=== PATIENT | male | born 1945 | race Caucasian/White ===

== ENCOUNTER 2018-08-29 18:29 | Inpatient (IN) | payer MEDICARE, OTHER ==
[~2018-08-29] VITALS: Ht 167.6 cm; Wt 88.5 kg
--- OUTSIDE RECORDS SUMMARY | 2018-08-29 19:00 | XMS REPORT | CCD ---
Author Author EDMUNDO CORTES Organization Unknown Address [address] [place] [address] Care Team Providers Care Dry Plasterer Name Role Phone DELORES WALLER DO Attphys TAMMIE LYNCH, CHRISTOPHER Jackson HOLGA Fisher Allergies Allergy Code Allergy Type Reaction Status DEMEROL 742900 Drug allergy 1987 POST OP HERNIA CAUSED N/ V Active Active Medications Medication Code Dose Units Frequency Route Modification Start Date/Time ACYCLOVIR IV(PREDEFINED) Q4H IVPB 07/11/2016 13:36 ~~ ACYCLOVIR [ZOVIRAX] INJ : 500 MG VIAL 2630090 500 MG ~~ DO NOT REFRIGERATE!!!!! [id number] 1 EA ~~ NACL 0.9%: 100 ML BAG 9511331 1 EA VANCOMYCIN [PREDEFINED] ADV IV : 1000MG [id number] Q12H IVPB 07/11/2016 08:00 ~~ NACL 0.9% ADD-VANTAGE: 250 ML BAG 4349488 250 ML ~~ VANCOMYCIN: 1 GM ADD-VANTAGE VIAL 2858454 9093 MG DOXYCYCLINE IV 100 MG [PREDEFINED] Q12H IVPB 07/11/2016 06:00 ~~ DOXYCYCLINE (VIBRAMYCIN)VIAL: 100 MG 4744108 100 MG ~~ NACL 0.9%: 100 ML BAG 5596203 100 ML ~~ PROTECT FROM LIGHT [id number] 1 EA ~~ REFRIGERATE [id number] 1 EA ROCEPHIN IV [PREDEFINED]: 1GM IV Q 24 HR 6783494 Q24H IVPB 07/11/2016 05:45 ~~ cefTRIAXone [ROCEPHIN] 1 GM ADV VIAL 3624779 1 GM ~~ NACL 0.9% ADD-VANTAGE: 50 ML BAG 8347673 50 ML ACETAMINOPHEN [TYLENOL] SUPPOS : 650MG 632340 650 MG PRN RECTALLY 07/11/2016 05:27 INSULIN [REGULAR] 100 UNITS/ML (IV) PRN INTRAVENOUS 07/11/2016 02:58 D5 1/2NS 1000ML IV [PREDEFINED] 6917455 CONT IV IV 07/11/2016 01:44 ~~ D5 0.45%NACL (7926)1000ML BAG 7085344 8571 ML HALOPERIDOL [HALDOL] INJ: 5MG/ML VIAL 1616706 1 MG PRN IV 07/11/2016 01:01 NS 1000 ML IV [PREDEFINED] (7983) 7377279 CONT IV IV 07/10/2016 23:52 ~~ NACL 0.9% (7983) 1000ML IV BAG 0554767 5672 ML HydrALAzine [APRESOLINE] 20 MG/1ML VIAL 651829 10 MG PRN Q 4 HRS SIVP 07/10/2016 23:42 ACETAMINOPHEN ES [TYLENOL] TAB : 500 MG 531044 500 MG PRN PO 07/10/2016 23:38 LORAZEPAM (ATIVAN) INJ : 2 MG/ML TUBEX 563603 1 MG PRN IVP 07/10/2016 23:38 ONDANSETRON [ZOFRAN] INJ 4 MG/2 ML VIAL 3738727 4 MG PRN SIVP 07/10/2016 23:38 PANTOPRAZOLE [PROTONIX] INJ VIAL: 40 MG 625759 40 MG DAILY SIVP 07/10/2016 23:38 Procedures Procedure Code Procedure Type Date Drainage of Spinal Canal, Percutaneous Approach, Diagnostic [id number] ICD-10 PCS 07/11/2016 CX CHEST [id number] 07/11/2016 CX CHEST [address] 07/11/2016 CX CHEST [address] 07/10/2016 CT HEAD W/O CONTRAST 027919328 SNOMED CT 07/10/2016 BEDSIDE GLUCOSE 35484322 SNOMED CT 07/10/2016 BEDSIDE GLUCOSE 33974305 SNOMED CT 07/10/2016 BEDSIDE GLUCOSE 32347463 SNOMED CT 07/11/2016 BEDSIDE GLUCOSE 57813564 SNOMED CT 07/11/2016 BEDSIDE GLUCOSE 80940544 SNOMED CT 07/11/2016 CSF ROUTINE EXAM 960314069 SNOMED CT 07/11/2016 BEDSIDE GLUCOSE 81551590 SNOMED CT 07/11/2016 [address]99[address]12 [address] 07/11/2016 BEDSIDE GLUCOSE 77950044 SNOMED CT 07/11/2016 BEDSIDE GLUCOSE 40702908 SNOMED CT 07/11/[address] 07/11/2016 BEDSIDE GLUCOSE 69863310 SNOMED CT 07/11/2016 BEDSIDE GLUCOSE 87851898 SNOMED CT 07/11/2016 LACTIC AC[address] 8085159 [address] 07/11/2016 BEDSIDE GLUCOSE 10954793 SNOMED CT 07/11/2016 BEDSIDE GLUCOSE 90819250 SNOMED CT 07/11/2016 CULTURE SPUTUM 996789516 SNOMED CT 07/11/2016 CULTURE BLOOD 53552419 SNOMED CT 07/11/2016 CULTURE BLOOD 78871502 SNOMED CT 07/11/2016 BEDSIDE GLUCOSE 16185712 SNOMED CT 07/11/2016 BEDSIDE GLUCOSE 88147877 SNOMED CT 07/11/2016 BEDSIDE GLUCOSE 99909669 SNOMED CT 07/11/2016 BEDSIDE GLUCOSE 83895922 SNOMED CT 07/11/2016 VENOUS BLOOD GAS 25829716 SNOMED CT 07/11/2016 BEDSIDE GLUCOSE 47766365 SNOMED CT 07/11/2016 UA ROUTINE C&S IF IND 196417434 SNOMED CT 07/10/[address] 07/11/[address]GLOBIN A1C 57983926 SNOM[address] CT 07/11/2016 LIPID PANEL 068[address]67 [address] 07/11/[address] 07/11/[address] 07/11/2016 COMPREHENSIVE METABOLIC PANEL 985635539 SNOMED CT 2016 CBC W/ AUTO DIFF (RFLX MAN DIFF IF IND) 2793614 SNOMED CT 07/11/2016 BEDSIDE GLUCOSE 47466517 SNOMED CT 07/10/2016 TROPONIN-I ADV 651637169 SNOMED CT 07/10/2016 VENOUS BLOOD GAS 30233471 SNOMED CT 07/10/2016 COMPREHENSIVE METABOLIC PANEL 753376165 SNOMED CT 2016 CBC W/ AUTO DIFF (RFLX MAN DIFF IF IND) 6005513 SNOMED CT 07/10/2016 TECH ASSIST HOURLY 450844193 SNOMED CT 07/11/2016 ^SENSITIVITY 624953609 SNOMED CT 07/11/2016 ^CBC W/ MANUAL DIFF 19024066 SNOMED CT 07/11/2016 ^UA WITH MICRO 133369315 SNOMED CT 07/11/2016 ^CBC W/AUTO DIFF 7492036 SNOMED CT 07/10/2016 Results BEDSIDE GLUCOSE - Collect Date/Time: 07/11/2016 17:24 Test Name Code Test Result Test Units Test Ref Range GLUCOSE POCT 201 MG/DL L=70 H=100 BEDSIDE GLUCOSE - Collect Date/Time: 07/11/2016 16:07 Test Name Code Test Result Test Units Test Ref Range GLUCOSE POCT 180 MG/DL L=70 H=100 BEDSIDE GLUCOSE - Collect Date/Time: 07/11/2016 14:58 Test Name Code Test Result Test Units Test Ref Range GLUCOSE POCT 199 MG/DL L=70 H=100 BEDSIDE GLUCOSE - Collect Date/Time: 07/11/2016 13:27 Test Name Code Test Result Test Units Test Ref Range GLUCOSE POCT 255 MG/DL L=70 H=100 BEDSIDE GLUCOSE - Collect Date/Time: 07/11/2016 12:18 Test Name Code Test Result Test Units Test Ref Range GLUCOSE POCT 230 MG/DL L=70 H=100 BEDSIDE GLUCOSE - Collect Date/Time: 07/11/2016 10:58 Test Name Code Test Result Test Units Test Ref Range GLUCOSE POCT 237 MG/DL L=70 H=100 BEDSIDE GLUCOSE - Collect Date/Time: 07/11/2016 09:33 Test Name Code Test Result Test Units Test Ref Range GLUCOSE POCT 313 MG/DL L=70 H=100 BEDSIDE GLUCOSE - Collect Date/Time: 07/11/2016 08:29 Test Name Code Test Result Test Units Test Ref Range GLUCOSE POCT 309 MG/DL L=70 H=100 BEDSIDE GLUCOSE - Collect Date/Time: 07/11/2016 06:58 Test Name Code Test Result Test Units Test Ref Range GLUCOSE POCT 380 MG/DL L=70 H=100 BEDSIDE GLUCOSE - Collect Date/Time: 07/11/2016 06:06 Test Name Code Test Result Test Units Test Ref Range GLUCOSE POCT 352 MG/DL L=70 H=100 BEDSIDE GLUCOSE - Collect Date/Time: 07/11/2016 05:14 Test Name Code Test Result Test Units Test Ref Range GLUCOSE POCT 342 MG/DL L=70 H=100 BEDSIDE GLUCOSE - Collect Date/Time: 07/11/2016 04:05 Test Name Code Test Result Test Units Test Ref Range GLUCOSE POCT 298 MG/DL L=70 H=100 BEDSIDE GLUCOSE - Collect Date/Time: 07/11/2016 03:02 Test Name Code Test Result Test Units Test Ref Range GLUCOSE POCT 312 MG/DL L=70 H=100 BEDSIDE GLUCOSE - Collect Date/Time: 07/11/2016 01:42 Test Name Code Test Result Test Units Test Ref Range GLUCOSE POCT 202 MG/DL L=70 H=100 BEDSIDE GLUCOSE - Collect Date/Time: 07/11/2016 00:09 Test Name Code Test Result Test Units Test Ref Range GLUCOSE POCT 390 MG/DL L=70 H=100 BEDSIDE GLUCOSE - Collect Date/Time: 07/10/2016 23:27 Test Name Code Test Result Test Units Test Ref Range GLUCOSE POCT 413 MG/DL L=70 H=100 BEDSIDE GLUCOSE - Collect Date/Time: 07/10/2016 22:38 Test Name Code Test Result Test Units Test Ref Range GLUCOSE POCT 29090-2 >500 MG/DL L=70 H=100 BEDSIDE GLUCOSE - Collect Date/Time: 07/10/2016 21:27 Test Name Code Test Result Test Units Test Ref Range GLUCOSE POCT 46008-2 >500 MG/DL L=70 H=100 COMPREHENSIVE METABOLIC PANEL - Collect Date/Time: 07/11/2016 06:36 Test Name Code Test Result Test Units Test Ref Range GLUCOSE 2345-7 402 MG/DL L=70 H=100 SODIUM 2951-2 137 MEQ/L L=135 H=148 POTASSIUM 2823-3 3.6 MEQ/L L=3.5 H=5.3 CHLORIDE 2075-0 100 MEQ/L L=96 H=110 CO2 2028-9 23 MEQ/L L=22 H=29 BUN 3094-0 12 MG/DL L=8 H=22 CREATININE 2160-0 1.2 MG/DL L=0.6 H=1.6 SGOT/AST 1920-8 18 IU/L L=10 H=40 SGPT/ALT 1742-6 11 IU/L L=8 H=54 ALK PHOS 6768-6 100 IU/L L=35 H=115 TOTAL PROTEIN 2885-2 7.2 G/DL L=5.5 H=8.5 ALBUMIN 1751-7 3.7 G/DL L=3.1 H=5.4 TOTAL BILI 1975-2 1.2 MG/DL L=0.0 H=1.5 CALCIUM 65896-1 9.8 MG/DL L=8.2 H=10.6 AGE [birth year]21-8 71 yrs GFR NonAA 50474-5 60 GFR AA 23384-8 73 eGFR 73618-6 60 mL/min/1.7 eGFR AA* 43578-2 >60 N/A COMPREHENSIVE METABOLIC PANEL - Collect Date/Time: 07/10/2016 21:35 Test Name Code Test Result Test Units Test Ref Range GLUCOSE 2345-7 700 MG/DL L=70 H=100 SODIUM 2951-2 133 MEQ/L L=135 H=148 POTASSIUM 2823-3 4.1 MEQ/L L=3.5 H=5.3 CHLORIDE 2075-0 96 MEQ/L L=96 H=110 CO2 2028-9 20 MEQ/L L=22 H=29 BUN 3094-0 14 MG/DL L=8 H=22 CREATININE 2160-0 1.5 MG/DL L=0.6 H=1.6 SGOT/AST 1920-8 11 IU/L L=10 H=40 SGPT/ALT 1742-6 11 IU/L L=8 H=54 ALK PHOS 6768-6 127 IU/L L=35 H=115 TOTAL PROTEIN 2885-2 7.6 G/DL L=5.5 H=8.5 ALBUMIN 1751-7 3.8 G/DL L=3.1 H=5.4 TOTAL BILI 1975-2 1.0 MG/DL L=0.0 H=1.5 CALCIUM 13904-6 9.9 MG/DL L=8.2 H=10.6 AGE 71 yrs GFR NonAA 46 GFR AA 56 eGFR 46 mL/min/1.7 eGFR AA* 56 mL/min/1.7 LIPID PANEL - Collect Date/Time: 07/11/2016 06:36 Test Name Code Test Result Test Units Test Ref Range TRIGLYCERIDES 3043-7 67 MG/DL L=0 H=135 CHOLESTEROL 2093-3 206 MG/DL L=0 H=199 HDL 2085-9 51 MG/DL L=27 H=67 TOT CHOL/HDL 69146-5 4.0 L=0.0 H=5.0 LDL (CALC) 96351-9 142 MG/DL L=0 H=129 MAGNESIUM - Collect Date/Time: 07/11/2016 06:36 Test Name Code Test Result Test Units Test Ref Range MAGNESIUM 05338-6 1.6 MG/DL L=1.7 H=2.8 PHOSPHORUS - Collect Date/Time: 07/11/2016 06:36 Test Name Code Test Result Test Units Test Ref Range PHOSPHORUS 2777-1 0.8 MG/DL L=2.5 H=4.5 CBC W/ AUTO DIFF (RFLX MAN DIFF IF IND) - Collect Date/Time: 07/11/2016 06:36 Test Name Code Test Result Test Units Test Ref Range WBC 92452-1 16.5 TH/CMM L=4.5 H=10.8 RBC 789-8 5.04 ML/CMM L=4.70 H=6.10 HGB 718-7 14.1 G/DL L=14.0 H=18.0 HCT 4544-3 41.7 % L=42.0 H=52.0 MCV 15807-5 83 FL L=81 H=99 MCH 50700-3 28.0 PG L=27.0 H=33.0 MCHC 37404-3 33.8 G/DL L=31.0 H=36[place]0 [place] [address]-6 38 FL L=36 H=50 [place] [address]-8 12.6 % L=0.0 H=14.8 MPV 86587-0 11.2 FL L=9.3 H=12.5 PLT 777-3 212 TH/CMM L=130 H=440 NRBC# 33276-9 0.00 TH/CMM L=0.00 H=0.00 NRBC% 61593-7 0.0 /100WBC L=0.0 H=2.0 %NEUT 79509-3 86.6 % %LYMP 75960-1 7.4 % %MONO 47268-0 5.2 % %EOS 60071-0 0.1 % %BASO 48965-0 0.3 % #NEUT 89094-2 14.32 TH/CMM L=2.10 H=8.20 #LYMP 08459-1 1.23 TH/CMM L=0.90 H=5.20 #MONO 02526-5 0.86 TH/CMM L=0.16 H=1.00 #EOS 47004-7 0.01 TH/CMM L=0.00 H=0.80 #BASO 30474-6 0.05 TH/CMM L=0.00 H=0.20 SEGS 44222-4 76 % BANDS 68920-0 8 % LYMPHS 80846-3 9 % MONOS 94872-6 5 % MANUAL DIFF 00514-2 SEE BELOW N/A ATYP LYMPHS 20845-5 2 N/A CBC W/ AUTO DIFF (RFLX MAN DIFF IF IND) - Collect Date/Time: 07/10/2016 21:35 Test Name Code Test Result Test Units Test Ref Range WBC 94674-8 9.5 TH/CMM L=4.5 H=10.8 RBC 789-8 5.23 ML/CMM L=4.70 H=6.10 HGB 718-7 14.8 G/DL L=14.0 H=18.0 HCT 4544-3 43.5 % L=42.0 H=52.0 MCV 83 FL L=81 H=99 MCH 28.3 PG L=27.0 H=33.0 MCHC 34.0 G/DL L=31.0 H=36.0 RDW SD 37 FL L=36 H=50 RDW CV 12.5 % L=0.0 H=14.8 MPV 11.4 FL L=9.3 H=12.5 PLT 777-3 192 TH/CMM L=130 H=440 NRBC# 0.00 TH/CMM L=0.00 H=0.00 NRBC% 0.0 /100WBC L=0.0 H=2.0 %NEUT 71.0 % %LYMP 21.4 % %MONO 5.6 % %EOS 1.0 % %BASO 0.5 % #NEUT 6.71 TH/CMM L=2.10 H=8.20 #LYMP 2.02 TH/CMM L=0.90 H=5.20 #MONO 0.53 TH/CMM L=0.16 H=1.00 #EOS 0.09 TH/CMM L=0.00 H=0.80 #BASO 0.05 TH/CMM L=0.00 H=0.20 MANUAL DIFF NOT IND N/A MENINGITIS/ENCEPHALITIS PANEL - Collect Date/Time: 07/11/2016 13:50 Test Name Code Test Result Test Units Test Ref Range Escherichia coli K1 Not Detected N/A NEG: Not Detected Haemophilus influen Not Detected N/A NEG: Not Detected Listeria monocytoge Not Detected N/A NEG: Not Detected Neisseria meningiti Not Detected N/A NEG: Not Detected Strep agalactiae Not Detected N/A NEG: Not Detected Strep pneumoniae Not Detected N/A NEG: Not Detected Cytomegalovirus Not Detected N/A NEG: Not Detected Enterovirus Not Detected N/A NEG: Not Detected Herpes simplex vir1 Not Detected N/A NEG: Not Detected Herpes simplex vir2 Not Detected N/A NEG: Not Detected Human herpesvirus 6 Not Detected N/A NEG: Not Detected Human parechovirus Not Detected N/A NEG: Not Detected Varicella zoster vi Not Detected N/A NEG: Not Detected Cryptococcus dorothea/ga Not Detected N/A NEG: Not Detected RESPIRATORY PANEL - Collect Date/Time: 07/11/2016 06:45 Test Name Code Test Result Test Units Test Ref Range Adenovirus Not Detected N/A NEG: Not Detected Coronavirus 229E Not Detected N/A NEG: Not Detected Coronavirus HKU1 Not Detected N/A NEG: Not Detected Coronavirus NL63 Not Detected N/A NEG: Not Detected Coronavirus OC43 Not Detected N/A NEG: Not Detected Human Metapneumoviru Not Detected N/A NEG: Not Detected Human Rhinov/Enterov Not Detected N/A NEG: Not Detected Influenza A Not Detected N/A NEG: Not Detected Influenza B Not Detected N/A NEG: Not Detected Parainfluenza Virus1 Not Detected N/A NEG: Not Detected Parainfluenza Virus2 Not Detected N/A NEG: Not Detected Parainfluenza Virus3 Not Detected N/A NEG: Not Detected Parainfluenza Virus4 Not Detected N/A NEG: Not Detected Resp Syncytial Virus Not Detected N/A NEG: Not Detected Bordetella pertussis Not Detected N/A NEG: Not Detected Chlamydophila pneumo Not Detected N/A NEG: Not Detected Mycoplasma pneumonia Not Detected N/A NEG: Not Detected UA ROUTINE C&S IF IND - Collect Date/Time: 07/11/2016 07:06 Test Name Code Test Result Test Units Test Ref Range COLOR 32608-5 YELLOW N/A NL: YELLOW APPEARANCE 85172-4 CLOUDY N/A NL: CLEAR SPEC GRAV 90144-9 1.020 N/A NL: 1.002 - 1.022 pH 07950-0 6.5 N/A NL: 5 - 9 PROTEIN 01032-8 100 N/A NL: NEGATIVE mg/dl GLUCOSE 13032-1 >=1000 N/A NL: NEGATIVE mg/dl KETONE 06747-4 TRACE N/A NL: NEGATIVE mg/dl BILIRUBIN 51093-0 NEGATIVE N/A NL: NEGATIVE BLOOD 80302-9 LARGE N/A NL: NEGATIVE NITRITE 36939-7 NEGATIVE N/A NL: NEGATIVE LEUK SCREEN 43421-4 NEGATIVE N/A NL: NEGATIVE MICRO INDICATED? 20493-1 SEE BELOW N/A WBC/HPF 80638-0 RARE N/A NL: NEGATIVE RBC/HPF 63627-6 100-200 N/A NL: NEGATIVE CASTS/LPF 30248-1 NEGATIVE N/A NL: NEGATIVE CRYSTALS 02726-7 NEGATIVE N/A NL: NEGATIVE MUCOUS THRDS 35836-9 NEGATIVE N/A NL: NEGATIVE BACTERIA 05806-2 FEW N/A NL: NEGATIVE EPITH CELLS 13661-5 NEGATIVE N/A NL: NEGATIVE TRICHOMONAS 90936-0 NEGATIVE N/A NL: NEGATIVE YEAST 27953-4 NEGATIVE N/A NL: NEGATIVE CULT SET UP? 80920-2 NO N/A HEMOGLOBIN A1C - Collect Date/Time: 07/11/2016 06:36 Test Name Code Test Result Test Units Test Ref Range HGB A1C 51508-2 13.2 % L=4.0 H=6.4 Est Avg Glucose 99283-1 332.1 mg/dL TROPONIN-I ADV - Collect Date/Time: 07/10/2016 21:35 Test Name Code Test Result Test Units [place] [address]-7 <0.04 ng/mL L=0.04 H= 0.40 TSH - Collect Date/Time: 07/11/2016 06:36 Test Name Code Test Result Test Units Test Ref Range TSH 87951-9 0.59 mIU/L L=0.35 H=4.94 VENOUS BLOOD GAS - Collect Date/Time: 07/11/2016 06:36 Test Name Code Test Result Test Units Test Ref Range vPH 67024-7 7.39 L=7.32 H=7.43 vPCO2 16621-9 43 mmHG L=40 H=60 vPO2 31906-2 26 mmHG L=30 H=55 vBE 58650-7 0.6 mmol/L L=-2.0 H=2.0 vHCO3 95070-8 25 mmol/L L=22 H=27 vTCO2 63526-2 22 mmol/L L=24 H=28 vO2SAT 37782-1 49 % L=40 H=85 SITE 07735-6 L AC N/A FIO2 22015-6 ROOM AIR N/A VENOUS BLOOD GAS - Collect Date/Time: 07/10/2016 21:35 Test Name Code Test Result Test Units Test Ref Range vPH 7.35 L=7.32 H=7.43 vPCO2 41 mmHG L=40 H=60 vPO2 75 mmHG L=30 H=55 vHCO3 22 mmol/L L=22 H=27 vTCO2 19 mmol/L L=24 H=28 vO2SAT 95 % L=40 H=85 SITE L HAND N/A FIO2 RA N/A vBE -2.7 N/A L=-2.0 H=2.0 LACTIC ACID - Collect Date/Time: 07/11/2016 12:10 Test Name Code Test Result Test Units Test Ref Range LACTIC ACID 2524-7 3.1 mmol/L L=0.5 H=1.6 LACTIC ACID - Collect Date/Time: 07/11/2016 06:36 Test Name Code Test Result Test Units Test Ref Range LACTIC ACID 2524-7 3.3 mmol/L L=0.5 H=1.6 Function Status Unknown or Not Available. History of Immunizations Immunization Code Date Influenza, seasonal, injectable 141 06/01/2014 Influenza, seasonal, injectable 141 04/13/2015 Influenza, seasonal, injectable 141 06/01/2014 Influenza, seasonal, injectable 141 04/13/2015 Influenza, seasonal, injectable 141 07/28/2016 Plan of Treatment Unknown or Not Available. Social History Smoking Status Code Start Date End Date Never smoker [id number] Vital Signs Vital Sign Value Unit Date/Time Recent/Initial? Weight Measured 189.4 [lb_av] 07/11/2016 00:25 Initial VS Height 66 [in_i] 07/11/2016 00:25 Initial VS BMI (Body Mass Index) 30.57 kg/m2 07/11/2016 00:25 Initial VS BSA (Body Surface Area) 2 m2 07/11/2016 00:25 Initial VS BP Systolic 170 mm[Hg] 07/11/2016 00:25 Initial VS BP Diastolic 110 mm[Hg] 07/11/2016 00:25 Initial VS Respiratory Rate 17 /min 07/11/2016 00:25 Initial VS Heart Rate 102 /min 07/11/2016 00:25 Initial VS Body Temperature 99.1 [degF] 07/11/2016 00:25 Initial VS O2 % BldC Oximetry 99 % 07/11/2016 00:27 Initial VS Weight Measured 189.4 [lb_av] 07/11/2016 01:01 Most Recent VS Height 66 [in_i] 07/11/2016 01:01 Most Recent VS BMI (Body Mass Index) 30.51 kg/m2 07/11/2016 01:01 Most Recent VS BSA (Body Surface Area) 2 m2 07/11/2016 01:01 Most Recent VS Body Temperature 102.5 [degF] 07/11/2016 15:53 Most Recent VS O2 % BldC Oximetry 100 % 07/11/2016 17:00 Most Recent VS BP Systolic 186 mm[Hg] 07/11/2016 17:08 Most Recent VS BP Diastolic 79 mm[Hg] 07/11/2016 17:08 Most Recent VS Respiratory Rate 13 /min 07/11/2016 17:10 Most Recent VS Heart Rate 115 /min 07/11/2016 17:10 Most Recent VS Function Status Unknown or Not Available. Goals Unknown or Not Available. ASSESSMENTS Unknown or Not Available. Health Concerns Section Unknown or Not Available.
--- OUTSIDE RECORDS SUMMARY | 2018-08-29 19:00 | XMS REPORT | CCD ---
Author Author GEMMA GONG Organization Unknown Address [address] [facility] [address] [place], [place] [address] Care Team Providers Care Silk Finisher Name Role Phone TAMMIE LYNCH, CHRISTOPHER Gonzalez Attphys CHRISTOPHER CHO MD Vital Signs Unknown or Not Available. Allergies Allergy Code Allergy Type Reaction Status DEMEROL 798243 Drug allergy 1987 POST OP HERNIA CAUSED N/ V Active Procedures Procedure Code Procedure Type Date KNEE 4V MIN 05917848 SNOMED CT 12/29/2014 KNEE 4V MIN 60420366 SNOMED CT 12/29/2014 History of Immunizations Immunization Code Date Influenza, seasonal, injectable 141 06/01/2014 Problems Problem Code Start Date Resolved Date Status Stroke [id number] Active Results Unknown or Not Available. Active Medications Medication Code Dose Units Frequency Route Modification Start Date/Time Atorvastatin Calcium 20MG Oral Tablet 040856 40 MILLIGRAMS BEDTIME BY MOUTH 02/12/2015 13:47 Lyrica 150MG Oral Capsule 608214 150 MILLIGRAMS TWO TIMES A DAY ORAL 02/12/2015 12:26 Acetaminophen 325MG Oral Tablet 579925 650 MILLIGRAMS NEEDED BY MOUTH 06/11/2014 14:18 DULoxetine Hydrochloride 30MG Oral Capsule, Delayed Release 214109 30 MILLIGRAMS DAILY BY MOUTH 06/11/2014 14:18 Pioglitazone 15MG Oral Tablet 397777 45 TABS DAILY BY MOUTH 06/11/2014 14:18 Tamsulosin Hydrochloride 0.4MG Oral Capsule 401748 0.4 MILLIGRAMS AT BEDTIME BY MOUTH 06/11/2014 14:18 Cyclobenzaprine Hydrochloride 10MG Oral Tablet 536879 5 MILLIGRAMS PRN TID BY MOUTH 06/11/2014 14:17 Lisinopril 10MG Oral Tablet 008523 10 MILLIGRAMS DAILY BY MOUTH 06/11/2014 14:17 metFORMIN HCl 500MG Oral Tablet 402016 4587 MILLIGRAMS TWICE WITH MEALS BY MOUTH 06/11/2014 14:17 Plavix 75MG Oral Tablet 445062 75 MILLIGRAMS DAILY BY MOUTH 06/11/2014 14:17 Verapamil HCl 240MG Oral Tablet, Extended Release 698674 240 MILLIGRAMS DAILY BY MOUTH 06/11/2014 14:17 Medications Administered During Visit Unknown or Not Available. Encounters Encounter Diagnosis Diagnosis Code Start Date CONTUSION OF KNEE 59752 12/29/2014 Social History Smoking Status Code Start Date End Date Never smoker [id number] Patient Decision Aids Unknown or Not Available. Discharge Instructions You were admitted to [facility] on 12/29/2014 with a principal diagnosis of CONTUSION OF KNEE. You were discharged from [facility] on 12/29/2014. Should you have any questions prior to discharge, please contact a member of your healthcare team. If you have left the hospital and have any questions, please contact your primary care physician. Chief Complaint and Reason For Visit Chief Complaint Date of Onset LEG PAIN KNEE PAIN Function Status Unknown or Not Available. Referral/Transition of Care Unknown or Not Available.
--- OUTSIDE RECORDS SUMMARY | 2018-08-29 19:01 | XMS REPORT | CCD ---
Author Author HARRISON ZEE Unknown Address [address] [facility] [address] [place], [place] [address] Care Team Providers Care Hog Buyer Name Role Phone KILLBUCK ER, DEAN DO Attphys KILLBUCK ER, DEAN DO Prisurg Vital Signs Unknown or Not Available. Allergies Allergy Code Allergy Type Reaction Status DEMEROL 380130 Drug allergy 1986 POST OP HERNIA CAUSED N/ V Active No Known Drug Allergies 0 No known drug allergies Active Procedures Procedure Code Procedure Type Date CX CHEST [address] 02/08/2016 [facility] 24349663 SNOMED CT 02/08/2016 History of Immunizations Immunization Code Date Influenza, seasonal, injectable 141 06/01/2014 Influenza, seasonal, injectable 141 04/13/2015 Results Unknown or Not Available. Active Medications Medication Code Dose Units Frequency Route Modification Start Date/Time Lantus 100U/1ML Subcutaneous Solution 789138 20 units AT BEDTIME SUBCUTANEOUS 04/13/2015 10:22 Prescription Detail 20 units SUBCUTANEOUS AT BEDTIME NovoLOG 100U/1ML Subcutaneous Solution 237049 5 units WITH EACH MEAL SUBCUTANEOUS 04/13/2015 10:22 Prescription Detail 5 units SUBCUTANEOUS WITH EACH MEAL Atorvastatin Calcium 20MG Oral Tablet 746397 40 MILLIGRAMS BEDTIME BY MOUTH 02/12/2015 13:47 Prescription Detail 40 MILLIGRAMS BY MOUTH BEDTIME Lyrica 150MG Oral Capsule 055189 150 MILLIGRAMS TWO TIMES A DAY ORAL 02/12/2015 12:26 Prescription Detail 150 MILLIGRAMS ORAL TWO TIMES A DAY Acetaminophen 325MG Oral Tablet [id number] 650 MILLIGRAMS NEEDED BY MOUTH 06/11/2014 14:18 Prescription Detail 650 MILLIGRAMS BY MOUTH NEEDED DULoxetine Hydrochloride 30MG Oral Capsule, Delayed Release 866522 30 MILLIGRAMS DAILY BY MOUTH 06/11/2014 14:18 Prescription Detail 30 MILLIGRAMS BY MOUTH DAILY Pioglitazone 15MG Oral Tablet 465322 45 TABS DAILY BY MOUTH 06/11/2014 14:18 Prescription Detail 45 TABS BY MOUTH DAILY Tamsulosin Hydrochloride 0.4MG Oral Capsule 430491 0.4 MILLIGRAMS AT BEDTIME BY MOUTH 06/11/2014 14:18 Prescription Detail 0.4 MILLIGRAMS BY MOUTH AT BEDTIME Cyclobenzaprine Hydrochloride 10MG Oral Tablet 847435 5 MILLIGRAMS PRN TID BY MOUTH 06/11/2014 14:17 Prescription Detail 5 MILLIGRAMS BY MOUTH PRN TID Lisinopril 10MG Oral Tablet 271896 10 MILLIGRAMS DAILY BY MOUTH 06/11/2014 14:17 Prescription Detail 10 MILLIGRAMS BY MOUTH DAILY metFORMIN HCl 500MG Oral Tablet 559392 9493 MILLIGRAMS TWICE WITH MEALS BY MOUTH 06/11/2014 14:17 Prescription Detail 1000 MILLIGRAMS BY MOUTH TWICE WITH MEALS Plavix 75MG Oral Tablet 267181 75 MILLIGRAMS DAILY BY MOUTH 06/11/2014 14:17 Prescription Detail 75 MILLIGRAMS BY MOUTH DAILY Verapamil HCl 240MG Oral Tablet, Extended Release 580752 240 MILLIGRAMS DAILY BY MOUTH 06/11/2014 14:17 Prescription Detail 240 MILLIGRAMS BY MOUTH DAILY Medications Administered During Visit Unknown or Not Available. Encounters Encounter Diagnosis Diagnosis Code Start Date Acute bronchitis, unspecified J209 02/08/2016 Social History Smoking Status Code Start Date End Date Never smoker [id number] Patient Decision Aids Unknown or Not Available. Discharge Instructions You were admitted to [facility] on 02/08/2016 17:12 with a principal diagnosis of Acute bronchitis, unspecified You were discharged from [facility] on 02/08/2016 19:35 Should you have any questions prior to discharge, please contact a member of your healthcare team. If you have left the hospital and have any questions, please contact your primary care physician. Chief Complaint and Reason For Visit Chief Complaint Date of Onset COUGH Function Status Unknown or Not Available. Plan of Care Unknown or Not Available. Referral/Transition of Care Unknown or Not Available.
--- OUTSIDE RECORDS SUMMARY | 2018-08-29 19:01 | XMS REPORT | Referral Summary ---
Author Author [facility] Organization [facility] Address Unknown Phone Unavailable Encounter VC MEZA [id number] Date(s): 07/11/16 - 07/19/16 [facility] [address] [place] [address] Discharge Diagnosis: Hypertension Discharge Diagnosis: Type 2 diabetes mellitus with hyperosmolarity without nonketotic hyperglycemic-hyperosmolar coma (nkhhc) Discharge Diagnosis: Aortic stenosis Discharge Diagnosis: Diabetes Discharge Diagnosis: Acute hypoxemic respiratory failure Discharge Diagnosis: Acute ischemic stroke Discharge Diagnosis: Depression Discharge Disposition: 62-Inpatient Rehab Facility Attending Physician: Von Mack JR, MD Admitting Physician: Danny Smith MD Vital Signs Most recent to 1 oldest [Reference Range]: Temperature Tympanic 36.6 degC [36.6-38.1 degC] (07/12/16 12:00 PM) Temperature Temporal 36.6 degC Artery [36.3-37.8 (07/19/16 8:00 AM) degC] Peripheral Pulse 81 bpm Rate [60-100 bpm] (07/19/16 9:58 AM) Heart Rate Monitored 77 bpm [60-100 bpm] (07/19/16 10:53 AM) Respiratory Rate 13 br/min [14-20 br/min] *LOW* (07/19/16 10:53 AM) Blood Pressure 138/79 mmHg [90-140/60-90 mmHg] (07/19/16 10:53 AM) Mean Arterial 104 mmHg Pressure, Cuff (07/19/16 10:53 AM) SpO2 96 % (07/19/16 9:53 AM) Remote Telemetry Ongoing (07/19/16 8:00 AM) Problem List Condition Effective Dates Status Health Status Informant Acute Active pain(Confirmed) Aortic Active patient stenosis(Confirmed) At risk for Active injury(Confirmed)1 At risk of pressure Active sore(Confirmed) Diabetes(Confirmed) Active patient Hyperlipidemia(Confi Active patient rmed) Hypertension(Confirm Active patient ed) Impaired gas Active exchange(Confirmed)2 Ineffective airway Active clearance(Confirmed) 3 BPH (benign Active patient prostatic hyperplasia)(Confirm ed) Depression(Confirmed Active ) 1Problem added automatically by system based on initiation of Risk for Injury Plan of Care 2Problem added automatically by system based on initiation of Impaired Gas Exchange Plan of Care 3Problem added automatically by system based on initiation of Ineffective Airway Clearance Plan of Care Allergies, Adverse Reactions, Alerts Substance Reaction Severity Status meperidine Active Medications aspirin 325 mg oral tablet 325 mg 1 tabs, Oral, Daily, 0 Refill(s) Start Date: 07/19/16 Status: Ordered atorvastatin 80 mg oral tablet 80 mg 1 tabs, Oral, Daily, 0 Refill(s) Start Date: 07/19/16 Status: Ordered DULoxetine 60 mg oral delayed release capsule 60 mg 1 caps, Oral, Daily, 0 Refill(s) Start Date: 07/19/16 Status: Ordered finasteride 5 mg, Oral, Daily, 0 Refill(s) Start Date: 07/11/16 Status: Ordered Lantus 100 units/mL subcutaneous solution 20 units, SubCutaneous, Bedtime (once a day), 0 Refill(s) Start Date: 07/11/16 Status: Ordered Lyrica 75 mg, Oral, BID, 0 Refill(s) Start Date: 07/11/16 Status: Ordered metoprolol succinate 100 mg oral tablet, extended release 100 mg 1 tabs, Oral, Daily, 0 Refill(s) Start Date: 07/19/16 Status: Ordered Norvasc 5 mg oral tablet 5 mg 1 tabs, Oral, Daily, 0 Refill(s) Start Date: 07/19/16 Status: Ordered NovoLOG 100 units/mL subcutaneous solution 5 units, SubCutaneous, TIDAC, 0 Refill(s) Start Date: 07/11/16 Status: Ordered Proventil HFA 90 mcg/inh inhalation aerosol 2-6 puffs, Inhalation, q2hr (scheduled), Shortness of Breath/Wheezing, 0 Refill( s) Start Date: 07/19/16 Status: Ordered tamsulosin 0.4 mg oral capsule 0.4 mg 1 caps, Oral, Daily, 0 Refill(s) Start Date: 07/19/16 Status: Ordered Results Blood Gases Most recent to 1 oldest [Reference Range]: pH [7.35-7.45] 7.38 (07/13/16 5:53 AM) pCO2 Art [35-45 31 mmHg mmHg] *LOW* (07/13/16 5:53 AM) Bicarbonate [22-26 18 mEq/L mEq/L] *LOW* (07/13/16 5:53 AM) Base Excess Art -6 [0-2] *LOW* (07/13/16 5:53 AM) O2 Sat Art 96.1 % [90.0-97.0 %] (07/13/16 5:53 AM) pO2 Art [80-100 86 mmHg mmHg] (07/13/16 5:53 AM) O2 Panel it0.9 30% (07/13/16 5:53 AM) Vent Mode ac/vc+ (07/13/16 5:53 AM) Set Vt 450 mL (07/13/16 5:53 AM) Set Rate 16 br/min (07/13/16 5:53 AM) PEEP 5.0 (07/13/16 5:53 AM) Spec Site A. radialis l. (07/13/16 5:53 AM) Hematology Most recent to 1 oldest [Reference Range]: WBC [4.8-10.8 6.9 10*3/uL 10*3/uL] (07/16/16 3:49 AM) RBC [4.60-6.20] 4.32 *LOW* (07/16/16 3:49 AM) Hgb [14.0-18.0 12.1 gm/dL gm/dL] *LOW* (07/16/16 3:49 AM) Hct [42.0-52.0 %] 36.9 % *LOW* (07/16/16 3:49 AM) MCV [82.0-99.0 fL] 85.4 fL (07/16/16 3:49 AM) MCH [27.0-32.0 pg] 28.0 pg (07/16/16 3:49 AM) MCHC [32.0-36.0 32.8 gm/dL gm/dL] (07/16/16 3:49 AM) RDW [11.5-14.5 %] 13.6 % (07/16/16 3:49 AM) Platelet [150-400 219 10*3/uL 10*3/uL] (07/16/16 3:49 AM) MPV [9.4-12.3 fL] 11.1 fL (07/16/16 3:49 AM) Immature 0.2 % Granulocytes (07/12/16 3:53 AM) [0.0-1.0 %] Neutrophils [51-75 71 % %] (07/12/16 3:53 AM) Lymphocytes [20-46 19 % %] *LOW* (07/12/16 3:53 AM) Monocytes [4-11 %] 9 % (07/12/16 3:53 AM) Eosinophils [0-4 %] 0 % (07/12/16 3:53 AM) Basophils [0-2 %] 0 % (07/12/16 3:53 AM) Neutro Absolute 8.62 [1.90-7.00] *HI* (07/12/16 3:53 AM) Lymph Absolute 2.35 [0.80-3.30] (07/12/16 3:53 AM) [place] Absolute 1.11 [0.30-1.00] *HI* (07/12/16 3:53 AM) Eos Absolute 0.01 [0.00-0.50] (07/12/16 3:53 AM) Baso Absolute 0.03 [0.00-0.20] (07/12/16 3:53 AM) Nucleated RBC 0.0 /100 WBC Automated [0 /100 (07/12/16 3:53 AM) WBC] Chemistry Most recent to 1 oldest [Reference Range]: Sodium Lvl [136-144 138 mEq/L mEq/L] (07/17/16 4:33 AM) Potassium Lvl 3.8 mEq/L [3.6-5.1 mEq/L] (07/17/16 4:33 AM) Chloride [99-109 109 mEq/L mEq/L] (07/17/16 4:33 AM) CO2 [22-32 mEq/L] 27 mEq/L (07/17/16 4:33 AM) AGAP [3-20] 2 *LOW* (07/17/16 4:33 AM) BUN [4-20 mg/dL] 11 mg/dL (07/17/16 4:33 AM) Glucose Lvl [70-100 111 mg/dL mg/dL] *HI* (07/17/16 4:33 AM) Creatinine Lvl 0.78 mg/dL [0.64-1.27 mg/dL] (07/17/16 4:33 AM) eGFR [>60] >60 1 (07/17/16 4:33 AM) Calcium Lvl 8.7 mg/dL [8.6-10.0 mg/dL] (07/17/16 4:33 AM) Albumin Lvl [3.5-4.8 2.4 gm/dL gm/dL] *LOW* (07/17/16 4:33 AM) Total Protein 5.3 gm/dL [6.1-7.9 gm/dL] *LOW* (07/16/16 3:49 AM) Globulin [1.9-4.3 2.8 gm/dL gm/dL] (07/16/16 3:49 AM) ALT [17-63 U/L] 30 U/L (07/16/16 3:49 AM) AST [15-41 U/L] 59 U/L *HI* (07/16/16 3:49 AM) Alk Phos [26-104 143 U/L U/L] *HI* (07/16/16 3:49 AM) Bili Total [0.2-1.2 0.8 mg/dL 2 mg/dL] (07/16/16 3:49 AM) Magnesium Lvl 1.8 mg/dL [1.8-2.5 mg/dL] (07/17/16 4:33 AM) Phosphorus [2.4-4.7 3.1 mg/dL 3 mg/dL] (07/17/16 4:33 AM) Troponin [<0.06 0.34 ng/mL 4 ng/mL] *HHI* (07/12/16 10:23 AM) Lactic Acid Lvl 0.8 mEq/L [0.5-2.2 mEq/L] (07/11/16 9:31 PM) Osmolality [275-300 297 mOsm/kg mOsm/kg] (07/12/16 10:23 AM) Vitamin B12 Lvl 412 pg/mL [213-816 pg/mL] (07/15/16 2:56 PM) Blood Glucose, 149 mg/dL Capillary [74-106 *HI* mg/dL] (07/19/16 9:58 AM) Chol [0-200 mg/dL] 162 mg/dL (07/11/16 9:31 PM) Trig [0-150 mg/dL] 29 mg/dL (07/11/16 9:31 PM) HDL [>40 mg/dL] 51 mg/dL (07/11/16 9:31 PM) LDL [0-100 mg/dL] 105 mg/dL *HI* (07/11/16 9:31 PM) VLDL Cholesterol 6 mg/dL [0-30 mg/dL] (07/11/16 9:31 PM) Cardiac Risk 3.2 [0.0-5.7] (07/11/16 9:31 PM) TSH with Reflex Free 1.00 T4 [0.35-5.50] (07/12/16 10:23 AM) Hgb A1c [4.1-5.6 %] 12.7 % *HI* (07/13/16 5:15 AM) eAvg Glucose 317.8 mg/dL (07/13/16 5:15 AM) [place] 2.89 mg/dL 5 [place] *HI* (07/16/16 3:49 AM) Lambda FLC[place] 2.66 mg/dL 6 *HI* (07/16/16 3:49 AM) [place] Ratio[place] 1.09 7 (07/16/16 3:49 AM) Procalcitonin 0.45 ng/mL 8 [0.00-0.09 ng/mL] *HI* (07/12/16 10:23 AM) 1Result Comment: Multiply eGFR results by 1.21 for race. 2Result Comment: Naproxen, specifically the metabolite O-desmethylnaproxen, may cause spurious elevation in Total Bilirubin levels. 3Result Comment: High dosages of liposomal Amphotericin B (AmBisome) therapy or other drug preparations that use a liposomal envelope to facilitate drug delivery may cause falsely elevated results for phosphorus. 4Result Comment: Critical value called, and read-back verified. Called to Rylie Pacheco RN Neuro 07/12/2016 11:17 5Result Comment: Reference Range: 0.3300-1.94 6Result Comment: Reference Range: 0.5700-2.63 7Result Comment: Reference Range: 0.2600-1.65 Test Performed by: [address] [address] Returned Goods Inspector: Kevin Styles II, M.D., Ph.D. 8Result Comment: Normal: <0.1 ng/mL (infants >72 hrs - adults) Suspected Lower Respiratory Tract Infection 0.10-0.25 ng/mL=Low likelihood for bacterial infection; Antibiotics discouraged. >0.25 ng/mL=Increased likelihood for bacterial infection; Antibiotics encouraged. Suspected Sepsis: Strongly consider initiating antibiotics in all unstable patients. 0.10-0.50 ng/mL=Low likelihood for sepsis; Antibiotics discouraged. >0.50 ng/mL=Increased likelihood for sepsis; Antibiotics encouraged. Decisions on antibiotic use should not be based solely on procalcitonin levels. If antibiotics are administered, repeat procalcitonin testing should be obtained every 2-3 days to consider early antibiotic cessation. PCT is a dynamic biomarker and most useful when trends are analyzed over time in accompaniment with other clinical data. Interpretation should be based upon clinical context and algorithms. Urinalysis Most recent to 1 oldest [Reference Range]: UA Color Yellow (07/12/16 1:22 AM) UA Appear Clear (07/12/16 1:22 AM) UA pH [5.0-8.0] 5.0 (07/12/16 1:22 AM) UA Leuk Est Negative [Negative] (07/12/16 1:22 AM) UA Nitrite Negative [Negative] (07/12/16 1:22 AM) UA Protein Pos 2+ [Negative] *ABN* (07/12/16 1:22 AM) UA Glucose Pos 3+ [Negative] *ABN* (07/12/16 1:22 AM) UA Ketones Pos 1+ [Negative] *ABN* (07/12/16 1:22 AM) UA Urobilinogen Negative [<1.0] (07/12/16 1:22 AM) UA Bili [Negative] Negative (07/12/16 1:22 AM) UA Blood [Negative] Pos 3+ *ABN* (07/12/16 1:22 AM) UA Spec Grav 1.025 [1.003-1.030] (07/12/16 1:22 AM) Type Clean Catch (07/12/16 1:22 AM) UA WBC [0-4] 5-10 *ABN* (07/12/16 1:22 AM) UA RBC [0-2 /HPF] >50 /HPF *ABN* (07/12/16 1:22 AM) Epithelial Cells 0-2 (07/12/16 1:22 AM) UA Mucous Present (07/12/16 1:22 AM) Microbiology Reports TEST: Urine Culture STATUS: Auth (Verified) BODY SITE: SOURCE: Urine, Catherized COLLECTED DATE/TIME: 07/13/16 8:06 AM Urine Culture No growth TEST: Quant. Ventilator Associated Cult/Smear STATUS: Auth (Verified) BODY SITE: SOURCE: Mini - BAL COLLECTED DATE/TIME: 07/12/16 11:50 AM Ventilator Associated Culture, Quant. No pathogens isolated Normal respiratory [place] isolated TEST: Blood Culture STATUS: Auth (Verified) BODY SITE: SOURCE: Blood COLLECTED DATE/TIME: 07/11/16 9:33 PM Blood Culture No growth after 5 days of incubation. TEST: Blood Culture STATUS: Auth (Verified) BODY SITE: SOURCE: Blood COLLECTED DATE/TIME: 07/11/16 9:31 PM Blood Culture No growth after 5 days of incubation. Immunizations No data available for this section Procedures Procedure Date Related Diagnosis Body Site Arterial puncture, withdrawal of blood for 07/13/16 diagnosis Arterial puncture, withdrawal of blood for 07/12/16 diagnosis Insertion of peripherally inserted central 07/12/16 venous catheter (PICC), without subcutaneous port or pump; age 5 years or older.. Arterial puncture, withdrawal of blood for 07/11/16 diagnosis Cholecystectomy Colostomy Hernia repair Tonsillectomy Social History Social History Type Response Smoking Status Former smoker Assessment and Plan Extracted from: Title: Neurology Inpt Progress Note Author: Richie Garcia MD Date: 07/17/16 Impression and Plan 1) Encephalopathy 2) Superimposed delirium post-extubation 07/13/16? 3) Seizure Mental status improving Acute-onset encephalopathy with seizure-like activity Ddx: hyperglycemia-related vs other Seizure likely provoked by hyperglycemia--no AED needed EEG showed slowing, no epileptiform activity Extubated 07/13/16, now awake Seizure and delirium precautions Monitor Avoid meds that can lower sz threshold: quinolones, tramadol, buproprion, etc 4) ? pseudobulbar affect vs delirium As above 5) Acute CVA, punctate, multiple, bilateral hemisphere ? cardioembolic TTE/PATRICK neg for clot, has severe No afib on monitoring Carotid doppler US results--mod bilateral calcified plaque, no hemodynamic stenosis Blood culture negative so does not look like septic emboli On ASA 325mg daily, continue On statin, continue ?? if with paroxysmal afib as cause of shower of emboli--continue afib monitoring, will need outpatient rhythm monitoring later Other possible causes, although less likely, would be hypercoag state, or malignancy ? if patient will be a potential candidate for anticoag even given mental status and unexplained falls--unsteady gait Would keep ASA until and unless there's a strong reason to anticoagulate--which at this time there is none Continue risk factor control PT 6) Abnormal CSF results (WBC 7) 7) Elevated CSF protein (protein 145) ID opinion no meningitis/SEISMOGRAPH OPERATOR infection Seizure will not cause this high of CSF protein, and elevated CSF protein will not usually cause seizure Question is what is etiology of elevated CSF protein? Given inability to walk for years and recent falls, wonder about ? inflammatory neuropathy (e.g. CIDP, GBS, etc), but EMG/NCT not really compatible Diabetes alone can also cause elevated CSF protein Paneoplastic panel pending 8) Neuropathy 9) Ataxia EMG/NCT done 07/15/16, looks chronic, no abn spont activity to suggest active denervation, no definite demyelinating range numbers B12 normal, Hba1c 12 ?? chronic diabetic neuropathy/polyradiculoneuropathy--for which treatment is glucose control and/or PT Non-diagnostic for CIDP--but does not exclude (or variant) Clinically, CIDP has prox AND distal weakness usually, which the patient DOES NOT HAVE Other labs pending, to exclude POTENTIALLY treatable neuropathy--note that some of these won't be resulted until about 2 weeks or so and patient may not necessarily need to be in hospital for this: Ganglioside ab panel pending Anti-MAG ab panel pending SPEP pending 24-hour UPEP--pt incontinent, will not put camejo--discontinue Free light chain pending RPR pending ? consider MRI c-spine wo and MRI t-spine wo to evaluate for cause of ataxia-- BUT, spine problems will not explain neuropathy findings on NCT 10) HONK 11) Aspiration PNA Per primary service--on ceftriaxone--finishing today 12) NSTEMI 13) Aortic stenosis Per cardiology 14) Behavioral changes Behavioral changes x ~3 years, no work-up Unclear if this is neurologic or behavioral Per and son--pt is a "couch potato" and "just didn't want to do anything" Paraneoplastic panel sent, as above 15) Falls PT: acute IP rehab 16) Flea 17) Medication non-compliance Will need to advise no driving, especially if can't feel gas pedal (due to neuropathy) and due to sz Discussed with Dr Mack. No absolute objection from neuro standpoint if for discharge. Card given to patient. Can follow-up with me in neuro clinic in 1-2 months if family wants. Family to call office for appointment. Please call with questions. Extracted from: Title: Neurology Inpt Progress Note Author: Richie Garcia MD Date: 07/16/16 Impression and Plan 1) Encephalopathy 2) Superimposed delirium post-extubation 07/13/16? 3) Seizure Acute-onset encephalopathy with seizure-like activity Ddx: hyperglycemia-related vs other Seizure likely provoked by hyperglycemia No AED for now EEG showed slowing, no epileptiform activity Extubated 07/13/16, now awake Seizure and delirium precautions Monitor Avoid meds that can lower sz threshold: quinolones, tramadol, buproprion, etc 4) ? pseudobulbar affect vs delirium As above 5) Acute CVA, punctate, multiple, bilateral hemisphere ? cardioembolic TTE/PATRICK neg for clot, has severe No afib on monitoring Carotid doppler US results--mod bilateral calcified plaque, no hemodynamic stenosis Blood culture negative so does not look like septic emboli On ASA 325mg daily, continue On statin, continue ?? if with paroxysmal afib as cause of shower of emboli--continue afib monitoring, may need outpatient rhythm monitoring later Other possible causes, although less likely, would be hypercoag state, or malignancy ? if patient will be a potential candidate for anticoag even given mental status and unexplained falls--unsteady gait Would keep ASA until and unless there's a strong reason to anticoagulate--which at this time there is none Continue risk factor control PT 6) Abnormal CSF results (WBC 7) 7) Elevated CSF protein (protein 145) ID opinion no meningitis/SEISMOGRAPH OPERATOR infection Seizure will not cause this high of CSF protein, and elevated CSF protein will not usually cause seizure Question is what is etiology of elevated CSF protein? Given inability to walk for years and recent falls, wonder about ? inflammatory neuropathy (e.g. CIDP, GBS, etc) Diabetes alone can also cause elevated CSF protein Paneoplastic panel pending 8) Neuropathy 9) Ataxia EMG/NCT done 07/15/16, looks chronic, no abn spont activity to suggest active denervation, no definite demyelinating range numbers B12 normal, Hba1c 12 ?? chronic diabetic neuropathy/polyradiculoneuropathy--for which treatment is glucose control and/or PT Non-diagnostic for CIDP--but does not exclude (or variant) Clinically, CIDP has prox AND distal weakness usually, which the patient DOES NOT HAVE Other labs pending, to exclude POTENTIALLY treatable neuropathy--note that some of these won't be resulted until about 2 weeks or so and patient may not necessarily need to be in hospital for this: Ganglioside ab panel pending Anti-MAG ab panel pending SPEP pending 24-hour UPEP pending Free light chain pending RPR pending ? consider MRI c-spine wo and MRI t-spine wo to evaluate for cause of ataxia-- BUT, spine problems will not explain neuropathy findings on NCT 10) HONK 11) Aspiration PNA Per primary service--on ceftriaxone--finishing today 12) NSTEMI 13) Aortic stenosis Per cardiology 14) Behavioral changes Behavioral changes x ~3 years, no work-up Unclear if this is neurologic or behavioral Per and son--pt is a "couch potato" and "just didn't want to do anything" Paraneoplastic panel sent, as above 15) Falls PT: acute IP rehab 16) Flea 17) Medication non-compliance Will need to advise no driving, especially if can't feel gas pedal (due to neuropathy) and due to sz Discussed with Dr Mack. Please call with questions. Extracted from: Title: Neurology Inpt Progress Note Author: Richie Garcia MD Date: 07/15/16 Impression and Plan 1) Encephalopathy 2) Superimposed delirium post-extubation 07/13/16? 3) Seizure Acute-onset encephalopathy with seizure-like activity Ddx: hyperglycemia-related vs other Seizure likely provoked by hyperglycemia No AED for now EEG showed slowing, no epileptiform activity Extubated 07/13/16, now awake Seizure and delirium precautions Monitor Avoid meds that can lower sz threshold: quinolones, tramadol, buproprion, etc 4) ? pseudobulbar affect vs delirium As above 5) Acute CVA, punctate, multiple, bilateral hemisphere ? cardioembolic TTE/PATRICK neg for clot, has severe No afib on monitoring Carotid doppler US results--mod bilateral calcified plaque, no hemodynamic stenosis Blood culture negative so does not look like septic emboli On ASA 325mg daily, continue On statin, continue ?? if with paroxysmal afib as cause of shower of emboli--continue afib monitoring, may need outpatient rhythm monitoring later Other possible causes, although less likely, would be hypercoag state, or malignancy ? if patient will be a potential candidate for anticoag even given mental status and unexplained falls Would keep ASA until and unless there's a strong reason to anticoagulate--which at this time there is none Continue risk factor control PT/ST eval when able 6) Abnormal CSF results (WBC 7) 7) Elevated CSF protein (protein 145) ID opinion no meningitis/SEISMOGRAPH OPERATOR infection Seizure will not cause this high of CSF protein, and elevated CSF protein will not usually cause seizure Question is what is etiology of elevated CSF protein? Given inability to walk for years and recent falls, wonder about ? inflammatory neuropathy (e.g. CIDP, GBS, etc) Diabetes alone can also cause elevated CSF protein Will try to arrange for EMG/NCT--hopefully will be helpful Will check for paraneoplastic panel--ordered Will check for B12 level--ordered May need other neuropathy work-up later 8) HONK 9) Aspiration PNA Per primary service--on ceftriaxone only 10) NSTEMI 11) Aortic stenosis Per cardiology 12) Behavioral changes Behavioral changes x ~3 years, no work-up Unclear if this is neurologic or behavioral Per and son--pt is a "couch potato" and "just didn't want to do anything" Will send for paraneoplastic panel 13) Falls As above 14) Flea 15) Medication non-compliance Discussed with Dr Smith and team. Please call with questions. Extracted from: Title: Neurology Inpt Progress Note Author: Richie Garcia MD Date: 07/14/16 Impression and Plan 1) Encephalopathy 2) Superimposed delirium post-extubation 07/13/16? 3) Seizure Acute-onset encephalopathy with seizure-like activity Ddx: hyperglycemia-related vs other Seizure likely provoked by hyperglycemia No AED for now EEG showed slowing, no epileptiform activity Extubated 07/13/16 Seizure and delirium precautions Monitor, may need more time Avoid meds that can lower sz threshold: quinolones, tramadol, buproprion, etc 4) Acute CVA, punctate, multiple, bilateral hemisphere ? cardioembolic Await TTE results Carotid doppler US results--mod bilateral calcified plaque, no hemodynamic stenosis May need PATRICK Blood culture negative so does not look like septic emboli On ASA 325mg daily now, continue On statin now, continue ? if patient will be a potential candidate for anticoag even given mental status and unexplained falls PT/ST eval when able 5) Abnormal CSF results (WBC 7) 6) Elevated CSF protein (protein 145) ID opinion no meningitis/SEISMOGRAPH OPERATOR infection Seizure will not cause this high of CSF protein, and elevated CSF protein will not usually cause seizure Question is what is etiology of elevated CSF protein? Given inability to walk for years and recent falls, wonder about ? inflammatory neuropathy (e.g. CIDP, GBS, etc) Diabetes alone can also cause elevated CSF protein Will have to re-evaluate when patient is more awake/extubated May need EMG/NCT to eval if needed If inflammatory neuropathy, treatment will include steroids, IVIG, and/or PLEX Follow-up on rest of CSF studies from OSH 7) HONK 8) Aspiration PNA Per primary service--on ceftriaxone only 9) NSTEMI 10) Aortic stenosis Per cardiology 11) Behavioral changes Behavioral changes x ~3 years, no work-up Unclear if this is neurologic or behavioral Per and son--pt is a "couch potato" and "just didn't want to do anything" May consider sending paraneoplastic panel--? limbic encephalitis--but this is usually subacute (weeks) and not drawn out 3 years 12) Falls As above 13) Flea 14) Medication non-compliance Discussed with Dr Smith. Please call with questions. Extracted from: Title: Neurology Inpt Progress Note Author: Richie Garcia MD Date: 07/13/16 Impression and Plan 1) Encephalopathy 2) Seizure Acute-onset encephalopathy with seizure-like activity Ddx: hyperglycemia-related vs other No AED for now EEG showed slowing, no epileptiform activity Mental status improving/improved today--primary team planning on extubating today if able Seizure likely provoked by hyperglycemia Seizure precautions Avoid meds that can lower sz threshold: quinolones, tramadol, buproprion, etc 3) Acute CVA, punctate, multiple, bilateral hemisphere ? cardioembolic Await TTE results Await carotid doppler US results May need PATRICK Blood culture negative so does not look like septic emboli On ASA 325mg daily now, continue On statin now, continue PT eval when able 4) Abnormal CSF results (WBC 7) 5) Elevated CSF protein (protein 145) ID opinion no meningitis/SEISMOGRAPH OPERATOR infection Seizure will not cause this high of CSF protein, and elevated CSF protein will not usually cause seizure Question is what is etiology of elevated CSF protein? Given inability to walk for years and recent falls, wonder about ? inflammatory neuropathy (e.g. CIDP, GBS, etc) Will have to re-evaluate when patient is more awake/extubated May need EMG/NCT to eval, here or outpatient If inflammatory neuropathy, treatment will include steroids, IVIG, and/or PLEX Follow-up on rest of CSF studies from OSH 6) HONK 7) Aspiration PNA Per primary service--on ceftriaxone only 8) NSTEMI 9) Aortic stenosis Per cardiology 10) Behavioral changes Behavioral changes x ~3 years, no work-up Unclear if this is neurologic or behavioral Per and son--pt is a "couch potato" and "just didn't want to do anything" May consider sending paraneoplastic panel--? limbic encephalitis--but this is usually subacute (weeks) and not drawn out 3 years 11) Falls As above 12) Flea 13) Medication non-compliance Discussed with spouse and Dr Smith. Please call with questions. Extracted from: Title: Neurology [facility] Author: Richie Garcia MD Date: 07/12/16 Impression and Plan 1) Encephalopathy 2) Seizure-like activity Acute-onset encephalopathy with seizure-like activity Ddx: hyperglycemia-related vs encephalitis/meningitis vs others No AED for now EEG showed slowing, no epileptiform activity Agree with MRI brain wwo--possible of CVA seems low Continue empiric abx for now, especially with fever and nuchal rigidity Follow-up on rest of CSF studies from OSH CSF showed borderline results--unclear when this was drawn in relation to possible abx CSF protein elevation may be seen in diabetics up to about 100--so this may or may not be pathologic Agree with ID consult--? need to repeat LP, check for infectious sources/ chronic infection (TB, arbo, etc). Seizure precautions Avoid meds that can lower sz threshold: quinolones, tramadol, buproprion, etc 3) HONK 4) Aspiration PNA Per primary service 5) Behavioral changes Behavioral changes x ~3 years, no work-up Unclear if this is neurologic or behavioral Per and son--pt is a "couch potato" and "just didn't want to do anything" May consider sending paraneoplastic panel--? limbic encephalitis--but this is usually subacute (weeks) and not drawn out 3 years 6) Falls As above 7) Flea As above ID consult 8) Medication non-compliance Thank you for consult. Will discuss with primary service. Please call with questions.
--- OUTSIDE RECORDS SUMMARY | 2018-08-29 19:01 | XMS REPORT | CCD ---
Author Author HARRISON ZEE Unknown Address [address] [place] [address] Care Team Providers Care Firesetter Name Role Phone MIRANDA STEWART MD Attphys MIRANDA STEWART MD Prisurg Allergies Allergy Code Allergy Type Reaction Status [facility] Drug allergy 1985 POST OP HERNIA CAUSED N/ V Active Active Medications Medication Code Dose Units Frequency Route Modification Start Date/Time Aspirin 325MG Oral Tablet, Enteric Coated 816330 325 MILLIGRAMS DAILY ORAL 07/27/2016 11:16 Prescription Detail 325 MILLIGRAMS ORAL DAILY DULoxetine HCl 60MG Oral Capsule, Delayed Release [id number] 60 MILLIGRAMS DAILY ORAL 07/27/2016 11:16 Prescription Detail 60 MILLIGRAMS ORAL DAILY Finasteride 5MG Oral Tablet 472091 5 MILLIGRAMS DAILY ORAL 07/27/2016 11:16 Prescription Detail 5 MILLIGRAMS ORAL DAILY Flomax 0.4MG Oral Capsule 624213 0.4 MILLIGRAMS AT BEDTIME ORAL 07/27/2016 11:16 Prescription Detail 0.4 MILLIGRAMS ORAL AT BEDTIME Lyrica 75MG Oral Capsule 561363 75 MILLIGRAMS TWO TIMES A DAY ORAL 07/27/2016 11:16 Prescription Detail 75 MILLIGRAMS ORAL TWO TIMES A DAY Metoprolol Succinate 100MG Oral Tablet, Extended Release [id number] 100 MILLIGRAMS DAILY ORAL 07/27/2016 11:16 Prescription Detail 100 MILLIGRAMS ORAL DAILY Atorvastatin Calcium 20MG Oral Tablet 196576 80 MILLIGRAMS BEDTIME BY MOUTH 07/27/2016 11:15 Prescription Detail 80 MILLIGRAMS BY MOUTH BEDTIME Levemir 100U/1ML Subcutaneous Solution 888426 22 UNIT AT BEDTIME SUBCUTANEOUS 07/27/2016 11:15 Prescription Detail 22 UNIT SUBCUTANEOUS AT BEDTIME metFORMIN HCl 500MG Oral Tablet 656055 500 MILLIGRAMS TWICE WITH MEALS BY MOUTH 07/27/2016 11:15 Prescription Detail 500 MILLIGRAMS BY MOUTH TWICE WITH MEALS amLODIPine Besylate 5MG Oral Tablet 206502 10 MILLIGRAMS DAILY BY MOUTH 07/27/2016 11:14 Prescription Detail 10 MILLIGRAMS BY MOUTH DAILY Procedures Procedure Code Procedure Type Date BEDSIDE GLUCOSE 76521650 SNOMED CT 04/11/2016 BEDSIDE GLUCOSE 85614123 SNOMED CT 04/11/2016 BEDSIDE GLUCOSE 02749269 SNOMED CT 04/11/2016 BEDSIDE GLUCOSE 95023065 SNOMED CT 04/11/2016 BEDSIDE GLUCOSE 12134530 SNOMED CT 04/11/[address] 04/11/2016 UA ROUTINE C&S IF IND 629810804 SNOMED CT 04/11/2016 COMPREHENSIVE METABOLIC PANEL 888602362 SNOMED CT 2015 CBC W/ AUTO DIFF (RFLX MAN DIFF IF IND) 9040299 SNOMED CT 04/11/2016 ^UA WITH MICRO 709841764 SNOMED CT 04/11/2016 ^CBC W/AUTO DIFF 4735613 SNOMED CT 04/11/2016 Results ACETONE - Collect Date/Time: 04/11/2016 19:45 Test Name Code Test Result Test Units Test Ref Range ACETONE 2513-0 NEGATIVE N/A NL: NEGATIVE BEDSIDE GLUCOSE - Collect Date/Time: 04/11/2016 23:09 Test Name Code Test Result Test Units Test Ref Range GLUCOSE POCT 175 MG/DL L=70 H=100 BEDSIDE GLUCOSE - Collect Date/Time: 04/11/2016 22:05 Test Name Code Test Result Test Units Test Ref Range GLUCOSE POCT 304 MG/DL L=70 H=100 BEDSIDE GLUCOSE - Collect Date/Time: 04/11/2016 21:40 Test Name Code Test Result Test Units Test Ref Range GLUCOSE POCT 385 MG/DL L=70 H=100 BEDSIDE GLUCOSE - Collect Date/Time: 04/11/2016 20:54 Test Name Code Test Result Test Units Test Ref Range GLUCOSE POCT 412 MG/DL L=70 H=100 BEDSIDE GLUCOSE - Collect Date/Time: 04/11/2016 19:30 Test Name Code Test Result Test Units Test Ref Range GLUCOSE POCT 11653-8 >500 MG/DL L=70 H=100 COMPREHENSIVE METABOLIC PANEL - Collect Date/Time: 04/11/2016 19:45 Test Name Code Test Result Test Units Test Ref Range GLUCOSE 2345-7 697 MG/DL L=70 H=100 SODIUM 2951-2 134 MEQ/L L=135 H=148 POTASSIUM 2823-3 4.5 MEQ/L L=3.5 H=5.3 CHLORIDE 2075-0 96 MEQ/L L=96 H=110 CO2 2028-9 26 MEQ/L L=22 H=29 BUN 3094-0 22 MG/DL L=8 H=22 CREATININE 2160-0 1.5 MG/DL L=0.6 H=1.6 SGOT/AST 1920-8 11 IU/L L=10 H=40 SGPT/ALT 1742-6 11 IU/L L=8 H=54 ALK PHOS 6768-6 115 IU/L L=35 H=115 TOTAL PROTEIN 2885-2 6.8 G/DL L=5.5 H=8.5 ALBUMIN 1751-7 3.8 G/DL L=3.1 H=5.4 TOTAL BILI 1975-2 1.6 MG/DL L=0.0 H=1.5 CALCIUM 59119-3 9.7 MG/DL L=8.2 H=10.6 AGE 71 yrs GFR NonAA 46 GFR AA 56 eGFR 46 mL/min/1.7 eGFR AA* 56 mL/min/1.7 CBC W/ AUTO DIFF (RFLX MAN DIFF IF IND) - Collect Date/Time: 04/11/2016 19:45 Test Name Code Test Result Test Units Test Ref Range WBC 29997-9 7.1 TH/CMM L=4.5 H=10.8 RBC 789-8 4.96 ML/CMM L=4.70 H=6.10 HGB 718-7 14.2 G/DL L=14.0 H=18.0 HCT 4544-3 41.5 % L=42.0 H=52.0 MCV 84 FL L=81 H=99 MCH 28.6 PG L=27.0 H=33.0 MCHC 34.2 G/DL L=31.0 H=36.0 RDW SD 40 FL L=36 H=50 RDW CV 13.1 % L=0.0 H=14.8 MPV 11.7 FL L=9.3 H=12.5 PLT 777-3 156 TH/CMM L=130 H=440 NRBC# 0.00 TH/CMM L=0.00 H=0.00 NRBC% 0.0 /100WBC L=0.0 H=2.0 %NEUT 70.2 % %LYMP 21.3 % %MONO 6.2 % %EOS 1.3 % %BASO 0.6 % #NEUT 4.97 TH/CMM L=2.10 H=8.20 #LYMP 1.51 TH/CMM L=0.90 H=5.20 #MONO 0.44 TH/CMM L=0.16 H=1.00 #EOS 0.09 TH/CMM L=0.00 H=0.80 #BASO 0.04 TH/CMM L=0.00 H=0.20 MANUAL DIFF NOT IND N/A UA ROUTINE C&S IF IND - Collect Date/Time: 04/11/2016 20:20 Test Name Code Test Result Test Units Test Ref Range COLOR YELLOW N/A NL: YELLOW APPEARANCE CLEAR N/A NL: CLEAR SPEC GRAV <=1.005 N/A NL: 1.002 - 1.022 pH 6.5 N/A NL: 5 - 9 PROTEIN 30 N/A NL: NEGATIVE mg/dl GLUCOSE >=1000 N/A NL: NEGATIVE mg/dl KETONE NEGATIVE N/A NL: NEGATIVE mg/dl BILIRUBIN NEGATIVE N/A NL: NEGATIVE BLOOD TRACE-INTACT N/A NL: NEGATIVE NITRITE NEGATIVE N/A NL: NEGATIVE LEUK SCREEN NEGATIVE N/A NL: NEGATIVE MICRO INDICATED? SEE BELOW N/A WBC/HPF RARE N/A NL: NEGATIVE RBC/HPF 0-5 N/A NL: NEGATIVE CASTS/LPF NEGATIVE N/A NL: NEGATIVE CRYSTALS NEGATIVE N/A NL: NEGATIVE MUCOUS THRDS NEGATIVE N/A NL: NEGATIVE BACTERIA FEW N/A NL: NEGATIVE EPITH CELLS FEW SQUAMOUS N/A NL: NEGATIVE TRICHOMONAS NEGATIVE N/A NL: NEGATIVE YEAST NEGATIVE N/A NL: NEGATIVE CULT SET UP? NO N/A Function Status Unknown or Not Available. History of Immunizations Immunization Code Date Influenza, seasonal, injectable 141 06/01/2014 Influenza, seasonal, injectable 141 04/13/2015 Influenza, seasonal, injectable 141 06/01/2014 Influenza, seasonal, injectable 141 04/13/2015 Influenza, seasonal, injectable 141 07/28/2016 Plan of Treatment Unknown or Not Available. Social History Smoking Status Code Start Date End Date Never smoker [id number] Vital Signs Unknown or Not Available. Function Status Unknown or Not Available. Goals Unknown or Not Available. ASSESSMENTS Unknown or Not Available. Health Concerns Section Unknown or Not Available.
--- OUTSIDE RECORDS SUMMARY | 2018-08-29 19:01 | XMS REPORT | CCD ---
Author Author GEMMA GONG Unknown Address [address] [place], [place] [id number] Care Team Providers Care Commissioner Of Internal Revenue Name Role Phone SHAYNADARÍOMARLADEEPATanner CRISTINA Attphys HANDSHY ER, PAULINE Jackson W., ROWAN Gonzalez NASST C., ENDER Hart NASST S., LITA NASST M., MEERA NASST S., IVY Casiano NASST R., ANA NASST F., GHASSAN NASST B., MATT Villasenor NASST Vital Signs Vital Sign Value Unit Date/Time Recent/Initial? Weight Measured 179.4 lbs 02/11/2015 05:25 Initial VS Height 66 in 02/11/2015 05:25 Initial VS BMI (Body Mass Index) 28.96 kg/m^2 02/11/2015 05:25 Initial VS BSA (Body Surface Area) 1.95 m^2 02/11/2015 05:25 Initial VS BP Systolic 146 mmHg 02/11/2015 05:25 Initial VS BP Diastolic 62 mmHg 02/11/2015 05:25 Initial VS Respiratory Rate 18 bpm 02/11/2015 05:25 Initial VS Heart Rate 69 bpm 02/11/2015 05:25 Initial VS O2 % BldC Oximetry 98 % 02/11/2015 05:25 Initial VS Body Temperature 97.6 degrees 02/11/2015 05:25 Initial VS BP Systolic 177 mmHg 02/12/2015 12:02 Most Recent VS BP Diastolic 85 mmHg 02/12/2015 12:02 Most Recent VS Respiratory Rate 20 bpm 02/12/2015 12:02 Most Recent VS Heart Rate 77 bpm 02/12/2015 12:02 Most Recent VS O2 % BldC Oximetry 100 % 02/12/2015 12:02 Most Recent VS Body Temperature 96.8 degrees 02/12/2015 12:02 Most Recent VS Allergies Allergy Code Allergy Type Reaction Status [facility] [id number] Drug allergy 1987 POST OP HERNIA CAUSED N/ V Active Procedures Procedure Code Procedure Type Date PT EVALUATION 145897117 SNOMED CT 02/12/2015 MRI BRAIN INC STEM W/WO CONTRAST 114375690 SNOMED CT 02/11 US ECHO 2D COMP WITH DOPP AND COLOR 44532378 SNOMED CT 11/2014 CT HEAD W/O CONTRAST 116778166 SNOMED CT 02/11/2015 BEDSIDE GLUCOSE 34789210 SNOMED CT 02/12/2015 ^CBC W/AUTO DIFF 8419409 SNOMED CT 02/12/2015 BEDSIDE GLUCOSE 75818433 SNOMED CT 02/12/2015 BEDSIDE GLUCOSE 75135018 SNOMED CT 02/12/2015 BEDSIDE GLUCOSE 35907292 SNOMED CT 02/11/2015 BEDSIDE GLUCOSE 57742084 SNOMED CT 02/11/2015 BEDSIDE GLUCOSE 91363747 SNOMED CT 02/11/2015 BEDSIDE GLUCOSE 58361454 SNOMED [address] 02/11/[address] 02/12/2015 HGB A1C (SEND-OUT) 60957865 SNOMED CT 02/12/2015 LIPID PANEL 73433324 SNOMED CT 02/12/2015 BASIC METABOLIC PANEL 479935649 SNOMED CT 02/12/2015 CBC W/ AUTO DIFF (RFLX MAN DIFF IF IND) 4093084 SNOMED CT 02/12/2015 BEDSIDE GLUCOSE 95151292 SNOMED CT 02/11/2015 BEDSIDE GLUCOSE 85502963 SNOMED CT 02/11/2015 ^UA WITH MICRO 201748425 SNOMED CT 02/11/[address] 02/11/2015 PH BLOOD VENOUS 30918684 SNOMED CT 02/11/2015 BEDSIDE GLUCOSE 52971257 SNOMED CT 02/11/2015 UA ROUTINE C&S IF IND 471470447 SNOMED CT 02/11/2015 ^CBC W/AUTO DIFF 9278932 SNOMED CT 02/11/2015 TROPONIN-I ADV 595861881 SNOMED CT 02/11/2015 CULTURE BLOOD 53474869 SNOMED CT 02/11/2015 C REACTIVE PROTEIN 97010865 SNOMED CT 02/11/2015 COMPREHENSIVE METABOLIC PANEL 930862115 SNOMED CT 2014 CBC W/ AUTO DIFF (RFLX MAN DIFF IF IND) 6594278 SNOMED CT 02/11/2015 History of Immunizations Immunization Code Date Influenza, seasonal, injectable 141 06/01/2014 Problems Problem Code Start Date Resolved Date Status Stroke 845848970 Active Results ACETONE - Collect Date/Time: 02/11/2015 03:10 Test Name Code Test Result Test Units Test Ref Range ACETONE 2513-0 NEGATIVE N/A NL: NEGATIVE BASIC METABOLIC PANEL - Collect Date/Time: 02/12/2015 06:40 Test Name Code Test Result Test Units Test Ref Range GLUCOSE 2345-7 106 MG/DL L=70 H=100 SODIUM 2951-2 144 MEQ/L L=135 H=148 POTASSIUM 2823-3 3.4 MEQ/L L=3.5 H=5.3 CHLORIDE 2075-0 112 MEQ/L L=96 H=110 CO2 2028-9 23 MEQ/L L=22 H=29 BUN 3094-0 17 MG/DL L=8 H=22 CREATININE 2160-0 0.8 MG/DL L=0.6 H=1.6 CALCIUM 52949-5 9.0 MG/DL L=8.2 H=10.6 AGE 70 yrs GFR NonAA 96 GFR AA 116 eGFR >60 N/A eGFR AA* >60 N/A BEDSIDE GLUCOSE - Collect Date/Time: 02/12/2015 11:58 Test Name Code Test Result Test Units Test Ref Range GLUCOSE POCT 343 MG/DL L=70 H=100 BEDSIDE GLUCOSE - Collect Date/Time: 02/12/2015 06:14 Test Name Code Test Result Test Units Test Ref Range GLUCOSE POCT 114 MG/DL L=70 H=100 BEDSIDE GLUCOSE - Collect Date/Time: 02/12/2015 02:31 Test Name Code Test Result Test Units Test Ref Range GLUCOSE POCT 283 MG/DL L=70 H=100 BEDSIDE GLUCOSE - Collect Date/Time: 02/11/2015 22:11 Test Name Code Test Result Test Units Test Ref Range GLUCOSE POCT 279 MG/DL L=70 H=100 BEDSIDE GLUCOSE - Collect Date/Time: 02/11/2015 17:32 Test Name Code Test Result Test Units Test Ref Range GLUCOSE POCT 188 MG/DL L=70 H=100 BEDSIDE GLUCOSE - Collect Date/Time: 02/11/2015 12:08 Test Name Code Test Result Test Units Test Ref Range GLUCOSE POCT 247 MG/DL L=70 H=100 BEDSIDE GLUCOSE - Collect Date/Time: 02/11/2015 10:23 Test Name Code Test Result Test Units Test Ref Range GLUCOSE POCT 266 MG/DL L=70 H=100 BEDSIDE GLUCOSE - Collect Date/Time: 02/11/2015 05:36 Test Name Code Test Result Test Units Test Ref Range GLUCOSE POCT 256 MG/DL L=70 H=100 BEDSIDE GLUCOSE - Collect Date/Time: 02/11/2015 04:29 Test Name Code Test Result Test Units Test Ref Range GLUCOSE POCT 335 MG/DL L=70 H=100 BEDSIDE GLUCOSE - Collect Date/Time: 02/11/2015 02:43 Test Name Code Test Result Test Units Test Ref Range GLUCOSE POCT 384 MG/DL L=70 H=100 COMPREHENSIVE METABOLIC PANEL - Collect Date/Time: 02/11/2015 03:10 Test Name Code Test Result Test Units Test Ref Range GLUCOSE 2345-7 479 MG/DL L=70 H=100 SODIUM 2951-2 137 MEQ/L L=135 H=148 POTASSIUM 2823-3 3.9 MEQ/L L=3.5 H=5.3 CHLORIDE 2075-0 100 MEQ/L L=96 H=110 CO2 2028-9 24 MEQ/L L=22 H=29 BUN 3094-0 20 MG/DL L=8 H=22 CREATININE 2160-0 1.4 MG/DL L=0.6 H=1.6 SGOT/AST 1920-8 8 IU/L L=10 H=40 SGPT/ALT 1742-6 13 IU/L L=8 H=54 ALK PHOS 6768-6 111 IU/L L=35 H=115 TOTAL PROTEIN 2885-2 6.6 G/DL L=5.5 H=8.5 ALBUMIN 1751-7 3.6 G/DL L=3.1 H=5.4 TOTAL BILI 1975-2 1.5 MG/DL L=0.0 H=1.5 CALCIUM 97516-7 9.8 MG/DL L=8.2 H=10.6 AGE 70 yrs GFR NonAA 50 GFR AA 61 eGFR 50 mL/min/1.7 eGFR AA* >60 N/A LIPID PANEL - Collect Date/Time: 02/12/2015 06:40 Test Name Code Test Result Test Units Test Ref Range TRIGLYCERIDES 3043-7 93 MG/DL L=0 H=135 CHOLESTEROL 2093-3 165 MG/DL L=0 H=199 HDL 2085-9 38 MG/DL L=27 H=67 TOT CHOL/HDL 4.3 L=0.0 H=5.0 LDL (CALC) 2089-1 108 MG/DL L=0 H=129 CBC W/ AUTO DIFF (RFLX MAN DIFF IF IND) - Collect Date/Time: 02/12/2015 06:40 Test Name Code Test Result Test Units Test Ref Range WBC 87911-7 6.5 TH/CMM L=4.5 H=10.8 RBC 789-8 4.34 ML/CMM L=4.70 H=6.10 HGB 718-7 12.3 G/DL L=14.0 H=18.0 HCT 4544-3 36.3 % L=42.0 H=52.0 MCV 84 FL L=81 H=99 MCH 28.3 PG L=27.0 H=33.0 MCHC 33.9 G/DL L=31.0 H=36.0 RDW SD 42 FL L=36 H=50 RDW CV 13.7 % L=0.0 H=14.8 MPV 11.0 FL L=9.3 H=12.5 PLT 777-3 163 TH/CMM L=130 H=440 NRBC# 0.00 TH/CMM L=0.00 H=0.00 NRBC% 0.0 /100WBC L=0.0 H=2.0 %NEUT 60.8 % %LYMP 31.2 % %MONO 5.4 % %EOS 2.3 % %BASO 0.3 % #NEUT 3.95 TH/CMM L=2.10 H=8.20 #LYMP 2.03 TH/CMM L=0.90 H=5.20 #MONO 0.35 TH/CMM L=0.16 H=1.00 #EOS 0.15 TH/CMM L=0.00 H=0.80 #BASO 0.02 TH/CMM L=0.00 H=0.20 MANUAL DIFF NOT IND N/A CBC W/ AUTO DIFF (RFLX MAN DIFF IF IND) - Collect Date/Time: 02/11/2015 03:10 Test Name Code Test Result Test Units Test Ref Range WBC 37764-9 7.2 TH/CMM L=4.5 H=10.8 RBC 789-8 4.57 ML/CMM L=4.70 H=6.10 HGB 718-7 13.3 G/DL L=14.0 H=18.0 HCT 4544-3 38.3 % L=42.0 H=52.0 MCV 84 FL L=81 H=99 MCH 29.1 PG L=27.0 H=33.0 MCHC 34.7 G/DL L=31.0 H=36.0 RDW SD 41 FL L=36 H=50 RDW CV 13.5 % L=0.0 H=14.8 MPV 11.3 FL L=9.3 H=12.5 PLT 777-3 177 TH/CMM L=130 H=440 NRBC# 0.00 TH/CMM L=0.00 H=0.00 NRBC% 0.0 /100WBC L=0.0 H=2.0 %NEUT 57.5 % %LYMP 33.0 % %MONO 8.1 % %EOS 1.0 % %BASO 0.4 % #NEUT 4.14 TH/CMM L=2.10 H=8.20 #LYMP 2.37 TH/CMM L=0.90 H=5.20 #MONO 0.58 TH/CMM L=0.16 H=1.00 #EOS 0.07 TH/CMM L=0.00 H=0.80 #BASO 0.03 TH/CMM L=0.00 H=0.20 MANUAL DIFF NOT IND N/A PT/PTT - Collect Date/Time: 02/11/2015 03:10 Test Name Code Test Result Test Units Test Ref Range PROTIME 56501-1 10.3 SEC L=9.9 H=11.9 INR 1.0 PTT 3173-2 26.4 SEC L=22.2 H=37.2 UA ROUTINE C&S IF IND - Collect Date/Time: 02/11/2015 03:10 Test Name Code Test Result Test Units Test Ref Range COLOR YELLOW N/A NL: YELLOW APPEARANCE CLEAR N/A NL: CLEAR SPEC GRAV 1.010 N/A NL: 1.002 - 1.022 pH 5.0 N/A NL: 5 - 9 PROTEIN 30 N/A NL: NEGATIVE mg/dl GLUCOSE >=1000 N/A NL: NEGATIVE mg/dl KETONE NEGATIVE N/A NL: NEGATIVE mg/dl BILIRUBIN NEGATIVE N/A NL: NEGATIVE BLOOD SMALL N/A NL: NEGATIVE NITRITE NEGATIVE N/A NL: [...] NL: NEGATIVE CULT SET UP? NO N/A HGB A1C (SEND-OUT) - Collect Date/Time: 02/12/2015 06:40 Test Name Code Test Result Test Units Test Ref Range Hemoglobin A1c 4548-4 11.7 % 4.8-5.6 Estim. Avg Glu (eAG) 96489-5 289 mg/dL C REACTIVE PROTEIN - Collect Date/Time: 02/11/2015 03:10 Test Name Code Test Result Test Units Test Ref Range C REACTIVE PROTEIN 1988-5 0.9 MG/DL L=0.0 H= 1.0 TROPONIN-I ADV - Collect Date/Time: 02/11/2015 03:10 Test Name Code Test Result Test [place] [address]-8 <0.04 ng/mL L=0.04 H= 0.40 TSH - Collect Date/Time: 02/12/2015 06:40 Test Name Code Test Result Test Units Test Ref Range TSH 31563-6 0.49 mIU/L L=0.35 H=4.94 PH BLOOD VENOUS - Collect Date/Time: 02/11/2015 03:10 Test Name Code Test Result Test Units Test Ref Range vPH 7.40 L=7.32 H=7.43 Active Medications Medication Code Dose Units Frequency Route Modification Start Date/Time Atorvastatin Calcium 20MG Oral Tablet 498911 40 MILLIGRAMS BEDTIME BY MOUTH 02/12/2015 13:47 Lyrica 150MG Oral Capsule 786661 150 MILLIGRAMS TWO TIMES A DAY ORAL 02/12/2015 12:26 Acetaminophen 325MG Oral Tablet 713009 650 MILLIGRAMS NEEDED BY MOUTH 06/11/2014 14:18 DULoxetine Hydrochloride 30MG Oral Capsule, Delayed Release 637546 30 MILLIGRAMS DAILY BY MOUTH 06/11/2014 14:18 Pioglitazone 15MG Oral Tablet 518913 45 TABS DAILY BY MOUTH 06/11/2014 14:18 Tamsulosin Hydrochloride 0.4MG Oral Capsule 630702 0.4 MILLIGRAMS AT BEDTIME BY MOUTH 06/11/2014 14:18 Cyclobenzaprine Hydrochloride 10MG Oral Tablet 931858 5 MILLIGRAMS PRN TID BY MOUTH 06/11/2014 14:17 Lisinopril 10MG Oral Tablet 316374 10 MILLIGRAMS DAILY BY MOUTH 06/11/2014 14:17 metFORMIN HCl 500MG Oral Tablet 835482 9732 MILLIGRAMS TWICE WITH MEALS BY MOUTH 06/11/2014 14:17 Plavix 75MG Oral Tablet 076446 75 MILLIGRAMS DAILY BY MOUTH 06/11/2014 14:17 Verapamil HCl 240MG Oral Tablet, Extended Release 580553 240 MILLIGRAMS DAILY BY MOUTH 06/11/2014 14:17 Medications Administered During Visit Medication Dose Units Frequency Route Date/ Time of Last Dose NS 1000 ML IV [PREDEFINED] (7983) 1000 ML CONT IV IV 02/12/2015 12:07 INSULIN [REGULAR] 100UNITS/ML (SQ) 10ML 12 Unit(s) PRN SUBCUTANEOUS 02/12/2015 13:15 ASPIRIN ENTERIC COATED TAB : 325MG 325 MG DAILYM PO 02/11/2015 14:20 ATORVASTATIN [LIPITOR] TABLET : 20 MG 40 MG BEDTIME PO 02/11/2015 21:33 ENOXAPARIN 40 MG/0.4ML YELLOW [LOVENOX] 40 MG DAILY SUB Q 02/12/2015 09:40 CLOPIDOGREL [PLAVIX] TABLET: 75 MG 75 MG DAILY PO 02/12/2015 09:40 TAMSULOSIN [FLOMAX] CAP: 0.4MG 0.4 MG HS PO 02/11/2015 21:33 PREGABALIN 75 MG "LYRICA" CAP 75 MG DAILY PO 02/11/2015 16:50 PREGABALIN 75 MG "LYRICA" CAP 75 MG DAILY PO 02/11/2015 21:33 POTASSIUM CL [K LEANA] IV 10MEQ/50ML BAG 10 MQ Q1H IVPB 02/12/2015 12:07 METFORMIN [GLUCOPHAGE] TABLET: 500 MG 1000 MG X1 PO 02/12/2015 13:16 PIOGLITAZONE (ACTOS) TAB : 15 MG 45 MG X1 PO 02/12/2015 13:16 Encounters Encounter Diagnosis Diagnosis Code Start Date TRANS CEREB ISCHEMIA NOS 4359 02/11/2015 Social History Smoking Status Code Start Date End Date Never smoker [id number] Patient Decision Aids Patient Decision Aid PATIENT PORTAL ACCESS STROKE DISCHARGE EDUCATION LABETTE Discharge Instructions You were admitted to [facility] on 02/11/2015 with a principal diagnosis of TRANS CEREB ISCHEMIA NOS. You had the following tests done: Hemoglobin A1c Estim. Avg Glu (eAG) You were discharged from [facility] on 02/12/2015. Should you have any questions prior to discharge, please contact a member of your healthcare team. If you have left the hospital and have any questions, please contact your primary care physician. HOME DIET: CARDIAC DIET. ACTIVITY INSTRUCTIONS(list limitations): Activity as Tolerated. CONTACT PHYSICIAN IF YOU EXPERIENCE ANY: numbness in your hands/ feet, WEAKNESS IN ARMS/HANDS/FEET OR LEGS, TINGLING TO ARMS/HANDS/ FEET OR LEGS, SLURRED SPEECH, DROOPINESS TO FACE. FOLLOW UP CARE - SEE YOUR PHYSICIAN: YOUR FOLLOW UP APPOINTMENT WITH DR. HO IS SCHEDULED FOR Monday02/19/15 AT 9:30AM. INSTRUCTIONS GIVEN AND DISCHARGE TO: Patient. VOICES UNDERSTANDING OF INSTRUCTIONS: Yes. INSTRUCTIONS GIVEN BY (TYPE IN NAME AND DATE) Lisa MAURER RN. 02/12/15 CHIEF COMPLAINT: SPOKE TO HIM EARLIER IN THE NIGHT AND HE WAS APPROPRIATE, WHEN SHE ARRIVED HOURS LATER HE WAS TRYING TO POKE HOLES IN THE WALL WITH HIS HANDS. CONFUSED, UNSTEADY, SLURRED SPEECH Chief Complaint and Reason For Visit Chief Complaint Date of Onset CVA DM Function Status Unknown or Not Available. Plan of Care Unknown or Not Available. Referral/Transition of Care Unknown or Not Available.
--- OUTSIDE RECORDS SUMMARY | 2018-08-29 19:03 | XMS REPORT ---
Author Author Oumar Umanzor [facility] Address [address] [place], [place] [id number] Care Team Providers Care Master Cosmetologist Name Role Phone Oumar Umanzor PCP Oumar Umanzor PreferredProvider Allergies and Adverse Reactions Name Reaction Notes Demerol Plan of Treatment Planned Activity Comments Planned Date Planned Time Plan/Goal Follow up Urge incontinence 11/17/2017 2:00 PM Medications Active Name Start Date Estimated Completion Date SIG Comments amlodipine 10 mg oral tablet 10/23/2017 10/18/2018 take 1 tablet (10 mg) by oral route once daily for 90 days duloxetine 60 mg oral capsule,delayed release(DR/EC) 10/23/2017 10/18/2018 take 1 capsule (60 mg) by oral route once daily for 90 days gabapentin 300 mg oral capsule 10/23/2017 10/18/2018 take 1 capsule (300 mg) by oral route 2 times per day for 90 days simvastatin 40 mg oral tablet 10/23/2017 10/18/2018 take 1 tablet (40 mg) by oral route once daily in the evening for 90 days metoprolol succinate 100 mg oral tablet extended release 24 hr 10/23/201710/18 take 1 tablet (100 mg) by oral route once daily for 90 days Novolog Flexpen U-100 Insulin 100 unit/mL subcutaneous insulin pen 10/23/2017 inject 5 units by subcutaneous route with each meal Basaglar KwikPen U-100 Insulin 100 unit/mL (3 mL) subcutaneous insulin pen inject 25 units by subcutaneous route once a day tamsulosin 0.4 mg oral capsule 04/26/2018 TAKE 1 CAPSULE BY MOUTH DAILY Toviaz 8 mg oral tablet extended release 24 hr 04/26/2018 TAKE 1 TABLET BY MOUTH ONCE EVERY DAY finasteride 5 mg oral tablet 04/26/2018 TAKE 1 TABLET BY MOUTH DAILY oxybutynin chloride 5 mg oral tablet 04/28/2018 TAKE 1 TABLET BY MOUTH TWICE DAILY Shingrix (PF) 50 mcg/0.5 mL intramuscular suspension for reconstitution 2017 inject 0.5 milliliter (50 mcg) by intramuscular route once metformin 500 mg oral tablet 06/15/2018 06/10/2019 take 1 tablet (500 mg) by oral route 2 times per day with morning and evening meals for 90 days Name Start Date Expiration Date SIG Comments Lamisil 250 mg oral tablet 11/19/2009 01/18/2010 take 1 tablet (250 mg) by oral route once daily for 30 days Bactrim DS 800-160 mg oral tablet 07/07/2011 07/14/2011 take 1 tablet by oral route every 12 hours for 7 days Levaquin 500 mg oral tablet 07/14/2011 07/21/2011 take 1 tablet (500 mg) by oral route once daily for 7 days Percocet 5-325 mg oral tablet 07/28/2014 08/27/2014 take 1 tablet by oral route every 8 hours as needed for pain verapamil 240 mg oral tablet extended release 07/30/2014 07/25/2015 take 1 tablet (240 mg) by oral route once daily with food for 90 days cyclobenzaprine 10 mg oral tablet 08/04/2014 07/30/2015 take 1 tablet (10 mg) by oral route every 8 hours as needed for 90 days tamsulosin 0.4 mg oral capsule,extended release 24hr 08/29/2014 08/24/2015 take 1 capsule (0.4 mg) by oral route once daily 1/2 hour following the same meal each day for 90 days MS Contin 15 mg oral tablet extended release 10/10/2014 11/09/2014 take 1 tablet (15 mg) by oral route every 12 hours for 30 days propranolol 40 mg oral tablet 07/30/2015 01/26/2016 take 1 tablet (40 mg) by oral route 2 times per day for 30 days clopidogrel 75 mg oral tablet 07/30/2015 01/26/2016 take 1 tablet by oral route daily for 30 days pioglitazone 15 mg oral tablet 07/30/2015 01/26/2016 take 1 tablet (15 mg) by oral route once daily for 30 days "stopped taking cephalexin 500 mg oral tablet 09/01/2015 09/11/2015 take 1 tablet (500 mg) by oral route every 12 hours for 10 days bumetanide 1 mg oral tablet 10/28/2015 11/27/2015 take 1 tablet (1 mg) by oral route once daily for 30 days sulfamethoxazole-trimethoprim 800-160 mg oral tablet 03/17/2016 03/24/2016 take 1 tablet by oral route every 12 hours for 7 days Lyrica 75 mg oral capsule 02/14/2017 08/13/2017 take 1 capsule (75 mg) by oral route 2 times per day for 30 days Toviaz 8 mg oral tablet extended release 24 hr 04/13/2017 10/10/2017 take 1 tablet (8 mg) by oral route once daily for 30 days Novolin R Regular U-100 Insuln 100 unit/mL injection solution inject by subcutaneous route per sliding scale four times per day Switching back to Humalog Novolin 70/30 U-100 Insulin 100 unit/mL (70-30) subcutaneous suspension inject by subcutaneous route 15 units at bedtime Switching back to Lantus and Humalog tamsulosin 0.4 mg oral capsule,extended release 24hr 10/23/2017 12/22/2017 take 1 capsule (0.4 mg) by oral route once daily for 30 days Discontinued Name Start Date Discontinued Date SIG Comments aspirin 325 mg oral tablet 04/13/2011 take 1 tablet (325 mg) by oral route once daily taking plavix Vitamin B-12 1,000 mcg oral tablet 02/14/2011 take 1 tablet by oral route daily no longer taking propranolol 10 mg oral tablet 08/27/2010 02/14/2011 TAKE 1 TABLET DAILY dose change Lipitor 40 mg oral tablet 04/13/2011 take 1 tablet (40 mg) by oral route once daily not taking hydrocodone-acetaminophen 5-500 mg oral tablet 02/25/2011 04/13/2011 take 1 tablet by oral route every 4 hours as needed for pain lisinopril 40 mg oral tablet 02/25/2011 03/12/2013 take 1 tablet by oral route daily Crestor 10 mg oral tablet 04/13/2011 08/24/2012 take 1 tablet (10 mg) by oral route once daily "not taking now" glyburide 5 mg oral tablet 09/07/2012 09/12/2012 TAKE 1 TABLET TWICE A DAY propranolol 40 mg oral tablet 09/23/2012 03/27/2014 TAKE 1 TABLET TWICE A DAY "stopped taking it" prednisone 20 mg oral tablet 05/14/2013 03/27/2014 take 1 tablet (20 mg) by oral route once daily glipizide 5 mg oral tablet 10/24/2013 03/27/2014 take 1 tablet (5 mg) by oral route before breakfast and 2 tablets (10 mg) before supper metformin 1,000 mg oral tablet 10/24/2013 07/28/2014 TAKE 1 TABLET TWICE A DAY dose change in hosp. verapamil 240 mg oral tablet extended release 10/24/2013 07/28/2014 TAKE 1 TABLET DAILY DC'd in hosp. trandolapril 2 mg oral tablet 10/24/2013 07/28/2014 TAKE 1 TABLET DAILY for 90 days DC'd in hosp diclofenac sodium 75 mg oral tablet,delayed release (DR/EC) 10/24/20132014 take 1 tablet (75 mg) by oral route 2 times per day DC'd in hosp hydrochlorothiazide 25 mg oral tablet 03/27/2014 07/28/2014 take 1 tablet (25 mg) by oral route 1 time a day for 90 days DC'd in hosp. meclizine 25 mg oral tablet 03/27/2014 07/28/2014 take 1 tablet (25 mg) by oral route 3 times per day as needed citalopram 20 mg oral tablet 03/27/2014 07/28/2014 take 1 tablet (20 mg) by oral route once daily for 30 days DC'd in hosp. Oseni 25-30 mg oral tablet 03/27/2014 07/28/2014 take 1 tablet by oral route once daily swallowing whole. Do not crush, chew and/or divide. for 28 days DC' d in hosp. gabapentin 300 mg oral capsule 03/27/2014 07/28/2014 take 1 capsule by oral route once a day (at bedtime) dose change docusate sodium 100 mg oral capsule 03/17/2016 take 1 capsule (100 mg) by oral route 2 times per day sennosides 8.6 mg oral tablet 03/17/2016 take 2 tablets by oral route twice daily gabapentin 300 mg oral capsule 08/04/2014 09/16/2014 take 1 capsule (300 mg) by oral route 4 times per day Voltaren 1 % topical gel 08/04/2014 03/17/2016 apply 2 gram to the affected area(s) by topical route every 6 hours as needed lisinopril 10 mg oral tablet 08/04/2014 take 1 tablet (10 mg) by oral route once daily for 90 days Januvia 100 mg oral tablet 04/13/2015 07/30/2015 TAKE ONE TABLET BY MOUTH ONCE DAILY On Lantus and Novolog lisinopril 10 mg oral tablet 07/30/2015 10/23/2017 TAKE ONE TABLET BY MOUTH ONCE DAILY metformin 500 mg oral tablet 07/30/2015 03/17/2016 take 1 tablet by oral route 2 times a day for 90 days "stopped taking" Novolog 100 unit/mL subcutaneous solution 07/30/2015 10/03/2016 inject 5 units by subcutaneous route with breakfast and lunch and 7 units with supper No longer taking simvastatin 10 mg oral tablet 07/30/2015 03/17/2016 take 1 tablet (10 mg) by oral route once daily in the evening for 90 days "I do not have any to take" verapamil 240 mg oral tablet extended release 07/30/2015 01/23/2017 TAKE ONE TABLET BY MOUTH ONCE DAILY WITH FOOD Januvia 100 mg oral tablet 09/01/2015 03/17/2016 take 1 tablet (100 mg) by oral route once daily for 30 days "I stopped it due to money" potassium chloride 10 mEq oral tablet extended release 10/28/2015 03/17/2016 take 1 tablet (10 meq) by oral route once daily Breo Ellipta 100-25 mcg/dose inhalation blister with device 03/17/20162015 inhale 1 puff by inhalation route once daily at the same time each day Lantus Solostar 100 unit/mL (3 mL) subcutaneous insulin pen 10/03/20162017 inject 20 units by subcutaneous route once a day no longer on medication list Voltaren 1 % topical gel 10/03/2016 10/23/2017 apply 2 gram to the affected area(s) by topical route 4 times per day propranolol 40 mg oral tablet 10/20/2017 10/23/2017 take 1 tablet (40 mg) by oral route 2 times per day Lantus Solostar U-100 Insulin 100 unit/mL (3 mL) subcutaneous insulin pen 10/2310/23/2017 inject 25 units by subcutaneous route once a day Humalog KwikPen Insulin 100 unit/mL subcutaneous insulin pen 10/23/20172017 inject 5 units by subcutaneous route with each meal Problem List Description Status Onset Diabetes Mellitus, Type II Active Hypertension Active Neuropathy Active 10/15/2016 Vital Signs Date Time BP-Sys(mm[Hg] BP-Jluia(mm[Hg]) HR(bpm) RR(rpm) Temp WT HT HC BMI BSA BMI Percentile O2 Sat(%) 06/15/2018 8:37:00 AM 136 mmHg 80 mmHg 71 bpm 20 rpm 98.8 F 202 lbs 66 in 32.6033 kg/m 2.0656 m 99 % 10/23/2017 2:58:00 PM 168 mmHg 98 mmHg 83 bpm 20 rpm 98.8 F 201 lbs 66 in 32.44 kg/m2 2.06 m2 97 % 10/20/2017 5:36:00 PM 166 mmHg 90 mmHg 100 bpm 20 rpm 99.5 F 190 lbs 66 in 30.6665 kg/m 2.0033 m 98 % 01/23/2017 3:17:00 PM 140 mmHg 80 mmHg 65 bpm 22 rpm 97.6 F 193 lbs 66 in 31.15 kg/m2 2.02 m2 95 % 10/03/2016 9:29:00 AM 132 mmHg 70 mmHg 64 bpm 18 rpm 97.1 F 189.25 lbs 66 in 30.5454 kg/m 1.9994 m 100 % 08/11/2016 9:28:00 AM 130 mmHg 74 mmHg 73 bpm 22 rpm 97.9 F 201 lbs 66 in 32.44 kg/m2 2.06 m2 99 % 05/03/2016 10:25:00 AM 172 mmHg 88 mmHg 80 bpm 22 rpm 97.8 F 208 lbs 66 in 33.5717 kg/m 2.0961 m 99 % 03/17/2016 9:55:00 AM 154 mmHg 86 mmHg 76 bpm 20 rpm 97.5 F 206 lbs 66 in 33.25 kg/m2 2.09 m2 99 % 10/28/2015 10:40:00 AM 188 mmHg 90 mmHg 80 bpm 20 rpm 98 F 212 lbs 66 in 34.2173 kg/m 2.1161 m 98 % 09/01/2015 9:16:00 AM 142 mmHg 78 mmHg 80 bpm 20 rpm 98.7 F 206 lbs 67 in 32.26 kg/m2 2.10 m2 97 % 07/30/2015 9:26:00 AM 136 mmHg 70 mmHg 76 bpm 18 rpm 98.6 F 197 lbs 66 in 31.7963 kg/m 2.0399 m 99 % 04/20/2015 9:36:00 AM 138 mmHg 78 mmHg 80 bpm 18 rpm 98 F 179 lbs 66 in 28.89 kg/m2 1.94 m2 96 % 01/15/2015 10:16:00 AM 140 mmHg 95 mmHg 82 bpm 16 rpm 98.6 F 188 lbs 66 in 30.3437 kg/m 1.9927 m 99 % 09/19/2014 9:09:00 AM 144 mmHg 70 mmHg 75 bpm 18 rpm 98 F 174 lbs 66 in 28.08 kg/m2 1.92 m2 100 % 09/16/2014 7:34:00 PM 158 mmHg 90 mmHg 105 bpm 20 rpm 97.8 F 182 lbs 66 in 29.3753 kg/m 1.9607 m 99 % 08/29/2014 8:42:00 AM 140 mmHg 76 mmHg 78 bpm 16 rpm 98 F 182 lbs 66 in 29.38 kg/m2 1.96 m2 97 % 07/28/2014 10:37:00 AM 128 mmHg 68 mmHg 113 bpm 18 rpm 97.9 F 179 lbs 66 in 28.8911 kg/m 1.9445 m 99 % 05/01/2014 9:46:00 AM 128 mmHg 82 mmHg 82 bpm 18 rpm 97.6 F 66 in 98 % 03/27/2014 9:58:00 AM 142 mmHg 88 mmHg 86 bpm 20 rpm 98.7 F 191 lbs 66 in 30.83 kg/m2 2.01 m2 100 % 05/14/2013 3:04:00 PM 115 mmHg 80 mmHg 85 bpm 18 rpm 97.6 F 191.375 lbs 66 in 30.8884 kg/m 2.0105 m 98 % 03/12/2013 2:51:00 PM 144 mmHg 82 mmHg 86 bpm 20 rpm 98.1 F 198 lbs 66 in 31.96 kg/m2 2.05 m2 08/23/2012 9:21:00 AM 138 mmHg 70 mmHg 72 bpm 16 rpm 97.8 F 213 lbs 66 in 34.3787 kg/m 2.1211 m 04/13/2011 9:09:00 AM 136 mmHg 64 mmHg 58 bpm 20 rpm 98.2 F 197 lbs 66 in 31.80 kg/m2 2.04 m2 02/14/2011 2:12:00 PM 132 mmHg 70 mmHg 72 bpm 18 rpm 98.3 F 191 lbs 11/19/2009 3:23:00 PM 188 mmHg 92 mmHg 66 bpm 20 rpm 97.8 F 208 lbs Social History Name Description Comments Tobacco Never smoker No Alcohol Use No Tobacco Use History of Procedures Date Ordered Description Order Status 10/28/2015 12:00 AM EXTRACRANIAL BILAT STUDY Reviewed 10/28/2015 12:00 AM STRESS TTE ONLY Reviewed 03/17/2016 12:00 AM RADEX HIP UNILATERAL COMPLETE MINIMUM 2 VIEWS Reviewed 03/17/2016 12:00 AM CHEST X-RAY 2VW FRONTAL&LATL Reviewed 05/03/2016 12:00 AM Physical Therapy Consult Reviewed 10/03/2016 12:00 AM COMPREHEN METABOLIC PANEL Reviewed 10/03/2016 12:00 AM LIPID PANEL Reviewed 10/03/2016 12:00 AM VITAMIN B-12 Reviewed 10/03/2016 12:00 AM GLYCOSYLATED HEMOGLOBIN TEST Reviewed 01/23/2017 12:00 AM Bicillin CR Injection 1.2 million units Reviewed 08/23/2012 12:00 AM COMPREHEN METABOLIC PANEL Reviewed 08/23/2012 12:00 AM LIPID PANEL Reviewed 08/23/2012 12:00 AM GLYCOSYLATED HEMOGLOBIN TEST Reviewed 08/23/2012 12:00 AM MICROALBUMIN SEMIQUANT Reviewed 10/23/2017 12:00 AM GLYCOSYLATED HEMOGLOBIN TEST Reviewed 10/23/2017 12:00 AM LIPID PANEL Reviewed 10/20/2017 12:00 AM COMPLETE CBC W/AUTO DIFF WBC Reviewed 10/20/2017 12:00 AM COMPREHEN METABOLIC PANEL Reviewed 10/20/2017 12:00 AM URNLS DIP STICK/TABLET RGNT AUTO W/O MICROSCOPY Reviewed 10/20/2017 12:00 AM X-RAY EXAM OF ABDOMEN Reviewed 06/15/2018 12:00 AM COMPREHEN METABOLIC PANEL Reviewed 06/15/2018 12:00 AM GLYCOSYLATED HEMOGLOBIN TEST Reviewed 05/14/2013 12:00 AM Bicillin CR, 1.2 million units [facility]# 37136-306-14 Reviewed 03/27/2014 12:00 AM COMPREHEN METABOLIC PANEL Reviewed 03/27/2014 12:00 AM LIPID PANEL Reviewed 03/27/2014 12:00 AM GLYCOSYLATED HEMOGLOBIN TEST Reviewed 05/01/2014 12:00 AM Neurosurgery Consult Reviewed 09/21/2014 12:00 AM DESTRUCT PREMALG LESION Reviewed 09/21/2014 12:00 AM DESTRUCT PREMALG LES 2-14 Reviewed 02/14/2011 12:00 AM MRI BRAIN STEM W/O DYE Reviewed 02/14/2011 12:00 AM MR ANGIOGRAPHY HEAD W/O DYE Reviewed 02/14/2011 12:00 AM Carotid Doppler Reviewed Results Summary Date and Description Results 08/23/2012 10:10 AM CREAT UR 66.70 mg/dLMICROALBUMIN UR 51.0 ug/mLALB:CREAT RATIO 76 TRIGLYCERIDES 198.0 mg/dLCHOLESTEROL 236.0 mg/dLHDL 37.0 mg/dLTOT CHOL/ HDL 6.4 LDL (CALC) 159.0 mg/dLGLUCOSE 304.0 mg/dLSODIUM 134.0 mmol/LPOTASSIUM 4.0 mmol/LCHLORIDE 99.0 mmol/LCO2 24.0 mmol/LBUN 40.0 mg/dLCREATININE 1.50 mg/ dLSGOT/AST 12.0 IU/LSGPT/ALT 21.0 IU/LALK PHOS 64.0 IU/LTOTAL PROTEIN 7.0 g/ dLALBUMIN 4.20 g/dLTOTAL BILI 1.10 mg/dLCALCIUM 10.10 mg/dLAGE 67 GFR NonAA 47 GFR AA 57 eGFR 47 eGFR AA* 57 GLYCOHEMOGLOBIN A1C 10.70 % 03/27/2014 10:48 AM GLUCOSE 188.0 mg/dLSODIUM 141.0 mmol/LPOTASSIUM 4.0 mmol/ LCHLORIDE 104.0 mmol/LCO2 27.0 mmol/LBUN 22.0 mg/dLCREATININE 1.10 mg/dLSGOT/ AST 13.0 IU/LSGPT/ALT 18.0 IU/LALK PHOS 72.0 IU/LTOTAL PROTEIN 6.90 g/dLALBUMIN 4.0 g/dLTOTAL BILI 1.30 mg/dLCALCIUM 10.0 mg/dLAGE 69 GFR NonAA 67 GFR AA 81 eGFR 60 eGFR AA* 60 HGB A1C 13.60 %Est Avg Glucose 343.6 mg/dL 10/11/2016 9:00 AM HGB A1C 6.80 %Est Avg Glucose 148.5 mg/dLTRIGLYCERIDES 80.0 mg/dLCHOLESTEROL 104.0 mg/dLHDL 35.0 mg/dLTOT CHOL/HDL 3.0 LDL (CALC) 53.0 mg/ dLGLUCOSE 135.0 mg/dLSODIUM 143.0 mmol/LPOTASSIUM 3.60 mmol/LCHLORIDE 108.0 mmol /LCO2 23.0 mmol/LBUN 32.0 mg/dLCREATININE 1.10 mg/dLSGOT/AST 18.0 IU/LSGPT/ALT 13.0 IU/LALK PHOS 95.0 IU/LTOTAL PROTEIN 7.30 g/dLALBUMIN 4.0 g/dLTOTAL BILI 1.40 mg/dLCALCIUM 9.40 mg/dLAGE 71 GFR NonAA 66 GFR AA 80 eGFR >60 mL/min/1.73m eGFR AA* >60 VITAMIN B12 260.0 pg/mL 10/20/2017 6:25 PM COLOR YELLOW APPEARANCE CLEAR SPEC GRAV 1.025 pH 6.0 PROTEIN >=300 GLUCOSE 500 KETONE 15 BILIRUBIN NEGATIVE BLOOD LARGE NITRITE NEGATIVE LEUK SCREEN NEGATIVE MICRO INDICATED? SEE BELOW WBC/HPF RARE RBC/HPF 4- 10 CASTS/LPF FEW HYALINE /LPFCRYSTALS NEGATIVE MUCOUS THRDS NEGATIVE BACTERIA FEW EPITH CELLS FEW SQUAMOUS /HPFTRICHOMONAS NEGATIVE YEAST NEGATIVE CULT SET UP ? NO WBC 9.9 RBC 4.82 HGB 14.20 g/dLHCT 40.50 %MCV 84.0 fLMCH 29.50 pgMCHC 35.10 g/dLRDW SD 40 RDW CV 13.0 %MPV 11.20 fLPLT 163 NRBC# 0.00 NRBC% 0.0 %NEUT 77.30 %%LYMP 14.70 %%MONO 6.90 %%EOS 0.50 %%BASO 0.30 %#NEUT 7.66 #LYMP 1.46 # MONO 0.68 #EOS 0.05 #BASO 0.03 MANUAL DIFF NOT IND GLUCOSE 317.0 mg/dLSODIUM 138.0 mmol/LPOTASSIUM 4.10 mmol/LCHLORIDE 105.0 mmol/LCO2 23.0 mmol/LBUN 27.0 mg /dLCREATININE 1.30 mg/dLSGOT/AST 15.0 IU/LSGPT/ALT 10.0 IU/LALK PHOS 82.0 IU/ LTOTAL PROTEIN 7.70 g/dLALBUMIN 4.40 g/dLTOTAL BILI 2.0 mg/dLCALCIUM 10.10 mg/ dLAGE 72 GFR NonAA 55 GFR AA 67 eGFR 55 eGFR AA* >60 10/25/2017 8:35 AM HGB A1C 7.20 %Est Avg Glucose 159.9 mg/dLTRIGLYCERIDES 96.0 mg/dLCHOLESTEROL 142.0 mg/dLHDL 40.0 mg/dLTOT CHOL/HDL 3.6 LDL (CALC) 83.0 mg/dL 06/15/2018 9:11 AM GLUCOSE 114 SODIUM 139 POTASSIUM 3.6 CHLORIDE 107 CO2 25 BUN 29 CREATININE 1.5 SGOT/AST 14 SGPT/ALT 9 ALK PHOS 83 TOTAL PROTEIN 6.9 ALBUMIN 3.8 TOTAL BILI 1.1 CALCIUM 9.3 AGE 73 GFR NonAA 46 GFR AA 56 eGFR 46 eGFR AA* 56 HGB A1C 8.2 Est Avg Glucose 188.6 History Of Immunizations Not available. History of Past Illness Name Date of Onset Comments Diabetes Mellitus, Type II tests glucose daily Hypertension Hypertension Nov 19 2009 3:28PM Diabetes Mellitus, Type II Nov 19 2009 3:28PM CVA (Cerebrovascular accident) February 2011 Right frontal lobe and small vessel ischemic changes Neuropathy 10/15/2016 Diabetes Mellitus, Type II Feb 14 2011 2:11PM Hypertension Feb 14 2011 2:11PM Diplopia Feb 14 2011 2:11PM Headache Feb 14 2011 2:11PM Essential Hypertension Apr 13 2011 9:07AM Hyperlipidemia Apr 13 2011 9:07AM Diabetes Mellitus, Type II Apr 13 2011 9:07AM Essential Hypertension Aug 23 2012 9:24AM Hyperlipidemia Aug 23 2012 9:24AM Diabetes Mellitus, Type II Aug 23 2012 9:24AM Essential Hypertension Mar 12 2013 2:53PM Hyperlipidemia Mar 12 2013 2:53PM Diabetes Mellitus, Type II Mar 12 2013 2:53PM Back Pain with Radiation Mar 12 2013 2:53PM Bronchitis, Acute May 14 2013 3:08PM Diabetes Mellitus, Type II May 14 2013 3:08PM Hypertension May 14 2013 3:08PM Diabetes Mellitus, Type II, Uncontrolled Mar 27 2014 10:01AM Vertigo Mar 27 2014 10:01AM Severe Lumbar spinal stenosis May 01 2014 9:53AM Diabetes mellitus, type II Jul 28 2014 10:40AM Hypertension Jul 28 2014 10:40AM Back pain with left-sided radiculopathy Jul 28 2014 10:40AM Essential Hypertension Aug 29 2014 8:44AM Diabetes Mellitus, Type II Aug 29 2014 8:44AM Low back pain Aug 29 2014 8:44AM Left leg weakness Aug 29 2014 8:44AM Back pain Sep 16 2014 7:35PM Hypertension Sep 19 2014 9:11AM Seborrheic Keratosis x 2 Sep 21 2014 5:39PM Chronic Low Back Pain Sep 19 2014 9:11AM Neuralgia; left leg Sep 19 2014 9:11AM Diabetes Mellitus, Type II Jan 15 2015 10:18AM Diabetes mellitus type 2 with complications, uncontrolled Apr 20 2015 9:38AM Diabetes mellitus out of control Jul 30 2015 9:28AM Benign essential hypertension Jul 30 2015 9:28AM Mixed hyperlipidemia Jul 30 2015 9:28AM Hypertension Sep 01 2015 9:19AM Controlled diabetes mellitus with hyperglycemia Sep 01 2015 9:19AM 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 Sep 01 2015 9:19AM Aortic stenosis Oct 28 2015 10:41AM Type 2 diabetes mellitus without complication Oct 28 2015 10:41AM Essential hypertension Oct 28 2015 10:41AM Bruit of right carotid artery Oct 28 2015 10:41AM Bronchitis Mar 17 2016 9:57AM Right hip pain Mar 17 2016 9:57AM Chronic left-sided low back pain with left-sided sciatica May 03 2016 10:27AM Diabetes Mellitus, Type II Aug 11 2016 9:30AM Hypertension Aug 11 2016 9:30AM Diabetes Mellitus, Type II Oct 03 2016 9:32AM Hypertension Oct 03 2016 9:32AM Neuropathy Oct 03 2016 9:32AM Acute bronchitis Jan 23 2017 3:19PM Abdominal bloating Oct 20 2017 5:39PM Type 1 diabetes mellitus with hyperglycemia Oct 20 2017 5:39PM Diabetes Mellitus, Type II Oct 23 2017 3:00PM Hypertension Oct 23 2017 3:00PM Nonintractable headache, unspecified chronicity pattern, unspecified headache type Oct 20 2017 5:39PM Hypertension Oct 20 2017 5:39PM Diabetes Mellitus, Type II Jun 15 2018 8:40AM Hypertension Jun 15 2018 8:40AM Payers Insurance Name Company Name Plan Name Plan Number Policy Number Policy Group Number Start Date Medicare RHC Medicare RHC [id number] N/A BCBS [facility] [id number] November [facility] [id number] [facility] [id number] Saturday, 2010 Medicare Part A Medicare Part A [id number] Friday, 2011 Medicare Part B Medicare [place] [id number] N/A [employer] [id number] N/A Medicare Part A Medicare - Lab/Xray [id number] Friday, December 09, 2011 History of Encounters Visit Date Visit Type Provider 06/15/2018 Office visit Oumar Umanzor DO 10/23/2017 Office visit Oumar Umanzor DO 10/20/2017 Office visit [facility] [place] [facility] [facility] 01/23/2017 Office visit Oumar Umanzor DO 10/03/2016 Office visit Oumar Umanzor DO 08/11/2016 Office visit Oumar Umanzor DO 07/20/2016 Hospital Isaias Garcia MD 07/11/2016 [facility] Reynaldo Miguel DO 07/10/2016 [facility] Abrahan Reno MD 05/03/2016 Office visit Oumar Umanzor DO 03/17/2016 Office visit Oumar Umanzor DO 10/28/2015 Office visit Oumar Umanzor DO 09/01/2015 Office visit Oumar Umanzor DO 07/30/2015 Office visit Oumar Umanzor DO 04/20/2015 Office visit Oumar Umanzor DO 04/12/2015 [facility] Kole Brownlee MD 04/11/2015 [facility] Kole Brownlee MD 02/11/2015 [facility] Edda Richards MD 01/15/2015 Office visit [facility] [place] [employer] 09/19/2014 Office visit Oumar Umanzor DO 09/16/2014 Office visit [facility] [place] [employer] 08/29/2014 Office visit Oumar Erna DO 07/28/2014 Office visit Oumar Umanzor DO 06/10/2014 [facility] Cameron Suggs MD 05/30/2014 [facility] Nell Hebert MD 05/01/2014 Office visit Oumar Umanzor DO 03/27/2014 Office visit Oumar Erna DO 05/14/2013 Office visit Oumar Umanzor DO 03/12/2013 Office visit Oumar Umanzor DO 08/23/2012 Office visit Oumar Umanzor DO 04/13/2011 Office visit Oumar Umanzor DO 02/14/2011 Office visit Oumar Umanzor DO 02/13/2011 [facility] Nata Redman MD 02/12/2011 [facility] Nata Redman MD 02/11/2011 [facility] Nata Redman MD 02/11/2011 [facility] Abrahan Reno MD 02/10/2011 [facility] RIN Sanchez MD 02/10/2011 Voided RIN Sanchez MD 11/19/2009 Office visit Oumar Umanzor DO
--- OUTSIDE RECORDS SUMMARY | 2018-08-29 19:04 | XMS REPORT ---
Author Author Oumar Umanzor [facility] Address [address] [place], [place] [id number] Care Team Providers Care Carriage Operator Name Role Phone Oumar Umanzor PCP Oumar [...] Active 10/15/2016 Vital Signs Date Time BP-Sys(mm[Hg] BP-Julia(mm[Hg]) HR(bpm) RR(rpm) Temp WT HT HC BMI [...] 12:00 AM Bicillin CR, 1.2 million units [facility]# [id number] Reviewed 03/27/2014 12:00 AM COMPREHEN METABOLIC PANEL [...] Number Start Date Medicare RHC Medicare RHC [id number] N/A BCBS Bcbs [facility] [id number] November [facility] [address] [facility] [id number] Saturday, 2010 Medicare Part A Medicare Part A [id number] Friday, 2011 Medicare Part B Medicare Of [place] [id number] N/A AARP Aarp [id number] N/A Medicare Part A Medicare - Lab/Xray [id number] Friday, December 09, 2011 History of Encounters Visit Date Visit Type Provider 06/15/2018 Office visit Oumar Umanzor DO 10/23/2017 Office visit Oumar Umanzor DO 10/20/2017 Office visit Boo Madison CAPPING MACHINE OPERATOR 01/23/2017 Office visit Oumar Umanzor DO 10/03/2016 Office visit Oumar Umanzor DO 08/11/2016 Office visit Oumar Umanzor DO 07/20/2016 Hospital Isaias Garcia MD 07/11/2016 [facility] Reynaldo Miguel DO 07/10/2016 [facility] Abrahan Reno MD 05/03/2016 Office visit Oumar Umanzor DO 03/17/2016 Office visit Oumar Umanzor DO 10/28/2015 Office visit Oumar Umanzor DO 09/01/2015 Office visit Oumar Umanzro DO 07/30/2015 Office visit Oumar Umanzor DO 04/20/2015 Office visit Oumar Umanzor DO 04/12/2015 [facility] Kole Brownlee MD 04/11/2015 [facility] Kole Brownlee MD 02/11/2015 [facility] Edda Richards MD 01/15/2015 Office visit Boo Madison CAPPING MACHINE OPERATOR 09/19/2014 Office visit Oumar Umanzor DO 09/16/2014 Office visit Boo Madison CAPPING MACHINE OPERATOR 08/29/2014 Office visit Oumar Erna DO 07/28/2014 Office visit Oumar Umanzor DO 06/10/2014 [facility] Cameron Suggs MD 05/30/2014 [facility] Nell Hebert MD 05/01/2014 Office visit Oumar Umanzor DO 03/27/2014 Office visit Oumar Erna DO 05/14/2013 Office visit Oumar Umanzor DO 03/12/2013 Office visit Oumar Umanzor DO 08/23/2012 Office visit Oumar Umanzor DO 04/13/2011 Office visit Oumar Umanzor DO 02/14/2011 Office visit Oumar Umanzor DO 02/13/2011 [facility] Nata Redman MD 02/12/2011 [facility] Nata Redman MD 02/11/2011 [facility] Nata Redman MD 02/11/2011 [facility] Abrahan Reno MD 02/10/2011 [facility] RIN Sanchez MD 02/10/2011 Voided RIN Sanchez MD 11/19/2009 Office visit Oumar Umanzor DO
--- OUTSIDE RECORDS SUMMARY | 2018-08-29 19:05 | XMS REPORT ---
Author Author Oumar Umanzor [facility] Address [address] [place], [place] [address] Care Team Providers Care Health Sanitarian Name Role Phone Oumar Umanzor PCP Oumar Umanzor PreferredProvider Allergies and Adverse Reactions Name Reaction Notes Demerol Plan of Treatment Planned Activity Comments Planned Date Planned Time Plan/Goal Hemoglobin A1c measurement 10/23/2017 12:00 AM Lipid panel 10/23/2017 12:00 AM Follow up Urge incontinence Medications Active Name Start Date Estimated Completion Date SIG Comments Insulin Syringe 1 mL 30 gauge x 11/22 miscellaneous syringe 04/20/2015 use 4 times with Insulin Injections True Metrix Glucose Test Strip miscellaneous strip 11/10/2016 Test glucose twice a day Dx:E11.9 amlodipine 10 mg oral tablet 10/23/2017 10/18/2018 take 1 tablet (10 mg) by oral route once daily for 90 days duloxetine 60 mg oral capsule,delayed release(DR/EC) 10/23/2017 10/18/2018 take 1 capsule (60 mg) by oral route once daily for 90 days finasteride 5 mg oral tablet 10/23/2017 12/22/2017 take 1 tablet (5 mg) by oral route once daily for 30 days gabapentin 300 mg oral capsule 10/23/2017 10/18/2018 take 1 capsule (300 mg) by oral route 2 times per day for 90 days oxybutynin chloride 5 mg oral tablet 10/23/2017 12/22/2017 take 1 tablet (5 mg ) by oral route 2 times per day for 30 days simvastatin 40 mg oral tablet 10/23/2017 10/18/2018 take 1 tablet (40 mg) by oral route once daily in the evening for 90 days tamsulosin 0.4 mg oral capsule,extended release 24hr 10/23/2017 12/22/2017 take 1 capsule (0.4 mg) by oral route once daily for 30 days metoprolol succinate 100 mg oral tablet [...] units by subcutaneous route once a day Name Start Date Expiration Date SIG Comments [...] bedtime Switching back to Lantus and Humalog Discontinued Name Start Date Discontinued Date SIG [...] HC BMI BSA BMI Percentile O2 Sat(%) 10/23/2017 2:58:00 PM 168 mmHg 98 mmHg 83 bpm 20 rpm 98.8 F 201 lbs 66 in 32.4419 kg/m 2.0605 m 97 % 10/20/2017 5:36:00 PM 166 mmHg 90 mmHg 100 bpm 20 rpm 99.5 F 190 lbs 66 in 30.67 kg/m2 2.00 m2 98 % 01/23/2017 3:17:00 PM 140 mmHg 80 mmHg 65 bpm 22 rpm 97.6 F 193 lbs 66 in 31.1507 kg/m 2.0191 m 95 % 10/03/2016 9:29:00 AM 132 mmHg 70 mmHg 64 bpm 18 rpm 97.1 F 189.25 lbs 66 in 30.55 kg/m2 2.00 m2 100 % 08/11/2016 9:28:00 AM 130 mmHg 74 mmHg 73 bpm 22 rpm 97.9 F 201 lbs 66 in 32.4419 kg/m 2.0605 m 99 % 05/03/2016 10:25:00 AM 172 mmHg 88 mmHg 80 bpm 22 rpm 97.8 F 208 lbs 66 in 33.57 kg/m2 2.10 m2 99 % 03/17/2016 9:55:00 AM 154 mmHg [...] Reviewed 08/23/2012 12:00 AM MICROALBUMIN SEMIQUANT Reviewed 10/20/2017 12:00 AM COMPLETE CBC W/AUTO DIFF WBC Returned 10/20/2017 12:00 AM COMPREHEN METABOLIC PANEL Returned 10/20/2017 12:00 AM URNLS DIP STICK/TABLET RGNT AUTO W/O MICROSCOPY Returned 10/20/2017 12:00 AM X-RAY EXAM OF ABDOMEN Returned 05/14/2013 12:00 AM Bicillin CR, 1.2 million units [facility]# [id number] Reviewed 03/27/2014 12:00 AM COMPREHEN METABOLIC PANEL [...] eGFR AA* >60 VITAMIN B12 260.0 pg/mL History Of Immunizations Not available. History of [...] 2017 3:00PM Hypertension Oct 23 2017 3:00PM Payers Insurance Name Company Name Plan Name Plan Number Policy Number Policy Group Number Start Date Medicare [facility] Medicare [facility] [id number] N/A [facility] [id number] November [facility] [id number] Saturday, 2010 Medicare Part A Medicare Part A [id number] Friday, 2011 Medicare Part B Medicare Of [place] [id number] N/A AARP [employer] [id number] N/A Medicare Part A Medicare - Lab/Xray [id number] Friday, December 09, 2011 History of Encounters Visit Date Visit Type Provider 10/23/2017 Office visit Oumar Umanzor DO 10/20/2017 Office visit Boo Madison WORKFLOW DEVELOPER 01/23/2017 Office visit Oumar Umanzor DO 10/03/2016 Office visit Oumar Umanzor DO 08/11/2016 Office visit Oumar Umaznor DO 07/20/2016 Hospital Isaias Garcia MD 07/11/2016 Hospital Reynaldo Miguel DO 07/10/2016 [facility] Abrahan Reno MD 05/03/2016 Office visit Oumar Umanzor DO 03/17/2016 Office visit Oumar Umanzor DO 10/28/2015 Office visit Oumar Umanzor DO 09/01/2015 Office visit Oumar Umanzor DO 07/30/2015 Office visit Oumar Umanzor DO 04/20/2015 Office visit Oumar Umanzor DO 04/12/2015 [facility] Kole Brownlee MD 04/11/2015 [facility] Kole Brownlee MD 02/11/2015 [facility] Edda Richards MD 01/15/2015 Office visit Boo Madison WORKFLOW DEVELOPER 09/19/2014 Office visit Oumar Umanzor DO 09/16/2014 Office visit Boo Madison APRN 08/29/2014 Office visit Oumar Umanzor DO 07/28/2014 Office visit Oumar Umanzor DO 06/10/2014 [facility] Cameron Suggs MD 05/30/2014 [facility] Nell Hebert MD 05/01/2014 Office visit Oumar Umanzor DO 03/27/2014 Office visit Oumar Umanzor DO 05/14/2013 Office visit Oumar Umanzor DO 03/12/2013 Office visit Oumar Umanzor DO 08/23/2012 Office visit Oumar Umanzor DO 04/13/2011 Office visit Oumar Umanzor DO 02/14/2011 Office visit Oumar Umanzor DO 02/13/2011 Hospital Nata Redman MD 02/12/2011 [facility] Nata Redman MD 02/11/2011 [facility] Nata Redman MD 02/11/2011 [facility] Abrahan Reno MD 02/10/2011 [facility] RIN Sanchez MD 02/10/2011 Voided RIN Sanchez MD 11/19/2009 Office visit Oumar Umanzor DO
--- OUTSIDE RECORDS SUMMARY | 2018-08-29 19:06 | XMS REPORT ---
Author Author Oumar Umanzor [facility] Address [address] [place], [place] [id number] Care Team Providers Care Heel Seam Rubber Name Role Phone Oumar Umanzor PCP Unavailable Allergies and Adverse Reactions Name Reaction Notes Demerol Plan of Treatment Planned Activity Comments Planned Date Planned Time Plan/Goal GLYCOSYLATED HEMOGLOBIN TEST 04/20/2015 12:00 AM COMPREHEN METABOLIC PANEL 03/12/2013 12:00 AM LIPID PANEL 03/12/2013 12:00 AM GLYCOSYLATED HEMOGLOBIN TEST 03/12/2013 12:00 AM MICROALBUMIN SEMIQUANT 03/12/2013 12:00 AM GLYCOSYLATED HEMOGLOBIN TEST 01/15/2015 12:00 AM Medications Active Name Start Date Estimated Completion Date SIG Comments docusate sodium 100 mg oral capsule take 1 capsule (100 mg) by oral route 2 times per day sennosides 8.6 mg oral tablet take 2 tablets by oral route twice daily simvastatin 10 mg oral tablet 08/04/2014 07/25/2015 take 1 tablet (10 mg) by oral route once daily in the evening for 90 days verapamil 240 mg oral tablet extended release 07/30/2014 07/25/2015 take 1 tablet (240 mg) by oral route once daily with food for 90 days Voltaren 1 % topical gel 08/04/2014 apply 2 gram to the affected area(s) by topical route every 6 hours as needed lisinopril 10 mg oral tablet 08/04/2014 07/30/2015 take 1 tablet (10 mg) by oral route once daily for 90 days duloxetine 30 mg oral capsule,delayed release(DR/EC) 08/04/2014 07/30/2015 take 1 capsule (30 mg) by oral route once daily for 90 days cyclobenzaprine 10 mg oral tablet 08/04/2014 07/30/2015 take 1 tablet (10 mg) by oral route every 8 hours as needed for 90 days metformin 500 mg oral tablet 08/05/2014 07/31/2015 take 2 tablets (1,000 mg) by oral route 2 times per day with meals tamsulosin 0.4 mg oral capsule,extended release 24hr 08/29/2014 08/24/2015 take 1 capsule (0.4 mg) by oral route once daily 1/2 hour following the same meal each day for 90 days Januvia 100 mg oral tablet 04/13/2015 TAKE ONE TABLET BY MOUTH ONCE DAILY verapamil 240 mg oral tablet extended release 04/15/2015 TAKE ONE TABLET BY MOUTH ONCE DAILY WITH FOOD lisinopril 10 mg oral tablet 04/15/2015 TAKE ONE TABLET BY MOUTH ONCE DAILY Lantus 100 unit/mL subcutaneous solution 04/20/2015 inject 20 units by subcutaneous route once a day Novolog 100 unit/mL subcutaneous solution 04/20/2015 inject 5 units by subcutaneous route with each meal Insulin Syringe 1 mL 30 x 5/16" miscellaneous syringe 04/20/2015 use 4 times with Insulin Injections Name Start Date Expiration Date SIG Comments [...] every 8 hours as needed for pain Lyrica 75 mg oral capsule 09/16/2014 10/16/2014 take 1 capsule (75 mg) by oral route 2 times per day for 30 days MS Contin 15 mg oral tablet extended release 10/10/2014 11/09/2014 take 1 tablet (15 mg) by oral route every 12 hours for 30 days pioglitazone 15 mg oral tablet 01/15/2015 04/15/2015 take 1 tablet (15 mg) by oral route once daily for 30 days clopidogrel 75 mg oral tablet 02/13/2015 03/15/2015 take 1 tablet by oral route daily for 30 days Januvia 100 mg oral tablet 02/13/2015 03/15/2015 take 1 tablet (100 mg) by oral [...] 1 time a day for 90 days dose adjusted hydrochlorothiazide 25 mg oral tablet 03/27/2014 07/28/2014 [...] once a day (at bedtime) dose change gabapentin 300 mg oral capsule 08/04/2014 09/16/2014 take 1 capsule (300 mg) by oral route 4 times per day Problem List Description Status Onset Diabetes Mellitus, Type II Active Hypertension Active Vital Signs Date Time BP-Sys(mm[Hg] BP-Julia(mm[Hg]) HR(bpm) RR(rpm) Temp WT HT HC BMI BSA BMI Percentile O2 Sat(%) 04/20/2015 9:36:00 AM 138 mmHg 78 mmHg [...] rpm 98.7 F 191 lbs 66 in 30.8279 kg/m 2.0086 m 100 % 05/14/2013 3:04:00 PM 115 mmHg 80 mmHg 85 bpm 18 rpm 97.6 F 191.375 lbs 66 in 30.89 kg/m2 2.01 m2 98 % 03/12/2013 2:51:00 PM 144 mmHg 82 mmHg 86 bpm 20 rpm 98.1 F 198 lbs 66 in 31.9577 kg/m 2.0451 m 08/23/2012 9:21:00 AM 138 mmHg 70 mmHg 72 bpm 16 rpm 97.8 F 213 lbs 66 in 34.38 kg/m2 2.12 m2 04/13/2011 9:09:00 AM 136 mmHg 64 mmHg 58 bpm 20 rpm 98.2 F 197 lbs 66 in 31.7963 kg/m 2.0399 m 02/14/2011 2:12:00 PM 132 mmHg 70 mmHg 72 bpm 18 rpm 98.3 F 191 lbs 11/19/2009 3:23:00 PM 188 mmHg 92 mmHg 66 bpm 20 rpm 97.8 F 208 lbs Social History Name Description Comments No Alcohol Use No Tobacco Use History of Procedures Date Ordered Description Order Status 08/23/2012 12:00 AM COMPREHEN METABOLIC PANEL Reviewed 08/23/2012 12:00 AM LIPID PANEL Reviewed 08/23/2012 12:00 AM GLYCOSYLATED HEMOGLOBIN TEST Reviewed 08/23/2012 12:00 AM MICROALBUMIN SEMIQUANT Reviewed 05/14/2013 12:00 AM Bicillin CR, 1.2 million units [facility]# [id number] Reviewed 03/27/2014 12:00 AM COMPREHEN METABOLIC PANEL Reviewed 03/27/2014 12:00 AM LIPID PANEL Reviewed 03/27/2014 12:00 AM GLYCOSYLATED HEMOGLOBIN TEST Reviewed 02/14/2011 12:00 AM MRI BRAIN STEM W/O DYE Reviewed 02/14/2011 12:00 AM MR ANGIOGRAPHY HEAD W/O DYE Reviewed 02/14/2011 12:00 AM Carotid Doppler Reviewed Results Summary Data and Description Results 08/23/2012 10:10 AM CREAT UR 66.70 mg/dLMICROALBUMIN UR 51.0 ug/mLALB:CREAT RATIO 76 TRIGLYCERIDES 198.0 mg/dLCHOLESTEROL 236.0 mg/dLHDL 37.0 mg/dLLDL (CALC ) 159.0 mg/dLGLUCOSE 304.0 mg/dLSODIUM 134.0 mmol/LPOTASSIUM 4.0 mmol/LCHLORIDE 99.0 mmol/LCO2 24.0 mmol/LBUN 40.0 mg/dLCREATININE 1.50 mg/dLSGOT/AST 12.0 IU/ LSGPT/ALT 21.0 IU/LALK PHOS 64.0 IU/LTOTAL PROTEIN 7.0 g/dLALBUMIN 4.20 g/ dLTOTAL BILI 1.10 mg/dLCALCIUM 10.10 mg/dLeGFR 47 03/27/2014 10:48 AM GLUCOSE 188.0 mg/dLSODIUM 141.0 mmol/LPOTASSIUM 4.0 mmol/ LCHLORIDE 104.0 mmol/LCO2 27.0 mmol/LBUN 22.0 mg/dLCREATININE 1.10 mg/dLSGOT/ AST 13.0 IU/LSGPT/ALT 18.0 IU/LALK PHOS 72.0 IU/LTOTAL PROTEIN 6.90 g/dLALBUMIN 4.0 g/dLTOTAL BILI 1.30 mg/dLCALCIUM 10.0 mg/dLeGFR 60 TRIGLYCERIDES 220.0 mg/ dLCHOLESTEROL 230.0 mg/dLHDL 46.0 mg/dLLDL (CALC) 140.0 mg/dLEst Avg Glucose 343.6 mg/dL History Of Immunizations Not available. History of Past Illness Name Date of Onset Comments Diabetes Mellitus, Type II tests glucose daily Hypertension Hypertension Nov 19 2009 3:28PM Diabetes Mellitus, Type II Nov 19 2009 3:28PM CVA (Cerebrovascular accident) February 2011 Right frontal lobe and small vessel ischemic changes Diabetes Mellitus, Type II Feb 14 2011 [...] with complications, uncontrolled Apr 20 2015 9:38AM Payers Insurance Name Company Name Plan Name Plan Number Policy Number Policy Group Number Start Date Medicare Part A Medicare Part A [id number] Friday, 2011 Medicare Part B Medicare Of [place] [id number] N/A AARP Aarp [id number] N/A Bcbs [facility] [id number] November [facility] [id number] Monday, 2010 History of Encounters Visit Date Visit Type Provider 04/20/2015 Office visit Oumar Umanzor DO 04/12/2015 [facility] Kole Brownlee MD 02/11/2015 [facility] Edda Richards MD 01/15/2015 Office visit Boo Madison APRN 09/19/2014 Office visit Oumar Umanzor DO 09/16/2014 Office visit Boo Madison APRN 08/29/2014 Office visit Oumar Umanzor DO 07/28/2014 Office visit Oumar Umanzor DO 06/10/2014 [facility] Cameron Suggs MD 05/30/2014 [facility] Nell Hebert MD 05/01/2014 Office visit Oumar Umanzor DO 03/27/2014 Office visit Oumar Umanzor DO 05/14/2013 Office visit Oumar Umanzor DO 03/12/2013 Office visit Oumar Umanzor DO 08/23/2012 Office visit Oumar Umanzor DO 04/13/2011 Office visit Oumar Umanzor DO 02/14/2011 Office visit Oumar Umanzor DO 02/13/2011 [facility] Nata Redman MD 02/12/2011 [facility] Nata Redman MD 02/11/2011 [facility] Nata Redman MD 02/11/2011 [facility] Abrahan Reno MD 02/10/2011 [facility] RIN Díaz MD 02/10/2011 Voided RIN Díaz MD 11/19/2009 Office visit Oumar Umanzor DO
--- OUTSIDE RECORDS SUMMARY | 2018-08-29 19:06 | XMS REPORT ---
Author Author Oumar Umanzor [facility] Address [address] [place], [place] [address] Care Team Providers Care Academic Director Name Role Phone Oumar Umanzor PCP Oumar Umanzor PreferredProvider Allergies and Adverse Reactions Name Reaction Notes Demerol Plan of Treatment Planned Activity Comments Planned Date Planned Time Plan/Goal Follow up Urge incontinence 11/17/2017 2:00 PM Medications Active Name Start Date Estimated Completion Date SIG Comments Insulin Syringe 1 mL 30 gauge x /16 miscellaneous syringe 04/20/2015 use 4 times with [...] units by subcutaneous route once a day Pen Needle 32 gauge x 32" miscellaneous needle 10/25/2017 use 4 times a day with insulin pens Contour Next Meter miscellaneous misc 10/25/2017 test glucose 4 times a day Dx:e11.65 Contour Next Test Strips miscellaneous strip 10/25/2017 Test glucose 4 times a day Dx:e11.65 finasteride 5 mg oral tablet 12/28/2017 take 1 tablet (5 mg) by oral route once daily for 30 days oxybutynin chloride 5 mg oral tablet 12/28/2017 take 1 tablet (5 mg) by oral route 2 times per day for 30 days tamsulosin 0.4 mg oral capsule,extended release 24hr 12/28/2017 take 1 capsule (0.4 mg) by oral route once daily for 30 days Name Start Date Expiration Date SIG [...] 12:00 AM X-RAY EXAM OF ABDOMEN Reviewed 05/14/2013 12:00 AM Bicillin CR, 1.2 million units [facility]# [id number] Reviewed 03/27/2014 12:00 AM COMPREHEN METABOLIC PANEL [...] mg/dLTOT CHOL/HDL 3.6 LDL (CALC) 83.0 mg/dL History Of Immunizations Not available. History [...] 2017 5:39PM Hypertension Oct 20 2017 5:39PM Payers Insurance Name Company Name Plan Name Plan Number Policy Number Policy Group Number Start Date Medicare RHC Medicare RHC [id number] N/A BCBS Bcbs [facility] [id number] November [facility] [id number] Saturday, 2010 Medicare Part A Medicare Part A [id number] Friday, 2011 Medicare Part B Medicare Of [place] [id number] N/A AARP Aarp [id number] N/A Medicare Part A Medicare - Lab/Xray [id number] Friday, December 09, 2011 History of Encounters Visit Date Visit Type Provider 10/23/2017 Office visit Oumar Umanzor DO 10/20/2017 Office visit Boo Madison ORGAN RECOVERY COORDINATOR 01/23/2017 Office visit Oumar Umanzor DO 10/03/2016 Office visit Oumar Umanzor DO 08/11/2016 Office visit Oumar Umanzor DO 07/20/2016 Hospital Isaias Garcia MD 07/11/2016 Hospital Reynaldo Miguel DO 07/10/2016 Hospital Abrahan Reno MD 05/03/2016 Office visit Oumar Umanzor DO 03/17/2016 Office visit Oumar Umanzor DO 10/28/2015 Office visit Oumar Erna DO 09/01/2015 Office visit Oumar Erna DO 07/30/2015 Office visit Oumar Erna DO 04/20/2015 Office visit Oumar Umanzor DO 04/12/2015 [facility] Kole Brownlee MD 04/11/2015 [facility] Kole rBownlee MD 02/11/2015 [facility] Edda Richards MD 01/15/2015 Office visit Boo Madison ORGAN RECOVERY COORDINATOR 09/19/2014 Office visit Oumar Umanzor DO 09/16/2014 Office visit Boo Madison APRN 08/29/2014 Office visit Oumar Erna DO 07/28/2014 Office visit Oumar Umanzor DO 06/10/2014 [facility] Cameron Suggs MD 05/30/2014 [facility] Nell Hebert MD 05/01/2014 Office visit Oumar Erna DO 03/27/2014 Office visit Oumar Erna DO 05/14/2013 Office visit Oumar Erna DO 03/12/2013 Office visit Oumar Erna DO 08/23/2012 Office visit Oumar Erna DO 04/13/2011 Office visit Oumar Umanzor DO 02/14/2011 Office visit Oumar Umanzor DO 02/13/2011 Hospital Nata Redman MD 02/12/2011 [facility] Nata Redman MD 02/11/2011 [facility] Nata Redman MD 02/11/2011 Hospital Abrahan Reno MD 02/10/2011 Hospital RIN Sanchez MD 02/10/2011 Voided RIN Sanchez MD 11/19/2009 Office visit Oumar Umanzor DO
--- OUTSIDE RECORDS SUMMARY | 2018-08-29 19:07 | XMS REPORT ---
Author Author Oumar Umanzor [facility] Address [address] [place], [place] [id number] Care Team Providers Care Associate Entertainment Editor Name Role Phone Oumar Umanzor PCP Unavailable Allergies and Adverse Reactions Name Reaction Notes Demerol Plan of Treatment Planned Activity Comments Planned Date Planned Time Plan/Goal GLYCOSYLATED HEMOGLOBIN TEST 04/20/2015 12:00 AM COMPREHEN METABOLIC PANEL 07/30/2015 12:00 AM GLYCOSYLATED HEMOGLOBIN TEST 07/30/2015 12:00 AM LIPID PANEL 07/30/2015 12:00 AM MICROALBUMIN QUANTITATIVE 07/30/2015 12:00 AM VITAMIN B-12 07/30/2015 12:00 AM COMPREHEN METABOLIC PANEL 03/12/2013 12:00 [...] 2 tablets by oral route twice daily Voltaren 1 % topical gel 08/04/2014 apply [...] same meal each day for 90 days Insulin Syringe 1 mL 30 x 5/16" miscellaneous syringe 04/20/2015 use 4 times with Insulin Injections propranolol 40 mg oral tablet 07/30/2015 01/26/2016 take 1 tablet (40 mg) by oral route 2 times per day for 30 days clopidogrel 75 mg oral tablet 07/30/2015 01/26/2016 take 1 tablet by oral route daily for 30 days duloxetine 30 mg oral capsule,delayed release(DR/EC) 07/30/2015 07/24/2016 take 1 capsule (30 mg) by oral route once daily for 90 days Lantus 100 unit/mL subcutaneous solution 07/30/2015 inject 23 units by subcutaneous route once a day lisinopril 10 mg oral tablet 07/30/2015 TAKE ONE TABLET BY MOUTH ONCE DAILY Lyrica 75 mg oral capsule 07/30/2015 01/26/2016 take 1 capsule (75 mg) by oral route 2 times per day for 30 days metformin 500 mg oral tablet 07/30/2015 07/24/2016 take 1 tablet by oral route 2 times a day for 90 days Novolog 100 unit/mL subcutaneous solution 07/30/2015 inject 5 units by subcutaneous route with breakfast and lunch and 7 units with supper pioglitazone 15 mg oral tablet 07/30/2015 01/26/2016 take 1 tablet (15 mg) by oral route once daily for 30 days simvastatin 10 mg oral tablet 07/30/2015 07/24/2016 take 1 tablet (10 mg) by oral route once daily in the evening for 90 days verapamil 240 mg oral tablet extended release 07/30/2015 TAKE ONE TABLET BY MOUTH ONCE DAILY WITH FOOD Name Start Date Expiration Date SIG Comments [...] once daily with food for 90 days MS Contin 15 mg oral tablet extended release 10/10/2014 11/09/2014 take 1 tablet (15 mg) by oral route every 12 hours for 30 days Januvia 100 mg oral [...] by oral route 4 times per day Januvia 100 mg oral tablet 04/13/2015 07/30/2015 TAKE ONE TABLET BY MOUTH ONCE DAILY Januvia 100 mg oral tablet 04/13/2015 07/30/2015 TAKE ONE TABLET BY MOUTH ONCE DAILY On Lantus and Novolog Problem List Description Status Onset Diabetes Mellitus, Type II Active Hypertension Active Vital Signs Date Time BP-Sys(mm[Hg] BP-Julia(mm[Hg]) HR(bpm) RR(rpm) Temp WT HT HC BMI BSA BMI Percentile O2 Sat(%) 07/30/2015 9:26:00 AM 136 mmHg 70 mmHg 76 bpm 18 rpm 98.6 F 197 lbs 66 in 31.80 kg/m2 2.04 m2 99 % 04/20/2015 9:36:00 AM 138 mmHg 78 mmHg 80 bpm 18 rpm 98 F 179 lbs 66 in 28.8911 kg/m 1.9445 m 96 % 01/15/2015 10:16:00 AM 140 mmHg 95 mmHg 82 bpm 16 rpm 98.6 F 188 lbs 66 in 30.34 kg/m2 1.99 m2 99 % 09/19/2014 9:09:00 AM 144 mmHg 70 mmHg 75 bpm 18 rpm 98 F 174 lbs 66 in 28.084 kg/m 1.9171 m 100 % 09/16/2014 7:34:00 PM 158 mmHg 90 mmHg 105 bpm 20 rpm 97.8 F 182 lbs 66 in 29.38 kg/m2 1.96 m2 99 % 08/29/2014 8:42:00 AM 140 mmHg 76 mmHg 78 bpm 16 rpm 98 F 182 lbs 66 in 29.3753 kg/m 1.9607 m 97 % 07/28/2014 10:37:00 AM 128 mmHg 68 mmHg 113 bpm 18 rpm 97.9 F 179 lbs 66 in 28.89 kg/m2 1.94 m2 99 % 05/01/2014 9:46:00 AM 128 mmHg [...] 12:00 AM Bicillin CR, 1.2 million units [facility]# 26183-135-63 Reviewed 03/27/2014 12:00 AM COMPREHEN METABOLIC PANEL [...] 9:28AM Mixed hyperlipidemia Jul 30 2015 9:28AM Payers Insurance Name Company Name Plan Name Plan Number Policy Number Policy Group Number Start Date Medicare Part A Medicare Part A [id number] Friday, 2011 Medicare Part B Medicare Of [place] [id number] N/A AARP Aarp [id number] N/A BCBS [facility] [id number] November [facility] [id number] Saturday, 2010 History of Encounters Visit Date Visit Type Provider 07/30/2015 Office visit Oumar Umanzor DO 04/20/2015 Office visit Oumar Umanzor DO 04/12/2015 [facility] Kole Brownlee MD 04/11/2015 [facility] Kole Brownlee MD 02/11/2015 [facility] Edda Richards MD 01/15/2015 Office visit Boo Madison CHIEF CUSTOMER OFFICER 09/19/2014 Office visit Oumar Umanzor DO 09/16/2014 Office visit Boo Madison APRN 08/29/2014 Office visit Oumar Umanzor DO 07/28/2014 Office visit Oumar Umanzor DO 06/10/2014 [facility] Cameron Suggs MD 05/30/2014 [facility] Nell Hebert MD 05/01/2014 Office visit Oumar Umanzor DO 03/27/2014 Office visit Oumar Umanzor DO 05/14/2013 Office visit Oumar Umanzor DO 03/12/2013 Office visit Oumar Umanzor DO 08/23/2012 Office visit Oumar Umanzor DO 04/13/2011 Office visit Oumar Umanzor DO 02/14/2011 Office visit Oumar Umanzor DO 02/13/2011 [facility] Nata Redman MD 02/12/2011 [facility] Nata Redman MD 02/11/2011 [facility] Nata Redman MD 02/11/2011 [facility] Abrahan Reno MD 02/10/2011 [facility] RIN Díaz MD 02/10/2011 Void RIN Díaz MD 11/19/2009 Office visit Oumar Umanzor DO
--- OUTSIDE RECORDS SUMMARY | 2018-08-29 19:08 | XMS REPORT ---
Author Author Oumar Umanzor [facility] Address [address] [place], [place] [address] Care Team Providers Care Legal Department Manager Name Role Phone Oumar Umanzor PCP Oumar Umanzor PreferredProvider Allergies and Adverse Reactions Name Reaction Notes Demerol Plan of Treatment Planned Activity Comments Planned Date Planned Time Plan/Goal Follow up Urge incontinence Medications Active Name [...] a day Pen Needle 32 gauge x 5/32" miscellaneous needle 10/25/2017 use 4 times a day with insulin pens Contour Next Meter miscellaneous misc 10/25/2017 test glucose 4 times a day [id number] Contour Next Test Strips miscellaneous strip 10/25/2017 Test glucose 4 times a day [id number] Name Start Date Expiration Date SIG Comments [...] 12:00 AM Bicillin CR, 1.2 million units [facility]# 32652-488-79 Reviewed 03/27/2014 12:00 AM COMPREHEN METABOLIC PANEL [...] eGFR AA* >60 VITAMIN B12 260.0 pg/mL 10/25/2017 8:35 AM HGB A1C 7.20 %Est [...] Number Policy Group Number Start Date Medicare [facility] Medicare [facility] [id number] N/A BCBS [facility] [id number] November [facility] [id number] Saturday, 2010 Medicare Part A Medicare Part A [id number] Friday, 2011 Medicare Part B Medicare Of [place] [id number] N/A [employer] [id number] N/A Medicare Part A Medicare - Lab/Xray [id number] Friday, December 09, 2011 History of Encounters Visit Date Visit Type Provider 10/23/2017 Office visit Oumar Umanzor DO 10/20/2017 Office visit Boo Madison CENTER PUNCH OPERATOR 01/23/2017 Office visit Oumar Umanzor DO 10/03/2016 Office visit Oumar Umanzor DO 08/11/2016 Office visit Oumar Umanzor DO 07/20/2016 [facility] Isaias Garcia MD 07/11/2016 [facility] Reynaldo Miguel DO 07/10/2016 [facility] Abrahan Reno MD 05/03/2016 Office visit Oumar Umanzor DO 03/17/2016 Office visit Oumar Umanzor DO 10/28/2015 Office visit Oumar Umanzor DO 09/01/2015 Office visit Oumar Umanzor DO 07/30/2015 Office visit Oumar Umanzor DO 04/20/2015 Office visit Oumar Umanzor DO 04/12/2015 [facility] Kole Brownlee MD 04/11/2015 [facility] Kole Brownlee MD 02/11/2015 [facility] Edda Richards MD 01/15/2015 Office visit Boo Madison CENTER PUNCH OPERATOR 09/19/2014 Office visit Oumar Umanzor DO 09/16/2014 Office visit Boo Madison CENTER PUNCH OPERATOR 08/29/2014 Office visit Oumar Umanzor DO 07/28/2014 Office visit Oumar Erna DO 06/10/2014 [facility] Cameron Suggs MD 05/30/2014 [facility] Nell Hebert MD 05/01/2014 Office visit Oumar Umanzor DO 03/27/2014 Office visit Oumar Umanzor DO 05/14/2013 Office visit Oumar Erna DO 03/12/2013 Office visit Oumar Erna DO 08/23/2012 Office visit Oumar Umanzor DO 04/13/2011 Office visit Oumar Umanzor DO 02/14/2011 Office visit Oumar Umanzor DO 02/13/2011 [facility] Nata Redman MD 02/12/2011 [facility] Nata Redman MD 02/11/2011 [facility] Nata Redman MD 02/11/2011 [facility] Abrahan Reno MD 02/10/2011 [facility] RIN Sanchez MD 02/10/2011 Voided RIN Sanchez MD 11/19/2009 Office visit Oumar Umanzor DO
--- OUTSIDE RECORDS SUMMARY | 2018-08-29 19:09 | XMS REPORT ---
Author Author Oumar Umanzor [facility] Address [address] [place], [place] [address] Care Team Providers Care Ehs Engineer Name Role Phone Oumar Umanzor PCP Unavailable Oumar Umanzor PreferredProvider Unavailable Allergies and Adverse Reactions Name Reaction Notes Demerol Plan of Treatment Planned Activity Comments Planned Date Planned Time Plan/Goal Hemoglobin A1C 04/20/2015 12:00 AM CMP 07/30/2015 12:00 AM Hemoglobin A1C 07/30/2015 12:00 AM Lipid panel 07/30/2015 12:00 AM Microalbuminuria 07/30/2015 12:00 AM VITAMIN B12 07/30/2015 12:00 AM CMP 09/01/2015 12:00 AM Lipid panel 09/01/2015 12:00 AM Hemoglobin A1c measurement 09/01/2015 12:00 AM VITAMIN B12 09/01/2015 12:00 AM CMP 10/28/2015 12:00 AM Lipid panel 10/28/2015 12:00 AM Hemoglobin A1c measurement 10/28/2015 12:00 AM VITAMIN B12 10/28/2015 12:00 AM MICROALBUMIN UR RANDOM 10/28/2015 12:00 AM PFT 03/17/2016 12:00 AM Comprehensive Metabolic Panel 03/12/2013 12:00 AM Lipid Profile 03/12/2013 12:00 AM Hemoglobin A1c 03/12/2013 12:00 AM Microalbuminuria 03/12/2013 12:00 AM Hemoglobin A1c measurement 01/15/2015 12:00 AM Medications Active Name Start Date Estimated Completion Date SIG Comments Insulin Syringe 1 mL 30 gauge x 16 miscellaneous syringe 04/20/2015 use 4 times with Insulin Injections Lantus 100 unit/mL subcutaneous solution 07/30/2015 inject 23 units by subcutaneous route once a day lisinopril 10 mg oral tablet 07/30/2015 TAKE ONE TABLET BY MOUTH ONCE DAILY Novolog 100 unit/mL subcutaneous solution 07/30/2015 inject 5 units by subcutaneous route with breakfast and lunch and 7 units with supper verapamil 240 mg oral tablet extended release 07/30/2015 TAKE ONE TABLET BY MOUTH ONCE DAILY WITH FOOD Lyrica 75 mg oral capsule 03/16/2016 09/12/2016 take 1 capsule (75 mg) by oral route 2 times per day for 30 days duloxetine 60 mg oral capsule,delayed release(DR/EC) 03/17/2016 03/12/2017 take 1 capsule (60 mg) by oral route once daily for 90 days propranolol 40 mg oral tablet 05/08/2016 TAKE ONE TABLET BY MOUTH TWICE DAILY Name Start Date Expiration Date SIG Comments [...] once daily with food for 90 days lisinopril 10 mg oral tablet 08/04/2014 07/30/2015 [...] oral route once daily for 30 days pioglitazone 15 mg [...] route every 12 hours for 7 days Discontinued Name Start Date Discontinued Date [...] topical route every 6 hours as needed Januvia 100 mg oral tablet 04/13/2015 07/30/2015 TAKE ONE TABLET BY MOUTH ONCE DAILY Januvia 100 mg oral tablet 04/13/2015 07/30/2015 TAKE ONE TABLET BY MOUTH ONCE DAILY On Lantus and Novolog metformin 500 mg oral tablet 07/30/2015 03/17/2016 take 1 tablet by oral route 2 times a day for 90 days metformin 500 mg oral tablet 07/30/2015 03/17/2016 take 1 tablet by oral route 2 times a day for 90 days "stopped taking" simvastatin 10 mg oral tablet 07/30/2015 03/17/2016 take 1 tablet (10 mg) by oral route once daily in the evening for 90 days simvastatin 10 mg oral tablet 07/30/2015 03/17/2016 take 1 tablet (10 mg) by oral route once daily in the evening for 90 days "I do not have any to take" Januvia 100 mg oral tablet 09/01/2015 03/17/2016 take 1 tablet (100 mg) by oral route once daily for 30 days Januvia 100 mg oral tablet 09/01/2015 03/17/2016 [...] daily at the same time each day Problem List Description Status Onset Diabetes Mellitus, Type II Active Hypertension Active Vital Signs Date Time BP-Sys(mm[Hg] BP-Julia(mm[Hg]) HR(bpm) RR(rpm) Temp WT HT HC BMI BSA BMI Percentile O2 Sat(%) 05/03/2016 10:25:00 AM 172 mmHg 88 mmHg 80 bpm 22 rpm 97.8 F 208 lbs 66 in 33.57 kg/m2 2.10 m2 99 % 03/17/2016 9:55:00 AM 154 mmHg 86 mmHg 76 bpm 20 rpm 97.5 F 206 lbs 66 in 33.2489 kg/m 2.086 m 99 % 10/28/2015 10:40:00 AM 188 mmHg 90 mmHg 80 bpm 20 rpm 98 F 212 lbs 66 in 34.22 kg/m2 2.12 m2 98 % 09/01/2015 9:16:00 AM 142 mmHg 78 mmHg 80 bpm 20 rpm 98.7 F 206 lbs 67 in 32.2638 kg/m 2.1017 m 97 % 07/30/2015 9:26:00 AM 136 mmHg [...] 12:00 AM CHEST X-RAY 2VW FRONTAL&LATL Reviewed 08/23/2012 12:00 AM COMPREHEN METABOLIC PANEL Reviewed 08/23/2012 12:00 AM LIPID PANEL Reviewed 08/23/2012 12:00 AM GLYCOSYLATED HEMOGLOBIN TEST Reviewed 08/23/2012 12:00 AM MICROALBUMIN SEMIQUANT Reviewed 05/14/2013 12:00 AM Bicillin CR, 1.[address] [facility]# [id number] Reviewed 03/27/2014 12:00 AM COMPREHEN METABOLIC PANEL [...] AA 81 eGFR 60 eGFR AA* 60 TRIGLYCERIDES 220.0 mg/dLCHOLESTEROL 230.0 mg/dLHDL 46.0 mg/ dLTOT CHOL/HDL 5.0 LDL (CALC) 140.0 mg/dLHGB A1C 13.60 %Est Avg Glucose 343.6 mg /dL History Of Immunizations Not available. History of [...] with left-sided sciatica May 03 2016 10:27AM Payers Insurance Name Company Name Plan Name Plan Number Policy Number Policy Group Number Start Date Medicare RHC Medicare RHC [id number] N/A [id number] November [facility] [id number] Saturday, 2010 Medicare Part A Medicare Part A [id number] Friday, 2011 Medicare Part B Medicare Of [place] [id number] N/A AARP Aarp [id number] N/A Medicare Part A Medicare - Lab/Xray [id number] Friday, December 09, 2011 History of Encounters Visit Date Visit Type Provider 05/03/2016 Office visit Oumar Umanzor DO 03/17/2016 Office visit Oumar Umanzor DO 10/28/2015 Office visit Oumar Umanzor DO 09/01/2015 Office visit Oumar Umanzor DO 07/30/2015 Office visit Oumar Umanzor DO 04/20/2015 Office visit Oumar Umanzor DO 04/12/2015 [facility] Kole Brownlee MD 04/11/2015 [facility] Kole Brownlee MD 02/11/2015 [facility] Edda Richards MD 01/15/2015 Office visit Boo Madison TURRET PUNCH PRESS OPERATOR 09/19/2014 Office visit Oumar Umanzor DO 09/16/2014 Office visit Boo Madison APRN 08/29/2014 Office visit Oumar Umanzor DO 07/28/2014 Office visit Oumar Umanzor DO 06/10/2014 [facility] Cameron Suggs MD 05/30/2014 [facility] Nell Hebert MD 05/01/2014 Office visit Oumar Umanzor DO 03/27/2014 Office visit Oumar Umanzor DO 05/14/2013 Office visit Oumar Umanzor DO 03/12/2013 Office visit Oumar Umanzor DO 08/23/2012 Office visit Oumar Umanzor DO 04/13/2011 Office visit Oumar Umanzor DO 02/14/2011 Office visit Oumar Umanzor DO 02/13/2011 [facility] Nata Redman MD 02/12/2011 [facility] Nata Redman MD 02/11/2011 [facility] Nata Redman MD 02/11/2011 [facility] Abrahan Reno MD 02/10/2011 [facility] RIN Díaz MD 02/10/2011 Voided RIN Díaz MD 11/19/2009 Office visit Oumar Umanzor DO
--- NOTE | 2018-08-29 19:10 | NUR ---
DAUGHTER TO NURSES STATION. DAUGHTER REPORTS RECENT CHANGE IN PT MENTAL STATUS. DAUGHTER STATES, "HE DID NOT RECOGNIZE ME WHEN I CAME HOME TODAY." DAUGHTER REPORTS PT HAS BECOME MORE UNSTEADY ON HIS FEET.
--- OUTSIDE RECORDS SUMMARY | 2018-08-29 19:10 | XMS REPORT ---
Author Author Oumar Umanzor [facility] Address [address] [place], [place] [address] Care Team Providers Care Lead Printer Name Role Phone Oumar Umanzor PCP Unavailable Allergies and Adverse Reactions Name Reaction Notes Demerol Plan of Treatment Planned Activity Comments Planned Date Planned Time Plan/Goal GLYCOSYLATED HEMOGLOBIN TEST 04/20/2015 12:00 AM COMPREHEN METABOLIC PANEL 07/30/2015 12:00 AM GLYCOSYLATED HEMOGLOBIN TEST 07/30/2015 12:00 AM LIPID PANEL 07/30/2015 12:00 AM MICROALBUMIN QUANTITATIVE 07/30/2015 12:00 AM VITAMIN B-12 07/30/2015 12:00 AM COMPREHEN METABOLIC PANEL 09/01/2015 12:00 AM LIPID PANEL 09/01/2015 12:00 AM GLYCOSYLATED HEMOGLOBIN TEST 09/01/2015 12:00 AM VITAMIN B-12 09/01/2015 12:00 AM COMPREHEN METABOLIC PANEL 10/28/2015 12:00 AM LIPID PANEL 10/28/2015 12:00 AM GLYCOSYLATED HEMOGLOBIN TEST 10/28/2015 12:00 AM VITAMIN B-12 10/28/2015 12:00 AM MICROALBUMIN QUANTITATIVE 10/28/2015 12:00 AM BREATHING CAPACITY TEST 03/17/2016 12:00 AM COMPREHEN METABOLIC PANEL 03/12/2013 12:00 [...] oral route once daily for 90 days Breo Ellipta 100-25 mcg/dose inhalation blister with device 03/17/2016 inhale 1 puff by inhalation route once daily at the same time each day Name Start Date Expiration Date SIG [...] (10 meq) by oral route once daily Problem List Description Status Onset Diabetes Mellitus, Type II Active Hypertension Active Vital Signs Date Time BP-Sys(mm[Hg] BP-Julia(mm[Hg]) HR(bpm) RR(rpm) Temp WT HT HC BMI BSA BMI Percentile O2 Sat(%) 03/17/2016 9:55:00 AM 154 mmHg 86 mmHg [...] 1.2 million units [facility]# [id number] Reviewed 03/27/2014 12:00 AM COMPREHEN METABOLIC PANEL [...] Right hip pain Mar 17 2016 9:57AM Payers Insurance Name Company Name Plan Name Plan Number Policy Number Policy Group Number Start Date Medicare Part A Medicare [facility] [id number] N/A [id number] November [facility] [id number] Saturday, 2010 Medicare Part A Medicare Part A [id number] Friday, 2011 Medicare Part B Medicare Of [place] [id number] N/A AARP Aarp [id number] N/A Medicare Part A Medicare - Lab/Xray [id number] Friday, December 09, 2011 History of Encounters Visit Date Visit Type Provider 03/17/2016 Office visit Oumar Umanzor DO 10/28/2015 Office visit Oumar Umanzor DO 09/01/2015 Office visit Oumar Umanzor DO 07/30/2015 Office visit Oumar Umanzor DO 04/20/2015 Office visit Oumar Umanzor DO 04/12/2015 Hospital Kole Brownlee MD 04/11/2015 Hospital Kole Brownlee MD 02/11/2015 [facility] [...]
--- OUTSIDE RECORDS SUMMARY | 2018-08-29 19:10 | XMS REPORT ---
Author Author Oumar Umanzor [facility] Address [address] [place], [place] [address] Care Team Providers Care Clinical Nursing Intern Name Role Phone Oumar Umanzor PCP Unavailable [...] 12:00 AM Bicillin CR, 1.2 million units [facility]# [id number] Reviewed 03/27/2014 12:00 AM COMPREHEN METABOLIC PANEL [...] Date Medicare Part A Medicare Part A [id number] Friday, 2011 Medicare Part B Medicare Of [place] [id number] N/A AARP Aarp [id number] N/A BCBS [facility] [id number] November [facility] [id number] Saturday, 2010 History of Encounters Visit Date Visit Type Provider 07/30/2015 Office visit Oumar Umanzor DO 04/20/2015 Office visit Oumar Umanzor DO 04/12/2015 [facility] Kole Brownlee MD 04/11/2015 [facility] Kole Brownlee MD 02/11/2015 [facility] Edda Richards MD 01/15/2015 Office visit Boo Madison CRUSHED STONE GRADER 09/19/2014 Office visit Oumar Umanzor DO 09/16/2014 Office visit Boo Madison APRN 08/29/2014 Office visit Oumar Umanzor DO 07/28/2014 Office visit Oumar Umanzor DO 06/10/2014 [facility] Cameron Suggs MD 05/30/2014 [facility] Nell Hebert MD 05/01/2014 Office visit Oumar Umanzor DO 03/27/2014 Office visit Oumar Umanzor DO 05/14/2013 Office visit Oumar Umanzor DO 03/12/2013 Office visit Oumar Umanzor DO 08/23/2012 Office visit Oumar Umanzor DO 04/13/2011 Office visit Oumar Umanzor DO 02/14/2011 Office visit Oumar Umanzor DO 02/13/2011 [facility] Nata Redman MD 02/12/2011 [facility] Nata Redman MD 02/11/2011 [facility] Nata Redman MD 02/11/2011 [facility] Abrahan Reno MD 02/10/2011 [facility] RIN Díaz MD 02/10/2011 Void RIN Díaz MD 11/19/2009 Office visit Oumar Umanzor DO
--- OUTSIDE RECORDS SUMMARY | 2018-08-29 19:11 | XMS REPORT ---
Author Author Oumar Umanzor [facility] Address [address] [place], [place] [id number] Care Team Providers Care Firearms Instructor Name Role Phone Oumar Umanzor PCP Unavailable [...] 04/20/2015 use 4 times with Insulin Injections lisinopril 10 mg oral tablet 07/30/2015 TAKE ONE TABLET BY MOUTH ONCE DAILY Novolog 100 unit/mL subcutaneous solution 07/30/2015 inject 5 units by subcutaneous route with breakfast and lunch and 7 units with supper verapamil 240 mg oral tablet extended release 07/30/2015 TAKE ONE TABLET BY MOUTH ONCE DAILY WITH FOOD duloxetine 60 mg oral capsule,delayed release(DR/EC) 03/17/2016 03/12/2017 take 1 capsule (60 mg) by oral route once daily for 90 days propranolol 40 mg oral tablet 05/08/2016 TAKE ONE TABLET BY MOUTH TWICE DAILY Lantus Solostar 100 unit/mL (3 mL) subcutaneous insulin pen 08/11/2016 inject 25 units by subcutaneous route once a day Lyrica 75 mg oral capsule 08/11/2016 02/07/2017 take 1 capsule (75 mg) by oral route 2 times per day for 30 days Name Start Date Expiration [...] HC BMI BSA BMI Percentile O2 Sat(%) 08/11/2016 9:28:00 AM 130 mmHg 74 mmHg [...] 05/03/2016 12:00 AM Physical Therapy Consult Reviewed 08/23/2012 12:00 AM COMPREHEN METABOLIC PANEL Reviewed 08/23/2012 12:00 AM LIPID PANEL Reviewed 08/23/2012 12:00 AM GLYCOSYLATED HEMOGLOBIN TEST Reviewed 08/23/2012 12:00 AM MICROALBUMIN SEMIQUANT Reviewed 05/14/2013 12:00 AM Bicillin CR, 1.2 million units [facility]# [id number] Reviewed 03/27/2014 12:00 AM COMPREHEN METABOLIC PANEL [...] 13.60 %Est Avg Glucose 343.6 mg /dL 08/12/2016 8:08 AM GLUCOSE 163.0 mg/dLSODIUM 141.0 mmol/LPOTASSIUM 3.40 mmol/ LCHLORIDE 107.0 mmol/LCO2 24.0 mmol/LBUN 24.0 mg/dLCREATININE 0.90 mg/dLCALCIUM 8.70 mg/dLAGE 71 GFR NonAA 84 GFR AA 102 eGFR >60 mL/min/1.73meGFR AA* >60 History Of Immunizations Not available. History of [...] 2016 9:30AM Hypertension Aug 11 2016 9:30AM Payers Insurance Name Company Name Plan Name Plan Number Policy Number Policy Group Number Start Date Medicare RHC Medicare RHC [id number] N/A BCBS Bcbs Nadia [place] [id number] November [facility] [id number] Saturday, 2010 Medicare Part A Medicare Part A [id number] Friday, 2011 Medicare Part B Medicare Of [place] [id number] N/A AARP Aarp [id number] N/A Medicare Part A Medicare - Lab/Xray [id number] Friday, December 09, 2011 History of Encounters Visit Date Visit Type Provider 08/11/2016 Office visit Oumar Umanzor DO 07/20/2016 [facility] Isaias Garcia MD 07/11/2016 [facility] Reynaldo Miguel DO 05/03/2016 Office visit Oumar Umanzor DO 03/17/2016 Office visit Oumar Umanzor DO 10/28/2015 Office visit Oumar Umanzor DO 09/01/2015 Office visit Oumar Umanzor DO 07/30/2015 Office visit Oumar Umanzor DO 04/20/2015 Office visit Oumar Umanzor DO 04/12/2015 [facility] Kole Brownlee MD 04/11/2015 [facility] Kole Brownlee MD 02/11/2015 [facility] Edda Richards MD 01/15/2015 Office visit Boo Madison APRN 09/19/2014 Office visit Oumar Umanzor DO 09/16/2014 Office visit Boo Madison APRN 08/29/2014 Office visit Omuar Umanzor DO 07/28/2014 Office visit Oumar Umanzor DO 06/10/2014 [facility] Cameron Suggs MD 05/30/2014 [facility] Nell Hebert MD 05/01/2014 Office visit Oumar Umanzor DO 03/27/2014 Office visit Oumar Umanzor DO 05/14/2013 Office visit Oumar Umanzor DO 03/12/2013 Office visit Oumar Umanzor DO 08/23/2012 Office visit Oumar Umanzor DO 04/13/2011 Office visit Oumar Umanzor DO 02/14/2011 Office visit Oumar Umanzor DO 02/13/2011 [facility] Nata Redman MD 02/12/2011 [facility] Nata Redman MD 02/11/2011 [facility] Nata Redman MD 02/11/2011 [facility] Abrahan Reno MD 02/10/2011 [facility] RIN Díaz MD 02/10/2011 Voided RIN Díaz MD 11/19/2009 Office visit Oumar Umanzor DO
--- OUTSIDE RECORDS SUMMARY | 2018-08-29 19:12 | XMS REPORT ---
Author Author Oumar Umanzor [facility] Address [address] [place], [place] [address] Care Team Providers Care Cloth Finishing Range Operator Name Role Phone Oumar Umanzor PCP Unavailable [...] 12:00 AM Bicillin CR, 1.[address] [facility]# [id number] Reviewed 03/27/2014 12:00 AM COMPREHEN METABOLIC PANEL [...] Number Start Date Medicare RHC Medicare RHC [id number] N/A BCBS Bcbs Nadia [place] [id number] November [facility] [id number] Saturday, 2010 Medicare Part A Medicare Part A [id number] Friday, 2011 Medicare Part B Medicare Of [place] [id number] N/A AARP Aarp [id number] N/A Medicare Part A Medicare - Lab/Xray [id number] Friday, December 09, 2011 History of Encounters Visit Date Visit Type Provider 08/11/2016 Office visit Oumar Umanzor DO 07/20/2016 [facility] Isaias Garcia MD 07/11/2016 [facility] Reynaldo Miguel DO 05/03/2016 Office visit Oumar Umanzor DO 03/17/2016 Office visit Oumar Umanzor DO 10/28/2015 Office visit Oumar Umanzor DO 09/01/2015 Office visit Oumar Umanzor DO 07/30/2015 Office visit Oumar Umanzor DO 04/20/2015 Office visit Oumar Umanzor DO 04/12/2015 [facility] Kole Brownlee MD 04/11/2015 [facility] Kole Brownlee MD 02/11/2015 [facility] Edda Richards MD 01/15/2015 Office visit Boo Madison APRN 09/19/2014 Office visit Oumar Umanzor DO 09/16/2014 Office visit Boo Madison APRN 08/29/2014 Office visit Oumar Umanzor DO 07/28/2014 Office visit Oumar Umanzor DO 06/10/2014 [facility] Cameron Suggs MD 05/30/2014 [facility] Nell Hebert MD 05/01/2014 Office visit Oumar Umanzor DO 03/27/2014 Office visit Oumar Umanzor DO 05/14/2013 Office visit Oumar Umanzor DO 03/12/2013 Office visit Oumar Umanzor DO 08/23/2012 Office visit Oumar Umanzor DO 04/13/2011 Office visit Oumar Umanzor DO 02/14/2011 Office visit Oumar Umanzor DO 02/13/2011 [facility] Nata Redman MD 02/12/2011 [facility] Nata Redman MD 02/11/2011 [facility] Nata Redman MD 02/11/2011 [facility] Abrahan Reno MD 02/10/2011 [facility] RIN Díaz MD 02/10/2011 Voided RIN Díaz MD 11/19/2009 Office visit Oumar Umanzor DO
--- OUTSIDE RECORDS SUMMARY | 2018-08-29 19:13 | XMS REPORT ---
Author Author Oumar Umanzor [facility] Address [address] [place] [id number] Care Team Providers Care Exhaust Emissions Inspector Name Role Phone Oumar Umanzor PCP Unavailable Allergies and Adverse Reactions Name Reaction Notes Demerol Plan of Treatment Planned Activity Comments Planned Date Planned Time Plan/Goal COMPREHEN METABOLIC PANEL 03/12/2013 12:00 AM LIPID PANEL 03/12/2013 12:00 AM GLYCOSYLATED HEMOGLOBIN TEST 03/12/2013 12:00 AM MICROALBUMIN SEMIQUANT 03/12/2013 12:00 AM GLYCOSYLATED HEMOGLOBIN TEST 01/15/2015 12:00 AM Medications Active Name Start Date Estimated Completion Date SIG Comments docusate sodium oral capsule 100 mg take 1 capsule (100 mg) by oral route 2 times per day sennosides oral tablet 8.6 mg take 2 tablets by oral route twice daily Januvia oral tablet 100 mg 08/04/2014 07/25/2015 take 1 tablet (100 mg) by oral route once daily for 90 days clopidogrel oral tablet 75 mg 08/04/2014 07/25/2015 take 1 tablet by oral route daily for 90 days simvastatin oral tablet 10 mg 08/04/2014 07/25/2015 take 1 tablet (10 mg) by oral route once daily in the evening for 90 days verapamil oral tablet extended release 240 mg 07/30/2014 07/25/2015 take 1 tablet (240 mg) by oral route once daily with food for 90 days Voltaren topical gel 1 % 08/04/2014 apply 2 gram to the affected area(s) by topical route every 6 hours as needed lisinopril oral tablet 10 mg 08/04/2014 07/30/2015 take 1 tablet (10 mg) by oral route once daily for 90 days duloxetine oral capsule,delayed release(DR/EC) 30 mg 08/04/2014 07/30/2015 take 1 capsule (30 mg) by oral route once daily for 90 days cyclobenzaprine oral tablet 10 mg 08/04/2014 07/30/2015 take 1 tablet (10 mg) by oral route every 8 hours as needed for 90 days metformin oral tablet 500 mg 08/05/2014 07/31/2015 take 2 tablets (1,000 mg) by oral route 2 times per day with meals tamsulosin oral capsule,extended release 24hr 0.4 mg 08/29/2014 08/24/2015 take 1 capsule (0.4 mg) by oral route once daily 1/2 hour following the same meal each day for 90 days pioglitazone oral tablet 15 mg 01/15/2015 04/15/2015 take 1 tablet (15 mg) by oral route once daily for 30 days Name Start Date Expiration Date SIG Comments Lamisil Oral Tablet 250 mg 11/19/2009 01/18/2010 take 1 tablet (250 mg) by oral route once daily for 30 days Bactrim DS Oral Tablet 800-160 mg 07/07/2011 07/14/2011 take 1 tablet by oral route every 12 hours for 7 days Levaquin Oral Tablet 500 mg 07/14/2011 07/21/2011 take 1 tablet (500 mg) by oral route once daily for 7 days Percocet oral tablet 5-325 mg 07/28/2014 08/27/2014 take 1 tablet by oral route every 8 hours as needed for pain Lyrica oral capsule 75 mg 09/16/2014 10/16/2014 take 1 capsule (75 mg) by oral route 2 times per day for 30 days MS Contin oral tablet extended release 15 mg 10/10/2014 11/09/2014 take 1 tablet (15 mg) by oral route every 12 hours for 30 days Discontinued Name Start Date Discontinued Date SIG Comments Aspirin Oral Tablet 325 mg 04/13/2011 take 1 tablet (325 mg) by oral route once daily taking plavix Vitamin B-12 Oral Tablet 1,000 mcg 02/14/2011 take 1 tablet by oral route daily no longer taking propranolol Oral Tablet 10 mg 08/27/2010 02/14/2011 TAKE 1 TABLET DAILY dose change Lipitor Oral Tablet 40 mg 04/13/2011 take 1 tablet (40 mg) by oral route once daily not taking hydrocodone-acetaminophen Oral Tablet 5-500 mg 02/25/2011 04/13/2011 take 1 tablet by oral route every 4 hours as needed for pain lisinopril Oral Tablet 40 mg 02/25/2011 03/12/2013 take 1 tablet by oral route daily Crestor Oral Tablet 10 mg 04/13/2011 08/24/2012 take 1 tablet (10 mg) by oral route once daily "not taking now" glyburide Oral tablet 5 mg 09/07/2012 09/12/2012 TAKE 1 TABLET TWICE A DAY propranolol Oral tablet 40 mg 09/23/2012 03/27/2014 TAKE 1 TABLET TWICE A DAY "stopped taking it" prednisone Oral tablet 20 mg 05/14/2013 03/27/2014 take 1 tablet (20 mg) by oral route once daily glipizide oral tablet 5 mg 10/24/2013 03/27/2014 take 1 tablet (5 mg) by oral route before breakfast and 2 tablets (10 mg) before supper metformin oral tablet 1,000 mg 10/24/2013 07/28/2014 TAKE 1 TABLET TWICE A DAY dose change in hosp. verapamil Oral tablet extended release 240 mg 10/24/2013 07/28/2014 TAKE 1 TABLET DAILY DC'd in hosp. trandolapril Oral tablet 2 mg 10/24/2013 07/28/2014 TAKE 1 TABLET DAILY for 90 days DC'd in hosp diclofenac sodium Oral tablet,delayed release (DR/EC) 75 mg 10/24/20132014 take 1 tablet (75 mg) by oral route 2 times per day DC'd in hosp hydrochlorothiazide oral tablet 25 mg 03/27/2014 07/28/2014 take 1 tablet (25 mg) by oral route 1 time a day for 90 days dose adjusted hydrochlorothiazide oral tablet 25 mg 03/27/2014 07/28/2014 take 1 tablet (25 mg) by oral route 1 time a day for 90 days DC'd in hosp. meclizine oral tablet 25 mg 03/27/2014 07/28/2014 take 1 tablet (25 mg) by oral route 3 times per day as needed citalopram oral tablet 20 mg 03/27/2014 07/28/2014 take 1 tablet (20 mg) by oral route once daily for 30 days DC'd in hosp. Oseni oral tablet 25-30 mg 03/27/2014 07/28/2014 take 1 tablet by oral route once daily swallowing whole. Do not crush, chew and/or divide. for 28 days DC' d in hosp. gabapentin oral capsule 300 mg 03/27/2014 07/28/2014 take 1 capsule by oral route once a day (at bedtime) dose change gabapentin oral capsule 300 mg 08/04/2014 09/16/2014 take 1 capsule (300 mg) by oral route 4 times per day Problem List Description Status Onset Diabetes Mellitus, Type II Active Hypertension Active Vital Signs Date Time BP-Sys(mm[Hg] BP-Julia(mm[Hg]) HR(bpm) RR(rpm) Temp WT HT HC BMI BSA BMI Percentile O2 Sat(%) 01/15/2015 10:16:00 AM 140 mmHg 95 mmHg [...] AM LIPID PANEL Reviewed 08/23/2012 12:00 AM LIPID PANEL Reviewed 08/23/2012 12:00 AM LIPID PANEL Reviewed 08/23/2012 12:00 AM GLYCOSYLATED HEMOGLOBIN TEST Reviewed 08/23/2012 12:00 AM MICROALBUMIN SEMIQUANT Reviewed 03/27/2014 12:00 AM COMPREHEN METABOLIC PANEL [...] dLTOTAL BILI 1.10 mg/dLCALCIUM 10.10 mg/dLeGFR 47 GLYCOHEMOGLOBIN A1C 10.70 % 03/27/2014 10:48 AM GLUCOSE 188.0 mg/dLSODIUM 141.0 mmol/LPOTASSIUM 4.0 mmol/ LCHLORIDE 104.0 mmol/LCO2 27.0 mmol/LBUN 22.0 mg/dLCREATININE 1.10 mg/dLSGOT/ AST 13.0 IU/LSGPT/ALT 18.0 IU/LALK PHOS 72.0 IU/LTOTAL PROTEIN 6.90 g/dLALBUMIN 4.0 g/dLTOTAL BILI 1.30 mg/dLCALCIUM 10.0 mg/dLeGFR 60 TRIGLYCERIDES 220.0 mg/ dLCHOLESTEROL 230.0 mg/dLHDL 46.0 mg/dLLDL (CALC) 140.0 mg/dLHGB A1C 13.60 % History Of Immunizations Not available. History of [...] Mellitus, Type II Jan 15 2015 10:18AM Payers Insurance Name Company Name Plan Name Plan Number Policy Number Policy Group Number Start Date Medicare Part A Medicare Part A [id number] Friday, 2011 AARP Aarp [id number] N/A Medicare Part B Medicare [facility] [id number] N/A Bcbs Bcbs [facility] [id number] November [facility] [id number] Monday, 2010 History of Encounters Visit Date Visit Type Provider 01/15/2015 Office visit Boo Madison APRN 09/19/2014 Office visit Oumar Umanzor DO 09/16/2014 Office visit Boo Madison FARM CREW LEADER 08/29/2014 Office visit Oumar Umanzor DO 07/28/2014 Office visit Oumar Umanzor DO 06/10/2014 [facility] Cameron Suggs MD 05/30/2014 [facility] Nell Hebert MD 05/01/2014 Office visit Oumar Umanzor DO 03/27/2014 Office visit Oumar Umanzor DO 05/14/2013 Office visit Oumar Umanzor DO 03/12/2013 Office visit Oumar Umanzor DO 08/23/2012 Office visit Oumar Umanzor DO 04/13/2011 Office visit Oumar Umanzor DO 02/14/2011 Office visit Oumar Umanzor DO 02/13/2011 [facility] Nata Redman MD 02/12/2011 [facility] Nata Redman MD 02/11/2011 [facility] Nata Redman MD 02/11/2011 [facility] Abrahan Reno MD 02/10/2011 Voided RIN Díaz MD 02/10/2011 [facility] RIN Díaz MD 11/19/2009 Office visit Oumar Umanzor DO
--- OUTSIDE RECORDS SUMMARY | 2018-08-29 19:13 | XMS REPORT ---
Author Author Oumar Umanzor [facility] Address [address] [place], [place] [address] Care Team Providers Care Coordinator Volunteer Services Name Role Phone Oumar Umanzor PCP Unavailable [...] 12:00 AM Bicillin CR, 1.2 million units [facility]# [id number] Reviewed 03/27/2014 12:00 AM COMPREHEN METABOLIC PANEL [...] 46.0 mg/dLLDL (CALC) 140.0 mg/dLHGB A1C 13.60 %Est Avg Glucose 343.6 mg/dL History Of Immunizations [...] Number Start Date Medicare Part A Medicare [facility] [id number] N/[id number] November [facility] [id number] Saturday, 2010 Medicare Part A Medicare Part A [id number] Friday, 2011 Medicare Part B Medicare Of [place] [id number] N/A AARP Aarp [id number] N/A Medicare Part A Medicare - Lab/Xray [id number] Friday, December 09, 2011 History of Encounters Visit Date Visit Type Provider 05/03/2016 Office visit Oumar Umanzor DO 03/17/2016 Office visit Oumar Umanzor DO 10/28/2015 Office visit Oumar Umanzor DO 09/01/2015 Office visit Oumar Umanzor DO 07/30/2015 Office visit Oumar Umanzor DO 04/20/2015 Office visit Oumar Umanzor DO 04/12/2015 Hospital Kole Brownlee MD 04/11/2015 [facility] Kole Brownlee MD 02/11/2015 [facility] Edda Richards MD 01/15/2015 Office visit Boo Madison CHIEF OPERATING OFFICER 09/19/2014 Office visit Oumar Umanzor DO 09/16/2014 Office visit Boo Madison CHIEF OPERATING OFFICER 08/29/2014 Office visit Oumar Umanzor DO 07/28/2014 [...]
--- OUTSIDE RECORDS SUMMARY | 2018-08-29 19:14 | XMS REPORT ---
Author Author Oumar Umanzor [facility] Address [address] [place], [place] [id number] Care Team Providers Care Jigger Operator Name Role Phone Oumar Umanzor PCP [...] 12:00 AM VITAMIN B-12 09/01/2015 12:00 AM STRESS TTE ONLY 10/28/2015 12:00 AM COMPREHEN METABOLIC PANEL 10/28/2015 12:00 AM LIPID PANEL 10/28/2015 12:00 AM GLYCOSYLATED HEMOGLOBIN TEST 10/28/2015 12:00 AM VITAMIN B-12 10/28/2015 12:00 AM MICROALBUMIN QUANTITATIVE 10/28/2015 12:00 AM COMPREHEN METABOLIC PANEL 03/12/2013 12:00 [...] topical route every 6 hours as needed Insulin Syringe 1 mL 30 gauge x 5/16 miscellaneous syringe 04/20/2015 use 4 times with [...] FOOD Januvia 100 mg oral tablet 09/01/2015 02/28/2016 take 1 tablet (100 mg) by oral route once daily for 30 days bumetanide 1 mg oral tablet 10/28/2015 11/27/2015 take 1 tablet (1 mg) by oral route once daily for 30 days potassium chloride 10 mEq oral tablet extended release 10/28/2015 take 1 tablet (10 meq) by oral route once daily Name Start Date Expiration Date SIG Comments [...] route every 12 hours for 30 days cephalexin 500 mg oral tablet 09/01/2015 09/11/2015 take 1 tablet (500 mg) by oral route every 12 hours for 10 days Discontinued Name Start Date Discontinued Date [...] HC BMI BSA BMI Percentile O2 Sat(%) 10/28/2015 10:40:00 AM 188 mmHg 90 mmHg [...] F 198 lbs 66 in 31.9577 kg/m 2.05 m2 08/23/2012 9:21:00 AM 138 mmHg 70 mmHg 72 bpm 16 rpm 97.8 F 213 lbs 66 in 34.38 kg/m2 2.1211 m 04/13/2011 9:09:00 AM 136 mmHg 64 mmHg 58 bpm 20 rpm 98.2 F 197 lbs 66 in 31.7963 kg/m 2.04 m2 02/14/2011 2:12:00 PM 132 mmHg 70 mmHg 72 bpm 18 rpm 98.3 F 191 lbs 11/19/2009 3:23:00 PM 188 mmHg 92 mmHg 66 bpm 20 rpm 97.8 F 208 lbs Social History Name Description Comments Tobacco Never smoker No Alcohol Use No Tobacco Use History of Procedures Date Ordered Description Order Status 10/28/2015 12:00 AM EXTRACRANIAL BILAT STUDY Reviewed 08/23/2012 12:00 AM COMPREHEN METABOLIC PANEL Reviewed 08/23/2012 12:00 AM LIPID PANEL Reviewed 08/23/2012 12:00 AM GLYCOSYLATED HEMOGLOBIN TEST Reviewed 08/23/2012 12:00 AM MICROALBUMIN SEMIQUANT Reviewed 05/14/2013 12:00 AM Bicillin CR, 1.2 million units [facility]# [id number] Reviewed 03/27/2014 12:00 AM COMPREHEN METABOLIC PANEL [...] right carotid artery Oct 28 2015 10:41AM Payers Insurance Name Company Name Plan Name Plan Number Policy Number Policy Group Number Start Date Medicare Part A Medicare [facility] [id number] N[facility] [id number] November [facility] [id number] Saturday, 2010 Medicare Part A Medicare Part A [id number] Friday, 2011 Medicare Part B Medicare Of [place] [id number] N/A AARP Aarp [id number] N/A Medicare Part A Medicare - Lab/Xray [id number] Friday, December 09, 2011 History of Encounters Visit Date Visit Type Provider 10/28/2015 Office visit Oumar Umanzor DO 09/01/2015 Office visit Oumar Umanzor DO 07/30/2015 Office visit Oumar Umanzor DO 04/20/2015 Office visit Oumar Umanzor DO 04/12/2015 [facility] Kole Brownlee MD 04/11/2015 [facility] Kole Brownlee MD 02/11/2015 [facility] Edda Richards MD 01/15/2015 Office visit Boo Madison HVAC R TECH 09/19/2014 Office visit Oumar Umanzor DO 09/16/2014 Office visit Boo Madison HVAC R TECH 08/29/2014 Office visit Oumar Umanzor DO 07/28/2014 Office visit Oumar Umanzor DO 06/10/2014 [facility] Cameron Suggs MD 05/30/2014 [facility] Nell Hebert MD 05/01/2014 Office visit Oumar Umanzor DO 03/27/2014 Office visit Oumar Umanzor DO 05/14/2013 Office visit Oumar Umanzor DO 03/12/2013 Office visit Oumar Umanzor DO 08/23/2012 Office visit Oumar Umanzro DO 04/13/2011 Office visit Oumar Umanzor DO 02/14/2011 Office visit Oumar Umanzor DO 02/13/2011 [facility] Nata Redman MD 02/12/2011 [facility] Nata Redman MD 02/11/2011 [facility] Nata Redman MD 02/11/2011 [facility] Abrahan Reno MD 02/10/2011 [facility] RIN Díaz MD 02/10/2011 Voided RIN Díaz MD 11/19/2009 Office visit Oumar Umanzor DO
--- OUTSIDE RECORDS SUMMARY | 2018-08-29 19:15 | XMS REPORT ---
Author Author Oumar Umanzor [facility] Address [address] [place], [place] [address] Care Team Providers Care Raised Printer Name Role Phone Oumar Umanzor PCP [...] 12:00 AM Bicillin CR, 1.2 million units [facility]# [id number] Reviewed 03/27/2014 12:00 AM COMPREHEN METABOLIC PANEL [...] Number Start Date Medicare Part A Medicare [facility] [id number] N/A BCBS [facility] [id number] November [facility] [id number] Saturday, 2010 Medicare Part A Medicare Part A [id number] Friday, 2011 Medicare Part B Medicare Of [place] [id number] N/A AARP Aarp [id number] N/A Medicare Part A Medicare - Lab/Xray [id number] Friday, December 09, 2011 History of Encounters Visit Date Visit Type Provider 05/03/2016 Office visit Oumar Umanzor DO 03/17/2016 Office visit Oumar Umanzor DO 10/28/2015 Office visit Oumar Umanzor DO 09/01/2015 Office visit Oumar Umanzor DO 07/30/2015 Office visit Oumar Umanzor DO 04/20/2015 Office visit Oumar Umanzor DO 04/12/2015 [facility] Kole Brownlee MD 04/11/2015 [facility] Kole Brownlee MD 02/11/2015 [facility] Edda Richards MD 01/15/2015 Office visit Boo Madison LAW LIBRARIAN 09/19/2014 Office visit Oumar Umanzor DO 09/16/2014 Office visit Boo Madison APRN 08/29/2014 Office visit Oumar Umanzor DO 07/28/2014 Office visit Oumar Umanzor DO 06/10/2014 [facility] Cameron Suggs MD 05/30/2014 [facility] Nell Hebert MD 05/01/2014 Office visit Oumar Umanzor DO 03/27/2014 Office visit Oumar Umanzor DO 05/14/2013 Office visit Oumar Umanzor DO 03/12/2013 Office visit Oumar Umanzor DO 08/23/2012 Office visit Oumar Umanzor DO 04/13/2011 Office visit Oumar Umanzor DO 02/14/2011 Office visit Oumar Umanzor DO 02/13/2011 [facility] Nata Redman MD 02/12/2011 [facility] Nata Redman MD 02/11/2011 [facility] Nata Redman MD 02/11/2011 [facility] Abrahan Reno MD 02/10/2011 [facility] RIN Díaz MD 02/10/2011 Voided RIN Díaz MD 11/19/2009 Office visit Oumar Umanzor DO
--- OUTSIDE RECORDS SUMMARY | 2018-08-29 19:16 | XMS REPORT ---
Author Author Oumar Umanzor [facility] Address [address] [place], [place] [id number] Care Team Providers Care Thermodynamic Physicist Name Role Phone Oumar Umanzor PCP Unavailable [...] B-12 09/01/2015 12:00 AM COMPREHEN METABOLIC PANEL 03/12/2013 12:00 [...] TABLET BY MOUTH ONCE DAILY WITH FOOD cephalexin 500 mg oral tablet 09/01/2015 09/11/2015 take 1 tablet (500 mg) by oral route every 12 hours for 10 days Januvia 100 mg oral tablet 09/01/2015 02/28/2016 [...] HC BMI BSA BMI Percentile O2 Sat(%) 09/01/2015 9:16:00 AM 142 mmHg 78 mmHg [...] 12:00 AM Bicillin CR, 1.2 million units [facility]# [id number] Reviewed 03/27/2014 12:00 AM COMPREHEN METABOLIC PANEL [...] breakdown of skin Sep 01 2015 9:19AM Payers Insurance Name Company Name Plan Name Plan Number Policy Number Policy Group Number Start Date Medicare Part A Medicare Part A [id number] Friday, 2011 Medicare Part B Medicare [facility] [id number] N/A AARP Aarp [id number] N/A BCBS Bcbs [facility] [id number] November [facility] [id number] Saturday, 2010 History of Encounters Visit Date Visit Type Provider 09/01/2015 Office visit Oumar Umanzor DO 07/30/2015 Office visit Oumar Umanzor DO 04/20/2015 Office visit Oumar Umanzor DO 04/12/2015 [facility] Kole Brownlee MD 04/11/2015 [facility] Kole Brownlee MD 02/11/2015 [facility] Edda Richards MD 01/15/2015 Office visit Boo Madison APRN 09/19/2014 Office visit Oumar Umanzor DO 09/16/2014 Office visit Boo Madison FURNACE CLEANER 08/29/2014 Office visit Oumar Umanzor DO 07/28/2014 [...]
--- OUTSIDE RECORDS SUMMARY | 2018-08-29 19:16 | XMS REPORT ---
Author Author Oumar Umanzor [facility] Address [address] [place], [place] [address] Care Team Providers Care Demographic Analyst Name Role Phone Oumar Umanzor PCP Unavailable Oumar Umanzor PreferredProvider Unavailable Allergies and Adverse Reactions Name Reaction Notes Demerol Plan of Treatment Not available. Medications Active Name Start Date Estimated Completion [...] TAKE ONE TABLET BY MOUTH TWICE DAILY Lyrica 75 mg oral capsule 10/03/2016 04/01/2017 take 1 capsule (75 mg) by oral route 2 times per day for 30 days Toviaz 8 mg oral tablet extended release 24 hr 10/03/2016 04/01/2017 take 1 tablet (8 mg) by oral route once daily for 30 days Lantus Solostar 100 unit/mL (3 mL) subcutaneous insulin pen 10/03/2016 inject 20 units by subcutaneous route once a day Voltaren 1 % topical gel 10/03/2016 apply 2 gram to the affected area(s) by topical route 4 times per day True Metrix Glucose Test Strip miscellaneous strip 10/11/2016 Test glucose once a day Name Start Date Expiration [...] and lunch and 7 units with supper Novolog 100 unit/mL subcutaneous solution 07/30/2015 10/03/2016 [...] HC BMI BSA BMI Percentile O2 Sat(%) 10/03/2016 9:29:00 AM 132 mmHg 70 mmHg [...] 10/03/2016 12:00 AM GLYCOSYLATED HEMOGLOBIN TEST Reviewed 08/23/2012 12:00 AM COMPREHEN METABOLIC PANEL Reviewed 08/23/2012 12:00 AM LIPID PANEL Reviewed 08/23/2012 12:00 AM GLYCOSYLATED HEMOGLOBIN TEST Reviewed 08/23/2012 12:00 AM MICROALBUMIN SEMIQUANT Reviewed 05/14/2013 12:00 AM Bicillin CR, 1.2 million units [facility]# 28180-209-30 Reviewed 03/27/2014 12:00 AM COMPREHEN METABOLIC PANEL [...] AA 102 eGFR >60 mL/min/1.73meGFR AA* >60 10/11/2016 9:00 AM HGB A1C 6.80 %Est [...] 2016 9:32AM Neuropathy Oct 03 2016 9:32AM Payers Insurance Name Company Name Plan Name Plan Number Policy Number Policy Group Number Start Date Medicare RHC Medicare RHC [id number] N/A [facility] [id number] November [facility] [id number] Saturday, 2010 Medicare Part A Medicare Part A [id number] Friday, 2011 Medicare Part B Medicare Of [place] [id number] N/A AARP Aarp [id number] N/A Medicare Part A Medicare - Lab/Xray [id number] Friday, December 09, 2011 History of Encounters Visit Date Visit Type Provider 10/03/2016 Office visit Oumar Umanzor DO 08/11/2016 Office visit Oumar Umanzor DO 07/20/2016 Hospital Isaias Garcia MD 07/11/2016 Hospital Reynaldo Miguel DO 07/10/2016 [facility] Abrahan Reno MD 05/03/2016 Office visit Oumar Umanzor DO 03/17/2016 Office visit Oumar Umanzor DO 10/28/2015 Office visit Oumar Umanzor DO 09/01/2015 Office visit Oumar Umanzor DO 07/30/2015 Office visit Oumar Umanzor DO 04/20/2015 Office visit Oumar Umanzor DO 04/12/2015 [facility] Kole Brownlee MD 04/11/2015 [facility] Kole Brownlee MD 02/11/2015 [facility] Edda Richards MD 01/15/2015 Office visit Boo Madison LOCAL INTERMODAL TRUCK DRIVER 09/19/2014 Office visit Oumar Umanzor DO 09/16/2014 Office visit Boo Madison LOCAL INTERMODAL TRUCK DRIVER 08/29/2014 Office visit Oumar Umanzor DO 07/28/2014 Office visit Oumar Umanzor DO 06/10/2014 [facility] Cameron Suggs MD 05/30/2014 [facility] Nell Hebert MD 05/01/2014 Office visit Oumar Umanzor DO 03/27/2014 Office visit Oumar Umanzor DO 05/14/2013 Office visit Oumar Umanzor DO 03/12/2013 Office visit Oumar Umanzor DO 08/23/2012 Office visit Oumar Umanzor DO 04/13/2011 Office visit Oumar Umanzor DO 02/14/2011 Office visit Oumar Umanzor DO 02/13/2011 [facility] Nata Redman MD 02/12/2011 [facility] Nata Redman MD 02/11/2011 [facility] Nata Redman MD 02/11/2011 Hospital Abrahan Reno MD 02/10/2011 Hospital RIN Díaz MD 02/10/2011 Voided RIN Díaz MD 11/19/2009 Office visit Oumar Umanzor DO
--- OUTSIDE RECORDS SUMMARY | 2018-08-29 19:17 | XMS REPORT ---
Author Author Oumar Umanzor [facility] Address [address] [place], [place] [address] Care Team Providers Care Brace End Mainspring Former Name Role Phone Oumar Umanzor PCP Unavailable [...] 2 times per day for 30 days sulfamethoxazole-trimethoprim 800-160 mg oral tablet 03/17/2016 03/24/2016 take 1 tablet by oral route every 12 hours for 7 days duloxetine 60 mg oral capsule,delayed release(DR/EC) [...] 12:00 AM Bicillin CR, 1.2 million units [facility]# 13068-338-43 Reviewed 03/27/2014 12:00 AM COMPREHEN METABOLIC PANEL [...] Number Start Date Medicare Part A Medicare [facility] [id number] N/A [facility] [id number] November [facility] [id number] Saturday, 2010 Medicare Part A Medicare Part A [id number] Friday, 2011 Medicare Part B Medicare Of [place] [id number] N/A AARP Aarp [id number] N/A Medicare Part A Medicare - Lab/Xray [id number] Friday, December 09, 2011 History of Encounters Visit Date Visit Type Provider 03/17/2016 Office visit Oumar Umanzor DO 10/28/2015 Office visit Oumar Umanzor DO 09/01/2015 Office visit Oumar Umanzor DO 07/30/2015 Office visit Oumar Umanzor DO 04/20/2015 Office visit Oumar Umanzor DO 04/12/2015 Hospital Kole Brownlee MD 04/11/2015 Hospital Kole Brownlee MD 02/11/2015 [facility] Edda Richards MD 01/15/2015 Office visit Boo Madison APRN 09/19/2014 Office visit Oumar Umanzor DO 09/16/2014 Office visit Boo Madison APRN 08/29/2014 Office visit Oumar Umanzor DO 07/28/2014 Office visit Oumar Umaznor DO 06/10/2014 [facility] Cameron Suggs MD 05/30/2014 [facility] Nell Hebert MD 05/01/2014 Office visit Oumar Umanzor DO 03/27/2014 Office visit Oumar Umanzor DO 05/14/2013 Office visit Oumar Umanzor DO 03/12/2013 Office visit Oumar Umanzor DO 08/23/2012 Office visit Oumar Umanzor DO 04/13/2011 Office visit Oumar Umanzor DO 02/14/2011 Office visit Oumar Umanzor DO 02/13/2011 [facility] Nata Redman MD 02/12/2011 [facility] Nata Redman MD 02/11/2011 [facility] Nata Redman MD 02/11/2011 [facility] Abrahan Reno MD 02/10/2011 [facility] RIN Díaz MD 02/10/2011 Voided RIN Díaz MD 11/19/2009 Office visit Oumar Umanzor DO
--- OUTSIDE RECORDS SUMMARY | 2018-08-29 19:18 | XMS REPORT ---
Author Author Oumar Umanzor [facility] Address [address] [place], [place] [address] Care Team Providers Care Audit Control Clerk Name Role Phone Oumar Umanzor PCP Unavailable [...] diclofenac sodium 75 mg oral tablet,delayed release (/EC) 10/24/20132014 take 1 tablet (75 mg) by [...] 10/28/2015 12:00 AM STRESS TTE ONLY Reviewed 08/23/2012 12:00 AM COMPREHEN METABOLIC PANEL Reviewed 08/23/2012 12:00 AM LIPID PANEL Reviewed 08/23/2012 12:00 AM GLYCOSYLATED HEMOGLOBIN TEST Reviewed 08/23/2012 12:00 AM MICROALBUMIN SEMIQUANT Reviewed 05/14/2013 12:00 AM Bicillin CR, 1.2 million units [facility]# 92184-157-18 Reviewed 03/27/2014 12:00 AM COMPREHEN METABOLIC PANEL [...] Number Start Date Medicare Part A Medicare [facility] [id number] N/A [facility] [id number] November [facility] [id number] Saturday, 2010 Medicare Part A Medicare Part A [id number] Friday, 2011 Medicare Part B Medicare Of [place] [id number] N/A AARP Aarp [id number] N/A Medicare Part A Medicare - Lab/Xray [id number] Friday, December 09, 2011 History of Encounters [...] Richards MD 01/15/2015 Office visit Boo Madison INTERMISSION COORDINATOR 09/19/2014 Office visit Oumar Umanzor DO 09/16/2014 Office visit Boo Madison INTERMISSION COORDINATOR 08/29/2014 Office visit Oumar Umanzor DO 07/28/2014 [facility] RIN D[facility]az MD 02/10/2011 Voided RIN Díaz MD 11/19/2009 Office visit Oumar Umanzor DO
--- OUTSIDE RECORDS SUMMARY | 2018-08-29 19:19 | XMS REPORT ---
Author Author Oumar Umanzor [facility] Address [address] [place], [place] [id number] Care Team Providers Care Bunch Breaker Name Role Phone Oumar Umanzor PCP Unavailable [...] 12:00 AM Bicillin CR, 1.[address] [facility]# 14854-140-95 Reviewed 03/27/2014 12:00 AM COMPREHEN METABOLIC PANEL [...] Number Start Date Medicare Part A Medicare [facility] [id number] N/A [facility] [id number] November [facility] [id number] Saturday, 2010 Medicare Part A Medicare Part A [id number] Friday, 2011 Medicare Part B Medicare [place] [id number] N/A AARP Aarp [id number] N/A Medicare Part A Medicare - Lab/Xray [id number] Friday, December 09, 2011 History of Encounters Visit Date Visit Type Provider 10/28/2015 Office visit Oumar Umanzor DO 09/01/2015 Office visit Oumar Umanzor DO 07/30/2015 Office visit Oumar Umanzor DO 04/20/2015 Office visit Oumar Umanzor DO 04/12/2015 [facility] Kole Brownlee MD 04/11/2015 [facility] Kole Brownlee MD 02/11/2015 [facility] Edda Richards MD 01/15/2015 Office visit Boo Madison TISSUE TECHNOLOGIST 09/19/2014 Office visit Oumar Umanzor DO 09/16/2014 Office visit Boo Madison TISSUE TECHNOLOGIST 08/29/2014 Office visit Oumar Umanzor DO 07/28/2014 Office visit Oumar Umanzor DO 06/10/2014 [facility] Cameron Suggs MD 05/30/2014 [facility] Nell Hebert MD 05/01/2014 Office visit Oumar Umanzor DO 03/27/2014 Office visit Oumar Umanzor DO 05/14/2013 Office visit Oumar Umanzor DO 03/12/2013 Office visit Oumar Umanzor DO 08/23/2012 Office visit Oumar Umanzor DO 04/13/2011 Office visit Oumar Umanzor DO 02/14/2011 Office visit Oumar Umanzor DO 02/13/2011 [facility] Nata Redman MD 02/12/2011 [facility] Nata Redman MD 02/11/2011 [facility] Nata Redman MD 02/11/2011 [facility] Abrahan Reno MD 02/10/2011 [facility] RIN Díaz MD 02/10/2011 Voided RIN Díaz MD 11/19/2009 Office visit Oumar Umanzor DO
--- OUTSIDE RECORDS SUMMARY | 2018-08-29 19:20 | XMS REPORT ---
Author Author Oumar Umanzor [facility] Address [address] [place], [place] [address] Care Team Providers Care Chief Meteorologist Name Role Phone Oumar Umanzor PCP Unavailable [...] Reviewed 10/03/2016 12:00 AM COMPREHEN METABOLIC PANEL Returned 10/03/2016 12:00 AM LIPID PANEL Returned 10/03/2016 12:00 AM VITAMIN B-12 Returned 10/03/2016 12:00 AM GLYCOSYLATED HEMOGLOBIN TEST Returned 08/23/2012 12:00 AM COMPREHEN METABOLIC PANEL Reviewed 08/23/2012 12:00 AM LIPID PANEL Reviewed 08/23/2012 12:00 AM GLYCOSYLATED HEMOGLOBIN TEST Reviewed 08/23/2012 12:00 AM MICROALBUMIN SEMIQUANT Reviewed 05/14/2013 12:00 AM Bicillin CR, 1.2 million units [facility]# [id number] Reviewed 03/27/2014 12:00 AM COMPREHEN METABOLIC PANEL [...] 2016 9:32AM Hypertension Oct 03 2016 9:32AM Payers Insurance Name Company Name Plan Name Plan Number Policy Number Policy Group Number Start Date Medicare RHC Medicare RHC [id number] N/A BCBS Bcbs [facility] [id number] November [facility] [id number] Saturday, 2010 Medicare Part A Medicare Part A [id number] Friday, 2011 Medicare Part B Medicare [place] [id number] N/A AARP Aarp [id number] N/A Medicare Part A Medicare - Lab/Xray [id number] Friday, December 09, 2011 History of Encounters Visit Date Visit Type Provider 10/03/2016 Office visit Oumar Umanzor DO 08/11/2016 Office visit Oumar Umanzor DO 07/20/2016 [facility] Isaias Garcia MD 07/11/2016 [facility] Reynaldo Miguel DO 07/10/2016 [facility] Abrahan Reno MD 05/03/2016 Office visit Oumar Umanzor DO 03/17/2016 Office visit Oumar Umanzor DO 10/28/2015 Office visit Oumar Umanzor DO 09/01/2015 Office visit Oumar Umanzor DO 07/30/2015 Office visit Oumar Umanzor DO 04/20/2015 Office visit Oumar Umanzor DO 04/12/2015 [facility] Kole Brownlee MD 04/11/2015 [facility] Kole Brownlee MD 02/11/2015 [facility] Edda Richards MD 01/15/2015 Office visit Boo Madison APRN 09/19/2014 Office visit Oumar Umanzor DO 09/16/2014 Office visit Boo Madison APRN 08/29/2014 Office visit Oumar Umanzor DO 07/28/2014 Office visit Oumar Umanzor DO 06/10/2014 [facility] Cameron Suggs MD 05/30/2014 [facility] Nell Hebert MD 05/01/2014 Office visit Oumar Umanzor DO 03/27/2014 Office visit Oumar Umanzor DO 05/14/2013 Office visit Oumar Umanzor DO 03/12/2013 Office visit Oumar Umanzor DO 08/23/2012 Office visit Oumar Umanzor DO 04/13/2011 Office visit Oumar Umanzor DO 02/14/2011 Office visit Oumar Umanzor DO 02/13/2011 [facility] Nata Redman MD 02/12/2011 [facility] Nata Redman MD 02/11/2011 [facility] Nata Redman MD 02/11/2011 [facility] Abrahan Reno MD 02/10/2011 [facility] RIN Díaz MD 02/10/2011 Voided RIN Díaz MD 11/19/2009 Office visit Oumar Umanzor DO
--- OUTSIDE RECORDS SUMMARY | 2018-08-29 19:20 | XMS REPORT ---
Author Author Oumar Umanzor [facility] Address [address] [place], [place] [address] Care Team Providers Care Etl Tester Name Role Phone Oumar Umanzor PCP Oumar [...] by subcutaneous route once a day Humalog JesúsPen Insulin 100 unit/mL subcutaneous insulin pen 10/23/20172017 [...] CR, 1.2 million units [facility]# 80480-498-12 Reviewed 03/27/2014 12:00 AM COMPREHEN METABOLIC PANEL [...] Number Start Date Medicare RHC Medicare RHC [id number] N/A [facility] [id number] November [facility] [id number] Saturday, 2010 Medicare Part A Medicare Part A [id number] Friday, 2011 Medicare Part B Medicare Of [place] [id number] N/A AARP Aarp [id number] N/A Medicare Part A Medicare - Lab/Xray [id number] Friday, December 09, 2011 History of Encounters Visit Date Visit Type Provider 10/23/2017 Office visit Oumar Umanzor DO 10/20/2017 Office visit Boo Madison HOSE BUILDER 01/23/2017 Office visit Oumar Umanzor DO 10/03/2016 [...] 04/20/2015 Office visit Oumar Umanzor DO 04/12/2015 [facility] Kole Brownlee MD 04/11/2015 [facility] Kole Brownlee MD 02/11/2015 [facility] Edda Richards MD 01/15/2015 Office visit Boo Madison HOSE BUILDER 09/19/2014 Office visit Oumar Umanzor DO 09/16/2014 Office visit Boo Madison APRN 08/29/2014 Office visit Oumar Umanzor DO 07/28/2014 Office visit Oumar Umanzor DO 06/10/2014 [facility] Cameron Suggs MD 05/30/2014 [facility] Nell Hebert MD 05/01/2014 Office visit Oumar Umanzor DO 03/27/2014 Office visit Oumar Erna DO 05/14/2013 Office visit Oumar Erna DO 03/12/2013 Office visit Oumar Umanzor DO 08/23/2012 Office visit Oumar Umanzor DO 04/13/2011 Office visit Oumar Umanzor DO 02/14/2011 Office visit Oumar Umanzor DO 02/13/2011 Hospital Nata Redman MD 02/12/2011 [facility] Nata Redman MD 02/11/2011 [facility] Nata Redman MD 02/11/2011 Hospital Abrahan Reno MD 02/10/2011 Hospital RIN Sanchez MD 02/10/2011 Voided RIN Sanchez MD 11/19/2009 Office visit Oumar Umanzor DO
--- OUTSIDE RECORDS SUMMARY | 2018-08-29 19:21 | XMS REPORT ---
Author Author Oumar Umanzor [facility] Address [address] [place], [place] [address] Care Team Providers Care Truck Repair Supervisor Name Role Phone Oumar Umanzor PCP Unavailable [...] TAKE ONE TABLET BY MOUTH ONCE DAILY duloxetine 60 mg oral capsule,delayed release(DR/EC) 03/17/2016 03/12/2017 take 1 capsule (60 mg) by oral route once daily for 90 days propranolol 40 mg oral tablet 05/08/2016 TAKE ONE TABLET BY MOUTH TWICE DAILY Toviaz 8 mg oral tablet extended [...] by topical route 4 times per day Lyrica 75 mg oral capsule 11/09/2016 05/08/2017 take 1 capsule (75 mg) by oral route 2 times per day for 30 days True Metrix Glucose Test Strip miscellaneous strip 11/10/2016 Test glucose twice a day [id number]:E11.9 Name Start Date Expiration Date SIG Comments [...] HC BMI BSA BMI Percentile O2 Sat(%) 01/23/2017 3:17:00 PM 140 mmHg 80 mmHg [...] 12:00 AM Bicillin CR, 1.2 million units [facility]# 91801-318-97 Reviewed 03/27/2014 12:00 AM COMPREHEN METABOLIC PANEL [...] 9:32AM Acute bronchitis Jan 23 2017 3:19PM Payers Insurance Name Company Name Plan Name Plan Number Policy Number Policy Group Number Start Date Medicare [facility] Medicare [facility] [id number] N/A BCBS Bcbs [facility] [id number] November [facility] [id number] Saturday, 2010 Medicare Part A Medicare Part A [id number] Friday, 2011 Medicare Part B Medicare Of [place] [id number] N/A AARP Aarp [id number] N/A Medicare Part A Medicare - Lab/Xray [id number] Friday, December 09, 2011 History of Encounters Visit Date Visit Type Provider 01/23/2017 Office visit Oumar Erna DO 10/03/2016 Office visit Oumar Erna DO 08/11/2016 Office visit Oumar Erna DO 07/20/2016 [facility] Isaias Garcia MD 07/11/2016 Hospital Reynaldo Miguel DO 07/10/2016 [facility] Abrahan Reno MD 05/03/2016 Office visit Oumar Erna DO 03/17/2016 Office visit Oumar Erna DO 10/28/2015 Office visit Oumar Erna DO 09/01/2015 Office visit Oumar Erna DO 07/30/2015 Office visit Oumar Erna DO 04/20/2015 Office visit Oumar Erna DO 04/12/2015 [facility] Kole Brownlee MD 04/11/2015 [facility] Kole Brownlee MD 02/11/2015 [facility] Edda Richards MD 01/15/2015 Office visit Boo Madison APRN 09/19/2014 Office visit Oumar Erna DO 09/16/2014 Office visit Boo Madison APRN 08/29/2014 Office visit Oumar Erna DO 07/28/2014 Office visit Oumar Erna DO 06/10/2014 [facility] Cameron Suggs MD 05/30/2014 Hospital Nell Hebert MD 05/01/2014 Office visit Oumar Erna DO 03/27/2014 Office visit Oumar Erna DO 05/14/2013 Office visit Oumar Erna DO 03/12/2013 Office visit Oumar Erna DO 08/23/2012 Office visit Oumar Erna DO 04/13/2011 Office visit Oumar Erna DO 02/14/2011 Office visit Oumar Erna DO 02/13/2011 Hospital Nata Redman MD 02/12/2011 Hospital Nata Redman MD 02/11/2011 Hospital Nata Redman MD 02/11/2011 Hospital Abrahan Reno MD 02/10/2011 Hospital RIN Sanchez MD 02/10/2011 Voided RIN Sanchez MD 11/19/2009 Office visit Oumar Erna DO
--- OUTSIDE RECORDS SUMMARY | 2018-08-29 19:22 | XMS REPORT ---
Author Author Oumar Umanzor [facility] Address [address] [place], [place] [address] Care Team Providers Care Oven Heater Name Role Phone Omuar Umanzor PCP Oumar Umanzor PreferredProvider Allergies and [...] million units [facility]# 00163-698-70 Reviewed 03/27/2014 12:00 AM COMPREHEN METABOLIC PANEL [...] Number Policy Group Number Start Date Medicare [facility] Medicare [facility] [id number] N/A BCBS [facility] [id number] November [facility] [id number] Saturday, 2010 Medicare Part A Medicare Part A [id number] Friday, 2011 Medicare Part B Medicare Of [place] [id number] N/A AARP [employer] [id number] N/A Medicare Part A Medicare - Lab/Xray [id number] Friday, December 09, 2011 History of Encounters Visit Date Visit Type Provider 10/23/2017 Office visit Oumar Umanzor DO 10/20/2017 Office visit Boo Madison BRICK OR BLOCK MAKER 01/23/2017 Office visit Oumar Umanzor DO 10/03/2016 Office visit Oumar Umanzor DO 08/11/2016 Office visit Oumar Umanzor DO 07/20/2016 [facility] Isaias Garcia MD 07/11/2016 [facility] Reynaldo Miguel DO 07/10/2016 [facility] Abrahan Reno MD 05/03/2016 Office visit [...] Richards MD 01/15/2015 Office visit Boo Madison BRICK OR BLOCK MAKER 09/19/2014 Office visit Oumar Umanzor DO 09/16/2014 Office visit Boo Madison BRICK OR BLOCK MAKER 08/29/2014 Office visit Oumar Umanzor DO 07/28/2014 Office visit Oumar Erna DO 06/10/2014 [facility] Cameron Suggs [...] Reno MD 02/10/2011 [facility] RIN Sanchez MD 02/10/2011 Voided RIN Sanchez MD 11/19/2009 Office visit Oumar Umanzor DO
--- OUTSIDE RECORDS SUMMARY | 2018-08-29 19:23 | XMS REPORT | CCD ---
Author Author BAKARI ASHER Organization Unknown Address [address] [place] [id number] Care Team Providers Care Hostler Helper Name Role Phone TAMMIE LYNCH, CHRISTOPHER Gonzalez Attlucero TAMMIE LYNCH, CHRISTOPHER Jackson Vital Signs Unknown or Not Available. Allergies Allergy Code Allergy Type Reaction [facility] Drug allergy Active Procedures Unknown or Not Available. History of Immunizations Unknown or Not Available. Problems Unknown or Not Available. Results Unknown or Not Available. Medications Unknown or Not Available. Medications Administered Unknown or Not Available. Encounters Encounter Diagnosis Diagnosis Code Start Date LUMBOSACRAL NEURITIS NOS 7244 04/27/2014 Social History Smoking Status Code Start Date End Date Never smoker [id number] Patient Decision Aids Unknown or Not Available. Discharge Instructions You were admitted to [facility] on 04/27/2014 with a principal diagnosis of LUMBOSACRAL NEURITIS NOS. You were discharged from [facility] on 04/27/2014. Should you have any questions prior to discharge, please contact a member of your healthcare team. If you have left the hospital and have any questions, please contact your primary care physician. Chief Complaint and Reason For Visit Chief Complaint Date of Onset HIP PAIN LEG PAIN Function Status Unknown or Not Available. Referral/Transition of Care Unknown or Not Available.
--- OUTSIDE RECORDS SUMMARY | 2018-08-29 19:23 | XMS REPORT ---
Author Author Oumar Umanzor [facility] Address [address] [place], [place] [id number] Care Team Providers Care Recruiter Specialist Name Role Phone Oumar Umanzor PCP Unavailable [...] million units [facility]# 23936-284-43 Reviewed 03/27/2014 12:00 AM COMPREHEN METABOLIC PANEL [...] Number Start Date Medicare RHC Medicare RHC [id number] N/A [id number] November [facility] [id number] Saturday, 2010 Medicare Part A Medicare Part A [id number] Friday, 2011 Medicare Part B Medicare Of [place] [id number] N/A A[employer] [place] [id number] N/A Medicare Part A Medicare - Lab/Xray [id number] Friday, December 09, 2011 History of Encounters Visit Date Visit Type Provider 05/03/2016 Office visit Oumar Umanzor DO 03/17/2016 Office visit Oumar Umanzor DO 10/28/2015 Office visit Oumar Umanzor DO 09/01/2015 Office visit Oumar Umanzor DO 07/30/2015 Office visit Oumar Umanzor DO 04/20/2015 Office visit Oumar Umanzor DO 04/12/2015 [facility] Kole Brownlee MD 04/11/2015 [facility] Kole Brownlee MD 02/11/2015 [facility] dEda Richards MD 01/15/2015 Office visit Boo [place] BUSINESS DEVELOPMENT PROFESSIONAL 09/19/2014 Office visit Oumar Umanzor DO 09/16/2014 Office visit Boo [place] APRN 08/29/2014 Office visit Oumar Umanzor DO 07/28/2014 Office visit Oumar Umanzor DO 06/10/2014 [facility] Cameron Suggs MD 05/30/2014 [facility] Nell Hebert MD 05/01/2014 Office visit Oumar Umanzor DO 03/27/2014 Office visit Oumar Umanzor DO 05/14/2013 Office visit Oumar Umanzor DO 03/12/2013 Office visit Oumar Umanzor DO 08/23/2012 Office visit Oumar Umanzor DO 04/13/2011 Office visit Oumar Umanzor DO 02/14/2011 Office visit Oumar Umanzor DO 02/13/2011 [facility] Nata Redman MD 02/12/2011 [facility] Nata Redman MD 02/11/2011 [facility] Nata Redman MD 02/11/2011 [facility] Abrahan Reno MD 02/10/2011 [facility] RIN Díaz MD 02/10/2011 Voided RIN Díaz MD 11/19/2009 Office visit Oumar Umanzor DO
--- OUTSIDE RECORDS SUMMARY | 2018-08-29 19:24 | XMS REPORT | Continuity of Care Document ---
Author Author [facility] Address Unknown Phone Unavailable Allergies Active Description Code Type Severity Reaction Onset Reported/Identified Relationship to Patient Clinical Status Yes DEMEROL [id number] BRANDNAME N/A 1986 POST OP HERNIA CAUSED N/V Yes DEMEROL [id number] BRANDNAME N/A N/A Yes meperidine NKMA N/A N/A 07/11/2016 Medications Medication Packaging Start Date Stop Date Route Dosage Sig glucagon(glucagon) 1 mL 07/11/2016 07/19/2016 IntraMuscular 1 mg 1 mg=1 mL, IntraMuscular, As Indicated, PRN: Hypoglycemia/Low Blood Sugar fentaNYL(Sublimaze) 0.5 mL 201607/19/2016 IV Push 25 mcg 25 mcg=0.5 mL, IV Push, q1hr, PRN: Pain Sodium Chloride 0.9%(dexmedetomidine IV additive 200 mcg [0.2 mcg/ kg/hr] + NS' 50 mL) 50 mL 07/11/2016 07/14/2016 IV 4.55 mL/hr, IV Dextrose 50% in Water(Dextrose 50% in Water Injection) 25 mL 07/11/2016 07/19/2016 IV Push 12.5 g 12.5 g=25 mL, IV Push, q15min, PRN: Hypoglycemia/Low Blood Sugar Dextrose 10% in Water(Dextrose 10% in Water 250 mL) 250 mL 07/11/2016 07/19/2016 IV 50 mL/hr, IV acetaminophen(acetaminophen) 2 tabs 07/11/2016 07/19/2016 Oral 650 mg 650 mg=2 tabs, Oral, q4hr, PRN: Pain Mild (1-3) hydrALAZINE(hydrALAZINE) 0.5 mL 08/201607/19/2016 IV Push 10 mg 10 mg=0.5 mL, IV Push, q4hr, PRN: Hypertension/High Blood Pressure Sodium Chloride 0.9%(Sodium Chloride 0.9% 250 mL) 250 mL 07/11/2016 07/14/2016 IV 10 mL/hr, IV docusate(Colace) 10 mL 07/11/2016 07/19/2016 G-Tube 100 mg 100 mg=10 mL, G-Tube, TID, PRN: Constipation famotidine(Pepcid) 2 mL 07/11/2016 07/13/2016 IV Push 20 mg 20 mg=2 mL, IV Push, BID acetaminophen(acetaminophen) 20.3 mL 07/11/2016 07/19/2016 G-Tube 650 mg 650 mg=20.3 mL, G-Tube, q6hr, PRN: Other (See Comment) ocular lubricant(ocular lubricant ophthalmic solution) 2 drops 07/11/2016 07/19/2016 Eye- Both 2 drops, Eye-Both, QID, PRN: Dry Eyes cefTRIAXone(Rocephin) 10 mL 201607/16/2016 IV Push 1 g 1 g=10 mL, IV Push, q24hr acyclovir(acyclovir + Sodium Chloride 0.9% 100 mL) 13 mL 07/11/2016 07/12/2016 IV Piggyback 650 mg 650 mg=13 mL, 113 mL/hr, IV Piggyback , q8hr (scheduled) ampicillin(ampicillin) 8 mL 201607/12/2016 IV Piggyback 2 g 2 g=8 mL, 216 mL/hr, IV Piggyback, q4hr DULoxetine(DULoxetine) 201607/19/2016 Oral 30 mg 30 mg, Oral, Daily, 0 Refill(s) bumetanide(bumetanide) 201607/19/2016 Oral 1 mg 1 mg, Oral, Daily, 0 Refill(s) insulin aspart(NovoLOG 100 units/mL subcutaneous solution) 07/11/2016 SubCutaneous 5 units 5 units, SubCutaneous, TIDAC, 0 Refill(s) insulin glargine(Lantus 100 units/mL subcutaneous solution) 07/11/2016 SubCutaneous 20 units 20 units, SubCutaneous, Bedtime (once a day), 0 Refill(s) verapamil(verapamil 240 mg/12 hours oral tablet, extended release) 1 tabs 07/11/2016 07/19/2016 Oral 240 mg 240 mg=1 tabs, Oral, qAM, 0 Refill(s) fesoterodine(Toviaz 4 mg oral tablet, extended release) 1 tabs 07/11/2016 07/12/2016 Oral 4 mg 4 mg=1 tabs, Oral, Daily, 30 tabs, 0 Refill(s) tamsulosin(tamsulosin) 201607/19/2016 Oral 0.4 mg 0.4 mg, Oral, Daily, 0 Refill(s) guaiFENesin(Mucinex 600 mg oral tablet, extended release) 1 tabs 07/11/2016 07/19/2016 Oral 600 mg 600 mg=1 tabs, Oral, q12hr, PRN: Cough , 0 Refill(s) sitaGLIPtin(Januvia) 07/11/2016 07/19/2016 Oral 100 mg 100 mg, Oral, Daily, 0 Refill(s) pregabalin(Lyrica) 07/11/2016 Oral 75 mg 75 mg, Oral, BID, 0 Refill(s) pioglitazone(pioglitazone) 201607/19/2016 Oral 15 mg 15 mg, Oral, Daily, 0 Refill(s) finasteride(finasteride) 2016 Oral 5 mg 5 mg, Oral, Daily, 0 Refill(s) propranolol(propranolol) 201607/19/2016 Oral 40 mg 40 mg, Oral, BID, 0 Refill(s) potassium chloride(potassium chloride 20 mEq oral powder for reconstitution) 2 packets 07/12/2016 07/19/2016 Oral 40 mEq 40 mEq=2 packets, Oral, q2hr, PRN: Other (See Comment) potassium phosphate(potassium phosphate) 13.33 mL 07/12/2016 07/19/2016 IV Piggyback 40 mmol 40 mmol=13.33 mL, 85.56 mL/hr, IV Piggyback, Daily, PRN: Other (See Comment) magnesium sulfate(magnesium sulfate) 50 mL 07/12/2016 07/19/2016 IV Piggyback 2 g 2 g=50 mL, 25 mL/hr, IV Piggyback, q2hr, PRN: Other ( See Comment) potassium chloride(potassium chloride 10 mEq/50 mL intravenous solution) 50 mL 07/12/20162016 IV Piggyback 10 mEq 10 mEq=50 mL, 50 mL/hr, IV Piggyback, q1hr, PRN: Other (See Comment) potassium chloride(potassium chloride 20 mEq oral tablet, extended release) 2 tabs 07/12/20162016 Oral 40 mEq 40 mEq=2 tabs, Oral, q2hr, PRN: Other (See Comment) fesoterodine(Toviaz 8 mg oral tablet, extended release) 1 tabs 07/12/2016 07/19/2016 Oral 8 mg 8 mg=1 tabs, Oral, Daily, 7 day supply on 12-19, 0 Refill(s) lidocaine(lidocaine 1% injectable solution) 5 mL 07/12/2016 07/12/2016 IntraDermal 5 mL, IntraDermal, Once enoxaparin(Lovenox) 0.4 mL 201607/19/2016 SubCutaneous 40 mg 40 mg=0.4 mL, SubCutaneous, Daily insulin regular(insulin regular sliding scale Custom) 07/12/2016 07/19/2016 SubCutaneous Sliding Scale Custom, SubCutaneous, As Indicated, PRN: Hyperglycemia/High Blood Sugar aspirin(aspirin) 1 tabs 07/13/2016 07/19/2016 Oral 325 mg 325 mg=1 tabs, Oral, Daily atorvastatin(atorvastatin) 1 tabs 07/13/2016 07/19/2016 Oral 80 mg 80 mg=1 tabs, Oral, Daily polyethylene glycol 3350(MiraLax) 1 packets 07/13/2016 07/19/2016 Oral 17 g 17 g=1 packets, Oral, BID insulin detemir(insulin detemir) 0.2 mL 07/13/2016 07/19/2016 SubCutaneous 20 units 20 units=0.2 mL, SubCutaneous, Bedtime (once a day ) haloperidol(haloperidol) 1 mL 07/1407/19/2016 IV Push 5 mg 5 mg=1 mL, IV Push, q6hr, PRN: Agitation DULoxetine(DULoxetine) 1 caps 07/1407/19/2016 Oral 60 mg 60 mg=1 caps, Oral, Daily finasteride(finasteride) 1 tabs 11/201607/19/2016 Oral 5 mg 5 mg=1 tabs, Oral, Daily tamsulosin(tamsulosin) 1 caps 07/1407/19/2016 Oral 0.4 mg 0.4 mg=1 caps, Oral, Daily tamsulosin(Flomax) 1 caps 201607/15/2016 Oral 0.4 mg 0.4 mg=1 caps, Oral, Daily HYDROcodone-acetaminophen([place] 5 mg-325 mg oral tablet range dose ) 2 tabs 07/15/2016 07/19/2016 Oral 2 tabs, Oral, q4hr, PRN: Pain Moderate (4-6) metoprolol(metoprolol tartrate 1 mg/mL injectable solution) 5 mL 07/15/2016 07/15/2016 IV Push 5 mg 5 mg=5 mL, IV Push, Once metoprolol(metoprolol tartrate 25 mg oral tablet) 1 tabs 07/15/2016 07/15/2016 Oral 25 mg 25 mg=1 tabs, Oral, BID metoprolol(metoprolol tartrate 50 mg oral tablet) 1.5 tabs 07/15/2016 07/19/2016 Oral 75 mg 75 mg=1.5 tabs, Oral, BID insulin aspart(NovoLOG) 0.04 mL 01/201707/19/2016 SubCutaneous 4 units 4 units=0.04 mL, SubCutaneous, TIDWM ondansetron(Zofran) 2 mL 201607/19/2016 IV Push 4 mg 4 mg=2 mL, IV Push, q6hr, PRN: Nausea or Vomiting amLODIPine(Norvasc) 1 tabs 201607/19/2016 Oral 5 mg 5 mg=1 tabs, Oral, Daily metoprolol(metoprolol succinate 100 mg oral tablet, extended release) 1 tabs 07/19/20162016 Oral 100 mg 100 mg=1 tabs, Oral, Daily tamsulosin(tamsulosin 0.4 mg oral capsule) 1 caps 07/19/2016 Oral 0.4 mg 0.4 mg=1 caps, Oral, Daily, 0 Refill(s) DULoxetine(DULoxetine 60 mg oral delayed release capsule) 1 caps 07/19/2016 Oral 60 mg 60 mg=1 caps, Oral, Daily, 0 Refill(s) albuterol(Proventil HFA 90 mcg/inh inhalation aerosol) 07/19/2016 Inhalation 2-6 puffs, Inhalation, q2hr (scheduled), PRN: Shortness of Breath/Wheezing, 0 Refill(s) atorvastatin(atorvastatin 80 mg oral tablet) 1 tabs 07/19/2016 Oral 80 mg 80 mg=1 tabs, Oral, Daily, 0 Refill(s) amLODIPine(Norvasc 5 mg oral tablet) 1 tabs 07/19/2016 Oral 5 mg 5 mg=1 tabs, Oral, Daily, 0 Refill(s) aspirin(aspirin 325 mg oral tablet) 1 tabs 07/19/2016 Oral 325 mg 325 mg=1 tabs, Oral, Daily, 0 Refill(s) metoprolol(metoprolol succinate 100 mg oral tablet, extended release) 1 tabs 07/19/2016 Oral 100 mg 100 mg=1 tabs, Oral, Daily, 0 Refill(s) Problems Date Dx Coded Attending Type Code Diagnosis Diagnosed By 07/21/2016 Von Mack Final E11.42 Type 2 diabetes mellitus with diabetic polyneuropathy 07/21/2016 Von Mack Final E11.65 Type 2 diabetes mellitus with hyperglycemia 07/21/2016 Von Mack Final E78.5 Hyperlipidemia, unspecified 07/21/2016 Von Mack Final E83.42 Hypomagnesemia 07/21/2016 Von Mack Final E87.6 Hypokalemia 07/21/2016 Von Mack Final F32.9 Major depressive disorder, single episode, unspecified 07/21/2016 Von Mack Final G93.40 Encephalopathy, unspecified 07/21/2016 Von Mack Final I16.1 Hypertensive emergency 07/21/2016 Von Makc Final I21.4 Non-ST elevation (NSTEMI) myocardial infarction 07/21/2016 Von Mack Final I35.0 Nonrheumatic aortic (valve) stenosis 07/21/2016 Von Mack Final J13 Pneumonia due to Streptococcus pneumoniae 07/21/2016 Von Mack Final J96.00 Acute respiratory failure, unspecified whether with hypoxia or hypercapnia 07/21/2016 Von Mack Final R40.2433 Malcolm coma scale score 3-8, at hospital admission 07/21/2016 Von Mack Final R56.9 Unspecified convulsions 07/21/2016 Von Mack Final Z91.19 Patient''s noncompliance with other medical treatment and regimen 07/21/2016 Von Mack Final I63.9 Cerebral infarction, unspecified 07/22/2016 JERICHO LYNCH, MAHA A E11.65 Type 2 diabetes mellitus with hyperglycemia ZACH LYNCH, NICHOLAS Cervantes 07/22/2016 DESMOND ECHAVARRIA MD G93.40 Encephalopathy, unspecified ZACH LYNCH, NICHOLAS E 07/22/2016 DESMOND ECHAVARRIA MD J13 Pneumonia due to Streptococcus pneumoniae ZACH LYNCH, NICHOLAS Cervantes 07/22/2016 DESMOND ECHAVARRIA MD J96.01 Acute respiratory failure with hypoxia ZACH LYNCH, NICHOLAS Cervantes 07/22/2016 DESMOND ECHAVARRIA MD R56.9 Unspecified convulsions ZACH LYNCH, NICHOLAS Cervantes 07/22/2016 DESMOND ECHAVARRIA MD 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.2 manager 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 antibiotics ZACH LYNCH, NICHOLAS Cervantes 07/22/2016 JERICHO LYNCH, DESMOND Ospina E11.65 Type 2 diabetes mellitus with hyperglycemia JERICHO LYNCH, DESMOND Ospina 07/22/2016 DESMOND ECHAVARRIA MD G93.40 Encephalopathy, unspecified JERICHO LYNCH, DESMOND Ospina 07/22/2016 DESMOND ECHAVARRIA MD J13 Pneumonia due to Streptococcus pneumoniae JERICHO LYNCH, DESMOND Ospina 07/22/2016 DESMOND ECHAVARRIA MD J96.01 Acute respiratory failure with hypoxia JERICHO LYNCH, DESMOND Ospina 07/22/2016 DESMOND ECHAVARRIA MD R56.9 Unspecified convulsions JERICHO LYNCH, DESMOND Ospina 07/22/2016 DESMOND ECHAVARRIA MD Z79.2 manager 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 antibiotics DESMOND ECHAVARRIA MD 07/28/2016 DESMOND ECHAVARRIA MD E11.65 Type 2 diabetes mellitus with hyperglycemia JERICHO LYNCH, DESMOND Ospina 07/28/2016 DESMOND ECHAVARRIA MD G93.40 Encephalopathy, unspecified JERICHO LYNCH, DESMOND Ospina 07/28/2016 DESMOND ECHAVARRIA MD J13 Pneumonia due to Streptococcus pneumoniae JERICHO LYNCH, DESMOND Ospina 07/28/2016 DESMOND ECHAVARRIA MD J96.01 Acute respiratory failure with hypoxia JERICHO LYNCH, DESMOND Ospina 07/28/2016 DESMOND ECHAVARRIA MD R56.9 Unspecified convulsions JERICHO LYNCH, DESMOND Ospina 07/28/2016 DESMOND ECHAVARRIA MD Z79.2 manager 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 antibiotics ASSI MD, MAHA A Procedures Code Description Performed By Performed On [id number] Respiratory Ventilation, 24-96 Consecutive Hours 07/11/2016 31628 Initial hospital care, per day, for the evaluation and management of a patient, which requires these DESMOND ECHAVARRIA MD 07/22/2016 09968 Subsequent hospital care, per day, for the evaluation and management of a patient, which requires at DESMOND ECHAVARRIA MD 07/22/2016 43278 Subsequent hospital care, per day, for the evaluation and management of a patient, which requires at DESMOND ECHAVARRIA MD 07/22/2016 22371 Subsequent hospital care, per day, for the evaluation and management of a patient, which requires at NICHOLAS SERRANO MD 07/22/2016 20912 Subsequent hospital care, per day, for the evaluation and management of a patient, which requires at DESMOND ECHAVARRIA MD 07/28/2016 17616 Initial hospital care, per day, for the evaluation and management of a patient, which requires these DESMOND ECHAVARRIA MD 05/22/2017 71156 Subsequent hospital care, per day, for the evaluation and management of a patient, which requires at DESMOND ECHAVARRIA MD 05/22/2017 37950 Subsequent hospital care, per day, for the evaluation and management of a patient, which requires at NICHOLAS SERRANO MD 05/22/2017 Results Test Result Range Glucose NPT - 07/11/16 20:29 Glucose NPT 330 mg/dL 70-100 Glucose NPT - 07/11/16 21:09 Glucose NPT 355 mg/dL 70-100 Glucose NPT - 07/12/16 08:36 Glucose NPT 103 mg/dL 70-100 Glucose NPT - 07/12/16 10:04 Glucose NPT 115 mg/dL 70-100 Troponin - 07/12/16 10:23 Troponin 0.34 ng/mL <0.06 TSH with Reflex Free T4 - 07/12/16 10:23 TSH with Reflex Free T4 1.00 uIU/mL 0.35-5.50 Procalcitonin - 07/12/16 10:23 Procalcitonin 0.45 ng/mL 0.00-0.09 Osmolality - 07/12/16 10:23 Osmolality 297 mOsm/kg 275-300 Glucose NPT - 07/12/16 12:20 Glucose NPT 145 mg/dL 70-100 Glucose NPT - 07/12/16 16:11 Glucose NPT 206 mg/dL 70-100 Glucose NPT - 07/12/16 20:03 Glucose NPT 178 mg/dL 70-100 Glucose NPT - 07/13/16 00:05 Glucose NPT 149 mg/dL 70-100 Glucose NPT - 07/13/16 05:07 Glucose NPT 169 mg/dL 70-100 CBC With Platelet No Differential - 07/13/16 05:15 HCT 36.5 % 42.0-52.0 HGB 11.9 g/dL 14.0-18.0 MCH 27.9 pg 27.0-32.0 MCHC 32.6 g/dL 32.0-36.0 MCV 85.5 fL 82.0-99.0 MPV 11.5 fL 9.4-12.3 Platelet Count 167 K/uL 150-400 RBC 4.27 10*6/uL 4.60-6.20 RDW 13.4 % 11.5-14.5 WBC 11.7 K/uL 4.8-10.8 Magnesium - 07/13/16 05:15 Magnesium 1.6 mg/dL 1.8-2.5 Phosphorus - 07/13/16 05:15 Phosphorus 2.9 mg/dL 2.4-4.7 Comprehensive Metabolic Panel (CMP) - 07/13/16 05:15 Albumin 2.3 g/dL 3.5-4.8 Alkaline Phosphatase 57 U/L 26-104 ALT (SGPT) 12 U/L 17-63 Anion Gap 6 NA 3-20 AST (SGOT) 18 U/L 15-41 Bilirubin Total 1.3 mg/dL 0.2-1.2 BUN 15 mg/dL 4-20 Calcium 8.0 mg/dL 8.6-10.0 Chloride 115 mEq/L 99-109 CO2 21 mEq/L 22-32 Creatinine 1.14 mg/dL 0.64-1.27 Globulin 2.8 g/dL 1.9-4.3 Glucose 177 mg/dL 70-100 Potassium 3.9 mEq/L 3.6-5.1 Protein 5.1 g/dL 6.1-7.9 Sodium 142 mEq/L 136-144 eGFR - 07/13/16 05:15 eGFR >60 NA >60 Hemoglobin A1C - 07/13/16 05:15 Hemoglobin A1C 12.7 % 4.1-5.6 Estimated Average Glucose - 07/13/16 05:15 Estimated Average Glucose 317.8 mg/dL Blood Gases, Arterial (RT) - 07/13/16 05:53 Arterial Base Excess -6 NA 0-2 Arterial Bicarbonate 18 mEq/L 22-26 Arterial O2 Saturation 96.1 % 90.0-97.0 Arterial PCO2 31 mmHg 35-45 Arterial PH 7.38 NA 7.35-7.45 Arterial PO2 86 mmHg 80-100 PEEP 5.0 cmH2O Set Rate 16 br/min Vent Mode ac/vc+ O2 Panel it0.9 30% Spec Site A. radialis l. Set Vt 450 mL Glucose NPT - 07/13/16 08:00 Glucose NPT 171 mg/dL 70-100 Glucose NPT - 07/13/16 11:54 Glucose NPT 189 mg/dL 70-100 Glucose NPT - 07/13/16 15:57 Glucose NPT 156 mg/dL 70-100 Glucose NPT - 07/13/16 22:17 Glucose NPT 158 mg/dL 70-100 Glucose NPT - 07/14/16 00:28 Glucose NPT 183 mg/dL 70-100 CBC With Platelet No Differential - 07/14/16 03:46 HCT 33.9 % 42.0-52.0 HGB 11.1 g/dL 14.0-18.0 MCH 28.2 pg 27.0-32.0 MCHC 32.7 g/dL 32.0-36.0 MCV 86.3 fL 82.0-99.0 MPV 10.8 fL 9.4-12.3 Platelet Count 171 K/uL 150-400 RBC 3.93 10*6/uL 4.60-6.20 RDW 13.4 % 11.5-14.5 WBC 9.8 K/uL 4.8-10.8 Comprehensive Metabolic Panel (CMP) - 07/14/16 03:46 Albumin 2.1 g/dL 3.5-4.8 Alkaline Phosphatase 51 U/L 26-104 ALT (SGPT) 12 U/L 17-63 Anion Gap 8 NA 3-20 AST (SGOT) 15 U/L 15-41 Bilirubin Total 1.2 mg/dL 0.2-1.2 BUN 17 mg/dL 4-20 Calcium 7.9 mg/dL 8.6-10.0 Chloride 112 mEq/L 99-109 CO2 19 mEq/L 22-32 Creatinine 1.11 mg/dL 0.64-1.27 Globulin 2.7 g/dL 1.9-4.3 Glucose 168 mg/dL 70-100 Potassium 3.7 mEq/L 3.6-5.1 Protein 4.8 g/dL 6.1-7.9 Sodium 139 mEq/L 136-144 eGFR - 07/14/16 03:46 eGFR >60 NA >60 Glucose NPT - 07/14/16 05:10 Glucose NPT 145 mg/dL 70-100 Glucose NPT - 07/14/16 08:03 Glucose NPT 124 mg/dL 70-100 Glucose NPT - 07/14/16 12:36 Glucose NPT 99 mg/dL 70-100 Glucose NPT - 07/14/16 16:02 Glucose NPT 114 mg/dL 70-100 Glucose NPT - 07/14/16 20:20 Glucose NPT 127 mg/dL 70-100 Glucose NPT - 07/14/16 22:51 Glucose NPT 134 mg/dL 70-100 Glucose NPT - 07/15/16 02:43 Glucose NPT 161 mg/dL 70-100 CBC With Platelet No Differential - 07/15/16 03:31 HCT 38.8 % 42.0-52.0 HGB 12.9 g/dL 14.0-18.0 MCH 28.3 pg 27.0-32.0 MCHC 33.2 g/dL 32.0-36.0 MCV 85.1 fL 82.0-99.0 MPV 11.5 fL 9.4-12.3 Platelet Count 214 K/uL 150-400 RBC 4.56 10*6/uL 4.60-6.20 RDW 13.5 % 11.5-14.5 WBC 9.5 K/uL 4.8-10.8 Comprehensive Metabolic Panel (CMP) - 07/15/16 03:31 Albumin 2.5 g/dL 3.5-4.8 Alkaline Phosphatase 61 U/L 26-104 ALT (SGPT) 13 U/L 17-63 Anion Gap 10 NA 3-20 AST (SGOT) 16 U/L 15-41 Bilirubin Total 1.1 mg/dL 0.2-1.2 BUN 15 mg/dL 4-20 Calcium 8.2 mg/dL 8.6-10.0 Chloride 109 mEq/L 99-109 CO2 19 mEq/L 22-32 Creatinine 0.85 mg/dL 0.64-1.27 Globulin 2.9 g/dL 1.9-4.3 Glucose 187 mg/dL 70-100 Potassium 3.3 mEq/L 3.6-5.1 Protein 5.4 g/dL 6.1-7.9 Sodium 138 mEq/L 136-144 eGFR - 07/15/16 03:31 eGFR >60 NA >60 Magnesium - 07/15/16 03:31 Magnesium 1.7 mg/dL 1.8-2.5 Glucose NPT - 07/15/16 08:58 Glucose NPT 209 mg/dL 70-100 Vitamin B12 - 07/15/16 14:56 Vitamin B12 412 pg/mL 213-816 Paraneoplastic AAB Eval S - 07/15/16 14:56 Interpretive comments SEE BELOW NA ACh Ganglionic Neur Ab 0.00 nmol/L <=0.02 ACh Rec. Binding Ab 0.00 nmol/L <=0.02 AGNA-1 Negative titer <1:240 Amphiphysin Ab, S Negative titer <1:240 BOB-1, Serum Negative titer <1:240 BOB-2, Serum Negative titer <1:240 BOB-3, Serum Negative titer <1:240 CRMP-5-IgG, S Negative titer <1:240 Neuronal (V-G) K+ Channel AB 0.00 nmol/L <=0.02 N-Type Ca Channel Ab 0.00 nmol/L <=0.03 P/Q Ca Channel Ab 0.00 nmol/L <=0.02 EXECUTIVE RECRUITER-1, Serum Negative titer <1:240 EXECUTIVE RECRUITER-2, Serum Negative titer <1:240 EXECUTIVE RECRUITER-Tr, Serum Negative titer <1:240 Striational Ab, S Negative titer <1:120 Reflex test added None. NA Glucose NPT - 07/15/16 15:04 Glucose NPT 261 mg/dL 70-100 Glucose NPT - 07/15/16 20:19 Glucose NPT 111 mg/dL 70-100 CBC With Platelet No Differential - 07/16/16 03:49 HCT 36.9 % 42.0-52.0 HGB 12.1 g/dL 14.0-18.0 MCH 28.0 pg 27.0-32.0 MCHC 32.8 g/dL 32.0-36.0 MCV 85.4 fL 82.0-99.0 MPV 11.1 fL 9.4-12.3 Platelet Count 219 K/uL 150-400 RBC 4.32 10*6/uL 4.60-6.20 RDW 13.6 % 11.5-14.5 WBC 6.9 K/uL 4.8-10.8 Comprehensive Metabolic Panel (CMP) - 07/16/16 03:49 Albumin 2.5 g/dL 3.5-4.8 Alkaline Phosphatase 143 U/L 26-104 ALT (SGPT) 30 U/L 17-63 Anion Gap 5 NA 3-20 AST (SGOT) 59 U/L 15-41 Bilirubin Total 0.8 mg/dL 0.2-1.2 BUN 11 mg/dL 4-20 Calcium 8.5 mg/dL 8.6-10.0 Chloride 109 mEq/L 99-109 CO2 25 mEq/L 22-32 Creatinine 0.68 mg/dL 0.64-1.27 Globulin 2.8 g/dL 1.9-4.3 Glucose 101 mg/dL 70-100 Potassium 3.4 mEq/L 3.6-5.1 Protein 5.3 g/dL 6.1-7.9 Sodium 139 mEq/L 136-144 eGFR - 07/16/16 03:49 eGFR >60 NA >60 Protein Electrophoresis, Serum - 07/16/16 03:49 Albumin Fraction 2.7 g/dL 2.6-4.5 Albumin Percentage 50.8 % 48.7-61.8 Alpha 1 Fraction 0.3 g/dL 0.3-0.5 Alpha 1 Percentage 6.4 % 3.4-8.3 Alpha 2 Fraction 0.7 g/dL 0.6-1.2 Alpha 2 Percentage 12.5 % 8.4-17.5 Beta 1 Fraction 0.4 g/dL 0.4-0.6 Beta 1 Percentage 7.2 % 5.4-8.9 Beta 2 Fraction 0.4 g/dL 0.2-0.5 Beta 2 Percentage 7.0 % 3.8-7.7 Comment see below NA Gamma Fraction 0.9 g/dL 0.4-1.7 Gamma Percentage 16.1 % 8.1-23.0 Immunoglobulin Free Light Chains, Serum - 07/16/16 03:49 Lambda Fr Light Chain 2.66 mg/dL RPR - 07/16/16 03:49 RPR Non-reactive NA Ganglioside Ab Panel - 07/16/16 03:49 IgG Asialo GM1 <1 NA <=1:4000 IgG Disialo Gd1b <1 NA <=1:1000 IgG Monos, GM1 <1 NA <=1:500 IgM Asialo GM1 <1 NA <=1:4000 IgM Disialo Gd1b <1 NA <=1:1000 IgM Monosialo GM1 <1 NA <=1:1000 Ganglioside Com Normal NA MAG Ab IgM - 07/16/16 03:49 MAG Ab IgM NEGATIVE NA NEGATIVE Glucose NPT - 07/16/16 10:52 Glucose NPT 118 mg/dL 70-100 Glucose NPT - 07/16/16 16:19 Glucose NPT 127 mg/dL 70-100 Glucose NPT - 07/16/16 20:14 Glucose NPT 114 mg/dL 70-100 Renal Function Panel - 07/17/16 04:33 Albumin 2.4 g/dL 3.5-4.8 Anion Gap 2 NA 3-20 BUN 11 mg/dL 4-20 Calcium 8.7 mg/dL 8.6-10.0 Chloride 109 mEq/L 99-109 CO2 27 mEq/L 22-32 Creatinine 0.78 mg/dL 0.64-1.27 Glucose 111 mg/dL 70-100 Phosphorus 3.1 mg/dL 2.4-4.7 Potassium 3.8 mEq/L 3.6-5.1 Sodium 138 mEq/L 136-144 Magnesium - 07/17/16 04:33 Magnesium 1.8 mg/dL 1.8-2.5 eGFR - 07/17/16 04:33 eGFR >60 NA >60 Glucose NPT - 07/17/16 10:57 Glucose NPT 128 mg/dL 70-100 Glucose NPT - 07/17/16 15:02 Glucose NPT 87 mg/dL 70-100 Glucose NPT - 07/17/16 20:09 Glucose NPT 100 mg/dL 70-100 Glucose NPT - 07/18/16 11:07 Glucose NPT 158 mg/dL 70-100 Glucose NPT - 07/18/16 16:17 Glucose NPT 215 mg/dL 70-100 Glucose NPT - 07/18/16 22:05 Glucose NPT 271 mg/dL 70-100 Glucose NPT - 07/19/16 06:23 Glucose NPT 149 mg/dL 70-100 Encounters ACCT No. Visit Date/Time Discharge Status Pt. Type Provider Facility Loc./Unit Complaint [id number] 06/15/2018 09:29:22 06/15/2018 23:59:59 CLS Outpatient Oumar Umanzor [id number] 10/23/2017 15:44:18 10/23/2017 23:59:59 CLS Outpatient Oumar Umanzor [id number] 10/20/2017 18:25:52 10/20/2017 23:59:59 CLS Outpatient Boo Madison [id number] 01/23/2017 15:52:19 01/23/2017 23:59:59 CLS Outpatient Oumar Umanzor [id number] 10/03/2016 10:22:49 10/03/2016 23:59:59 CLS Outpatient Oumar Umanzor [id number] 09/29/2016 12:41:17 09/29/2016 23:59:59 CLS Outpatient Abrahan Reno [id number] 08/11/2016 10:07:45 08/11/2016 23:59:59 CLS Outpatient Oumar Umanzor [id number] 08/09/2016 14:51:05 08/09/2016 23:59:59 CLS Outpatient Isaias Garcia [id number] 08/04/2016 10:06:30 08/04/2016 23:59:59 CLS Outpatient Kole Brownlee [id number] 05/03/2016 11:20:16 05/03/2016 23:59:59 CLS Outpatient Oumar Umanzor [id number] 03/17/2016 17:05:02 03/17/2016 23:59:59 CLS Outpatient Oumar Umanzor [id number] 09/01/2015 10:08:27 09/01/2015 23:59:59 CLS Outpatient Oumar Umanzor [id number] 07/30/2015 10:19:27 07/30/2015 23:59:59 CLS Outpatient Oumar Umanzor [id number] 06/19/2015 14:15:59 06/19/2015 23:59:59 CLS Outpatient Kole Brownlee [id number] 04/20/2015 11:38:21 04/20/2015 23:59:59 CLS Outpatient Kole Brownlee [id number] 02/16/2015 22:12:23 02/16/2015 23:59:59 CLS Outpatient Boo Madison [id number] 07/28/2014 16:47:49 07/28/2014 23:59:59 CLS Outpatient Oumar Umanzor [id number] 06/17/2014 14:00:33 06/17/2014 23:59:59 CLS Outpatient Nell Hebert [id number] 05/01/2014 10:38:05 05/01/2014 23:59:59 CLS Outpatient Oumar Umanzor [id number] 03/27/2014 10:50:10 03/27/2014 23:59:59 CLS Outpatient Oumar Umanzor [id number] 07/11/2016 20:49:00 Document Registration [id number] 07/11/2016 20:49:00 07/19/2016 11:45:00 DIS [facility] [id number] 07/20/2016 05:17:27 Document Registration [id number] 07/18/2016 05:15:42 Document Registration [id number] 07/17/2016 05:15:43 Document Registration [id number] 07/16/2016 05:16:58 Document Registration [id number] 07/15/2016 05:17:05 Document Registration [id number] 07/14/2016 05:17:16 Document Registration [id number] 07/13/2016 05:18:10 Document Registration [id number] 07/12/2016 05:16:19 Document Registration [id number] 06/15/2018 09:05:06 Document Registration [id number] 10/30/2017 15:53:27 Document Registration [id number] 10/25/2017 08:24:04 Document Registration [id number] 10/20/2017 18:09:29 Document Registration [id number] 05/22/2017 10:16:01 05/22/2017 23:59:59 CLS Outpatient DESMOND ECHAVARRIA MD
[2018-08-29 19:58] LABS: BASOPHILS % (AUTO) 0 % (0-10); EOSINOPHILS # (AUTO) 0.1 10^3/uL (0.0-0.3); EOSINOPHILS % (AUTO) 2 % (0-10); HEMATOCRIT 38 % (40-54); HEMOGLOBIN 13.7 G/DL (13.3-17.7); LYMPHOCYTES # (AUTO) 1.9 X 10^3 (1.0-4.0); LYMPHOCYTES % (AUTO) 25 % (12-44); MEAN CORPUSCULAR HEMOGLOBIN 30 PG (25-34); MEAN CORPUSCULAR HGB CONC 36 G/DL (32-36); MEAN CORPUSCULAR VOLUME 83 FL (80-99); MEAN PLATELET VOLUME 11.8 FL (7.4-10.4); MONOCYTES # (AUTO) 0.6 X 10^3 (0.0-1.0); MONOCYTES % (AUTO) 8 % (0-12); NEUTROPHILS % (AUTO) 65 % (42-75); PLATELET COUNT 163 10^3/uL (130-400); RED CELL DISTRIBUTION WIDTH 13.6 % (10.0-14.5); WHITE BLOOD COUNT 7.6 10^3/uL (4.3-11.0)
[2018-08-29 20:02] LABS: PROTHROMBIN TIME PATIENT 13.4 SEC (12.2-14.7)
[2018-08-29 20:09] LABS: ALBUMIN 3.6 GM/DL (3.2-4.5); BILIRUBIN,TOTAL 1.7 MG/DL (0.1-1.0); CALCIUM 9.5 MG/DL (8.5-10.1); CREATININE SERUM 1.71 MG/DL (0.60-1.30); MAGNESIUM 1.7 MG/DL (1.8-2.4); POTASSIUM 3.7 MMOL/L (3.6-5.0); TOTAL PROTEIN 6.4 GM/DL (6.4-8.2)
--- NOTE | 2018-08-29 20:17 | Diagnostic Imaging Report ---
PROCEDURE: CT head wo r/o stroke. TECHNIQUE: Multiple contiguous axial images were obtained through the brain without the use of intravenous contrast. INDICATION: Altered mental status and confusion. Comparison is made with prior examination from 07/10/2016. FINDINGS: There is prominence of the ventricles and sulci. There is no hydrocephalus or cerebral edema. There is no midline shift or mass-effect. There is no intracranial mass, hemorrhage, or extra-axial fluid collection. There is some diffuse decreased attenuation of the periventricular white matter which is nonspecific. The visualized paranasal sinuses and mastoid air cells are clear. There are no regional areas of decreased attenuation appreciated to suggest an acute CVA. IMPRESSION: 1. No acute intracranial process. 2. Age-appropriate atrophy. 3. Decreased attenuation of the periventricular white matter which is nonspecific, however, likely reflects senescent change and/or chronic small vessel ischemic disease. Dictated by: Dictated on workstation # [id number]
--- NOTE | 2018-08-29 20:19 | ED General ---
General Chief Complaint: Lower Extremity Stated Complaint: R LEG AND HIP PAIN Nursing Triage Note: PT TO ROOM #6 VIA ED W/C BY DAUGHTER. A&OX4. C/O RT HIP PAIN RADIATING DOWN RT LEG. REPORTS PAIN BEGAN APPROX X3 MONTHS AGO AND HAS GOTTEN INCREASINGLY WORSE. DESCRIBES PAIN SHOOTING PAIN. DENIES INJURY. Nursing Sepsis Screen: No Definite Risk Source of Information: Patient (LIMITED HISTORIAN), Family (DAUGHTER) History of Present Illness Date Seen by Provider: Aug 29, 2018 Time Seen by Provider: 19:35 Initial Comments PT ARRIVES VIA POV FROM HOME WITH DAUGHTER--LIVES WITH DAUGHTER PT C/O PAIN TO RIGHT HIP ( POINTS TO RIGHT SI JOINT AREA) AND RADIATES DOWN RIGHT LEG TO CALF SYMPTOMS X 3 MONTHS NO INJURY NO PARESTHESIAS OR MOTOR DEFICITS NO DIFFERENT TODAY, BUT GRADUALLY GETTING WORSE. STATES HE HAS BEEN HAVING DIFFICULTY WALKING WITH WALKER DUE TO PAIN, BUT ALSO HAS BEEN GENERALLY WEAK THE LAST COUPLE OF DAYS HAS NOT SOUGHT CARE UNTIL TODAY OCCASIONALLY TAKES IBUPROFEN, BUT NO RELIEF DAUGHTER STATES THAT PATIENT HAS BEEN "DISORIENTED, FORGETFUL, A LITTLE CONFUSED , HAS BEEN WEAK AND VERY UNSTEADY, GETS UPSET EASILY, DOING ALOT OF CRYING, AND LOWER LIP HAS BEEN QUIVERING FOR THE LAST 3-4 DAYS PT HAS BEEN OUT OF HIS CYMBALTA X 1 WEEK, AND OUT OF ALL OF HIS OTHER MEDICATIONS FOR 2-3 DAYS DAUGHTER REPORTS THAT SHE WAS UNAWARE THAT HE WAS OUT OF HIS MEDICATIONS UNTIL TODAY "JUST DOESN'T FEEL GOOD AND NOT ACTING RIGHT" NO FEVER OR RECENT ILLNESS NO COUGH NO CHEST PAIN OR SHORTNESS OF BREATH NO NAUSEA/VOMITING NO PROBLEMS URINATING--HAS CHRONIC PROBLEMS FROM BPH NO HEADACHE NO BODY ACHES NO ABDOMINAL PAIN PCP: SMOOTH MALONEY. HAS NOT SEEN RECENTLY HAS SEEN DR. LOCO IN PAST Allergies and Home Medications Allergies Coded Allergies: No Known Drug Allergies (Unverified , 08/29/18) Patient Home Medication List Home Medication List Reviewed: Yes Review of Systems Review of Systems Constitutional: No chills, No fever; malaise, weakness EENTM: no symptoms reported Respiratory: no symptoms reported; No cough, No short of breath Cardiovascular: no symptoms reported; No chest pain, No edema, No vascular heart diseas Gastrointestinal: no symptoms reported; No abdominal pain, No nausea, No vomiting Genitourinary: no symptoms reported Musculoskeletal: see HPI, back pain Skin: no symptoms reported Psychiatric/Neurological: See HPI, Anxiety, Depressed, Emotional Problems; Denies Headache, Denies Numbness, Denies Paresthesia, Denies Seizure, Denies Tingling, Denies Tremors, Denies Weakness Hematologic/Lymphatic: No Symptoms Reported Immunological/Allergic: no symptoms reported Past Oqdzyiq-Netfiv-Ibbode Hx Patient Social History Alcohol Use: Denies Use Recreational Drug Use: No Smoking Status: Never a Smoker 2nd Hand Smoke Exposure: No Recent Foreign Travel: No Contact w/Someone Who Travel: No Recent Infectious Disease Expo: No Recent Hopitalizations: No Seasonal Allergies Seasonal Allergies: No Past Medical History Surgeries: Yes (FUSION OF L2-3-4-5; KIDNEY STONE SURGERY) Gallbladder, Orthopedic, Renal Respiratory: No Cardiac: Yes Heart Murmur, High Cholesterol, Hypertension, Valvular Heart Disease Neurological: No Genitourinary: Yes Benign Prostatic Hyperpl, Prostate Problems, Kidney Stones Gastrointestinal: No Musculoskeletal: Yes Degenerate Disk Disease, Arthritis, Chronic Back Pain Endocrine: Yes Diabetes, Insulin dep Are Your Blood Sugars Over 250: Yes HEENT: No Cancer: No Psychosocial: Yes Anxiety, Depression Integumentary: No Blood Disorders: No Physical Exam Vital Signs Vital Signs - First Documented 08/29/18 19:00 Temp 97.4 Pulse 90 Resp 18 B/P (MAP) 145/98 (114) Pulse Ox 98 O2 Delivery Room Air O2 Flow Rate 0 Capillary Refill : Less Than 3 Seconds Height, Weight, BMI Height: 5'6.00" Weight: 195lbs. oz. 88.787244ki; BMI Method:Stated General Appearance: Obese, Other (MILDLY LETHARGIC, QUIVERING OF LOWER LIP. LAYING ON LEFT SIDE, HOLDING RIGHT SI AREA. VERY FLAT AFFECT. PT HAS ANKLE MONITORING DEVICE ON RIGHT ANKLE) HEENT: PERRL/EOMI Neck: Normal Inspection, Non Tender, Supple; No Carotid Bruit, No JVD Respiratory: Chest Non Tender, Normal Breath Sounds, No Accessory Muscle Use, No Respiratory Distress Cardiovascular: Regular Rate, Rhythm, No Edema, No JVD, Normal Peripheral Pulses, Systolic Murmur (10/13) Gastrointestinal: Normal Bowel Sounds, No Organomegaly, No Pulsatile Mass, Non Tender, Soft Back: Other (TENDERNESS TO LUMBAR AND RIGHT SI JOINT AREA. 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, Other ( ABOVE) Skin: Normal Color, Warm/Dry Focused Exam Lactate Level 08/29/18 20:05: Lactic Acid Level 1.07 Lactic Acid Level Progress/Results/Core Measures Suspected Sepsis Recent Fever Within 48 Hours: No Infection Criteria Present: None New/Unexplained Altered Menta: No Sepsis Screen: No Definite Risk SIRS Temperature:97.4 Pulse: 90 Respiratory Rate: 18 Laboratory Tests 08/29/18 19:25: White Blood Count 7.6 08/30/18 01:26: Blood Pressure 98 / Mean: 08/29/18 20:05: Lactic Acid Level 1.07 Laboratory Tests 08/29/18 19:25: Creatinine 1.71H, INR Comment 1.0, Platelet Count 163, Total Bilirubin 1.7H 08/30/18 01:26: Results/Orders Lab Results Laboratory Tests Test 08/29/18 19:11 08/29/18 19:25 08/29/18 19:43 08/29/18 19:45 Range/Units Glucometer 348 H 70-110 MG/DL White Blood Count 7.6 4.3-11.0 10^3/uL Red Blood Count 4.59 4.35-5.85 10^6/uL Hemoglobin 13.7 13.3-17.7 G/DL Hematocrit 38 L 40-54 % Mean Corpuscular Volume 83 80-99 FL Mean Corpuscular Hemoglobin 30 25-34 PG Mean Corpuscular Hemoglobin Concent 36 32-36 G/DL Red Cell Distribution Width 13.6 10.0-14.5 % Platelet Count 163 130-400 10^3/uL Mean Platelet Volume 11.8 H 7.4-10.4 FL Neutrophils (%) (Auto) 65 42-75 % Lymphocytes (%) (Auto) 25 12-44 % Monocytes (%) (Auto) 8 0-12 % Eosinophils (%) (Auto) 2 0-10 % Basophils (%) (Auto) 0 0-10 % Neutrophils # (Auto) 5.0 1.8-7.8 X 10^3 Lymphocytes # (Auto) 1.9 1.0-4.0 X 10^3 Monocytes # (Auto) 0.6 0.0-1.0 X 10^3 Eosinophils # (Auto) 0.1 0.0-0.3 10^3/uL Basophils # (Auto) 0.0 0.0-0.1 10^3/uL Prothrombin Time 13.4 12.2-14.7 SEC INR Comment 1.0 0.8-1.4 Activated Partial Thromboplast Time 30 24-35 SEC Sodium Level 140 135-145 MMOL/L Potassium Level 3.7 3.6-5.0 MMOL/L Chloride Level 105 98-107 MMOL/L Carbon Dioxide Level 23 21-32 MMOL/L Anion Gap 12 5-14 MMOL/L Blood Urea Nitrogen 26 H 7-18 MG/DL Creatinine 1.71 H 0.60-1.30 MG/DL Estimat Glomerular Filtration Rate 40 BUN/Creatinine Ratio 15 Glucose Level 337 H 70-105 MG/DL Calcium Level 9.5 8.5-10.1 MG/DL Corrected Calcium 9.8 8.5-10.1 MG/DL Magnesium Level 1.7 L 1.8-2.4 MG/DL Total Bilirubin 1.7 H 0.1-1.0 MG/DL Aspartate Amino Transf (AST/SGOT) 15 5-34 U/L Alanine Aminotransferase (ALT/SGPT) 9 0-55 U/L Alkaline Phosphatase 78 40-136 U/L Troponin I 0.038 H <0.028 NG/ML Total Protein 6.4 6.4-8.2 GM/DL Albumin 3.6 3.2-4.5 GM/DL TSH [place] Testing 1.08 0.35-4.94 UIU/ML Urine Opiates Screen POSITIVE H NEGATIVE Urine Oxycodone Screen NEGATIVE NEGATIVE Urine Methadone Screen NEGATIVE NEGATIVE Urine Propoxyphene Screen NEGATIVE NEGATIVE Urine Barbiturates Screen NEGATIVE NEGATIVE Ur Tricyclic Antidepressants Screen NEGATIVE NEGATIVE Urine Phencyclidine Screen NEGATIVE NEGATIVE Urine Amphetamines Screen NEGATIVE NEGATIVE Urine Methamphetamines Screen NEGATIVE NEGATIVE Urine Benzodiazepines Screen NEGATIVE NEGATIVE Urine Cocaine Screen NEGATIVE NEGATIVE Urine Cannabinoids Screen NEGATIVE NEGATIVE B-Type Natriuretic Peptide 759.0 H <100.0 PG/ML Test 08/29/18 20:05 08/29/18 22:08 08/30/18 01:26 Range/Units Lactic Acid Level 1.07 0.50-2.00 MMOL/L Urine Color YELLOW Urine Clarity CLEAR Urine pH 5 5-9 Urine Specific [place] 1.020 1.016-1.022 Urine Protein 4+ NEGATIVE Urine Glucose (UA) 4+ H NEGATIVE Urine Ketones 1+ H NEGATIVE Urine Nitrite NEGATIVE NEGATIVE Urine Bilirubin NEGATIVE NEGATIVE Urine Urobilinogen NORMAL NORMAL MG/DL Urine Leukocyte Esterase NEGATIVE NEGATIVE Urine RBC (Auto) 3+ H NEGATIVE Urine RBC 2-5 H /HPF Urine WBC 2-5 /HPF Urine Squamous Epithelial Cells 0-2 /HPF Urine Crystals NONE /LPF Urine Bacteria TRACE /HPF Urine Casts PRESENT /LPF Urine Hyaline Casts 2-5 H /LPF Urine Coarse Granular Casts 2-5 H /LPF Urine White Blood Cell Casts 0-2 H /LPF Urine Mucus SMALL H /LPF Urine Culture Indicated NO Micro Results Microbiology 08/29/18 Influenza Types A,B Antigen ([facility]) - Final, Complete My Orders Orders - GAUDENCIO RIVERA DO Accucheck Stat ONCE (08/29/18 19:40) Saline Lock/Iv-Start (08/29/18 19:40) Ekg Tracing (08/29/18 19:40) Monitor-Rhythm Ecg Trace Only (08/29/18 19:40) Cbc With Automated Diff (08/29/18 19:40) Comprehensive Metabolic Panel (08/29/18 19:40) Lactic Acid Analyzer (08/29/18 19:40) Magnesium (08/29/18 19:40) Protime With Inr (08/29/18 19:40) Partial Thromboplastin Time (08/29/18 19:40) Thyroid Analyzer (08/29/18 19:40) Troponin I (08/29/18 19:40) Ua Culture If Indicated (08/29/18 19:40) Blood Culture (08/29/18 19:40) Influenza A And B Antigens (08/29/18 19:40) Chest 1 View, Ap/Pa Only (08/29/18 19:40) Ct Head Wo-R/O Stroke (08/29/18 19:40) Ct Lumbar Spine Wo (08/29/18 20:05) Ct Pelvis Wo (08/29/18 20:05) BNP (08/29/18 20:55) Aspirin Chewable Tablet (Baby Aspirin Ch (08/29/18 21:00) Morphine Injection (Morphine Injection (08/29/18 20:55) Nitroglycerin Ointment (Nitrobid Ointme (08/29/18 21:00) Magnesium 1 Gm/100 Ml Ivpb (Magnesium [place] (08/29/18 21:15) Aspirin Chewable Tablet (Baby Aspirin Ch (08/29/18 21:07) Morphine Injection (Morphine Injection (08/29/18 21:07) Nitroglycerin Ointment (Nitrobid Ointme (08/29/18 21:07) Furosemide Injection (Lasix Injection) (08/29/18 23:00) Insulin (Regular) Human (Humulin R (Per (08/29/18 23:00) Drug Screen Stat (Urine) (08/29/18 22:51) Medications Given in ED Current Medications Medications Dose Ordered Sig/Suresh Route Start Time Stop Time Status Last Admin Dose Admin Aspirin 324 mg ONCE ONCE PO 08/29/18 21:00 08/29/18 21:51 DC 08/29/18 21:15 324 MG Magnesium Sulfate/ Dextrose 100 ml @ 100 mls/hr ONCE ONCE IV 08/29/18 21:15 08/29/18 22:14 DC 08/29/18 21:34 100 MLS/HR Nitroglycerin 1 inch ONCE ONCE TOP 08/29/18 21:00 08/29/18 21:51 DC 08/29/18 21:15 1 INCH Vital Signs/I&O 08/29/18 08/29/18 08/30/18 08/30/18 19:00 23:40 00:00 01:00 Temp 97.4 97.4 Pulse 90 64 81 76 Resp 18 18 11 B/P (MAP) 145/98 (114) 103/40 (61) 111/57 (75) Pulse Ox 98 98 93 O2 Delivery Room Air Room Air Room Air O2 Flow Rate 0 0 08/30/18 01:00 Pulse 72 Resp 16 B/P (MAP) 110/39 (62) Pulse Ox 93 O2 Delivery Room Air Capillary Refill : Less Than 3 Seconds Point of Care Testing Finger Stick Blood Glucose: 348 Blood Glucose Action Taken: NOTIFIED PROVIDER. Progress Note : Progress Note NO DETERIORATION IN PT'S CONDITION DURING ER STAY ECG Initial ECG Impression Date: Aug 29, 2018 Initial ECG Impression Time: 19:47 Initial ECG Rate: 86 Initial ECG Rhythm: Normal Sinus (PAC'S) Initial ECG Impression: Nonspecific Changes Diagnostic Imaging Comments CT HEAD--NO ACUTE PROCESS, MILD SMALL VESSEL ISCHEMIC CHANGES CT LUMBAR SPINE AND PELVIS--NO ACUTE PROCESS, DEGENERATIVE CHANGES OF SPINE AND SI JOINTS, POST SURGICAL CHANGES TO LUMBAR SPINE CXR--CARDIOMEGALY, NO ACUTE PROCESS PER RADIOLOGIST REPORTS @ 2054 Reviewed: Reviewed by Me Departure Communication (Admissions) 2109--SPOKE WITH DR. HOWARD, ADVISES TO ADMIT TO HOSPITALIST, ORDERS NOTED 2114--SPOKE WITH DR. JONES, HOSPITALIST, ACCEPTS PT FOR ADMIT Impression Primary Impression: Elevated troponin Additional Impressions: CHF (congestive heart failure) Diabetes mellitus Hypomagnesemia RIGHT SI JOINT PAIN WITH RIGHT SIDED SCIATICA Anxiety and depression Disposition: ADMITTED INPATIENT Condition: Stable Admissions Decision to Admit Reason: Admit from ER (General) Decision to Admit/Date: Aug 29, 2018 Time/Decision to Admit Time: 21:15 Departure-Patient Inst. Referrals: NO,LOCAL PHYSICIAN (PCP/Family) Primary Care Physician GAUDENCIO RIVERA DO Aug 29, 2018 20:18
--- NOTE | 2018-08-29 20:28 | Diagnostic Imaging Report ---
PROCEDURE: CT pelvis without contrast. TECHNIQUE: Multiple contiguous axial images were obtained through the pelvis without the use of intravenous contrast. Sagittal and coronal reformations were performed. INDICATION: Right hip pain after fall. FINDINGS: There are degenerative changes in the hips, bilaterally. There is, however, no acute fracture or dislocation. Both obturator rings appear to be intact. There is some sclerosis of the SI joints. There are postsurgical changes in the lumbar spine. The intrapelvic soft tissue structures are grossly unremarkable. IMPRESSION: Degenerative and postsurgical changes; however, no acute fracture or dislocation. Dictated by: Dictated on workstation # [id number]
[2018-08-29 20:29] LABS: TSH (THYROID ANALYZER) 1.08 UIU/ML (0.35-4.94)
--- NOTE | 2018-08-29 20:42 | Diagnostic Imaging Report ---
INDICATION: Pain. COMPARISON: Prior examination from 07/18/2016. FINDINGS: There is cardiomegaly. Lungs are clear. There is no pleural effusion or pneumothorax. The mediastinum is unremarkable. IMPRESSION: 1. No acute cardiopulmonary abnormality. 2. Mild Cardiomegaly. Dictated by: Dictated on workstation # [id number]
--- NOTE | 2018-08-29 20:44 | Diagnostic Imaging Report ---
PROCEDURE: CT lumbar spine without contrast. TECHNIQUE: Multiple contiguous axial images were obtained through the lumbar spine without the use of intravenous contrast. Sagittal and coronal reformations were then performed. INDICATION: Low back pain after fall. FINDINGS: There are postsurgical changes of an L2-L5 posterior instrumentation with bilateral pedicle screws and rods. The vertebral body heights are well maintained. There is no spondylolysis. No fractures are identified. Hardware is intact. There is lower lumbar hypertrophic degenerative facet disease. There is atherosclerotic calcification of the aorta, which is nonaneurysmal. There are no other focal soft tissue abnormalities. IMPRESSION: 1. Moderately severe diffuse lumbar spondylosis and multilevel degenerative disc disease with postsurgical change, as described. 2. No acute fracture or traumatic subluxation. Dictated by: Dictated on workstation # [id number]
[2018-08-29] MEDS ORDERED: morphine INJ 10 MG/ML 1ML (SYR OR VIAL) IVP STA (20:55)
[2018-08-29] MEDS ORDERED: ASPIRIN 81 MG CHEW (CHILDREN'S ASA) PO ONE (21:00)
[2018-08-29] MEDS ORDERED: NITROGLYCERIN 2% OINT 1 GM UNIT DOSE PACKET TOP ONE (21:00)
[2018-08-29] MEDS ORDERED: morphine INJ 10 MG/ML 1ML (SYR OR VIAL) ONE (21:07)
[2018-08-29] MEDS ORDERED: ASPIRIN 81 MG CHEW (CHILDREN'S ASA) ONE (21:07)
[2018-08-29] MEDS ORDERED: NITROGLYCERIN 2% OINT 1 GM UNIT DOSE PACKET ONE (21:07)
[2018-08-29] MEDS ORDERED: MAGNESIUM 1 GM/100 ML IVPB 100 ML IV ONE (21:15)
[2018-08-29 22:14] LABS: BILIRUBIN,URINE NEGATIVE (NEGATIVE); CLARITY,URINE CLEAR; COLOR,URINE YELLOW; GLUCOSE, URINE (UA) 4+ (NEGATIVE); KETONES,URINE 1+ (NEGATIVE); LEUKOCYTE ESTERASE ,URINE NEGATIVE (NEGATIVE); NITRITE,URINE NEGATIVE (NEGATIVE); PH,URINE 5 (5-9); PROTEIN,URINE 4+ (NEGATIVE); UROBILINOGEN,URINE NORMAL (NORMAL)
[2018-08-29 22:25] LABS: BACTERIA,URINE TRACE /HPF
[2018-08-29 22:26] LABS: SQUAMOUS EPITHELIAL CELL,UR 0-2 /HPF; WHITE BLOOD CELL CASTS, URINE 0-2 /LPF
--- OUTSIDE RECORDS SUMMARY | 2018-08-29 22:51 | XMS REPORT | Continuity of Care Document ---
Author Author [facility] Address Unknown Phone Unavailable Allergies Active Description Code Type Severity Reaction Onset Reported/Identified Relationship to Patient Clinical Status Yes DEMEROL [id number] BRANDNAME N/A 1986 POST OP HERNIA CAUSED N/V Yes DEMEROL [id number] BRANDNAME N/A N/A Yes meperidine NKMA N/A [...] 0.4 mg 0.4 mg=1 caps, Oral, Daily HYDROcodone-acetaminophen([place] 5 mg-325 mg oral tablet range dose [...] Mack Final I16.1 Hypertensive emergency 07/21/2016 [place] Final I21.4 Non-ST elevation (NSTEMI) myocardial infarction 07/21/2016 [place] Final I35.0 Nonrheumatic aortic (valve) stenosis 07/21/2016 [place] Final J13 Pneumonia due to Streptococcus pneumoniae 07/21/2016 [place] Final J96.00 Acute respiratory failure, unspecified whether with hypoxia or hypercapnia 07/21/2016 [place] Final R40.2433 [place] coma scale score 3-8, at hospital admission [...] NICHOLAS Cervantes 07/22/2016 DESMOND ECHAVARRIA MD Z79.2 termination clerk (current) use of antibiotics ZACH LYNCH, NICHOLAS [...] DESMOND Ospina 07/22/2016 DESMOND ECHAVARRIA MD Z79.2 termination clerk (current) use of antibiotics DESMOND ECHAVARRIA MD [...] DESMOND Ospina 07/28/2016 DESMOND ECHAVARRIA MD Z79.2 termination clerk (current) use of antibiotics ASSI MD, MAHA A Procedures Code Description Performed By Performed On [id number] Respiratory Ventilation, 24-96 Consecutive Hours 07/11/2016 [id number] Initial hospital care, per day, for the evaluation and management of a patient, which requires these DESMOND ECHAVARRIA MD 07/22/2016 70900 Subsequent hospital care, per day, for the evaluation and management of a patient, which requires at DESMOND ECHAVARRIA MD 07/22/2016 86553 Subsequent hospital care, per day, for the evaluation and management of a patient, which requires at DESMOND ECHAVARRIA MD 07/22/2016 73497 Subsequent hospital care, per day, for the evaluation and management of a patient, which requires at NICHOLAS SERRANO MD 07/22/2016 57487 Subsequent hospital care, per day, for the evaluation and management of a patient, which requires at DESMOND ECHAVARRIA MD 07/28/2016 23841 Initial hospital care, per day, for the evaluation and management of a patient, which requires these DESMOND ECHAVARRIA MD 05/22/2017 35138 Subsequent hospital care, per day, for the evaluation and management of a patient, which requires at DESMOND ECHAVARRIA MD 05/22/2017 39619 Subsequent hospital care, per day, for the [...] P/Q Ca Channel Ab 0.00 nmol/L <=0.02 ASSEMBLER METAL FURNITURE-1, Serum Negative titer <1:240 ASSEMBLER METAL FURNITURE-2, Serum Negative titer <1:240 ASSEMBLER METAL FURNITURE-Tr, Serum Negative titer <1:240 Striational Ab, S [...] 07/19/16 06:23 Glucose NPT 149 mg/dL 70-100 Capillary blood glucose measurement by glucometer (mass/volume) - 08/29/18 19: 11 Capillary blood glucose measurement by glucometer (mass/volume) 348 mg/dL 70-110 Complete blood count (CBC) with automated white blood cell (WBC) differential - 08/29/18 19:25 Blood leukocytes automated count (number/volume) 7.6 10*3/uL 4.3-11.0 Blood erythrocytes automated count (number/volume) 4.59 10*6/uL 4.35-5.85 Venous blood hemoglobin measurement (mass/volume) 13.7 g/dL 13.3-17.7 Blood hematocrit (volume fraction) 38 % 40-54 Automated erythrocyte mean corpuscular volume 83 [foz_us] 80-99 Automated erythrocyte mean corpuscular hemoglobin (mass per erythrocyte) 30 pg 25-34 Automated erythrocyte mean corpuscular hemoglobin concentration measurement ( mass/volume) 36 g/dL 32-36 Automated erythrocyte distribution width ratio 13.6 % 10.0-14.5 Automated blood platelet count (count/volume) 163 10*3/uL 130-400 Automated blood platelet mean volume measurement 11.8 [foz_us] 7.4-10.4 Automated blood neutrophils/100 leukocytes 65 % 42-75 Automated blood lymphocytes/100 leukocytes 25 % 12-44 Blood monocytes/100 leukocytes 8 % 0-12 Automated blood eosinophils/100 leukocytes 2 % 0-10 Automated blood basophils/100 leukocytes 0 % 0-10 Blood neutrophils automated count (number/volume) 5.0 10*3 1.8-7.8 Blood lymphocytes automated count (number/volume) 1.9 10*3 1.0-4.0 Blood monocytes automated count (number/volume) 0.6 10*3 0.0-1.0 Automated eosinophil count 0.1 10*3/uL 0.0-0.3 Automated blood basophil count (count/volume) 0.0 10*3/uL 0.0-0.1 PT panel in platelet poor plasma by coagulation assay - 08/29/18 19:25 Prothrombin time (PT) in platelet poor plasma by coagulation assay 13.4 s 12.2-14.7 INR in platelet poor plasma or blood by coagulation assay 1.0 0.8-1.4 Activated partial thromboplastin time (aPTT) in platelet poor plasma bycoagulation assay - 08/29/18 19:25 Activated partial thromboplastin time (aPTT) in platelet poor plasma bycoagulation assay 30 s 24-35 Comprehensive metabolic panel - 08/29/18 19:25 Serum or plasma sodium measurement (moles/volume) 140 mmol/L 135-145 Serum or plasma potassium measurement (moles/volume) 3.7 mmol/L 3.6-5.0 Serum or plasma chloride measurement (moles/volume) 105 mmol/L 98-107 Carbon dioxide 23 mmol/L 21-32 Serum or plasma anion gap determination (moles/volume) 12 mmol/L 5-14 Serum or plasma urea nitrogen measurement (mass/volume) 26 mg/dL 7-18 Serum or plasma creatinine measurement (mass/volume) 1.71 mg/dL 0.60-1.30 Serum or plasma urea nitrogen/creatinine mass ratio 15 NRG Serum or plasma creatinine measurement with calculation of estimated glomerular filtration rate 40 NRG Serum or plasma glucose measurement (mass/volume) 337 mg/dL 70-105 Serum or plasma calcium measurement (mass/volume) 9.5 mg/dL 8.5-10.1 Serum or plasma total bilirubin measurement (mass/volume) 1.7 mg/dL 0.1-1.0 Serum or plasma alkaline phosphatase measurement (enzymatic activity/volume) 78 U/L 40-136 Serum or plasma aspartate aminotransferase measurement (enzymatic activity/ volume) 15 U/L 5-34 Serum or plasma alanine aminotransferase measurement (enzymatic activity/volume ) 9 U/L 0-55 Serum or plasma protein measurement (mass/volume) 6.4 g/dL 6.4-8.2 Serum or plasma albumin measurement (mass/volume) 3.6 g/dL 3.2-4.5 CALCIUM CORRECTED 9.8 mg/dL 8.5-10.1 Magnesium - 08/29/18 19:25 Magnesium 1.7 mg/dL 1.8-2.4 Serum or plasma troponin i.cardiac measurement (mass/volume) - 08/29/18 19:25 Serum or plasma troponin i.cardiac measurement (mass/volume) 0.038 ng/mL <0.028 Serum or plasma thyrotropin measurement by detection limit <=0.05 miu/l (units/ volume) - 08/29/18 19:25 Serum or plasma thyrotropin measurement by detection limit <=0.05 miu/l (units/ volume) 1.08 u[iU]/mL 0.35-4.94 Serum or plasma lithium measurement (moles/volume) - 08/29/18 19:45 BNP level 759.0 pg/mL <100.0 Blood lactic acid measurement (moles/volume) - 08/29/18 20:05 Blood lactic acid measurement (moles/volume) 1.07 mmol/L 0.50-2.00 Influenza virus A and B antigen detection - 08/29/18 20:05 FLU RESULT NEGATIVE FOR INFLUENZA A AND B ANTIGENS BY IA NRG Complete urinalysis with reflex to culture - 08/29/18 22:08 Urine color determination YELLOW NRG Urine clarity determination CLEAR NRG Urine pH measurement by test strip 5 5-9 Specific gravity of urine by test strip 1.020 1.016- 1.022 Urine protein assay by test strip, semi-quantitative 4+ NEGATIVE Urine glucose detection by automated test strip 4+ NEGATIVE Erythrocytes detection in urine sediment by light microscopy 3+ NEGATIVE Urine ketones detection by automated test strip 1+ NEGATIVE Urine nitrite detection by test strip NEGATIVE NEGATIVE Urine total bilirubin detection by test strip NEGATIVE NEGATIVE Urine urobilinogen measurement by automated test strip (mass/volume) NORMAL NORMAL Urine leukocyte esterase detection by dipstick NEGATIVE NEGATIVE Automated urine sediment erythrocyte count by microscopy (number/high power field) [HPF] NRG Automated urine sediment leukocyte count by microscopy (number/high power field ) [HPF] NRG Bacteria detection in urine sediment by light microscopy TRACE NRG Squamous epithelial cells detection in urine sediment by light microscopy 0-2 NRG Crystals detection in urine sediment by light microscopy NONE NRG Casts detection in urine sediment by light microscopy PRESENT NRG Mucus detection in urine sediment by light microscopy SMALL NRG Complete urinalysis with reflex to culture NO NRG Hyaline casts detection in urine sediment by light microscopy 2-5 NRG WBC casts detection in urine sediment by light microscopy 0-2 NRG Coarse granular casts detection in urine sediment by light microscopy 2-5 NRG Encounters ACCT No. Visit Date/Time Discharge Status Pt. Type Provider Facility Loc./Unit Complaint [id number] 06/15/2018 09:29:22 06/15/2018 23:59:59 CLS Outpatient Oumar Umanzor [id number] 10/23/2017 15:44:18 10/23/2017 23:59:59 CLS Outpatient Ouamr Umanzor [id number] 10/20/2017 18:25:52 10/20/2017 23:59:59 CLS Outpatient Boo Madison [id number] 01/23/2017 15:52:19 01/23/2017 23:59:59 CLS Outpatient Chaparro Umanzora [id number] 10/03/2016 10:22:49 10/03/2016 23:59:59 CLS Outpatient Erna, Oumar [id number] 09/29/2016 12:41:17 09/29/2016 23:59:59 CLS Outpatient Abrahan Reno [id number] 08/11/2016 10:07:45 08/11/2016 23:59:59 CLS Outpatient ErnaOumar [id number] 08/09/2016 14:51:05 08/09/2016 23:59:59 CLS Outpatient Isaias Garcia [id number] 08/04/2016 10:06:30 08/04/2016 23:59:59 CLS Outpatient Kole Brownlee [id number] 05/03/2016 11:20:16 05/03/2016 23:59:59 CLS Outpatient Erna Oumar [id number] 03/17/2016 17:05:02 03/17/2016 23:59:59 CLS Outpatient ErnaOumar eaton [id number] 09/01/2015 10:08:27 09/01/2015 23:59:59 CLS Outpatient ErnaOumar [id number] 07/30/2015 10:19:27 07/30/2015 23:59:59 CLS Outpatient Oumar Umanzor [id number] 06/19/2015 14:15:59 06/19/2015 23:59:59 CLS Outpatient Kole Brownlee [id number] 04/20/2015 11:38:21 04/20/2015 23:59:59 CLS Outpatient Kole Brownlee [id number] 02/16/2015 22:12:23 02/16/2015 23:59:59 CLS Outpatient Boo Madison [id number] 07/28/2014 16:47:49 07/28/2014 23:59:59 CLS Outpatient Oumar Umanzor [id number] 06/17/2014 14:00:33 06/17/2014 23:59:59 CLS Outpatient Nell Hebert [id number] 05/01/2014 10:38:05 05/01/2014 23:59:59 CLS Outpatient Oumar Umanzor [id number] 03/27/2014 10:50:10 03/27/2014 23:59:59 CLS Outpatient Oumar Umanzor [id number] 08/29/2018 19:18:00 Document Registration [id number] 07/11/2016 20:49:00 Document Registration [id number] 07/11/2016 20:49:00 07/19/2016 11:45:00 [facility] [id number] 07/20/2016 05:17:27 Document Registration [id number] 07/18/2016 05:15:42 Document Registration [id number] 07/17/2016 05:15:43 Document Registration [id number] 07/16/2016 05:16:58 Document Registration [id number] 07/15/2016 05:17:05 Document Registration [id number] 07/14/2016 05:17:16 Document Registration [id number] 07/13/2016 05:18:10 Document Registration [id number] 07/12/2016 05:16:19 Document Registration [id number] 06/15/2018 09:05:06 Document Registration [id number] 10/30/2017 15:53:27 Document Registration [id number] 10/25/2017 08:24:04 Document Registration [id number] 10/20/2017 18:09:29 Document Registration [id number] 05/22/2017 10:16:01 05/22/2017 23:59:59 CLS Outpatient JERICHO LYNCH, EDSMOND Ospina
[2018-08-29] MEDS ORDERED: NS (IVPB) 50 ML ONE (22:59)
[2018-08-29] MEDS ORDERED: FUROSEMIDE 40 MG/4 ML INJ (LASIX) ONE (22:59)
[2018-08-29] MEDS ORDERED: inSUlin (REGULAR) HUMAN 1 UNIT/0.01 ML (CHARGE PER UNIT) ONE (23:00)
[2018-08-29] MEDS ORDERED: FUROSEMIDE 40 MG/4 ML INJ (LASIX) IVP ONE (23:00)
[2018-08-29] MEDS ORDERED: inSUlin (REGULAR) HUMAN 1 UNIT/0.01 ML (CHARGE PER UNIT) IV ONE (23:00)
[2018-08-29 23:14] LABS: AMPHETAMINE SCREEN, URINE NEGATIVE (NEGATIVE); BARBITURATE SCREEN URINE NEGATIVE (NEGATIVE); BENZODIAZEPINES SCREEN URINE NEGATIVE (NEGATIVE); CANNABINOID SCREEN, URINE NEGATIVE (NEGATIVE); COCAINE SCREEN URINE NEGATIVE (NEGATIVE); METHADONE STAT NEGATIVE (NEGATIVE); METHAMPHETAMINE SCREEN URINE S NEGATIVE (NEGATIVE); OPIATE SCREEN URINE POSITIVE (NEGATIVE); OXYCODONE STAT NEGATIVE (NEGATIVE); PROPOXYPHENE STAT NEGATIVE (NEGATIVE); TRICYCLIC ANTIDEPRESSANTS SCRE NEGATIVE (NEGATIVE)
[2018-08-29] MEDS ORDERED: 1/2 NS IV SOLUTION 1,000 ML IV SCH (23:45)
[2018-08-29] MEDS ORDERED: ONDANSETRON 4 MG/2 ML (SDV) Z0FRAN IV PRN (23:45)
[2018-08-29] MEDS ORDERED: ACETAMINOPHEN 500 MG TAB (TYLENOL) PO PRN (23:45)
[2018-08-29] MEDS ORDERED: CATHETER FLUSH 10 ML SYR IV PRN (23:45)
[2018-08-29] MEDS ORDERED: morphine INJ 4 MG/ML 1 ML (VIAL/SYRINGE) IV PRN (23:45)
[2018-08-29] MEDS ORDERED: NITROGLYCERIN 0.4 MG SL TABS BTL 25'S SL PRN (23:45)
[2018-08-29 23:50] VITALS: BP 110/59
[2018-08-30] VITALS (17 sets, daily range): BP systolic 110–172; BP diastolic 39–118
[2018-08-30 01:30] LABS: BASOPHILS % (AUTO) 0 % (0-10); EOSINOPHILS # (AUTO) 0.1 10^3/uL (0.0-0.3); EOSINOPHILS % (AUTO) 1 % (0-10); HEMATOCRIT 36 % (40-54); HEMOGLOBIN 12.8 G/DL (13.3-17.7); LYMPHOCYTES # (AUTO) 2.2 X 10^3 (1.0-4.0); LYMPHOCYTES % (AUTO) 28 % (12-44); MEAN CORPUSCULAR HEMOGLOBIN 30 PG (25-34); MEAN CORPUSCULAR HGB CONC 36 G/DL (32-36); MEAN CORPUSCULAR VOLUME 84 FL (80-99); MEAN PLATELET VOLUME 10.9 FL (7.4-10.4); MONOCYTES # (AUTO) 0.7 X 10^3 (0.0-1.0); MONOCYTES % (AUTO) 10 % (0-12); NEUTROPHILS # (AUTO) 4.8 X 10^3 (1.8-7.8); NEUTROPHILS % (AUTO) 61 % (42-75); PLATELET COUNT 174 10^3/uL (130-400); RED CELL DISTRIBUTION WIDTH 13.5 % (10.0-14.5); WHITE BLOOD COUNT 7.8 10^3/uL (4.3-11.0)
[2018-08-30 01:49] LABS: ALBUMIN 3.5 GM/DL (3.2-4.5); BILIRUBIN,TOTAL 1.4 MG/DL (0.1-1.0); CALCIUM 9.5 MG/DL (8.5-10.1); CREATININE SERUM 1.72 MG/DL (0.60-1.30); MAGNESIUM 2.1 MG/DL (1.8-2.4); POTASSIUM 3.3 MMOL/L (3.6-5.0); TOTAL PROTEIN 6.1 GM/DL (6.4-8.2)
--- NOTE | 2018-08-30 05:21 | History & Physical-Hospitalist ---
History of Present Illness HPI/Chief Complaint CC: Right sciatica pain but elevated troponin noted on workup in the ER. HPI: This is a 73yoWM that is very distant and not revealing of his medical history, likely due to ankle bracelet noted from criminal behavior in which he told me he is okay now, but I did further investigation and appears to be a crime against children. Pt reports right hip pain continues which he has had before but no falls, so we will initiate physical therapy and await cardiology plan for elevated troponin. Few details considering his overall paranoia and unwillingness to provide any details and it appears that he has a poor historian. Pt does report he lives with his daughter in [place]. Source: patient, RN/MD Exam Limitations: clinical condition Date Seen 08/30/18 Time Seen by a Provider: 09:30 Attending Physician Shauna Mcadams DO PCP No,Local Physician Referring Physician Date of Admission Aug 29, 2018 at 21:15 Home Medications & Allergies Home Medications Reviewed patient Home Medication Reconciliation performed by pharmacy medication reconciliations quality assurance qa lab technician and/or nursing. Patients Allergies have been reviewed. Allergies Allergies Coded Allergies No Known Drug Allergies (Unverified08/29/18) Past Fscqzhz-Tjfkes-Ynjwxt Hx Past Med/Social Hx: Reviewed Nursing Past Med/Soc Hx, Reviewed and Corrections made Patient Social History Marrital Status: single Employed/Student: retired Alcohol Use: Denies Use Recreational Drug Use: No Smoking Status: Never a Smoker 2nd Hand Smoke Exposure: No Recent Foreign Travel: No Contact w/other who traveled: No Recent Hopitalizations: No Recent Infectious Disease Expo: No Immunizations Up To Date Date of Pneumonia Vaccine: Apr 29, 2018 Date of Influenza Vaccine: Apr 29, 2018 Seasonal Allergies Seasonal Allergies: No Past Medical History Surgeries: Gallbladder, Orthopedic, Renal Cardiac: Heart Murmur, High Cholesterol, Hypertension, Valvular Heart Disease Genitourinary: Benign Prostatic Hyperpl, Prostate Problems, Kidney Stones Musculoskeletal: Degenerate Disk Disease, Arthritis, Chronic Back Pain Endocrine: Diabetes, Insulin dep Are Your Blood Sugars Over 250: Yes Psychosocial: Anxiety, Depression History of Blood Disorders: No Family History Cardiovascular disease 19 MOTHER Colon cancer 19 MOTHER Dementia 19 FATHER Review of Systems Constitutional: see HPI, weakness EENTM: no symptoms reported Respiratory: no symptoms reported Cardiovascular: no symptoms reported Gastrointestinal: no symptoms reported Genitourinary: no symptoms reported Musculoskeletal: back pain, joint pain Skin: no symptoms reported Psychiatric/Neurological: No Symptoms Reported All Other Systems Reviewed Negative Unless Noted: Yes Physical Exam Physical Exam Vital Signs Vital Signs - First Documented 08/29/18 19:00 Temp 97.4 Pulse 90 Resp 18 B/P (MAP) 145/98 (114) Pulse Ox 98 O2 Delivery Room Air O2 Flow Rate 0 Capillary Refill : Less Than 3 Seconds Height, Weight, BMI Height: 5'6.00" Weight: 193lbs. 5.0oz. 87.102343wf; 31.2 BMI Method:Stated General Appearance: No Apparent Distress, Chronically ill Eyes: Right Eye Normal Inspection, Right Eye PERRL HEENT: PERRL/EOMI, Normal ENT Inspection, Pharynx Normal, Moist Mucous Membranes Neck: Full Range of Motion, Normal Inspection, Non Tender Respiratory: Chest Non Tender, Lungs Clear, Normal Breath Sounds, No Accessory Muscle Use, No Respiratory Distress Cardiovascular: Regular Rate, Rhythm, No Edema, No Gallop, No JVD, Normal Peripheral Pulses, Diastolic Murmur, Systolic Murmur Gastrointestinal: Normal Bowel Sounds, No Organomegaly, No Pulsatile Mass, Non Tender, Soft Back: Normal Inspection, No CVA Tenderness, No Vertebral Tenderness Extremity: Normal Capillary Refill, Normal Inspection, Normal Range of Motion, Non Tender, No Calf Tenderness, No Pedal Edema Neurologic/Psychiatric: Alert, Oriented x3, No Motor/Sensory Deficits, Normal Mood/Affect Skin: Normal Color, Warm/Dry Lymphatic: No Adenopathy Results Results/Procedures Labs Laboratory Tests 08/29/18 19:25 08/30/18 01:26 Patient resulted labs reviewed. Assessment/Plan Admission Diagnosis Assessment: NSTEMI? Right sided sciatica Cardiac murmur Ankle bracelet for police monitoring plan: Await Cardiology plan Home meds Admission Status: Inpatient Order (span 2 midnights) Reason for Inpatient Admission: NSTEMI Diagnosis/Problems Diagnosis/Problems (1) Elevated troponin Status: Acute (2) Hypomagnesemia Status: Acute (3) Anxiety and depression Status: Chronic (4) CHF (congestive heart failure) Status: Chronic Qualifiers: Heart failure type: unspecified Heart failure chronicity: unspecified Qualified Codes: I50.9 - Heart failure, unspecified (5) Diabetes mellitus Status: Chronic Qualifiers: Diabetes mellitus type: type 2 Diabetes mellitus director of perioperative services insulin use: with jail use Diabetes mellitus complication status: without complication Qualified Codes: E11.9 - Type 2 diabetes mellitus without complications; Z79.4 - 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
--- NOTE | 2018-08-30 05:54 | Pulmonary Consultation ---
History of Present Illness History of Present Illness Date of Consultation 08/30/18 05:49 Time Seen by Provider: 05:49 Date of Admission History of Present Illness 73yo presented to ED secondary to progressive hip pain radiating down right leg that started 3months ago. symptoms progressed to difficulty ambulating secondary to progressive weakness. While in the ED pt was found to have an elevated troponin and acute renal failure. Allergies and Home Medications Allergies Coded Allergies: No Known Drug Allergies (Unverified , 08/29/18) Past Vrychtv-Uqhdtu-Eflzga Hx Patient Social History Alcohol Use: Denies Use Recreational Drug Use: No Smoking Status: Never a Smoker 2nd Hand Smoke Exposure: No Recent Foreign Travel: No Contact w/Someone Who Travel: No Recent Infectious Disease Expo: No Recent Hopitalizations: No Physical Abuse: No Sexual Abuse: No Immunizations Up To Date Date of Pneumonia Vaccine: Apr 29, 2018 Date of Influenza Vaccine: Apr 29, 2018 Seasonal Allergies Seasonal Allergies: No Past Medical History Surgeries: Yes (FUSION OF L2-3-4-5; KIDNEY STONE SURGERY) Gallbladder, Orthopedic, Renal Respiratory: No Cardiac: Yes Heart Murmur, High Cholesterol, Hypertension, Valvular Heart Disease Neurological: No Genitourinary: Yes Benign Prostatic Hyperpl, Prostate Problems, Kidney Stones Gastrointestinal: No Musculoskeletal: Yes Degenerate Disk Disease, Arthritis, Chronic Back Pain Endocrine: Yes Diabetes, Insulin dep Are Your Blood Sugars Over 250: Yes HEENT: No Cancer: No Psychosocial: Yes Anxiety, Depression Integumentary: No Blood Disorders: No Family Medical History Cardiovascular disease 19 MOTHER Colon cancer 19 MOTHER Dementia 19 FATHER Sepsis Event Evaluation Height, Weight, BMI Height: 5'6.00" Weight: 193lbs. 5.0oz. 87.405808px; 31.2 BMI Method:Stated Exam Exam Vital Signs Date Time Temp Pulse Resp B/P (MAP) Pulse Ox O2 Delivery O2 Flow Rate FiO2 08/30/18 05:00 62 20 157/95 (115) 98 Room Air 08/30/18 04:15 Room Air 08/30/18 04:15 96.8 08/30/18 04:00 73 13 138/91 (107) 98 Room Air 08/30/18 03:00 69 20 151/78 (102) 95 Room Air 08/30/18 02:00 66 15 118/72 (87) 94 Room Air 08/30/18 01:00 72 16 110/39 (62) 93 Room Air 08/30/18 01:00 76 08/30/18 00:00 Room Air 08/30/18 00:00 81 11 111/57 (75) 93 Room Air 08/29/18 23:50 97.0 93 18 110/59 (76) 94 Room Air 08/29/18 23:50 Room Air 08/29/18 23:40 97.4 64 18 103/40 (61) 98 Room Air 0 08/29/18 19:00 97.4 90 18 145/98 (114) 98 Room Air 0 I & O 08/30/18 07:00 Intake Total 150 ml Balance 150 ml Height & Weight Height: 5'6.00" Weight: 193lbs. 5.0oz. 87.348572ie; 31.2 BMI Method:Stated General Appearance: Obese, Other (MILDLY LETHARGIC, QUIVERING OF LOWER LIP. LAYING ON LEFT SIDE, HOLDING RIGHT SI AREA. VERY FLAT AFFECT. PT HAS ANKLE MONITORING DEVICE ON RIGHT ANKLE) HEENT: PERRL/EOMI Neck: Normal Inspection, Non Tender, Supple; No Carotid Bruit, No JVD Respiratory: Chest Non Tender, Normal Breath Sounds, No Accessory Muscle Use, No Respiratory Distress Cardiovascular: Regular Rate, Rhythm, No Edema, No JVD, Normal Peripheral Pulses, Systolic Murmur (4/6) Capillary Refill: Less Than 3 Seconds Extremity: Normal Capillary Refill, No Calf Tenderness, No Pedal Edema Neurologic/Psychiatric: Alert, Oriented x3, No Motor/Sensory Deficits, media arts professor II- XII Norm as Tested, Other ( ABOVE) Skin: Normal Color, Warm/Dry Results Lab Laboratory Tests 08/29/18 19:25 08/30/18 01:26 Assessment/Plan Assessment/Plan Elevated troponin with elevated BNP -Echocardiogram pending -Cardiology is consulted -Continue to monitor moderate to severe lumbar spondylosis per CT scan with back pain with radiation down right leg -No stool or urine incontinence/retention -Pain control Renal failure - probably acute -IVF -Monitor Hypokalemia, hypomag -Replace HTN -Start Norvasc, and PRN hydralazine Anemia -Monitor Dementia/confusion -Monitor -UDS is positive for only opioids LEA HUTCHISON DO Aug 30, 2018 05:54
[2018-08-30] MEDS: NITROGLYCERIN 2% OINT 1 GM UNIT DOSE PACKET TOP SCH ×4 (06:02→18:41)
[2018-08-30] MEDS: inSUlin ASPART (NovoLOG) 1 UNIT/0.01 ML (CHARGE PER UNIT) SC SCH ×4 (06:40→21:43)
[2018-08-30] MEDS: CATHETER FLUSH 10 ML SYR IV SCH ×3 (06:40→21:43)
[2018-08-30] MEDS ORDERED: HYDROcodone/APAP 7.5 MG/325 MG (LORTAB, LORCET PLUS) TABLET PO PRN (07:30)
--- NOTE | 2018-08-30 07:40 | Diagnostic Imaging Report ---
EXAM: CHEST 1 VIEW, AP/PA ONLY INDICATION: Chest pain. Elevated troponin. COMPARISON: Chest radiograph 08/29/2018. FINDINGS: Low lung volumes. Cardiomegaly. Normal central pulmonary vascularity. Bibasilar atelectasis. No definite pleural effusion or pneumothorax. No acute osseous findings. IMPRESSION: Low lung volumes with bibasilar atelectasis. Cardiomegaly. Dictated by: Dictated on workstation # [id number]
[2018-08-30] MEDS ORDERED: METO-395 PO (09:19)
[2018-08-30] MEDS ORDERED: FESO8TAB PO (09:19)
[2018-08-30] MEDS ORDERED: SIMV40TA4 PO (09:19)
[2018-08-30] MEDS ORDERED: TAMS0.4C2 PO (09:19)
[2018-08-30] MEDS ORDERED: METF-397 PO (09:19)
[2018-08-30] MEDS ORDERED: OXYB5TAB9 PO (09:19)
[2018-08-30] MEDS ORDERED: DULO60CA58 PO (09:19)
[2018-08-30] MEDS ORDERED: AMLO10TA7 PO (09:19)
[2018-08-30] MEDS ORDERED: FINA5TAB6 PO (09:19)
--- NOTE | 2018-08-30 09:20 | NUR ---
SPOKE WITH THE PATIENT ABOUT HIS MEDICATIONS. HE HAD HIS BOTTLES WITH HIM AND VERIFIED HOW HE TAKES EACH MEDICATION. HE STATES HE DOES NOT TAKE ANYTHING OTC. BOTTLES FROM [facility] IN [place] INCLUDE: 08-25-18 METFORMIN 500MG BID #60 08-25-18 FINASTERIDE 5MG DAILY #30 08-25-18 METOPROLOL SUCCINATE 100MG DAILY #30 08-25-18 OXYBUTYNIN 5MG BID #60 08-25-18 CYMBALTA 60MG DAILY #30 08-25-18 SIMVASTATIN 40MG HS #30 08-25-18 FLOMAX 0.4MG DAILY #30 08-25-18 AMLODIPINE 10MG DAILY #30 08-25-18 TOVIAZ 8MG DAILY #30
[2018-08-30] MEDS: ASPIRIN E.C. 81 MG (ECOTRIN) TAB PO SCH (09:22)
[2018-08-30] MEDS: amLODIPine 10 MG (NORVASC) TAB PO SCH (09:22)
[2018-08-30] MEDS: NS IV 1000 ML 1,000 ML IV SCH (09:22)
--- NOTE | 2018-08-30 09:28 | Consultation-Cardiology ---
HPI-Cardiology Cardiology Consultation: Date of Consultation 08/30/18 Date of Admission Attending Physician Shauna Mcadams DO Admitting Physician Geraldine,Local Physician Consulting Physician Romulo JIMÉNEZ MD HPI: Time Seen by a Provider: 09:15 Chief Complaint: Generalized weakness. This is a 73-year-old patient who lives with her daughter. Presents to the ER with complain of right hip discomfort. Also complains of generalized weakness with difficulty in walking. He denies any clear chest pain, shortness of breath. He has been on psychotropic medication but has not been taking it in the last 2-3 days. Evaluation in the ER showed positive troponin. The patient has history of diabetes. Review of Systems-Cardiology Review of Systems Constitutional: As described under HPI; No As described under HPI, No no symptoms reported, No chills, No fever, No lightheadedness; malaise, tiredness Eyes: No As described under HPI, No no symptoms reported, No blindness, No blurred vision, No contact lenses, No drainage, No decreased acuity, No foreign body sensation, No pain, No vision change Ears/Nose/Throat: No As described under HPI, No no symptoms reported, No chronic hearing loss, No ear discharge, No ear pain, No nasal drainage, No ulcerations Respiratory: No no symptoms reported; As described under HPI; No As described under HPI, No cough, No orthopnea, No shortness of breath, No SOB with excertion Cardiovascular: No no symptoms reported; As described under HPI; No As described under HPI, No chest pain, No edema, No irregular heart rate, No lightheadedness, No palpitations Gastrointestinal: No no symptoms reported, No As described under HPI, No abdomen distended, No abdominal pain, No blood streaked bowels, No constipation , No diarrhea, No nausea, No vomiting, No stool coloration changes Genitourinary: No As described under HPI, No burning, No dysuria, No discharge , No frequency, No flank pain, No hematuria, No urgency Skin: No rash, No skin related problems, No ulcerations Psychiatric/Neurological: No anxiety, No depression, No seizure, No focal weakness, No syncope Hematologic: No bleeding abnormalities RJC-Urctjq-Yxadhm Hx Patient Social History Alcohol Use: Denies Use Recreational Drug Use: No Smoking Status: Never a Smoker 2nd Hand Smoke Exposure: No Recent Foreign Travel: No Recent Infectious Disease Expo: No Hospitalization with Isolation: Denies Immunizations Up To Date Date of Pneumonia Vaccine: Apr 29, 2018 Date of Influenza Vaccine: Apr 29, 2018 Past Medical History PMH As described under Assessment. Family Medical History Family History: Cardiovascular disease 19 MOTHER Colon cancer 19 MOTHER Dementia 19 FATHER Allergies and Home Medications Allergies Coded Allergies: No Known Drug Allergies (Unverified , 08/29/18) Home Medications Amlodipine Besylate 10 Mg Tablet, 10 MG PO DAILY, (Reported) Aspirin 81 Mg Tablet.dr, 81 MG PO DAILY Prescribed by: RAMONITA FIELD on 09/01/18 1015 Atorvastatin Calcium 80 Mg Tablet, 80 MG PO HS Prescribed by: RAMONITA FIELD on 09/01/18 1015 Duloxetine HCl 60 Mg Capsule.dr, 60 MG PO DAILY, (Reported) Fesoterodine Fumarate 8 Mg Tab.er.24h, 8 MG PO DAILY, (Reported) Finasteride 5 Mg Tablet, 5 MG PO DAILY, (Reported) Metformin HCl 500 Mg Tablet, 500 MG PO BID, (Reported) Metoprolol Succinate 100 Mg Tab.er.24h, 100 MG PO DAILY, (Reported) Oxybutynin Chloride 5 Mg Tablet, 5 MG PO BID, (Reported) Tamsulosin HCl 0.4 Mg Cap.er.24h, 0.4 MG PO DAILY, (Reported) Ticagrelor 90 Mg Tablet, 90 MG PO BID Prescribed by: RAMONITA FIELD on 09/01/18 1015 Patient Home Medication List Home Medication List Reviewed: Yes Physical Exam-Cardiology Physical Exam Vital Signs/I&O 09/01/18 09/01/18 09/01/18 09/01/18 07:06 07:54 08:02 08:04 Temp 99.2 Pulse 89 93 Resp 12 B/P (MAP) 139/93 (108) Pulse Ox 96 96 96 O2 Delivery Room Air Room Air Room Air 09/01/18 09/01/18 09/01/18 09/01/18 09:00 11:00 11:02 11:21 Temp 99.1 Pulse 93 97 Resp 7 16 B/P (MAP) 153/74 (100) 170/91 (117) O2 Delivery Room Air Room Air Room Air 09/01/18 09/01/18 09/01/18 09/01/18 12:00 13:00 13:07 15:03 Pulse 99 95 94 Resp 8 13 B/P (MAP) 105/57 (73) 104/71 (82) O2 Delivery Room Air Room Air Room Air 09/01/18 09/01/18 15:14 16:00 Temp 99.5 B/P (MAP) 09/01/18 00:00 Intake Total 1420 ml Output Total 125 ml Balance 1295 ml Capillary Refill : Less Than 3 Seconds Constitutional: appears stated age, AAO x 3; No apparent distress; well- developed, well-nourished HEENT: PERRL; No normal ENT inspection, No TMs normal, No pharynx normal, No scleral icterus (R), No scleral icterus (L), No pale conjunctivae (R), No pale conjunctivae (L), No photophobia, No TM abnormal (R), No TM abnormal (L), No pharyngeal erythema, No tonsillar exudate, No other, No discharge, No EOMI; hearing is well preserved; No hard of hearing; oral hygience is good; No ulceration, No xanthelasmas are seen Neck: No non-tender, No full range of motion, No supple, No normal inspection, No carotid bruit, No limited range of motion, No lymphadenopathy (R), No lymphadenopathy (L), No tender lateral, No tender midline, No thyromegaly, No other; carotid pulses are 2 + bilaterally; No with good upstrokes Respiratory: No accessory muscle use, No respiratory distress, No chest tender , No chest expansion is symmetric; chest is bilaterally symmetric; No lungs clear to percussion; lungs clear to auscultation; No crackles, No rhonchi, No rales, No stridor, No wheezing, No pleural rub, No other Cardiovascular: regular rate-rhythm, S1 and S2, systolic murmur Gastrointestinal: No tender, No soft, No round, No distended, No pulsatile mass , No organomegaly, No guarding, No rebound, No tenderness, No hernia, No mass, No audible bowel sounds, No abnormal bowel sounds, No abdominal bruits, No spleenomegaly, No other Rectal: deferred Extremities: No normal range of motion, No non-tender, No normal inspection, No pedal edema, No calf tenderness, No normal capillary refill, No pelvis stable , No calf tenderness, No inflammation, No pedal edema, No slow capillary refill , No swelling, No other, No abrasion, No clubbing, No cyanosis, No ecchymosis, No laceration, No no lower extremity edema bilateral, No significant edema, No tenderness, No wound Neurologic/Psychiatric: no motor/sensory deficits, alert, normal mood/affect, oriented x 3, power is 5/5 both on sides Skin: No rash, No ulcerations Data Review Labs Laboratory Tests 08/31/18 20:37: Glucometer 217H 09/01/18 03:00: White Blood Count 8.9, Red Blood Count 4.07L, Hemoglobin 12.2L, Hematocrit 35L, Mean Corpuscular Volume 86, Mean Corpuscular Hemoglobin 30, Mean Corpuscular Hemoglobin Concent 35, Red Cell Distribution Width 13.8, Platelet Count 176, Mean Platelet Volume 11.7H, Sodium Level 142, Potassium Level 3.8, Chloride Level 110H, Carbon Dioxide Level 21, Anion Gap 11, Blood Urea Nitrogen 34H, Creatinine 1.65H, Estimat Glomerular Filtration Rate 41, BUN/Creatinine Ratio 21 , Glucose Level 142H, Calcium Level 9.2 09/01/18 10:34: Glucometer 229H 09/01/18 15:11: Glucometer 244H Microbiology 08/29/18 Blood Culture - Preliminary, Resulted Staph, Coag Neg ([employer]ACHINE [employer]PER[employer]) Bacillus species See Comments 08/29/18 Influenza Types A,B Antigen ([facility]) - Final, Complete ECG Impression ECG Initial ECG Rhythm: Normal Sinus Initial ECG Impression: Nonspecific Changes A/P-Cardiology Assessment/Admission Diagnosis NSTEMI, DM, Sciatica, Systolic murmur Plan Non-STEMI. Patient has atypical symptoms with diabetes. Therefore he has high pretest probability for CAD. Coronary angiography and possible PCI was recommended. Informed consent was taken. Systolic murmur: Likely atrial fibrillation. Echocardiogram. Sciatica- deferred to primary team. Psychiatric disorder. Thank you for your consultation. Please call me if you have any questions. Homar Jiménez MD, FACP, FACC, FSCAI, FHRS, CCDS Interventional Cardiology Cardiac Electrophysiology Vascular Medicine and Endovascular Interventions Clinical Quality Measures DVT/VTE Risk/Contraindication: Risk Factor Score Per Nursin RFS Level Per Nursing on Admit: 4+=Very High Romulo JIMÉNEZ MD Aug 30, 2018 09:28
--- NOTE | 2018-08-30 12:17 | Physical Therapy Evaluation ---
PT Evaluation-General Medical Diagnosis Admission Date Aug 29, 2018 at 21:15 Medical Diagnosis: R hip pain/sciatica Onset Date: Aug 29, 2018 Therapy Diagnosis Therapy Diagnosis: decreased mobility Height/Weight Height (Feet): 5 Height (Inches): 6.00 Weight (Pounds): 194 Weight (Ounces): 1.0 Precautions Precautions/Isolations: Standard Precautions Weight Bear Status Right Lower Extremity: Right Full Weight Bearing Left Lower Extremity: Left Full Weight Bearing Referral Physician: Dr. Mcadams Reason for Referral: Evaluation/Treatment Medical History Pertinent Medical History: Arthritis, DM, HTN Additional Medical History DDD, Valvular Heart Disease Current History POV to ER by daughter. C/o of R hip pain radiating down R leg and has progressively gotten worse. It's been going on for 3 months. Reviewed History: Yes Social History Home: Single Level Current Living Status: Entry Into Home: Stairs With Railing PT Steps Into Home: 4 Prior/Core FIM Prior Level of Function Therapy Code Descriptions/Definitions Functional Maries Measure: 0=Not Assessed/NA 4=Minimal Assistance 1=Total Assistance 5=Supervision or Setup 2=Maximal Assistance 6=Modified Maries 3=Moderate Assistance 7=Complete Maries Therapy Quality Codes: 6 Independent with activity with or without an assistive device 5 Patient requires set up or clean up by helper. Patient completes activity by themselves 4 Supervision or touching assist (CGA). [place] provide cues , steadying assist 3 The helper provides less than half the effort to complete the activity 2 The helper provides more than half the effort to complete the activity 1 Dependent. The helper does all the effort to complete an activity 7 Patient refused to complete or attempt activity 9 The patient did not perform the activity before the current illness or injury 88 Not attempted due to Medical conditions or safety concerns Functional Abilities and Goals: Independent: Patient completed the activities by him/herself, with or without an assistive device, with no assistance from a helper. Needed Some Help: Patient needed partial assistance from another person to complete activities. Dependent: A helper completed the activities for the patient. Unknown: Not Applicable: Bed Mobility: 7 Transfers (B,C,W/C) (FIM): 6 Gait: 6 Stairs: 6 Indoor Mobility (Ambulation): Independent Stairs: Independent Prior Devices Use: Walker Prior Device Use: FWW PT Evaluation-Current Subjective Pt in recliner and agrees to PT. Pain Numeric Pain Scale: 5-Moderate Pain Location: Right Location Body Site: Hip Pt/Family Goals Pt to return home. Objective Patient Orientation: Person Attachments: IV ROM/Strength ROM Lower Extremities WNL Strength Lower Extremities gross motor bilateral (4/5) Integumentary/Posture Bowel Incontinence: No Bladder Incontinence: No Neuromuscular (Tone, Coordination, Reflexes) NT Sensory Vision: Functional Hearing: Functional Transfers Therapy Code Descriptions/Definitions Functional Maries Measure: 0=Not Assessed/NA 4=Minimal Assistance 1=Total Assistance 5=Supervision or Setup 2=Maximal Assistance 6=Modified Maries 3=Moderate Assistance 7=Complete Maries Transfers (B, C, W/C) (FIM): 5 Scootin Sit to/from Stand: 5 Gait Mode of Locomotion: Walk Anticipated Mode of Locomotion: Walk Gait (FIM): 4 Distance (FIM): 3=150 ft Distance: 150' Gait Level of Assist: 4 Gait Persons Needed: 1 Gait Assistive Device: FWW Comments/Gait Description antalgic gait pattern Balance Sitting Static: Good Sitting Dynamic: Good Standing Static: Good Standing Dynamic: Good Assessment/Needs Pt was able to perform sit<>stand transfers with SBA. Pt able to amb 150' with FWW and CGA for safety. Pt performs transfers safely. Pt is now in recliner with all needs met and family is in room. Rehab Potential: Good Post Rehab Potential-Barriers: co-morbidities PT Short Term Goals Short Term Goals Time Frame: Sep 06, 2018 Transfers (B,C,W/C) (FIM): 6 Gait (FIM): 5 Distance (FIM): 3=150 ft Gait Distance Comment: 200' Gait Level of Assist: 5 Gait Assistive Device: FWW PT Plan Problem List Problem List: Activity Tolerance, Functional Strength, Safety, Balance, Gait, Transfer, Bed Mobility, ROM Treatment/Plan Treatment Plan: Continue Plan of Care Treatment Plan: Bed Mobility, Education, Functional Activity Benjamin, Functional Strength, Gait, Safety, Therapeutic Exercise, Transfers Treatment Duration: Sep 06, 2018 Frequency: 6 times per week Estimated Hrs Per Day: .25 hour per day Patient and/or Family Agrees t: Yes Safety Risks/Education Patient Education: Correct Positioning, Safety Issues Teaching Recipient: Patient Teaching Methods: Demonstration, Discussion Discharge Recommendations Therapy D/C Recommendations: Home w/ Family Support Time/GCodes Time In: 1142 Time Out: 1154 Total Billed Treatment Time: 12 Total Billed Treatment 1 visit EVL 12 min DAVID MARI PT Aug 30, 2018 12:17
[2018-08-30] MEDS: hydrALAZINE (APESOLINE) 20 MG/ML VIAL IV SCH ×2 (12:21→17:14)
[2018-08-31] VITALS (9 sets, daily range): BP systolic 114–175; BP diastolic 64–137
[2018-08-31] MEDS: hydrALAZINE (APESOLINE) 20 MG/ML VIAL IV SCH ×6 (00:26→17:48)
[2018-08-31] MEDS: NITROGLYCERIN 2% OINT 1 GM UNIT DOSE PACKET TOP SCH ×4 (00:31→17:48)
[2018-08-31] MEDS: NS IV 1000 ML 1,000 ML IV SCH ×4 (04:18→12:50)
[2018-08-31] MEDS: CATHETER FLUSH 10 ML SYR IV SCH ×3 (05:38→22:14)
[2018-08-31] MEDS: inSUlin ASPART (NovoLOG) 1 UNIT/0.01 ML (CHARGE PER UNIT) SC SCH ×4 (05:59→22:14)
--- NOTE | 2018-08-31 06:15 | Pulmonary Progress Note ---
Subjective Time Seen by a Provider: 06:20 Subjective/Events-last exam Plan is for heart cath today. Sepsis Event Evaluation Height, Weight, BMI Height: 5'6.00" Weight: 196lbs. 5.0oz. 89.075063to; 31.2 BMI Method:Stated Focused Exam Lactate Level 08/29/18 20:05: Lactic Acid Level 1.07 Exam Exam Vital Signs Date Time Temp Pulse Resp B/P (MAP) Pulse Ox O2 Delivery O2 Flow Rate FiO2 08/31/18 04:00 Room Air 08/31/18 04:00 98.5 76 18 170/83 (112) 96 Room Air 08/31/18 01:00 67 08/31/18 00:00 97.2 72 16 133/66 (88) 96 Room Air 08/31/18 00:00 Room Air 08/30/18 21:00 98 Room Air 08/30/18 20:00 79 16 119/96 (104) 98 Room Air 08/30/18 20:00 97.7 08/30/18 20:00 Room Air 08/30/18 19:00 78 08/30/18 18:41 127/81 (96) 08/30/18 18:00 75 14 Room Air 08/30/18 17:00 80 16 Room Air 08/30/18 16:30 97.8 98 20 135/83 (100) 95 Room Air 08/30/18 16:00 79 16 Room Air 08/30/18 16:00 Room Air 08/30/18 15:00 84 10 Room Air 08/30/18 14:00 82 17 Room Air 08/30/18 13:13 92 9 146/81 (102) Room Air 08/30/18 13:00 90 08/30/18 12:20 99.3 89 18 148/81 (103) 96 Room Air 08/30/18 12:00 Room Air 08/30/18 11:00 86 8 148/71 (96) Room Air 08/30/18 10:00 83 10 130/83 (99) 96 Room Air 08/30/18 09:00 81 10 139/118 (125) 95 Room Air 08/30/18 08:00 98.2 08/30/18 08:00 95 Room Air 08/30/18 08:00 68 13 142/100 (114) 95 Room Air 08/30/18 08:00 Room Air 08/30/18 07:00 68 13 151/98 (945) 97 Room Air 08/30/18 07:00 70 I & O 08/31/18 07:00 Intake Total 480 ml Output Total 875 ml Balance -395 ml Height & Weight Height: 5'6.00" Weight: 196lbs. 5.0oz. 89.032133uq; 31.2 BMI Method:Stated General Appearance: No Apparent Distress, Chronically ill HEENT: PERRL/EOMI, Normal ENT Inspection, Pharynx Normal, Moist Mucous Membranes Neck: Full Range of Motion, Normal Inspection, Non Tender Respiratory: Chest Non Tender, Lungs Clear, Normal Breath Sounds, No Accessory Muscle Use, No Respiratory Distress Cardiovascular: Regular Rate, Rhythm, No Edema, No Gallop, No JVD, Normal Peripheral Pulses, Diastolic Murmur, Systolic Murmur Capillary Refill: Less Than 3 Seconds Extremity: Normal Capillary Refill, Normal Inspection, Normal Range of Motion, Non Tender, No Calf Tenderness, No Pedal Edema Neurologic/Psychiatric: Alert, Oriented x3, No Motor/Sensory Deficits, Normal Mood/Affect Skin: Normal Color, Warm/Dry Lymphatic: No Adenopathy Results Lab Laboratory Tests 08/29/18 19:25 08/30/18 01:26 Assessment/Plan Assessment/Plan Elevated troponin with elevated BNP -Heart cath is planned for today. -Cardiology is consulted -Continue to monitor moderate to severe lumbar spondylosis per CT scan with back pain with radiation down right leg -No stool or urine incontinence/retention -Pain control Renal failure - probably acute -IVF -Monitor Hypokalemia, hypomag -Replace HTN -Start Norvasc, and PRN hydralazine Anemia -Monitor Dementia/confusion -Monitor -UDS is positive for only opioids LEA HUTCHISON DO Aug 31, 2018 06:15
[2018-08-31] MEDS ORDERED: LIDOCAINE 1% INJ 20 ML 20 ML VIAL ONE (07:27)
[2018-08-31] MEDS ORDERED: HEParin 1000 UNIT/ML (10ML VIAL) FOR BOLUS ONE ×2 (07:27→09:58)
[2018-08-31] MEDS ORDERED: NS IV 1000 ML 2,000 ML ONE (07:27)
[2018-08-31] MEDS: ASPIRIN E.C. 81 MG (ECOTRIN) TAB PO SCH (08:08)
[2018-08-31] MEDS: amLODIPine 10 MG (NORVASC) TAB PO SCH (08:08)
[2018-08-31] MEDS ORDERED: fentaNYL INJECTION 100 MCG/2 ML AMP ONE ×2 (08:42→10:05)
[2018-08-31] MEDS ORDERED: MIDAZOLAM 5 MG/5 ML (VERSED) VIAL ONE (08:42)
--- NOTE | 2018-08-31 08:42 | Physical Therapy Daily Note ---
PT Daily Note-Current Subjective Patient in bed pre tx, agrees to PT, has pain of 6/10 in right hip. Appearance Patient in bed post tx with nurse call, phone, tray, all needs met. Mental Status Patient Orientation: Person, Place, Situation Attachments: IV Transfers Therapy Code Descriptions/Definitions Functional Cloud Measure: 0=Not Assessed/NA 4=Minimal Assistance 1=Total Assistance 5=Supervision or Setup 2=Maximal Assistance 6=Modified Cloud 3=Moderate Assistance 7=Complete Cloud Therapy Quality Codes: 6 Independent with activity with or without an assistive device 5 Patient requires set up or clean up by helper. Patient completes activity by themselves 4 Supervision or touching assist (CGA). [place] provide cues , steadying assist 3 The helper provides less than half the effort to complete the activity 2 The helper provides more than half the effort to complete the activity 1 Dependent. The helper does all the effort to complete an activity 7 Patient refused to complete or attempt activity 9 The patient did not perform the activity before the current illness or injury 88 Not attempted due to Medical conditions or safety concerns Scootin Rollin Supine to/from Sit: 4 Sit to/from Stand: 5 Bed to/from Chair: 5 Patient needed min assist to get his right leg into bed. Weight Bearing Right Lower Extremity: Right Full Weight Bearing Left Lower Extremity: Left Full Weight Bearing Gait Training Gait (FIM): 5 Distance: 160' Gait Level of Assist: 5 Gait Persons Needed: 1 Gait Assistive Device: FWW Antalgic ambulation, very slow but steady. Treatments bed mobility and transfers, ambulation, patient was in a lot of pain after ambulating and didn't want to perform LE exercises. Assessment Current Status: Fair Progress improved ambulation PT Short Term Goals Short Term Goals Time Frame: Sep 06, 2018 Transfers (B,C,W/C) (FIM): 6 Gait (FIM): 5 Distance (FIM): 3=150 ft Gait Distance Comment: 200' Gait Level of Assist: 5 Gait Assistive Device: FWW PT Plan Problem List Problem List: Activity Tolerance, Functional Strength, Safety, Balance, Gait, Transfer, Bed Mobility, ROM Treatment/Plan Treatment Plan: Continue Plan of Care Treatment Plan: Bed Mobility, Education, Functional Activity Benjamin, Functional Strength, Gait, Safety, Therapeutic Exercise, Transfers Treatment Duration: Sep 06, 2018 Frequency: 6 times per week Estimated Hrs Per Day: .25 hour per day Patient and/or Family Agrees t: Yes Safety Risks/Education Patient Education: Gait Training, Transfer Techniques, Correct Positioning, Safety Issues Teaching Recipient: Patient Teaching Methods: Demonstration, Discussion Response to Teaching: Reinforcement Needed Time/GCodes Time In: 819 Time Out: 0836 Total Billed Treatment Time: 16 Total Billed Treatment 1 visit GT 16' KATY AMADOR PT Aug 31, 2018 08:42
--- NOTE | 2018-08-31 08:45 | NUR ---
PT LEFT FLOOR W/ [employer] STAFF.
--- NOTE | 2018-08-31 08:59 | Progress Note-Hospitalist ---
Subjective HPI/CC On Admission Date Seen by Provider: Aug 31, 2018 Time Seen by Provider: 09:30 CC: Right sciatica pain but elevated troponin noted on workup in the ER. HPI: This is a 73yoWM that is very distant and not revealing of his medical history, likely due to ankle bracelet noted from criminal behavior in which he told me he is okay now, but I did further investigation and appears to be a crime against children. Pt reports right hip pain continues which he has had before but no falls, so we will initiate physical therapy and await cardiology plan for elevated troponin. Few details considering his overall paranoia and unwillingness to provide any details and it appears that he has a poor historian. Pt does report he lives with his daughter in [place]. Subjective/Events-last exam Patient not seen due to cardiac catheterization procedure Focused Exam Lactate Level 08/29/18 20:05: Lactic Acid Level 1.07 Objective Exam Vital Signs Vital Signs Date Time Temp Pulse Resp B/P (MAP) Pulse Ox O2 Delivery O2 Flow Rate FiO2 08/31/18 08:00 80 50 139/76 (97) Room Air 08/31/18 08:00 98 08/31/18 07:28 98.5 08/29/18 23:40 0 Capillary Refill : Less Than 3 Seconds General Appearance: Other (not seen) Extremity: Non Tender Results/Procedures Lab Patient resulted labs reviewed. Assessment/Plan Assessment and Plan Assess & Plan/Chief Complaint Non-ST elevation PA Diagnosis/Problems Diagnosis/Problems (1) Elevated troponin Status: Acute (2) Hypomagnesemia Status: Acute (3) Anxiety and depression Status: Chronic (4) CHF (congestive heart failure) Status: Chronic Qualifiers: Heart failure type: unspecified Heart failure chronicity: unspecified Qualified Codes: I50.9 - Heart failure, unspecified (5) Diabetes mellitus Status: Chronic Qualifiers: Diabetes mellitus type: type 2 Diabetes mellitus lobsterman insulin use: with jail use Diabetes mellitus complication status: without complication Qualified Codes: E11.9 - Type 2 diabetes mellitus without complications; Z79.4 - long term care administrator (current) use of insulin (6) HTN (hypertension) Status: Chronic Qualifiers: Hypertension type: essential hypertension Qualified Codes: I10 - Essential (primary) hypertension Clinical Quality Measures DVT/VTE Risk/Contraindication: Risk Factor Score Per Nursin RFS Level Per Nursing on Admit: 4+=Very High DOUG JONES DO Aug 31, 2018 08:59
[2018-08-31] MEDS ORDERED: ENALAPRILAT 2.5 MG/2 ML (VASOTEC) VIAL IV ONE ×2 (09:22→10:14)
[2018-08-31] MEDS ORDERED: NITRO DRIP 25000 MCG/D5W 250 ML IV ONE (09:37)
[2018-08-31] MEDS ORDERED: TICAGRELOR 90 MG TABLET (BRILINTA) PO ONE (09:42)
[2018-08-31] MEDS ORDERED: meTOprolol 5 MG/5 ML (LOPRESSOR) VIAL ONE (10:06)
[2018-08-31] MEDS ORDERED: hydrALAZINE (APESOLINE) 20 MG/ML VIAL IV ONE (10:30)
--- NOTE | 2018-08-31 10:34 | Cardiac Procedure Note-CS/ASA ---
Pre-Procedure Note Pre-Op Procedure Note H&P Reviewed The H&P was reviewed, patient examined and no changes noted. Date H&P Reviewed: Aug 31, 2018 Time H&P Reviewed: 08:30 Conscious Sedation Pre-Proced Time 08:30 ASA Score 3 For ASA 3 and 4: Consider anesthesia and medical clearance. Also, for patients with a history of failed moderate sedation consider anesthesia. Airway Lungs Heart ASA score ASA 1: a normal healthy patient ASA 2: a patient with a mild systemic disease (mid diabetes, controlled hypertension, obesity ASA 3: a patient with a severe systemic disease that limits activity (angina , COPD, prior Myocardial infarction) ASA 4: a patient with an incapacitating disease that is a constant threat to life (CHF, renal failure) ASA 5: a moribund patient not expected to survive 24 hrs. (ruptured aneurysm) ASA 6: a declared brain- patient whose organs are being harvested. For emergent operations, add the letter E after the classification Mallampati Classification Grade 1 Sedation Plan Analgesia, Amnesia, Plan communicated to team members, Discussed options with patient/fam, Discussed risks with patient/fam The patient is an appropriate candidate to undergo the planned procedure, sedation, and anesthesia. The patient immediately re-assessed prior to indication. Romulo HOWARD MD Aug 31, 2018 10:33
--- NOTE | 2018-08-31 10:35 | Coronary Angiography & PCI ---
Coronary Angiography & PCI DATE OF PROCEDURE: 08/31/18 INDICATION: Non-STEMI PREOPERATIVE DIAGNOSIS: Non-STEMI POSTOPERATIVE DIAGNOSIS: Severe CAD, status post PCI to proximal LAD. HISTORY: This is a 73-year-old gentleman with history of diabetes and moderate aortic stenosis. He presents with non-STEMI. Therefore, the patient was scheduled for coronary angiography. PROCEDURES PERFORMED: 1. Coronary angiography. 2. PCI to the proximal LAD with drug-eluting stent. COMPLICATIONS: None. SPECIMENS: None. ESTIMATED BLOOD LOSS: 10 mL ANESTHESIA: Conscious sedation ANTICOAGULATION: IV heparin CONTRAST: 150 mL. FLUOROSCOPY: 19.7 min. FLOUROSCOPY DOSE: 1494 mgy. PROCEDURE DETAILS: The patient is a 73 male and was brought to the boot and shoe laborer after informed consent was taken. All the risks and complications were explained in detail; this included the risk of bleeding, vascular damage, stroke , OK and even . The patient was draped and prepped in the usual sterile fashion. Ben's test was abnormal, therefore, access was gained in the right femoral artery with a 6 Yoruba sheath. Coronary angiography was performed with a JR4 and a JL4 catheter. We were not able to cross the valve. FINDINGS: 1.Left main: Mild disease. 2.LAD: Severe proximal LAD stenosis. Stenosis severity is 90 percent. Heavily calcified artery. Diffuse disease distally. 3.Left circumflex artery: Ramus artery has calcific plaque with at least moderate stenosis in the midsegment. Mild diffuse disease in the rest of the left circumflex artery. 4.RCA: Mild ostial disease with spasm was noted. Diffuse disease in the rest of the artery. Dominant artery. 5.Left heart catheterization: We could not cross the valve. RECOMMENDATIONS: PCI to proximal LAD is recommended. INTERVENTION DETAILS: We started of with an EBU 3.5 guide catheter however it was not engaging the LAD therefore we switched to a JL4 guide catheter. Whisper extra-support guidewire. IV heparin for anticoagulation. One ACT was done. The lesion was crossed with the whisper wire however due to heavy calcification. He could not cross the lesion with the stent therefore we took an NC balloon 2.5 and did at least 2 inflations at 14 salty each. We then placed a 2.5 x 18mm Xience Mercedes at 14 salty. A waist was noted therefore we took an NC Quantum 2.75 x 12 mm balloon and did high pressure postdilatation at 20 salty with excellent results. No complications. Patient tolerated procedure well. Patient was very hypertensive during the procedure there for numerous antihypertensive medications were given. Right femoral artery was closed with a minx device. CONCLUSIONS: 1. Severe proximal LAD stenosis treated successfully with a drug-eluting stent. 2. Dual antiplatelet therapy. Aggressive secondary prevention measures. 3. Transfer to the ICU, IV fluids and BUN/creatinine the morning. Homar Jiménez MD, FACP, FACC, [facility] Interventional Cardiology Romulo JIMÉNEZ MD Aug 31, 2018 10:35
[2018-08-31] MEDS ORDERED: PATIENT MAY USE OWN MEDS, ALL PO SCH (10:45)
--- NOTE | 2018-08-31 11:04 | NUR ---
PT BACK TO FLOOR W/ DICTAPHONE OPERATOR STAFF.
--- NOTE | 2018-08-31 13:50 | NUR ---
PT C/O DWAYNEL CP 12/17, VSS. EKG OBTAINED AND DR HOWARD NOTIFIED.
[2018-08-31] MEDS ORDERED: LORazepam INJ 2 MG/ML (ATIVAN) VIAL ONE (15:27)
[2018-08-31] MEDS ORDERED: LORazepam INJ 2 MG/ML (ATIVAN) VIAL IVP ONE (15:30)
--- NOTE | 2018-08-31 20:20 | Cardiology Progress Note ---
Cardiology SOAP Progress Note Subjective: No chest pain. Objective: I&O/Vital Signs 09/01/18 09/01/18 09/01/18 09/01/18 07:06 07:54 08:02 08:04 Temp 99.2 Pulse 89 93 Resp 12 B/P (MAP) 139/93 (108) Pulse Ox 96 96 96 O2 Delivery Room Air Room Air Room Air 09/01/18 09/01/18 09/01/18 09/01/18 09:00 11:00 11:02 11:21 Temp 99.1 Pulse 93 97 Resp 7 16 B/P (MAP) 153/74 (100) 170/91 (117) O2 Delivery Room Air Room Air Room Air 09/01/18 09/01/18 09/01/18 09/01/18 12:00 13:00 13:07 15:03 Pulse 99 95 94 Resp 8 13 B/P (MAP) 105/57 (73) 104/71 (82) O2 Delivery Room Air Room Air Room Air 09/01/18 09/01/18 15:14 16:00 Temp 99.5 B/P (MAP) 09/01/18 00:00 Intake Total 1420 ml Output Total 125 ml Balance 1295 ml Weight (Pounds): 196 Weight (Ounces): 5.0 Weight (Calculated Kilograms): 89.016589 Constitutional: No appears stated age, No AAO x 3, No apparent distress, No PERRL, No well-developed, No well-nourished, No other Respiratory: chest is bilaterally symmetric, lungs clear to auscultation Cardiovascular: regular rate-rhythm, S1 and S2, systolic murmur Gastrointestional: No tender, No soft, No round, No distended, No pulsatile mass, No organomegaly, No guarding, No rebound, No tenderness, No hernia, No mass, No audible bowel sounds, No abnormal bowel sounds, No abdominal bruits, No spleenomegaly, No other Extremities: No normal range of motion, No non-tender, No normal inspection, No pedal edema, No calf tenderness, No normal capillary refill, No pelvis stable , No calf tenderness, No inflammation, No pedal edema, No slow capillary refill , No swelling, No other, No abrasion, No clubbing, No cyanosis, No ecchymosis, No laceration, No no lower extremity edema bilateral, No significant edema, No tenderness, No wound Neurologic/Psychiatric: no motor/sensory deficits, alert, normal mood/affect, oriented x 3 Results/Procedures: Labs Laboratory Tests 08/31/18 20:37: Glucometer 217H 09/01/18 03:00: White Blood Count 8.9, Red Blood Count 4.07L, Hemoglobin 12.2L, Hematocrit 35L, Mean Corpuscular Volume 86, Mean Corpuscular Hemoglobin 30, Mean Corpuscular Hemoglobin Concent 35, Red Cell Distribution Width 13.8, Platelet Count 176, Mean Platelet Volume 11.7H, Sodium Level 142, Potassium Level 3.8, Chloride Level 110H, Carbon Dioxide Level 21, Anion Gap 11, Blood Urea Nitrogen 34H, Creatinine 1.65H, Estimat Glomerular Filtration Rate 41, BUN/Creatinine Ratio 21 , Glucose Level 142H, Calcium Level 9.2 09/01/18 10:34: Glucometer 229H 09/01/18 15:11: Glucometer 244H Microbiology 08/29/18 Blood Culture - Preliminary, Resulted Staph, Coag Neg (BRICK PAVER) Bacillus species See Comments 08/29/18 Influenza Types A,B Antigen (BRAYDEN) - Final, Complete A/P: Assessment/Dx: NSTEMI, DM, Sciatica, Systolic murmur Plan: Plan Non-STEMI. Patient has atypical symptoms with diabetes. Therefore he has high pretest probability for CAD. Coronary angiography and possible PCI was recommended. Informed consent was taken. Coronary angiography showed mild to moderate three-vessel disease, with severe calcified proximal LAD stenosis treated with one drug-eluting stent. Systolic murmur: Likely aortic stenosis. Echocardiogram - Moderate . Sciatica- deferred to primary team. Psychiatric disorder. Thank you for your consultation. Please call me if you have any questions. Homar Jiménez MD, FACP, FACC, FSCAI, FHRS, CCDS Interventional Cardiology Cardiac Electrophysiology Vascular Medicine and Endovascular Interventions Focused Exam Lactate Level 08/29/18 20:05: Lactic Acid Level 1.07 Romulo JIMÉNEZ MD Aug 31, 2018 20:20
[2018-08-31] MEDS ORDERED: ATORVASTATIN 80 MG (LIPITOR) TABLET PO SCH (21:00)
[2018-08-31] MEDS: TICAGRELOR 90 MG TABLET (BRILINTA) PO SCH (22:14)
[2018-09-01] VITALS (7 sets, daily range): BP systolic 104–170; BP diastolic 57–93
[2018-09-01] MEDS: NITROGLYCERIN 2% OINT 1 GM UNIT DOSE PACKET TOP SCH ×3 (00:31→11:03)
[2018-09-01] MEDS: hydrALAZINE (APESOLINE) 20 MG/ML VIAL IV SCH ×3 (00:31→11:08)
[2018-09-01] MEDS: NS IV 1000 ML 1,000 ML IV SCH ×2 (00:58→11:08)
[2018-09-01 03:44] LABS: HEMOGLOBIN 12.2 G/DL (13.3-17.7); MEAN PLATELET VOLUME 11.7 FL (7.4-10.4); RED CELL DISTRIBUTION WIDTH 13.8 % (10.0-14.5); WHITE BLOOD COUNT 8.9 10^3/uL (4.3-11.0)
[2018-09-01 04:04] LABS: CALCIUM 9.2 MG/DL (8.5-10.1); CREATININE SERUM 1.65 MG/DL (0.60-1.30); POTASSIUM 3.8 MMOL/L (3.6-5.0)
[2018-09-01] MEDS: CATHETER FLUSH 10 ML SYR IV SCH ×2 (06:02→13:53)
[2018-09-01] MEDS: inSUlin ASPART (NovoLOG) 1 UNIT/0.01 ML (CHARGE PER UNIT) SC SCH ×3 (06:02→15:16)
--- NOTE | 2018-09-01 07:30 | Pulmonary Progress Note ---
Subjective Time Seen by a Provider: 07:27 Subjective/Events-last exam Pt is doing well. No complications noted. Sepsis Event Evaluation Height, Weight, BMI Height: 5'6.00" Weight: 195lbs. 0.0oz. 88.344880jn; 31.2 BMI Method:Stated Focused Exam Lactate Level 08/29/18 20:05: Lactic Acid Level 1.07 Exam Exam Vital Signs Date Time Temp Pulse Resp B/P (MAP) Pulse Ox O2 Delivery O2 Flow Rate FiO2 09/01/18 04:00 97 Room Air 09/01/18 04:00 97.7 87 14 130/67 (88) 98 Room Air 09/01/18 01:00 94 09/01/18 00:00 87 10 134/68 (90) Room Air 09/01/18 00:00 98 Room Air 09/01/18 00:00 98.0 08/31/18 21:00 96 Room Air 08/31/18 20:00 96 Room Air 08/31/18 20:00 98.0 88 16 127/64 (85) 96 Room Air 08/31/18 19:00 95 08/31/18 16:00 91 11 137/81 (99) Room Air 08/31/18 15:54 98.2 08/31/18 15:22 96 Room Air 08/31/18 15:05 Room Air 08/31/18 14:00 89 11 175/104 (127) Room Air 08/31/18 13:00 87 08/31/18 13:00 79 12 158/137 (144) Room Air 08/31/18 12:00 84 12 114/83 (93) Room Air 08/31/18 11:35 94 Room Air 08/31/18 11:04 97.8 91 11 121/88 (99) 94 Room Air 08/31/18 08:00 80 50 139/76 (97) Room Air 08/31/18 08:00 98 Room Air 08/31/18 08:00 97 Room Air 08/31/18 07:28 98.5 97 Room Air I & O 09/01/18 07:00 Intake Total 2520 ml Output Total 325 ml Balance 2195 ml Height & Weight Height: 5'6.00" Weight: 195lbs. 0.0oz. 88.096911qw; 31.2 BMI Method:Stated General Appearance: No Apparent Distress, WD/WN, Obese, Other (not seen) HEENT: PERRL/EOMI, Pharynx Normal Neck: Full Range of Motion, Non Tender, Supple Respiratory: Chest Non Tender, No Accessory Muscle Use, No Respiratory Distress , Decreased Breath Sounds Cardiovascular: Regular Rate, Rhythm, No Edema Capillary Refill: Less Than 3 Seconds Gastrointestinal: normal bowel sounds, non tender, soft Extremity: Normal Capillary Refill, Non Tender Neurologic/Psychiatric: Alert Skin: Normal Color, Warm/Dry Lymphatic: No Adenopathy Results Lab Laboratory Tests 09/01/18 03:00 Assessment/Plan Assessment/Plan Elevated troponin with elevated BNP s/p heart cath with stent placement. -Cardiology following -Continue to monitor moderate to severe lumbar spondylosis per CT scan with back pain with radiation down right leg -No stool or urine incontinence/retention -Pain control Renal failure - probably acute -IVF -Monitor HTN -Norvasc, and PRN hydralazine Anemia -Monitor Dementia/confusion -Monitor -UDS is positive for only opioids PT is doing well from pulmonary standpoint. I am going to sign off please call with any questions, LEA HUTCHISON DO Sep 01, 2018 07:30
[2018-09-01] MEDS: amLODIPine 10 MG (NORVASC) TAB PO SCH (08:20)
[2018-09-01] MEDS: TICAGRELOR 90 MG TABLET (BRILINTA) PO SCH (08:20)
[2018-09-01] MEDS ORDERED: ASPIRIN E.C. 81 MG (ECOTRIN) TAB PO SCH (09:00)
[2018-09-01] MEDS ORDERED: ASPI-983 PO (10:15)
[2018-09-01] MEDS ORDERED: ATOR80TA76 PO (10:15)
[2018-09-01] MEDS ORDERED: TICA90TA PO (10:15)
--- NOTE | 2018-09-01 10:19 | Discharge Summary-Hospitalist ---
Diagnosis/Chief Complaint Date of Admission Aug 29, 2018 at 21:15 Date of Discharge 09/01/2018 Discharge Date: Sep 01, 2018 Discharge Time: 12:00 Admission Diagnosis Assessment: NSTEMI? Right sided sciatica Cardiac murmur Ankle bracelet for police monitoring plan: Await Cardiology plan Home meds Discharge Diagnosis non-ST segment elevation CT status post drug-eluting stent to the proximal LAD LAD Type II diabetes hypertension Renal insufficiency stage III coronary artery disease Systolic heart murmur Chronic back pain with radiculopathy (1) NSTEMI (non-ST elevated myocardial infarction) Status: Acute (2) Hypomagnesemia Status: Resolved (3) Elevated troponin Status: Acute (4) Anxiety and depression Status: Chronic (5) CHF (congestive heart failure) Status: Chronic (6) Diabetes mellitus Status: Chronic (7) HTN (hypertension) Status: Chronic Discharge Summary Procedures/Consulations heart cath drug eluting stent- prox LAD Discharge Physical Exam Allergies: Coded Allergies: No Known Drug Allergies (Unverified , 08/29/18) Vitals & I&Os Vital Signs Date Time Temp Pulse Resp B/P (MAP) Pulse Ox O2 Delivery O2 Flow Rate FiO2 09/01/18 16:00 09/01/18 15:14 99.5 09/01/18 15:03 Room Air 09/01/18 13:07 94 09/01/18 13:00 13 09/01/18 08:04 96 08/29/18 23:40 0 General Appearance: No Apparent Distress, WD/WN, Obese, Other (not seen) HEENT: PERRL/EOMI, Pharynx Normal Respiratory: Chest Non Tender, No Accessory Muscle Use, No Respiratory Distress , Decreased Breath Sounds Cardiovascular: Regular Rate, Rhythm, No Edema, Systolic Murmur (3/6) Gastrointestinal: Normal Bowel Sounds, Non Tender, Soft Extremity: Normal Capillary Refill, Non Tender Skin: Normal Color, Warm/Dry Neurologic/Psychiatric: Alert, Depressed Affect, Motor Weakness (walks with a walker) Hospital Course Was the Problem List Reviewed?: Yes patient was admitted with a non-ST segment elevation CT. He was seen in consultation by Dr. Jiménez. Cardiac catheter revealed severe stenosis of the proximal LAD. drug-eluting stent was placed without complication. Patient's renal function remained stable. Metformin was held. Patient's blood pressure was controlled. he is being discharged with follow-up with Dr. Jiménez. He lives with his daughter. He currently is stable for discharge. He is anxious to go home Labs (last 24 hrs) Laboratory Tests 08/31/18 20:37: Glucometer 217H 09/01/18 03:00: White Blood Count 8.9, Red Blood Count 4.07L, Hemoglobin 12.2L, Hematocrit 35L, Mean Corpuscular Volume 86, Mean Corpuscular Hemoglobin 30, Mean Corpuscular Hemoglobin Concent 35, Red Cell Distribution Width 13.8, Platelet Count 176, Mean Platelet Volume 11.7H, Sodium Level 142, Potassium Level 3.8, Chloride Level 110H, Carbon Dioxide Level 21, Anion Gap 11, Blood Urea Nitrogen 34H, Creatinine 1.65H, Estimat Glomerular Filtration Rate 41, BUN/Creatinine Ratio 21 , Glucose Level 142H, Calcium Level 9.2 09/01/18 10:34: Glucometer 229H 09/01/18 15:11: Glucometer 244H Microbiology 08/29/18 Blood Culture - Preliminary, Resulted Staph, Coag Neg (QA MANAGER) Bacillus species See Comments 08/29/18 Influenza Types A,B Antigen (BRAYDEN) - Final, Complete Patient resulted labs reviewed. Pending Labs Laboratory Tests 09/01/18 10:34: Glucometer 229 09/01/18 15:11: Glucometer 244 Imaging: Reviewed Imaging Report Discussion & Recommendations Discharge Planning: >30 minutes discharge planning Discharge Home Medications: Active Scripts Active Aspirin EC (Aspirin) 81 Mg Tablet.dr 81 Mg PO DAILY 30 Days Atorvastatin Calcium 80 Mg Tablet 80 Mg PO HS 30 Days Brilinta (Ticagrelor) 90 Mg Tablet 90 Mg PO BID 30 Days Reported Toviaz (Fesoterodine Fumarate) 8 Mg Tab.er.24h 8 Mg PO DAILY Amlodipine Besylate 10 Mg Tablet 10 Mg PO DAILY Tamsulosin HCl 0.4 Mg Cap.er.24h 0.4 Mg PO DAILY Duloxetine HCl 60 Mg Capsule.dr 60 Mg PO DAILY Oxybutynin Chloride 5 Mg Tablet 5 Mg PO BID Metoprolol Succinate 100 Mg Tab.er.24h 100 Mg PO DAILY Finasteride 5 Mg Tablet 5 Mg PO DAILY Metformin HCl 500 Mg Tablet 500 Mg PO BID Condition at discharge stable Instructions to patient/family Please see electronic discharge instructions given to patient. Clinical Quality Measures DVT/VTE Risk/Contraindication: Risk Factor Score Per Nursin RFS Level Per Nursing on Admit: 4+=Very High Problem Qualifiers (1) CHF (congestive heart failure): Heart failure type: unspecified Heart failure chronicity: unspecified Qualified Codes: I50.9 - Heart failure, unspecified (2) Diabetes mellitus: Diabetes mellitus type: type 2 Diabetes mellitus senior care insulin use: with senior care use Diabetes mellitus complication status: with kidney complications (3) HTN (hypertension): Hypertension type: essential hypertension Qualified Codes: I10 - Essential ( primary) hypertension RAMONITA FIELD MD Sep 01, 2018 10:19
--- NOTE | 2018-09-01 11:20 | Physical Therapy Daily Note ---
PT Daily Note-Current Subjective Pt agreeable to PT, denies pain at rest but increases to 5/10 with movement Pain Numeric Pain Scale: 0-No Pain Appearance Pt in bed upon arrival, easily aroused Pt sitting up in recliner with call light phone and bedside table within reach, all needs met Transfers Therapy Code Descriptions/Definitions Functional Runnels Measure: 0=Not Assessed/NA 4=Minimal Assistance 1=Total Assistance 5=Supervision or Setup 2=Maximal Assistance 6=Modified Runnels 3=Moderate Assistance 7=Complete Runnels Therapy Quality Codes: 6 Independent with activity with or without an assistive device 5 Patient requires set up or clean up by helper. Patient completes activity by themselves 4 Supervision or touching assist (CGA). [place] provide cues , steadying assist 3 The helper provides less than half the effort to complete the activity 2 The helper provides more than half the effort to complete the activity 1 Dependent. The helper does all the effort to complete an activity 7 Patient refused to complete or attempt activity 9 The patient did not perform the activity before the current illness or injury 88 Not attempted due to Medical conditions or safety concerns Transfers (B, C, W/C) (FIM): 5 Scootin Rollin Supine to/from Sit: 5 (use of bedrail) Sit to/from Stand: 5 Bed to/from Chair: 5 Weight Bearing Right Lower Extremity: Right Full Weight Bearing Left Lower Extremity: Left Full Weight Bearing Gait Training Gait (FIM): 1 Distance (FIM): 1=up to 49 ft Distance: 5 Gait Level of Assist: 5 Gait Persons Needed: 1 Gait Assistive Device: FWW slow cautious gait, shuffling, steady, no LOB Exercises Supine Ex: Ankle pumps, Straight leg raise Supine Reps: 10 Seated Therapy Exercises: Ankle pumps, Sit to stand, Long arc quads, Hip flexion Seated Reps: 5 (x2) Standing: Dynamic Reaching Ex, Sit to Stand, Weight shifts Treatments ex for strength, activity tolerance and balance, transfer training, standing balance activities Assessment Current Status: Good Progress PT Short Term Goals Short Term Goals Time Frame: Sep 06, 2018 Transfers (B,C,W/C) (FIM): 6 Gait (FIM): 5 Distance (FIM): 3=150 ft Gait Distance Comment: 200' Gait Level of Assist: 5 Gait Assistive Device: FWW PT Plan Treatment/Plan Treatment Plan: Continue Plan of Care Treatment Plan: Bed Mobility, Education, Functional Activity Benjamin, Functional Strength, Gait, Safety, Therapeutic Exercise, Transfers Treatment Duration: Sep 06, 2018 Frequency: 6 times per week Estimated Hrs Per Day: .25 hour per day Patient and/or Family Agrees t: Yes Safety Risks/Education Patient Education: Transfer Techniques, Safety Issues Teaching Recipient: Patient Teaching Methods: Demonstration, Discussion Response to Teaching: Verbalize Understanding, Return Demonstration Time/GCodes Time In: 803 Time Out: 819 Total Billed Treatment Time: 16 Total Billed Treatment 1 visit, FA x16' KIRILL GRAYSON PTA Sep 01, 2018 11:20
--- NOTE | 2018-09-01 16:00 | NUR ---
GONZALO MANUEL demonstrates understanding of discharge instructions and accurately returns instructions upon questioning. Copy of Post-Discharge Instructions and Medication Discharge Instructions given to PT/DAUGHTER. GONZALO MANUEL is able to manage continuing needs after discharge W/ DAUGHTER. Patients belongings returned to PT/DAUGHTER. Skin dry and intact; no breakdown noted. Patient discharged from [facility] on 09/01/18 at 1600. GONZALO MANUEL left floor via WC, accompanied by STAFF/DAUGHTER.
--- NOTE | 2018-09-01 18:27 | Cardiology Progress Note ---
Cardiology SOAP Progress Note Subjective: No chest pain. Objective: I&O/Vital Signs 09/01/18 09/01/18 09/01/18 09/01/18 07:06 07:54 08:02 08:04 Temp 99.2 Pulse 89 93 Resp 12 B/P (MAP) 139/93 (108) Pulse Ox 96 96 96 O2 Delivery Room Air Room Air Room Air 09/01/18 09/01/18 09/01/18 09/01/18 09:00 11:00 11:02 11:21 Temp 99.1 Pulse 93 97 Resp 7 16 B/P (MAP) 153/74 (100) 170/91 (117) O2 Delivery Room Air Room Air Room Air 09/01/18 09/01/18 09/01/18 09/01/18 12:00 13:00 13:07 15:03 Pulse 99 95 94 Resp 8 13 B/P (MAP) 105/57 (73) 104/71 (82) O2 Delivery Room Air Room Air Room Air 09/01/18 09/01/18 15:14 16:00 Temp 99.5 B/P (MAP) 09/01/18 00:00 Intake Total 1420 ml Output Total 125 ml Balance 1295 ml Weight (Pounds): 195 Weight (Ounces): 0.0 Weight (Calculated Kilograms): 88.089742 Constitutional: No appears stated age, No AAO x 3, No apparent distress, No PERRL, No well-developed, No well-nourished, No other Respiratory: chest is bilaterally symmetric, lungs clear to auscultation Cardiovascular: regular rate-rhythm, S1 and S2, systolic murmur Gastrointestional: No tender, No soft, No round, No distended, No pulsatile mass, No organomegaly, No guarding, No rebound, No tenderness, No hernia, No mass, No audible bowel sounds, No abnormal bowel sounds, No abdominal bruits, No spleenomegaly, No other Extremities: No normal range of motion, No non-tender, No normal inspection, No pedal edema, No calf tenderness, No normal capillary refill, No pelvis stable , No calf tenderness, No inflammation, No pedal edema, No slow capillary refill , No swelling, No other, No abrasion, No clubbing, No cyanosis, No ecchymosis, No laceration, No no lower extremity edema bilateral, No significant edema, No tenderness, No wound Neurologic/Psychiatric: no motor/sensory deficits, alert, normal mood/affect, oriented x 3 Skin: No rash, No ulcerations Results/Procedures: Labs Laboratory Tests 08/31/18 20:37: Glucometer 217H 09/01/18 03:00: White Blood Count 8.9, Red Blood Count 4.07L, Hemoglobin 12.2L, Hematocrit 35L, Mean Corpuscular Volume 86, Mean Corpuscular Hemoglobin 30, Mean Corpuscular Hemoglobin Concent 35, Red Cell Distribution Width 13.8, Platelet Count 176, Mean Platelet Volume 11.7H, Sodium Level 142, Potassium Level 3.8, Chloride Level 110H, Carbon Dioxide Level 21, Anion Gap 11, Blood Urea Nitrogen 34H, Creatinine 1.65H, Estimat Glomerular Filtration Rate 41, BUN/Creatinine Ratio 21 , Glucose Level 142H, Calcium Level 9.2 09/01/18 10:34: Glucometer 229H 09/01/18 15:11: Glucometer 244H Microbiology 08/29/18 Blood Culture - Preliminary, Resulted Staph, Coag Neg (HEAVY MACHINERY OPERATOR) Bacillus species See Comments 08/29/18 Influenza Types A,B Antigen (BRAYDEN) - Final, Complete A/P: Assessment/Dx: NSTEMI, DM, Sciatica, Systolic murmur Plan: Plan Non-STEMI. Coronary angiography showed mild to moderate three-vessel disease, with severe calcified proximal LAD stenosis treated with one drug-eluting stent. Systolic murmur: Likely aortic stenosis. Echocardiogram - Moderate . Sciatica- deferred to primary team. Psychiatric disorder. Thank you for your consultation. Please call me if you have any questions. Homar Jiménez MD, FACP, FACC, FSCAI, FHRS, CCDS Interventional Cardiology Cardiac Electrophysiology Vascular Medicine and Endovascular Interventions Focused Exam Lactate Level 08/29/18 20:05: Lactic Acid Level 1.07 Romulo JIMÉNEZ MD Sep 01, 2018 18:27
== END 2018-09-01 16:00 | disposition home or self-care (01) | DRG 247 ==
LOC: ER 18:32 → ICU 21:15
PROVIDERS: ADMIT Internal Medicine; ATTEND Internal Medicine
PROC: 027034Z Dilation of Coronary Artery, One Artery with Drug-eluting Intraluminal Device, Percutaneous Approach (ICD-10-PCS; principal; 2018-08-31)
PROC: B2111ZZ Fluoroscopy of Multiple Coronary Arteries using Low Osmolar Contrast (ICD-10-PCS; 2018-08-31)
DX: I21.4 Non-ST elevation (NSTEMI) myocardial infarction (principal); I25.10 Atherosclerotic heart disease of native coronary artery without angina pectoris; N17.9 Acute kidney failure, unspecified; I13.0 Hypertensive heart and chronic kidney disease with heart failure and stage 1 through stage 4 chronic kidney disease, or unspecified chronic kidney disease; N18.3 Chronic kidney disease, stage 3 (moderate); I50.9 Heart failure, unspecified; E11.9 Type 2 diabetes mellitus without complications; M51.16 Intervertebral disc disorders with radiculopathy, lumbar region; M47.26 Other spondylosis with radiculopathy, lumbar region; F03.90 Unspecified dementia, unspecified severity, without behavioral disturbance, psychotic disturbance, mood disturbance, and anxiety; D64.9 Anemia, unspecified; E87.6 Hypokalemia; I35.0 Nonrheumatic aortic (valve) stenosis; E78.00 Pure hypercholesterolemia, unspecified; E83.42 Hypomagnesemia; F41.9 Anxiety disorder, unspecified; F32.9 Major depressive disorder, single episode, unspecified; M19.91 Primary osteoarthritis, unspecified site; N40.0 Benign prostatic hyperplasia without lower urinary tract symptoms; Z98.1 Arthrodesis status; Z79.4 Long term (current) use of insulin
CPT/HCPCS: 36415; 70450; 71045; 72131; 72192; 80048; 80053; 80306; 81000; 82962; 83605; 83735; 83880; 84443; 84484; 85025; 85027; 85610; 85730; 87040; 87804; 93005; 93041; 93306; 93454; 96365; 96375

== ENCOUNTER 2018-10-11 11:34 | Day surgery (SDC) | payer MEDICARE ==
[~2018-10-11] VITALS: Ht 167.6 cm; Wt 88.5 kg
[~2018-10-11 11:34] MED LIST: AMLO10TA7 PO; ASPI-983 PO; ATOR80TA76 PO; DULO60CA58 PO; FESO8TAB PO; FINA5TAB6 PO; METF-397 PO; METO-395 PO; OXYB5TAB9 PO; SIMV40TA4 PO; TAMS0.4C2 PO; TICA90TA PO
[2018-10-11] MEDS ORDERED: HEParin 1000 UNIT/ML (10ML VIAL) FOR BOLUS ONE (11:42)
[2018-10-11] MEDS ORDERED: LIDOCAINE 1% INJ 20 ML 20 ML VIAL ONE (11:42)
[2018-10-11] MEDS ORDERED: NS IV 1000 ML 3,000 ML ONE (11:42)
[2018-10-11 12:01] VITALS: BP 148/90
[2018-10-11 12:14] LABS: HEMOGLOBIN 12.7 G/DL (13.3-17.7); MEAN PLATELET VOLUME 10.6 FL (7.4-10.4); RED CELL DISTRIBUTION WIDTH 13.7 % (10.0-14.5); WHITE BLOOD COUNT 9.8 10^3/uL (4.3-11.0)
[2018-10-11] MEDS ORDERED: NS IV 1000 ML 1,000 ML IV SCH ×2 (12:15→14:34)
[2018-10-11 12:26] LABS: PROTHROMBIN TIME PATIENT 13.6 SEC (12.2-14.7)
[2018-10-11 12:35] LABS: ALBUMIN 3.9 GM/DL (3.2-4.5); BILIRUBIN,TOTAL 1.5 MG/DL (0.1-1.0); CALCIUM 9.6 MG/DL (8.5-10.1); CREATININE SERUM 1.42 MG/DL (0.60-1.30); TOTAL PROTEIN 6.9 GM/DL (6.4-8.2)
[2018-10-11] MEDS ORDERED: ATOR80TA76 PO (12:48)
[2018-10-11] MEDS ORDERED: ASPI-983 PO (12:48)
[2018-10-11] MEDS ORDERED: TAMS0.4C98 PO (12:48)
[2018-10-11] MEDS ORDERED: CRAN450C PO (12:48)
[2018-10-11] MEDS ORDERED: TICA90TA PO (12:48)
[2018-10-11] MEDS ORDERED: INSU100I14 SQ (13:00)
[2018-10-11] MEDS ORDERED: INSU100I10 SQ (13:00)
--- NOTE | 2018-10-11 13:01 | NUR ---
SPOKE WITH THE PATIENT ABOUT HIS MEDICATIONS. THEY STATE NOTHING HAS CHANGED SINCE THE LAST VISIT. WE WENT OVER THE LIST IN THE COMPUTER WELL THE LIST FROM THE OFFICE. IN ADDITION TO THE LIST FROM THE DR OFFICE HE REPORTS TAKING: CYMBALTA 60MG 1800 CRANBERRY DAILY OTC LANTUS SOLOSTAR 25 HS NOVOLOG 8 UNITS QID PRN BS>150 I REQUESTED A MEDICATION LIST TO BE FAXED OVER FROM [facility] FOR CLARIFICATION AND WILL UPDATE IF NEEDED WHEN THAT IS RECEIVED. Addendum: 10/11/18 at 1318 by DEISI ROA [facility] RECEIVED THE LIST FROM CAR AT THIS TIME, THE PILLS MATCH WITH WHAT WAS ON FILE. THEY HAVE NOT FILLED THE INSULIN RECENTLY. THEY REPORT BASAGLAR IN JANUARY HOWEVER THE PATIENT DOES NOT THINK HE IS TAKING THAT. THEY FILLED NOVOLOG, HUMALOG, AND LANTUS LAST OCTOBER. PATIENT STATES HE HAS RECEIVED SOME MORE RECENTLY THAN THAT BUT MAY GET SAMPLES. HE DESCRIBED NOVOLOG AND LANTUS. [facility] FILLED: 09-17-18 DULOXETINE 60MG DAILY #30 09-17-18 FINASTERIDE 5MG DAILY #30 09-17-18 METOPROLOL ER 100MG DAILY #30 09-17-18 OXYBUTYNIN 5MG BID #60 09-17-18 TAMSULOSIN 0.4MG DAILY #30 09-17-18 AMLODIPINE 10MG DAILY #30 09-01-18 ASPIRIN 81MG DAILY #30 09-01-18 LIPITOR 80MG HS #30 09-01-18 BRILINTA 90MG BID #60 08-25-18 METFORMIN 500MG BID #60 08-25-18 TOVIAZ 8MG DAILY #30 2-16-19 SIMVASTATIN 40MG DAILY #30 (NO LONGER TAKING) TAKES CRANBERRY OTC DAILY USES NOVOLOG 8 UNITS QID PRN BS>150 AND LANTUS 25 UNITS HS HE TAKES ALL OF HIS ONCE DAILY MEDS IN THE EVENING. THE ONLY MEDS HE TAKES IN THE MORNING ARE THE BID MEDS.
[2018-10-11] MEDS ORDERED: fentaNYL INJECTION 100 MCG/2 ML AMP ONE (13:29)
[2018-10-11] MEDS ORDERED: MIDAZOLAM 5 MG/5 ML (VERSED) VIAL ONE (13:29)
--- NOTE | 2018-10-11 14:34 | Coronary Angiography Report ---
Peripheral Angiography DATE OF SERVICE: 10/11/18 Peripheral angiography report. PERFORMING INTERVENTIONALIST: Dr. Homar Jiménez INDICATION: Severe right-sided hip pain, Severe lifestyle limiting right calf discomfort, Abnormal GERI/arterial ultrasound. PREOPERATIVE INDICATION: Lifestyle limiting claudication. POSTOPERATIVE DIAGNOSIS: PAD HISTORY: This is a 73-year-old gentleman who has previous history of CAD and PCI. He presented to me in the office with complaints of severe right hip pain, severe right calf discomfort and burning. The patient has history of diabetes and chronic kidney disease. GERI and arterial ultrasound were done which were abnormal and suggested significant PAD. He was scheduled for peripheral angiography and possible intervention. PROCEDURE PERFORMED: 1. Abdominal aortogram with bilateral lower extremity runoff. 2. Selective angiogram of the right popliteal artery and below the knee angiogram. SPECIMENS: None. ANESTHESIA: Conscious sedation. BLOOD LOSS: 20 mL. COMPLICATIONS: None. CONTRAST USED: 68 ml. FLUOROSCOPY DOSE: 197 Mgy. FLUOROSCOPY TIME: 4.6 minutes. ANTICOAGULATION: none. DESCRIPTION OF PROCEDURE: The patient was brought to the mechanical laboratory technician after informed consent was taken. All the risks and complications were explained in detail. The patient was draped and prepped in the usual sterile fashion. Access was gained in the left femoral artery with a 6 Mongolian sheath. We advanced a pigtail catheter to the mid abdominal aorta and performed an abdominal aortogram with bilateral lower extremity runoff. There was incomplete visualization of the right below the knee arteries therefore we did a crossover with a stork wire and the pigtail catheter. The tip of the Storq wire was placed in the distal SFA and then the pigtail catheter was taken out and we advanced a straight tip catheter into the distal SFA in the right lower extremity and performed a selective angiogram of the right popliteal artery and below the knee arteries. At the end of the procedure left femoral artery was closed with a minx closure device. FINDINGS: Normal abdominal aorta with no significant disease in the bilateral renal arteries. 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 Mild disease noted in the right distal SFA and popliteal artery. Severe diffuse occlusive disease noted in the right anterior tibial artery with reconstitution in the foot as the dorsalis pedis artery. 1 vessel runoff with a deep peroneal artery. Severe occlusive disease in the proximal segment of the right posterior tibial artery with faint reconstitution in the foot. Normal left common iliac artery, external iliac artery, BAKERY ASSOCIATE, SFA. Mild disease noted in the distal SFA, popliteal artery and possible disease below the left knee, however there was suboptimal visualization. CONCLUSION: -Severe two-vessel disease below the right knee likely the cause of lifestyle limiting claudication in the right calf. -Right hip pain is nonvascular in origin, I will refer to orthopedic surgery. -Below the knee intervention will be staged due to significant CKD. Explained at length to the family. -Continue aggressive medical therapy which includes dual antiplatelet therapy, beta blockers and high-dose statin. -Patient is not on an TYLOR inhibitor due to significant CKD. Nephrology follow- up soon. Homar Jiménez MD, FACP, FACC, [facility] Vascular Medicine and Endovascular Interventions Romulo JIMÉNEZ MD Oct 11, 2018 14:34
--- NOTE | 2018-10-11 14:34 | Cardiac Procedure Note-CS/ASA ---
Pre-Procedure Note Pre-Op Procedure Note H&P Reviewed The H&P was reviewed, patient examined and no changes noted. Date H&P Reviewed: Oct 11, 2018 Time H&P Reviewed: 13:30 Conscious Sedation Pre-Proced Time 13:30 ASA Score 3 For ASA 3 and 4: Consider anesthesia and medical clearance. Also, for patients with a history of failed moderate sedation consider anesthesia. Airway Lungs Heart ASA score ASA 1: a normal healthy patient ASA 2: a patient with a mild systemic disease (mid diabetes, controlled hypertension, obesity ASA 3: a patient with a severe systemic disease that limits activity (angina , COPD, prior Myocardial infarction) ASA 4: a patient with an incapacitating disease that is a constant threat to life (CHF, renal failure) ASA 5: a moribund patient not expected to survive 24 hrs. (ruptured aneurysm) ASA 6: a declared brain- patient whose organs are being harvested. For emergent operations, add the letter E after the classification Mallampati Classification Grade 1 Sedation Plan Analgesia, Amnesia, Plan communicated to team members, Discussed options with patient/fam, Discussed risks with patient/fam The patient is an appropriate candidate to undergo the planned procedure, sedation, and anesthesia. The patient immediately re-assessed prior to indication. Romulo HOWARD MD Oct 11, 2018 14:34
--- NOTE | 2018-10-11 14:36 | Cardiology Discharge Summary ---
Diagnosis/Chief Complaint Date of Admission 10/11/2018 Date of Discharge 10/11/2018 Admission Diagnosis Severe lifestyle limiting claudication. Final/Discharge Diagnosis Severe PAD Chief Complaint/HPI Chief Complaint/HPI This is a 73-year-old gentleman who has previous history of CAD and PCI. He presented to me in the office with complaints of severe right hip pain, severe right calf discomfort and burning. The patient has history of diabetes and chronic kidney disease. GERI and arterial ultrasound were done which were abnormal and suggested significant PAD. He was scheduled for peripheral angiography and possible intervention. Discharge Summary Procedures Normal abdominal aorta with no significant disease in the bilateral renal arteries. 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 Mild disease noted in the right distal SFA and popliteal artery. Severe diffuse occlusive disease noted in the right anterior tibial artery with reconstitution in the foot as the dorsalis pedis artery. 1 vessel runoff with a deep peroneal artery. Severe occlusive disease in the proximal segment of the right posterior tibial artery with faint reconstitution in the foot. Normal left common iliac artery, external iliac artery, HOUSE DESIGNER, SFA. Mild disease noted in the distal SFA, popliteal artery and possible disease below the left knee, however there was suboptimal visualization. Discharge Physical Examination Unremarkable Hospital Course Was the Problem List Reviewed?: Yes Unremarkable Pending Labs Laboratory Tests 10/11/18 12:05: White Blood Count 9.8, Red Blood Count 4.30, Hemoglobin 12.7, Hematocrit 36, Mean Corpuscular Volume 83, Mean Corpuscular Hemoglobin 30, Mean Corpuscular Hemoglobin Concent 36, Red Cell Distribution Width 13.7, Platelet Count 203, Mean Platelet Volume 10.6, Prothrombin Time 13.6, INR Comment 1.0, Activated Partial Thromboplast Time 30, Sodium Level 138, Potassium Level 4.0, Chloride Level 105, Carbon Dioxide Level 23, Anion Gap 10, Blood Urea Nitrogen 25, Creatinine 1.42, Estimat Glomerular Filtration Rate 49, BUN/Creatinine Ratio 18 , Glucose Level 219, Calcium Level 9.6, Corrected Calcium 9.7, Total Bilirubin 1.5, Aspartate Amino Transf (AST/SGOT) 16, Alanine Aminotransferase (ALT/SGPT) 15, Alkaline Phosphatase 88, Total Protein 6.9, Albumin 3.9 Discussion & Recommendations Discussion -Severe two-vessel disease below the right knee likely the cause of lifestyle limiting claudication in the right calf. -Right hip pain is nonvascular in origin, I will refer to orthopedic surgery. -Below the knee intervention will be staged due to significant CKD. Explained at length to the family. -Continue aggressive medical therapy which includes dual antiplatelet therapy, beta blockers and high-dose statin. -Patient is not on an TYLOR inhibitor due to significant CKD. Nephrology follow- up soon. Follow up appt.: Dr Naren Jiménez (nephrology) in two weeks. Dr Jaime Jiménez in two to three weeks. Dicharge Diet: Cardiac Diet Activity as Tolerated: Yes Home Medications Reviewed patient Home Medication Reconciliation performed by pharmacy medication reconciliations compliance technician and/or nursing. Patients Allergies have been reviewed. Discharge Home Medications: Reviewed and agree with Discharge Medication list on patient's Discharge Instruction sheet Condition at discharge stable Instructions to patient/family Discussed at length with the family. Romulo JIMÉNEZ MD Oct 11, 2018 14:35
--- NOTE | 2018-10-11 14:38 | Discharge Inst-Post CATH ---
Discharge Inst-CATH/EP Post Cardiac Cath/EP D/C Inst Follow Up/Plan Dr Jiménez in 3-4 weeks. CARDIAC CATH DISCHARGE INSTRUCTIONS *Hold Metformin for 48 hours post heart cath. ACTIVITY * Go Home directly and rest. * Limit activity of the leg (or wrist if it was used) for 7 days including aerobics, swimming, jogging, bicycling, etc. * Restrict stair-climbing for 7 days if possible, if not, climb up with your non -cath leg, then bring together on the same step. * Avoid lifting, pushing, pulling or excessive movement of the affected extremity for 7 days. * Customary sexual activity may be resumed after 2 days-use caution not to use a position that strains or causes pain to the affected extremity. * No driving for 24 hours. * NO SMOKING. * Avoid straining for bowel movements for 7 days. * Gentle walking on level ground is allowed. * Returning to work will depend on the type of procedure and the results. Your doctor will discuss this with you. CALL YOUR DOCTOR FOR ANY OF THE FOLLOWING: *If bleeding from the puncture site occurs- Apply gentle pressure to site with clean cloth and call your doctor or EMS. * If a knot or lump forms under the skin, increases in size, or causes pain. * If bruising appears to be worsening or moving further down your leg instead of disappearing. * Temperature above 101 F. CARE OF YOUR GROIN INCISION; * Bruising or purple discoloration of the skin near the puncture site is common. * You may shower only, no bathtub bathing for 5 days. Be careful to avoid slipping as your leg may feel stiff. * If a closure device was used on your femoral artery, please see the attached guide regarding care of the device and your leg. * Leave the dressing on, until removed by office staff. CARE OF YOUR WRIST INCISION; * Bruising or purple discoloration of the skin near the puncture site is common. * You may shower. * DO NOT submerge wrist. * Leave dressing on, until removed by office staff.. Romulo JIMÉNEZ MD Oct 11, 2018 14:37
[2018-10-11] MEDS ORDERED: PATIENT MAY USE OWN MEDS, ALL PO SCH (14:45)
--- NOTE | 2018-10-11 14:55 | NUR ---
GONZALO MANUEL admitted to room CU12-1, with an admitting diagnosis of S/P CATH, on 10/11/18 from AREA FIELD PERSON via BED, accompanied by STAFF.GONZALO MANUEL introduced to surroundings, call light, bed controls, phone, TV, temperature control, lights, meal times, smoking policy, visitor policy, side rail policy, bathrooms and showers. Patient Rights given to patient in the handbook. GONZALO MANUEL verbalizes understanding that [facility] is not responsible for the loss or damage to any personal effects or valuables that are kept in the patients posession during their hospitalization. The following Patient Care Plans were discussed with the PT: Discharge Planning, PAIN,HIGH RISK BLEEDING, and ALTERED PERIPHERAL TISSUE PERFUSION. GONZALO MANUEL verbalizes understanding of Interdisciplinary Patient Education. Patient and family were informed about the Rapid Response Team and its purpose.
[2018-10-11 15:00] VITALS: BP 139/87
[2018-10-11 15:15] VITALS: BP 131/78
[2018-10-11 15:30] VITALS: BP 132/81
[2018-10-11 15:45] VITALS: BP 133/102
[2018-10-11 16:00] VITALS: BP 142/96
--- NOTE | 2018-10-11 17:55 | NUR ---
GONZALO MANUEL demonstrates understanding of discharge instructions and accurately returns instructions upon questioning. Copy of Post-Discharge Instructions and Medication Discharge Instructions given to pt/family. GONZALO MANUEL is able to manage continuing needs after discharge. Patients belongings returned to pt. Skin dry and intact; no breakdown noted. Patient discharged from [facility]- on 10/11/18 at 1755. GONZALO MANUEL left floor via , accompanied by staff.
== END 2018-10-11 17:55 | disposition home or self-care (01) ==
LOC: CATH 11:34 → ICU 14:55 → CATH 17:55
PROVIDERS: ATTEND Internal Medicine Interventional Cardiology
DX: I70.211 Atherosclerosis of native arteries of extremities with intermittent claudication, right leg (principal); M25.551 Pain in right hip; I12.9 Hypertensive chronic kidney disease with stage 1 through stage 4 chronic kidney disease, or unspecified chronic kidney disease; N18.3 Chronic kidney disease, stage 3 (moderate); I25.10 Atherosclerotic heart disease of native coronary artery without angina pectoris; E78.5 Hyperlipidemia, unspecified; R09.89 Other specified symptoms and signs involving the circulatory and respiratory systems; E11.22 Type 2 diabetes mellitus with diabetic chronic kidney disease; I35.0 Nonrheumatic aortic (valve) stenosis; Z79.899 Other long term (current) drug therapy; Z79.84 Long term (current) use of oral hypoglycemic drugs
CPT/HCPCS: 36415; 75630; 80053; 85027; 85610; 85730; 87081

== ENCOUNTER → 2018-11-02 | Outpatient (CLI) | payer MEDICARE ==
[~2018-11-02] MED LIST changes: +CRAN450C PO; +INSU100I10 SQ; +INSU100I14 SQ; +TAMS0.4C98 PO
--- NOTE | 2018-11-02 12:35 | Diagnostic Imaging Report ---
PROCEDURE: US Renal Bilateral. TECHNIQUE: Multiple real-time grayscale images were obtained over the kidneys in various projections bilaterally. INDICATION: Renal disease. The right kidney measured 8.9 cm, left kidney 10.5 cm. The echotextures were unremarkable. The urinary bladder appeared normal. We were able to identify flow at the right ureteral jet, the left could not be visualized but there is no hydronephrosis. IMPRESSION: Unremarkable renal bladder ultrasound. Dictated by: Dictated on workstation # [id number]
== END ==
LOC: RAD 09:30
PROVIDERS: ATTEND Internal Medicine Nephrology
DX: N18.3 Chronic kidney disease, stage 3 (moderate) (principal)
CPT/HCPCS: 76770

== ENCOUNTER 2018-11-15 09:24 | Day surgery (SDC) | payer MEDICARE ==
[2018-11-15] VITALS (15 sets, daily range): BP systolic 109–172; BP diastolic 78–102
[~2018-11-15] VITALS: Ht 167.6 cm; Wt 87.5 kg
--- OUTSIDE RECORDS SUMMARY | 2018-11-15 09:29 | XMS REPORT ---
Author Author Oumar Umanzor [facility] Address [address] [place], [place] [id number] Care Team Providers Care Net Applications Developer Name Role Phone Oumar Umanzor PCP Oumar Umanzor PreferredProvider Allergies and Adverse Reactions Name Reaction Notes Demerol Plan of Treatment Planned Activity Comments Planned Date Planned Time Plan/Goal Hemoglobin A1c measurement 10/23/2018 12:00 AM Follow up Urge incontinence 11/17/2017 2:00 PM Medications Active Name Start Date Estimated Completion Date SIG Comments Toviaz 8 mg oral tablet extended release 24 hr 04/26/2018 TAKE 1 TABLET BY MOUTH ONCE EVERY DAY Shingrix (PF) 50 mcg/0.5 mL intramuscular suspension for reconstitution 2017 inject 0.5 milliliter (50 mcg) by intramuscular route once metformin 500 mg oral tablet 06/15/2018 06/10/2019 take 1 tablet (500 mg) by oral route 2 times per day with morning and evening meals for 90 days oxybutynin chloride 5 mg oral tablet 06/25/2018 TAKE 1 TABLET BY MOUTH TWICE DAILY finasteride 5 mg oral tablet 06/25/2018 TAKE 1 TABLET BY MOUTH DAILY tamsulosin 0.4 mg oral capsule 06/25/2018 TAKE 1 CAPSULE BY MOUTH DAILY Brilinta 60 mg oral tablet take 1 tablet (60 mg) by oral route 2 times per day Basaglar KwikPen U-100 Insulin 100 unit/mL (3 mL) subcutaneous insulin pen inject 25 units by subcutaneous route once a day Novolog Flexpen U-100 Insulin 100 unit/mL subcutaneous insulin pen 10/23/2018 inject 5 units by subcutaneous route with each meal Name Start Date Expiration Date SIG Comments [...] every 8 hours as needed for pain cyclobenzaprine 10 mg oral tablet 08/04/2014 07/30/2015 [...] route every 12 hours for 30 days clopidogrel 75 mg oral [...] bedtime Switching back to Lantus and Humalog amlodipine 10 mg oral tablet 10/23/2017 10/18/2018 [...] oral route once daily for 90 days Discontinued Name Start Date Discontinued Date [...] HC BMI BSA BMI Percentile O2 Sat(%) 10/23/2018 2:28:00 PM 136 mmHg 80 mmHg 80 bpm 20 rpm 98.8 F 195 lbs 66 in 31.4735 kg/m 2.0295 m 97 % 06/15/2018 8:37:00 AM 136 mmHg 80 mmHg 71 bpm 20 rpm 98.8 F 202 lbs 66 in 32.60 kg/m2 2.07 m2 99 % 10/23/2017 2:58:00 PM 168 mmHg [...] 12:00 AM Bicillin CR, 1.2 million units [facility]# 51460-952-75 Reviewed 03/27/2014 12:00 AM COMPREHEN METABOLIC PANEL [...] eGFR 46 eGFR AA* 56 HGB A1C 8.20 %Est Avg Glucose 188.6 History Of Immunizations Not [...] 2018 8:40AM Hypertension Jun 15 2018 8:40AM Diabetes Mellitus, Type II Oct 23 2018 2:30PM Hypertension Oct 23 2018 2:30PM Coronary Artery Disease Oct 23 2018 2:30PM Lumbago with sciatica, right side Oct 23 2018 2:30PM Other chronic pain Oct 23 2018 2:30PM Payers Insurance Name Company Name Plan Name Plan Number Policy Number Policy Group Number Start Date Medicare RHC Medicare RHC [id number] N/A BCBS Bcbs [facility] [id number] November [facility] [id number] [facility] [id number] Saturday, 2010 Medicare Part A Medicare Part A [id number] Friday, 2011 Medicare Part B Medicare Of [place] [id number] N/A AARP [employer]arp [id number] N/A Medicare Part A Medicare - Lab/Xray [id number] Friday, December 09, 2011 Medicare RHC Medicare RHC [id number] N/A History of Encounters Visit Date Visit Type Provider 10/23/2018 Office visit Oumar Erna DO 06/15/2018 Office visit Oumar Elite DO 10/23/2017 Office visit Oumar Erna DO 10/20/2017 Office visit [facility] [place] [employer] HELPER 01/23/2017 Office visit Oumar Erna DO 10/03/2016 Office visit Oumar Erna DO 08/11/2016 Office visit Oumar Umanzor DO 07/20/2016 [facility] Isaias Garcia MD 07/11/2016 [facility] Reynaldo Miguel DO 07/10/2016 [facility] Abrahan Reno MD 05/03/2016 Office visit Oumar Elite DO 03/17/2016 Office visit Oumar Umanzor DO 10/28/2015 Office visit Oumar Erna DO 09/01/2015 Office visit Oumar Erna DO 07/30/2015 Office visit Oumar Erna DO 04/20/2015 Office visit Oumar Umanzor DO 04/12/2015 [facility] DO 04/11/2015 [facility] DO 02/11/2015 [facility] Edda Richards MD 01/15/2015 Office visit [facility] [place] [employer]ATOR HELPER 09/19/2014 Office visit Oumar Erna DO 09/16/2014 Office visit [facility] [place] [employer] HELPER 08/29/2014 Office visit Oumar Erna DO 07/28/2014 Office visit Oumar Erna DO 06/10/2014 [facility] Cameron Suggs MD 05/30/2014 [facility] Nell Hebert MD 05/01/2014 Office visit uOmar Umanzor DO 03/27/2014 Office visit Oumar Umanzor DO 05/14/2013 Office visit Oumar Elite DO 03/12/2013 Office visit Oumar Umanzor DO 08/23/2012 Office visit Oumar Umanzor DO 04/13/2011 Office visit Oumar Umanzor DO 02/14/2011 Office visit Oumar Umanzor DO 02/13/2011 Hospital Nata Redman MD 02/12/2011 [facility] Nata Redman MD 02/11/2011 [facility] Nata Redman MD 02/11/2011 [facility] Abrahan Reno MD 02/10/2011 [facility] RIN Sanchez MD 02/10/2011 Voided RIN Sanchez MD 11/19/2009 Office visit Oumar Umanzor DO
--- OUTSIDE RECORDS SUMMARY | 2018-11-15 09:46 | XMS REPORT | Continuity of Care Document ---
Demographics Preferred Language Unknown Marital Status Unknown Adventism Affiliation Unknown Race Unknown Ethnic Group Unknown Author Organization Unknown Address Unknown Allergies Active Description Code Type Severity Reaction Onset Reported/Identified Relationship to Patient Clinical Status Yes DEMEROL [id number] BRANDNAME N/A 1986 POST OP HERNIA CAUSED N/V Yes DEMEROL [id number] BRANDNAME N/A N/A Yes No Known Drug Allergies [id number] Drug Allergy Unknown N/A 08/29/2018 Medications There is no data. Problems Date Dx Coded Attending Type Code Diagnosis Diagnosed By 09/01/2018 DOUG JONES DO Ot D64.9 ANEMIA, UNSPECIFIED 09/01/2018 DOUG JONES DO Ot E11.9 TYPE 2 DIABETES MELLITUS WITHOUT COMPLIC 09/01/2018 DOUG JONES DO Ot E78.00 PURE HYPERCHOLESTEROLEMIA, UNSPECIFIED 09/01/2018 ALYSSA JONES DOI Ot E83.42 HYPOMAGNESEMIA 09/01/2018 ALYSSA JONES DOI Ot E87.6 HYPOKALEMIA 09/01/2018 ALYSSA JONES DOI Ot F03.90 UNSPECIFIED DEMENTIA WITHOUT BEHAVIORAL 09/01/2018 DOUG JONES DO Ot F32.9 MAJOR DEPRESSIVE DISORDER, SINGLE EPISOD 09/01/2018 ALYSSA JONES DOI Ot F41.9 ANXIETY DISORDER, UNSPECIFIED 09/01/2018 ALYSSA JONES DOI Ot I10 ESSENTIAL (PRIMARY) HYPERTENSION 09/01/2018 DOUG JONES DO Ot I21.4 NON-ST ELEVATION (NSTEMI) MYOCARDIAL INF 09/01/2018 DOUG JONES DO Ot I25.10 ATHSCL HEART DISEASE OF [place] CORONARY 09/01/2018 DOUG JONES DO Ot I35.0 NONRHEUMATIC AORTIC (VALVE) STENOSIS 09/01/2018 DOUG JONES DO Ot M19.91 PRIMARY OSTEOARTHRITIS, UNSPECIFIED SITE 09/01/2018 ALYSSA JONES DOI Ot M51.16 INTERVERTEBRAL DISC DISORDERS W RADICULO 09/01/2018 DOUG JONES DO Ot N17.9 ACUTE KIDNEY FAILURE, UNSPECIFIED 09/01/2018 DOUG JONES DO Ot N40.0 BENIGN PROSTATIC HYPERPLASIA WITHOUT LOW 09/01/2018 ALYSSA JONES DOI Ot 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 09/01/2018 DOUG JONES DO Ot Z98.1 ARTHRODESIS STATUS 09/01/2018 ALYSSA JONES DOI Ot D64.9 ANEMIA, UNSPECIFIED 09/01/2018 ALYSSA JONES DOI Ot E11.9 TYPE 2 DIABETES MELLITUS WITHOUT COMPLIC 09/01/2018 ALYSSA JONES DOI Ot E78.00 PURE HYPERCHOLESTEROLEMIA, UNSPECIFIED 09/01/2018 ALYSSA JONES DOI Ot E83.42 HYPOMAGNESEMIA 09/01/2018 ALYSSA JONES DOI Ot E87.6 HYPOKALEMIA 09/01/2018 ALYSSA JONES DOI Ot F03.90 UNSPECIFIED DEMENTIA WITHOUT BEHAVIORAL 09/01/2018 ALYSSA JONES DOI Ot F32.9 MAJOR DEPRESSIVE DISORDER, SINGLE EPISOD 09/01/2018 ALYSSA JONES DOI Ot F41.9 ANXIETY DISORDER, UNSPECIFIED 09/01/2018 ALYSSA JONES DOI Ot I13.0 HYP HRT CHR KDNY DIS W HRT FAIL AND ST 09/01/2018 ALYSSA JONES DOI Ot I21.4 NON-ST ELEVATION (NSTEMI) MYOCARDIAL INF 09/01/2018 ALYSSA JONES DOI Ot I25.10 ATHSCL HEART DISEASE OF [place] CORONARY 09/01/2018 ALYSSA JONES DOI Ot I35.0 NONRHEUMATIC AORTIC (VALVE) STENOSIS 09/01/2018 ALYSSA JONES DOI Ot I50.9 HEART FAILURE, UNSPECIFIED 09/01/2018 ALYSSA JONES DOI Ot M19.91 PRIMARY OSTEOARTHRITIS, UNSPECIFIED SITE 09/01/2018 ALYSSA JONES DOI Ot M47.26 OTHER SPONDYLOSIS WITH RADICULOPATHY, [place] 09/01/2018 ALYSSA JONES DOI Ot M51.16 INTERVERTEBRAL DISC DISORDERS W RADICULO 09/01/2018 ALYSSA JONES DOI Ot N17.9 ACUTE KIDNEY FAILURE, UNSPECIFIED 09/01/2018 ROBERT CRISTINA DOUG Ot N18.3 CHRONIC KIDNEY DISEASE, STAGE 3 (MODERAT 09/01/2018 ALYSSA JONES DOI Ot N40.0 BENIGN PROSTATIC HYPERPLASIA WITHOUT LOW 09/01/2018 DOUG JONES DO Ot 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 09/01/2018 DOUG JONES DO Ot Z98.1 ARTHRODESIS STATUS 10/11/2018 Romulo HOWARD MD Ot E11.22 TYPE 2 DIABETES MELLITUS W DIABETIC CLOTH DESIZING RANGE OPERATOR CHIEF 10/11/2018 Romulo HOWARD MD Ot E78.5 HYPERLIPIDEMIA, UNSPECIFIED 10/11/2018 Romulo HOWARD MD Ot I12.9 HYPERTENSIVE CHRONIC KIDNEY DISEASE W ST 10/11/2018 Romulo HOWARD MD Ot I25.10 ATHSCL HEART DISEASE OF [place] CORONARY 10/11/2018 Romulo HOWARD MD Ot I35.0 NONRHEUMATIC AORTIC (VALVE) STENOSIS 10/11/2018 Romulo HOWARD MD Ot 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 10/11/2018 Romulo HOWARD MD Ot M25.551 PAIN IN RIGHT HIP 10/11/2018 Romulo HOWADR MD Ot N18.3 CHRONIC KIDNEY DISEASE, STAGE 3 (MODERAT 10/11/2018 Romulo HOWARD MD Ot R09.89 OTH SYMPTOMS AND SIGNS INVOLVING THE CIR 10/11/2018 Romulo HOWARD MD Ot Z79.84 [facility] (CURRENT) USE OF ORAL HYPOGLYC 10/11/2018 Romulo HOWARD MD Ot Z79.899 OTHER [facility] (CURRENT) DRUG THERAPY 10/14/2018 Romulo HOWARD MD Ot E11.22 TYPE 2 DIABETES MELLITUS W DIABETIC CLOTH DESIZING RANGE OPERATOR CHIEF 10/14/2018 Romulo HOWARD MD Ot E78.5 HYPERLIPIDEMIA, UNSPECIFIED 10/14/2018 Romulo HOWARD MD Ot I12.9 HYPERTENSIVE CHRONIC KIDNEY DISEASE W ST 10/14/2018 Romulo HOWARD MD Ot I25.10 ATHSCL HEART DISEASE OF [place] CORONARY 10/14/2018 Romulo HOWARD MD Ot I35.0 NONRHEUMATIC AORTIC (VALVE) STENOSIS 10/14/2018 Romulo HOWARD MD Ot 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 10/14/2018 Romulo HOWARD MD Ot M25.551 PAIN IN RIGHT HIP 10/14/2018 Romulo HOWARD MD Ot N18.3 CHRONIC KIDNEY DISEASE, STAGE 3 (MODERAT 10/14/2018 Romulo HOWARD MD Ot R09.89 OTH SYMPTOMS AND SIGNS INVOLVING THE CIR 10/14/2018 Romulo HOWARD MD Ot Z79.84 [facility] (CURRENT) USE OF ORAL HYPOGLYC 10/14/2018 Romulo HOWARD MD, Ot Z79.899 OTHER [facility] (CURRENT) DRUG THERAPY 10/17/2018 Romulo HOWARD MD Ot E11.22 TYPE 2 DIABETES MELLITUS W DIABETIC CLOTH DESIZING RANGE OPERATOR CHIEF 10/17/2018 Romulo HOWARD MD Ot E78.5 HYPERLIPIDEMIA, UNSPECIFIED 10/17/2018 Romulo HOWARD MD Ot I12.9 HYPERTENSIVE CHRONIC KIDNEY DISEASE W ST 10/17/2018 Romulo HOWARD MD Ot I25.10 ATHSCL HEART DISEASE OF [place] CORONARY 10/17/2018 Romulo HOWARD MD Ot I35.0 NONRHEUMATIC AORTIC (VALVE) STENOSIS 10/17/2018 Romulo HOWARD MD Ot 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 10/17/2018 Romulo HOWARD MD Ot M25.551 PAIN IN RIGHT HIP 10/17/2018 Romulo HOWARD MD Ot N18.3 CHRONIC KIDNEY DISEASE, STAGE 3 (MODERAT 10/17/2018 Romulo HOWARD MD Ot R09.89 OTH SYMPTOMS AND SIGNS INVOLVING THE CIR 10/17/2018 Romulo HOWARD MD Ot Z79.84 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 TECHNICIAN (CURRENT) USE OF ORAL HYPOGLYC 10/17/2018 Romulo HOWARD MD, Ot Z79.899 OTHER PLASTIC EYE TECHNICIAN (CURRENT) DRUG THERAPY Procedures Code Description Performed By Performed On [id number] DILATION OF 1 COR ART WITH DRUG-ELUT INT 08/31/2018 [id number] MEASURE OF CARDIAC SAMPL PRESSURE, L H 08/31/2018 [id number] FLUOROSCOPY OF MULT COR ART USING L OSM 08/31/2018 [id number] FLUOROSCOPY OF LEFT HEART USING LOW OSMO 08/31/2018 Results Test Result Range Capillary blood glucose measurement by glucometer (mass/volume) [...] <=0.05 miu/l (units/ volume) 1.08 u[iU]/mL 0.35-4.94 Urine drug screening test - 08/29/18 19:43 Urine phencyclidine detection by screening method NEGATIVE NEGATIVE Urine benzodiazepines detection by screening method NEGATIVE NEGATIVE Urine cocaine detection NEGATIVE NEGATIVE Urine amphetamines detection by screening method NEGATIVE NEGATIVE Urine methamphetamine detection by screening method NEGATIVE NEGATIVE Urine cannabinoids detection by screening method NEGATIVE NEGATIVE Urine opiates detection by screening method POSITIVE NEGATIVE Urine barbiturates detection NEGATIVE NEGATIVE Screening urine tricyclic antidepressants detection NEGATIVE NEGATIVE Urine methadone detection by screening method NEGATIVE NEGATIVE Urine oxycodone detection NEGATIVE NEGATIVE Urine propoxyphene detection NEGATIVE NEGATIVE Serum or plasma lithium measurement (moles/volume) - 08/29/18 19:45 BNP level 759.0 pg/mL <100.0 Blood lactic acid measurement (moles/volume) - 08/29/18 20:05 Blood lactic acid measurement (moles/volume) 1.07 mmol/L 0.50-2.00 Influenza virus A and B antigen detection - 08/29/18 20:05 FLU RESULT NEGATIVE FOR INFLUENZA A AND B ANTIGENS BY IA NRG Bacterial blood culture - 08/29/18 20:05 Bacterial blood culture NG NRG Bacterial blood culture - 08/29/18 21:08 QUANTITY OF GROWTH . NRG Bacterial blood culture SEE COMMEN NRG Complete urinalysis with reflex to culture [...] urine sediment by light microscopy 2-5 NRG Complete blood count (CBC) with automated white blood cell (WBC) differential - 08/30/18 01:26 Blood leukocytes automated count (number/volume) 7.8 10*3/uL 4.3-11.0 Blood erythrocytes automated count (number/volume) 4.23 10*6/uL 4.35-5.85 Venous blood hemoglobin measurement (mass/volume) 12.8 g/dL 13.3-17.7 Blood hematocrit (volume fraction) 36 % 40-54 Automated erythrocyte mean corpuscular volume 84 [foz_us] 80-99 Automated erythrocyte mean corpuscular hemoglobin (mass per erythrocyte) 30 pg 25-34 Automated erythrocyte mean corpuscular hemoglobin concentration measurement ( mass/volume) 36 g/dL 32-36 Automated erythrocyte distribution width ratio 13.5 % 10.0-14.5 Automated blood platelet count (count/volume) 174 10*3/uL 130-400 Automated blood platelet mean volume measurement 10.9 [foz_us] 7.4-10.4 Automated blood neutrophils/100 leukocytes 61 % 42-75 Automated blood lymphocytes/100 leukocytes 28 % 12-44 Blood monocytes/100 leukocytes 10 % 0-12 Automated blood eosinophils/100 leukocytes 1 % 0-10 Automated blood basophils/100 leukocytes 0 % 0-10 Blood neutrophils automated count (number/volume) 4.8 10*3 1.8-7.8 Blood lymphocytes automated count (number/volume) 2.2 10*3 1.0-4.0 Blood monocytes automated count (number/volume) 0.7 10*3 0.0-1.0 Automated eosinophil count 0.1 10*3/uL 0.0-0.3 Automated blood basophil count (count/volume) 0.0 10*3/uL 0.0-0.1 Comprehensive metabolic panel - 08/30/18 01:26 Serum or plasma sodium measurement (moles/volume) 143 mmol/L 135-145 Serum or plasma potassium measurement (moles/volume) 3.3 mmol/L 3.6-5.0 Serum or plasma chloride measurement (moles/volume) 109 mmol/L 98-107 Carbon dioxide 24 mmol/L 21-32 Serum or plasma anion gap determination (moles/volume) 10 mmol/L 5-14 Serum or plasma urea nitrogen measurement (mass/volume) 26 mg/dL 7-18 Serum or plasma creatinine measurement (mass/volume) 1.72 mg/dL 0.60-1.30 Serum or plasma urea nitrogen/creatinine mass ratio 15 NRG Serum or plasma creatinine measurement with calculation of estimated glomerular filtration rate 39 NRG Serum or plasma glucose measurement (mass/volume) 124 mg/dL 70-105 Serum or plasma calcium measurement (mass/volume) 9.5 mg/dL 8.5-10.1 Serum or plasma total bilirubin measurement (mass/volume) 1.4 mg/dL 0.1-1.0 Serum or plasma alkaline phosphatase measurement (enzymatic activity/volume) 82 U/L 40-136 Serum or plasma aspartate aminotransferase measurement (enzymatic activity/ volume) 51 U/L 5-34 Serum or plasma alanine aminotransferase measurement (enzymatic activity/volume ) 25 U/L 0-55 Serum or plasma protein measurement (mass/volume) 6.1 g/dL 6.4-8.2 Serum or plasma albumin measurement (mass/volume) 3.5 g/dL 3.2-4.5 CALCIUM CORRECTED 9.9 mg/dL 8.5-10.1 Magnesium - 08/30/18 01:26 Magnesium 2.1 mg/dL 1.8-2.4 Serum or plasma troponin i.cardiac measurement (mass/volume) - 08/30/18 01:26 Serum or plasma troponin i.cardiac measurement (mass/volume) 0.047 ng/mL <0.028 Capillary blood glucose measurement by glucometer (mass/volume) - 08/30/18 06: 39 Capillary blood glucose measurement by glucometer (mass/volume) 172 mg/dL 70-110 Capillary blood glucose measurement by glucometer (mass/volume) - 08/30/18 13: 49 Capillary blood glucose measurement by glucometer (mass/volume) 227 mg/dL 70-110 Capillary blood glucose measurement by glucometer (mass/volume) - 08/30/18 17: 07 Capillary blood glucose measurement by glucometer (mass/volume) 205 mg/dL 70-110 Capillary blood glucose measurement by glucometer (mass/volume) - 08/30/18 21: 18 Capillary blood glucose measurement by glucometer (mass/volume) 145 mg/dL 70-110 Capillary blood glucose measurement by glucometer (mass/volume) - 08/31/18 05: 59 Capillary blood glucose measurement by glucometer (mass/volume) 199 mg/dL 70-110 Capillary blood glucose measurement by glucometer (mass/volume) - 08/31/18 11: 09 Capillary blood glucose measurement by glucometer (mass/volume) 164 mg/dL 70-110 Capillary blood glucose measurement by glucometer (mass/volume) - 08/31/18 15: 36 Capillary blood glucose measurement by glucometer (mass/volume) 180 mg/dL 70-110 Capillary blood glucose measurement by glucometer (mass/volume) - 08/31/18 20: 37 Capillary blood glucose measurement by glucometer (mass/volume) 217 mg/dL 70-110 Automated blood complete blood count (hemogram) panel - 09/01/18 03:00 Blood leukocytes automated count (number/volume) 8.9 10*3/uL 4.3-11.0 Blood erythrocytes automated count (number/volume) 4.07 10*6/uL 4.35-5.85 Venous blood hemoglobin measurement (mass/volume) 12.2 g/dL 13.3-17.7 Blood hematocrit (volume fraction) 35 % 40-54 Automated erythrocyte mean corpuscular volume 86 [foz_us] 80-99 Automated erythrocyte mean corpuscular hemoglobin (mass per erythrocyte) 30 pg 25-34 Automated erythrocyte mean corpuscular hemoglobin concentration measurement ( mass/volume) 35 g/dL 32-36 Automated erythrocyte distribution width ratio 13.8 % 10.0-14.5 Automated blood platelet count (count/volume) 176 10*3/uL 130-400 Automated blood platelet mean volume measurement 11.7 [foz_us] 7.4-10.4 Whole blood basic metabolic panel - 09/01/18 03:00 Serum or plasma sodium measurement (moles/volume) 142 mmol/L 135-145 Serum or plasma potassium measurement (moles/volume) 3.8 mmol/L 3.6-5.0 Serum or plasma chloride measurement (moles/volume) 110 mmol/L 98-107 Carbon dioxide 21 mmol/L 21-32 Serum or plasma anion gap determination (moles/volume) 11 mmol/L 5-14 Serum or plasma urea nitrogen measurement (mass/volume) 34 mg/dL 7-18 Serum or plasma creatinine measurement (mass/volume) 1.65 mg/dL 0.60-1.30 Serum or plasma urea nitrogen/creatinine mass ratio 21 NRG Serum or plasma creatinine measurement with calculation of estimated glomerular filtration rate 41 NRG Serum or plasma glucose measurement (mass/volume) 142 mg/dL 70-105 Serum or plasma calcium measurement (mass/volume) 9.2 mg/dL 8.5-10.1 Capillary blood glucose measurement by glucometer (mass/volume) - 09/01/18 10: 34 Capillary blood glucose measurement by glucometer (mass/volume) 229 mg/dL 70-110 Capillary blood glucose measurement by glucometer (mass/volume) - 09/01/18 15: 11 Capillary blood glucose measurement by glucometer (mass/volume) 244 mg/dL 70-110 Automated blood complete blood count (hemogram) panel - 10/11/18 12:05 Blood leukocytes automated count (number/volume) 9.8 10*3/uL 4.3-11.0 Blood erythrocytes automated count (number/volume) 4.30 10*6/uL 4.35-5.85 Venous blood hemoglobin measurement (mass/volume) 12.7 g/dL 13.3-17.7 Blood hematocrit (volume fraction) 36 % 40-54 Automated erythrocyte mean corpuscular volume 83 [foz_us] 80-99 Automated erythrocyte mean corpuscular hemoglobin (mass per erythrocyte) 30 pg 25-34 Automated erythrocyte mean corpuscular hemoglobin concentration measurement ( mass/volume) 36 g/dL 32-36 Automated erythrocyte distribution width ratio 13.7 % 10.0-14.5 Automated blood platelet count (count/volume) 203 10*3/uL 130-400 Automated blood platelet mean volume measurement 10.6 [foz_us] 7.4-10.4 PT panel in platelet poor plasma by coagulation assay - 10/11/18 12:05 Prothrombin time (PT) in platelet poor plasma by coagulation assay 13.6 s 12.2-14.7 INR in platelet poor plasma or blood by coagulation assay 1.0 0.8-1.4 Activated partial thromboplastin time (aPTT) in platelet poor plasma bycoagulation assay - 10/11/18 12:05 Activated partial thromboplastin time (aPTT) in platelet poor plasma bycoagulation assay 30 s 24-35 Comprehensive metabolic panel - 10/11/18 12:05 Serum or plasma sodium measurement (moles/volume) 138 mmol/L 135-145 Serum or plasma potassium measurement (moles/volume) 4.0 mmol/L 3.6-5.0 Serum or plasma chloride measurement (moles/volume) 105 mmol/L 98-107 Carbon dioxide 23 mmol/L 21-32 Serum or plasma anion gap determination (moles/volume) 10 mmol/L 5-14 Serum or plasma urea nitrogen measurement (mass/volume) 25 mg/dL 7-18 Serum or plasma creatinine measurement (mass/volume) 1.42 mg/dL 0.60-1.30 Serum or plasma urea nitrogen/creatinine mass ratio 18 NRG Serum or plasma creatinine measurement with calculation of estimated glomerular filtration rate 49 NRG Serum or plasma glucose measurement (mass/volume) 219 mg/dL 70-105 Serum or plasma calcium measurement (mass/volume) 9.6 mg/dL 8.5-10.1 Serum or plasma total bilirubin measurement (mass/volume) 1.5 mg/dL 0.1-1.0 Serum or plasma alkaline phosphatase measurement (enzymatic activity/volume) 88 U/L 40-136 Serum or plasma aspartate aminotransferase measurement (enzymatic activity/ volume) 16 U/L 5-34 Serum or plasma alanine aminotransferase measurement (enzymatic activity/volume ) 15 U/L 0-55 Serum or plasma protein measurement (mass/volume) 6.9 g/dL 6.4-8.2 Serum or plasma albumin measurement (mass/volume) 3.9 g/dL 3.2-4.5 CALCIUM CORRECTED 9.7 mg/dL 8.5-10.1 Methicillin resistant Staphylococcus aureus (MRSA) screening culture - 12:05 Methicillin resistant Staphylococcus aureus (MRSA) screening culture NEG NRG Encounters ACCT No. Visit Date/Time Discharge Status Pt. Type Provider Facility Loc./Unit Complaint [id number] 10/17/2018 16:06:19 Document Registration [id number] 06/15/2018 09:05:06 Document Registration [id number] 10/30/2017 15:53:27 Document Registration [id number] 10/25/2017 08:24:04 Document Registration [id number] 10/20/2017 18:09:29 Document Registration [id number] 11/02/2018 09:30:00 11/02/2018 23:59:59 CLS Outpatient TOMY HOWARD MD [facility] RAD CKD STAGE 3 [id number] 10/11/2018 11:34:00 10/11/2018 17:55:00 DIS Outpatient Romulo HOWARD MD [facility] CATH LIFESTYLE LIMITING CLAUDICATION [id number] 08/29/2018 21:15:00 09/01/2018 16:00:00 DIS Inpatient DOUG JONES DO [facility] ICU POSITIVE TROPONIN, DIABETES,HTN,HYPOMAGNES [id number] 10/23/2018 15:16:13 10/23/2018 23:59:59 CLS Outpatient Oumar Umanzor [id number] 06/15/2018 09:29:22 06/15/2018 23:59:59 CLS Outpatient Oumar Umanzor [id number] 10/23/2017 15:44:18 10/23/2017 23:59:59 CLS Outpatient Oumar Umanzor [id number] 10/20/2017 18:25:52 10/20/2017 23:59:59 CLS Outpatient Boo Madison [id number] 01/23/2017 15:52:19 01/23/2017 23:59:59 CLS Outpatient Oumar Umanzor [id number] 10/03/2016 10:22:49 10/03/2016 23:59:59 CLS Outpatient Oumar Umanzor [id number] 09/29/2016 12:41:17 09/29/2016 23:59:59 CLS Outpatient Abrahan Reno [id number] 08/11/2016 10:07:45 08/11/2016 23:59:59 CLS Outpatient Oumar Umanzor [id number] 08/09/2016 14:51:05 08/09/2016 23:59:59 CLS Outpatient Isaias Garcia [id number] 08/04/2016 10:06:30 08/04/2016 23:59:59 CLS Outpatient Kole Brownlee [id number] 05/03/2016 11:20:16 05/03/2016 23:59:59 CLS Outpatient ErnaChaparroa [id number] 03/17/2016 17:05:02 03/17/2016 23:59:59 CLS Outpatient Erna Oumar [id number] 09/01/2015 10:08:27 09/01/2015 23:59:59 CLS Outpatient ErnaOumar eaton [id number] 07/30/2015 10:19:27 07/30/2015 23:59:59 CLS Outpatient Oumar Umanzor [id number] 06/19/2015 14:15:59 06/19/2015 23:59:59 CLS Outpatient Kole Brownlee [id number] 04/20/2015 11:38:21 04/20/2015 23:59:59 CLS Outpatient Kole Brownlee [id number] 02/16/2015 22:12:23 02/16/2015 23:59:59 CLS Outpatient Boo Madison [id number] 07/28/2014 16:47:49 07/28/2014 23:59:59 CLS Outpatient Oumar Umanzor [id number] 06/17/2014 14:00:33 06/17/2014 23:59:59 CLS Outpatient Nell Hebert [id number] 05/01/2014 10:38:05 05/01/2014 23:59:59 CLS Outpatient Oumar Umanzor [id number] 03/27/2014 10:50:10 03/27/2014 23:59:59 CLS Outpatient Oumar Umanzor
[2018-11-15] MEDS ORDERED: NS IV 1000 ML 1,000 ML IV SCH (09:49)
[2018-11-15] MEDS ORDERED: HEParin (CATH LAB) 2,000 ML IV ONE (09:50)
[2018-11-15] MEDS ORDERED: NS IV 1000 ML 1,000 ML ONE (09:50)
[2018-11-15] MEDS ORDERED: LIDOCAINE 1% INJ 20 ML 20 ML VIAL ONE (09:50)
[2018-11-15 10:27] LABS: HEMOGLOBIN 12.7 G/DL (13.3-17.7); MEAN PLATELET VOLUME 11.3 FL (7.4-10.4); RED CELL DISTRIBUTION WIDTH 14.3 % (10.0-14.5); WHITE BLOOD COUNT 7.2 10^3/uL (4.3-11.0)
[2018-11-15 10:32] LABS: INR 0.9 (0.8-1.4); PROTHROMBIN TIME PATIENT 12.8 SEC (12.2-14.7)
[2018-11-15] MEDS ORDERED: GABA100C PO (10:37)
[2018-11-15] MEDS ORDERED: DIPH25TA65 PO (10:37)
[2018-11-15 10:41] LABS: BILIRUBIN,TOTAL 1.5 MG/DL (0.1-1.0); CALCIUM 9.8 MG/DL (8.5-10.1); CREATININE SERUM 1.3 MG/DL (0.60-1.30); POTASSIUM 3.5 MMOL/L (3.6-5.0); TOTAL PROTEIN 7.2 GM/DL (6.4-8.2)
[2018-11-15] MEDS ORDERED: fentaNYL INJECTION 100 MCG/2 ML AMP ONE ×2 (12:25→13:18)
[2018-11-15] MEDS ORDERED: HEParin 1000 UNIT/ML (10ML VIAL) FOR BOLUS ONE (12:25)
[2018-11-15] MEDS ORDERED: MIDAZOLAM 5 MG/5 ML (VERSED) VIAL ONE ×2 (12:25→13:17)
--- NOTE | 2018-11-15 12:44 | Cardiac Procedure Note-CS/ASA ---
Pre-Procedure Note Pre-Op Procedure Note H&P Reviewed The H&P was reviewed, patient examined and no changes noted. Date H&P Reviewed: November 15, 2018 Time H&P Reviewed: 11:00 Conscious Sedation Pre-Proced Time 11:00 ASA Score 3 For ASA 3 and 4: Consider anesthesia and medical clearance. Also, for patients with a history of failed moderate sedation consider anesthesia. Airway Lungs Heart ASA score ASA 1: a normal healthy patient ASA 2: a patient with a mild systemic disease (mid diabetes, controlled hypertension, obesity ASA 3: a patient with a severe systemic disease that limits activity (angina , COPD, prior Myocardial infarction) ASA 4: a patient with an incapacitating disease that is a constant threat to life (CHF, renal failure) ASA 5: a moribund patient not expected to survive 24 hrs. (ruptured aneurysm) ASA 6: a declared brain- patient whose organs are being harvested. For emergent operations, add the letter E after the classification Mallampati Classification Grade 1 Sedation Plan Analgesia, Amnesia, Plan communicated to team members, Discussed options with patient/fam, Discussed risks with patient/fam The patient is an appropriate candidate to undergo the planned procedure, sedation, and anesthesia. The patient immediately re-assessed prior to indication. Romulo HOWARD MD November 15, 2018 12:44
[2018-11-15] MEDS ORDERED: TICAGRELOR 90 MG TABLET (BRILINTA) PO ONE (12:57)
[2018-11-15] MEDS ORDERED: hydrALAZINE (APESOLINE) 20 MG/ML VIAL ONE (13:05)
[2018-11-15] MEDS ORDERED: NITRO DRIP 25000 MCG/D5W 250 ML IV ONE (13:05)
[2018-11-15] MEDS ORDERED: HYDROmorphone 2 MG/ML VIAL (DILAUDID) ONE (13:37)
--- NOTE | 2018-11-15 16:19 | Coronary Angiography & PCI ---
Peripheral Angio & Interv DATE OF SERVICE: 11/15/18 PERFORMING INTERVENTIONALIST: Dr. Homar Jiménez INDICATION: Severe lifestyle limiting claudication. PREOPERATIVE INDICATION: Severe lifestyle limiting claudication. POSTOPERATIVE DIAGNOSIS: Severe right anterior tibial and posterior tibial occlusive disease, successful balloon angioplasty. HISTORY: This is a 73-year-old gentleman with previous history of CAD and PCI on 08/31/2018. He complained of right lower extremity lifestyle limiting claudication. He is on excellent medical therapy for CAD/PAD including dual antiplatelet therapy and high-dose statin. He continues to have significant limitation. Patient also has chronic kidney disease stage 3/4. We previously did a peripheral angiogram which showed severe occlusive disease of the right anterior tibial artery as well as the posterior tibial artery. The deep peroneal artery was a single-vessel runoff. Staged peripheral intervention to the right below the knee is recommended. PROCEDURE PERFORMED: 1. Second order catheter placement and selective angiogram of the right popliteal artery and below the knee runoff. 2. Balloon angioplasty to the right anterior tibial artery. 3. Balloon angioplasty to the right posterior tibial artery. SPECIMENS: None. ANESTHESIA: Conscious sedation. BLOOD LOSS: 20 mL. COMPLICATIONS: None. CONTRAST USED: 114 ml. FLUOROSCOPY DOSE: 268 Mgy. FLUOROSCOPY TIME: 22.9 minutes. ANTICOAGULATION: IV heparin DESCRIPTION OF PROCEDURE: The patient was brought to the catheterization laboratory technician after informed consent was taken. All the risks and complications were explained in detail. The patient was draped and prepped in the usual sterile fashion. Access was gained in the left femoral artery with a 6 Lao sheath. We advanced a rim catheter as well as a glide wire and performed a crossover into the right lower extremity. The tip of the wire was in the right SFA. The rim catheter was advanced into the SFA. The Glidewire was exchanged for a Storq wire and then the rim catheter was taken out. We then exchanged the sheath to a 6 x 90 cm flexor sheath. The tip of the sheath was placed in the proximal right popliteal artery. Selective angiogram of the right popliteal artery and below the knee runoff was performed. FINDINGS: Mild disease of the right popliteal artery. Severe occlusive disease of the right anterior tibial artery with very distal reconstitution close to the ankle joint. Patent right deep peroneal artery. Severe long occlusive disease of the right posterior tibial artery with very distal reconstitution close to the ankle joint. RECOMMENDATIONS: PHP MYSQL DEVELOPER to the right anterior tibial artery is recommended. PHP MYSQL DEVELOPER to the right posterior tibial artery is recommended. INTERVENTIONAL DETAILS: IV heparin was given. ACT was done once which was 217 seconds. We took a command 014 wire with a 2.0 x 200mm balloon. With difficulty we were able to get into the right anterior tibial artery and very gradually advanced distally to the ankle joint. The 2.0 balloon was advanced till the very distal right anterior tibial artery and balloon angioplasty done at 12 salty for 3 minutes. The balloon was then pulled back to the mid and proximal segment of the anterior tibial artery and another inflation done at 14 salty for 183 seconds. We then took an [place] 14 3.0 x 120 balloon and performed a balloon angioplasty of the proximal and midsegment of the right anterior tibial artery at 10 salty for 119 seconds and 8 salty for 61 seconds respectively. The balloon was taken out and post-angiogram showed significant reconstitution with distal disease but with good flow to the foot through the right anterior tibial artery as well. We then took the same wire and were able to cross the occlusive section of the ostium of the right posterior tibial artery. We carefully advanced it till the mid to distal segment. We then took the same 2.0 x 200 balloon however the balloon tip only cross the ostium. We therefore did a balloon angioplasty at 14 salty for 74 seconds. We then took the balloon out and took a new balloon which was a coyote 2.0 x 1 50 balloon. We were able to advance to mid segment of the posterior tibial artery and did another balloon angioplasty at 12 salty for 181 seconds. Please note that we were not able to advanced any further. The balloon was taken out and post-angiogram showed good flow to the mid and distal segment of the right posterior tibial artery however there is still significant disease distally. At this point in time we stopped and final picture showed 2-1/2 runoff to the foot. A quick picture at the bifurcation showed no damage. The long sheath was taken out and exchange for a short sheath. Minx closure of the left femoral artery was performed. CONCLUSION: Successful balloon angioplasty to occlusive disease in the right anterior tibial and posterior tibial artery. Continue dual antiplatelet therapy. High dose statin therapy. Continue IV fluids. Check BUN/creatinine the morning. Homar Jiménez MD, FACP, FACC, [facility] Vascular Medicine and Endovascular Interventions Romulo JIMÉNEZ MD November 15, 2018 16:19
[2018-11-15] MEDS ORDERED: PATIENT MAY USE OWN MEDS, ALL PO SCH (16:30)
[2018-11-15] MEDS: NS IV 1000 ML 1,000 ML IV SCH (17:07)
[2018-11-15] MEDS: TICAGRELOR 90 MG TABLET (BRILINTA) PO SCH (23:22)
--- NOTE | 2018-11-16 02:36 | NUR ---
Patient c/o nausea, and generally not feeling well. VS taken, and blood pressure noted to be high at 177/97. Dr. Jiménez called and orders received for zofran 4mg once and norvasc 10mg once. Will continue to monitor.
[2018-11-16] MEDS ORDERED: amLODIPine 10 MG (NORVASC) TAB PO ONE (02:45)
[2018-11-16] MEDS ORDERED: ONDANSETRON 4 MG (ZOFRAN) ORAL DISSOLVE TAB PO ONE (02:45)
[2018-11-16] MEDS ORDERED: amLODIPine 10 MG (NORVASC) TAB ONE (02:49)
[2018-11-16] MEDS ORDERED: ONDANSETRON 4 MG (ZOFRAN) ORAL DISSOLVE TAB ONE (02:49)
[2018-11-16] MEDS: NS IV 1000 ML 1,000 ML IV SCH (02:57)
[2018-11-16 04:14] LABS: HEMOGLOBIN 12.4 G/DL (13.3-17.7); MEAN PLATELET VOLUME 11.5 FL (7.4-10.4); RED CELL DISTRIBUTION WIDTH 14.2 % (10.0-14.5)
[2018-11-16 04:29] VITALS: BP 156/88
[2018-11-16 04:31] LABS: CALCIUM 9.6 MG/DL (8.5-10.1); CREATININE SERUM 1.27 MG/DL (0.60-1.30); POTASSIUM 3.6 MMOL/L (3.6-5.0)
--- NOTE | 2018-11-16 08:12 | Cardiology Discharge Summary ---
Diagnosis/Chief Complaint Date of Admission 11/15/2018 Date of Discharge 11/16/2018 Admission Diagnosis Lifestyle limiting claudication Final/Discharge Diagnosis Successful [employer] to Right Anterior tibial artery and right posterior tibial artery. Chief Complaint/HPI Chief Complaint/HPI This is a 73-year-old gentleman with previous history of CAD and PCI on 2018. He complained of right lower extremity lifestyle limiting claudication. He is on excellent medical therapy for CAD/PAD including dual antiplatelet therapy and high-dose statin. He continues to have significant limitation. Patient also has chronic kidney disease stage 3/4. We previously did a peripheral angiogram which showed severe occlusive disease of the right anterior tibial artery as well as the posterior tibial artery. The deep peroneal artery was a single-vessel runoff. Staged peripheral intervention to the right below the knee is recommended. Discharge Summary Procedures Successful [employer] to Right Anterior Tibial Artery. Right Posterior tibial artery was revascularized till the mid segment. Distal occlusion. Discharge Physical Examination Unremarkable Hospital Course Was the Problem List Reviewed?: Yes Unremarkable Pending Labs Laboratory Tests 11/16/18 04:00: White Blood Count 9.0, Red Blood Count 4.22, Hemoglobin 12.4, Hematocrit 36, Mean Corpuscular Volume 85, Mean Corpuscular Hemoglobin 29, Mean Corpuscular Hemoglobin Concent 34, Red Cell Distribution Width 14.2, Platelet Count 163, Mean Platelet Volume 11.5, Sodium Level 141, Potassium Level 3.6, Chloride Level 110, Carbon Dioxide Level 18, Anion Gap 13, Blood Urea Nitrogen 21, Creatinine 1.27, Estimat Glomerular Filtration Rate 56, BUN/Creatinine Ratio 17 , Glucose Level 141, Calcium Level 9.6 Discussion & Recommendations Discussion Discharge instructions discussed at length with patient. Compliance with Brilinta strongly recommended. Follow up appt.: Dr Jiménez at previously scheduled appointment Dicharge Diet: Cardiac Diet Activity as Tolerated: Yes Home Medications Reviewed patient Home Medication Reconciliation performed by pharmacy medication reconciliations commercial kitchen service technician and/or nursing. Patients Allergies have been reviewed. Discharge Home Medications: Reviewed and agree with Discharge Medication list on patient's Discharge Instruction sheet Condition at discharge stable Instructions to patient/family discussed Romulo JIMÉNEZ MD November 16, 2018 08:12
--- NOTE | 2018-11-16 08:13 | Discharge Inst-Post CATH ---
Discharge Inst-CATH/EP Post Cardiac Cath/EP D/C Inst Follow Up/Plan Dr Jiménez at previously scheduled appointment. <b>CARDIAC CATH/EP PROCEDURE DISCHARGE INSTRUCTIONS</b> Cardiac Rehab Please be expecting a follow up call from Cardiac Rehab within in one week. ACTIVITY * Go Home directly and rest. * Limit activity of the leg (or wrist if it was used) for 7 days including aerobics, swimming, jogging, bicycling, etc. * Restrict stair-climbing for 7 days if possible, if not, climb up with your non -cath leg, then bring together on the same step. * Avoid lifting, pushing, pulling or excessive movement of the affected extremity for 7 days. * Customary sexual activity may be resumed after 2 days-use caution not to use a position that strains or causes pain to the affected extremity. * No driving for 24 hours. * NO SMOKING. * Avoid straining for bowel movements for 7 days. * Gentle walking on level ground is allowed. * Returning to work will depend on the type of procedure and the results. Your doctor will discuss this with you. CALL YOUR DOCTOR FOR ANY OF THE FOLLOWING: *If bleeding from the puncture site occurs- Apply gentle pressure to site with clean cloth and call your doctor or EMS. * If a knot or lump forms under the skin, increases in size, or causes pain. * If bruising appears to be worsening or moving further down your leg instead of disappearing. * Temperature above 101 F. CARE OF YOUR GROIN INCISION; * Bruising or purple discoloration of the skin near the puncture site is common. * You may shower only, no bathtub bathing for 5 days. Be careful to avoid slipping as your leg may feel stiff. * If a closure device was used on your femoral artery, please see the attached guide regarding care of the device and your leg. * Leave dressing on FOR 24 hours. CARE OF YOUR WRIST INCISION; * Bruising or purple discoloration of the skin near the puncture site is common. * You may shower. * DO NOT submerge wrist. * Leave dressing on FOR 24 hours. Romulo JIMÉNEZ MD November 16, 2018 08:13
[2018-11-16] MEDS ORDERED: ASPIRIN E.C. 81 MG (ECOTRIN) TAB PO SCH (09:00)
[2018-11-16] MEDS: TICAGRELOR 90 MG TABLET (BRILINTA) PO SCH (09:08)
== END 2018-11-16 12:24 | disposition home or self-care (01) ==
LOC: CATH 09:24 → ICU 14:55 → CATH 11-16 12:24
PROVIDERS: ATTEND Internal Medicine Interventional Cardiology
DX: I70.201 Unspecified atherosclerosis of native arteries of extremities, right leg (principal); I25.10 Atherosclerotic heart disease of native coronary artery without angina pectoris; N18.4 Chronic kidney disease, stage 4 (severe); I12.9 Hypertensive chronic kidney disease with stage 1 through stage 4 chronic kidney disease, or unspecified chronic kidney disease; I25.2 Old myocardial infarction; E78.5 Hyperlipidemia, unspecified; I65.23 Occlusion and stenosis of bilateral carotid arteries; Z80.8 Family history of malignant neoplasm of other organs or systems; E11.22 Type 2 diabetes mellitus with diabetic chronic kidney disease; I35.0 Nonrheumatic aortic (valve) stenosis; M54.9 Dorsalgia, unspecified; Z79.02 Long term (current) use of antithrombotics/antiplatelets; Z95.5 Presence of coronary angioplasty implant and graft; Z79.899 Other long term (current) drug therapy; Z79.82 Long term (current) use of aspirin
CPT/HCPCS: 36415; 80048; 80053; 85027; 85347; 85610; 85730; 87081

== ENCOUNTER 2019-05-06 17:28 | Emergency (ER) | payer MEDICARE ==
[~2019-05-06] VITALS: Ht 164.7 cm; Wt 81.8 kg
[~2019-05-06 17:28] MED LIST changes: +DIPH25TA65 PO; -DULO60CA58 PO; +DULO60CA59 PO; +GABA100C PO
--- NOTE | 2019-05-06 19:10 | ED Lower Extremity ---
General Chief Complaint: Lower Extremity Stated Complaint: OPEN WOUND ON HIS RT FOOT Nursing Triage Note: Pt amb to triage with personal walker assist, with c/o open wound to rt medial heel. Daughter @ side reports approx x1wk ago, what she believed to be a blood blister appeared to pt Rt medial heel. Daughter reports on 05/01/19 blister ruptured and pt was seen @ Dr. Calvillo office who advised pt obtain diabetic shoes and proper drsg. Daughter @ side reports wound has increased in size and severity. Pt reports uncontrolled diabetes. Nursing Sepsis Screen: No Definite Risk Source: patient, family Exam Limitations: clinical condition (dementia) History of Present Illness Date Seen by Provider: May 06, 2019 Time Seen by Provider: 18:48 Initial Comments Patient resents to ER by private conveyance with chief complaint of a blister secondary to ill fitting shoes on his left heel that opened up approximately one week ago. His family members have been caring for with triple antibiotic ointment and dressings and the skin continues to feel backwards exposing more dermis which has been concerned because another family member who is diabetic also had a large cavitating diabetic ulcer. She's been trying to offload the wound is much possible. He is using a walker to get around because the pain. He is not having significant pain at the moment as he lays here and does not want anything for pain. He's had no fevers chills nausea vomiting. He is not on antibiotics for now. He says his blood sugars have been running around 160 fasting. He follows with a primary care doctor in [place] but is attempting to switch doctors to Dr. Ruiz when she has an opening available. Allergies and Home Medications Allergies Coded Allergies: No Known Drug Allergies (Unverified , 08/29/18) Home Medications Amlodipine Besylate 10 Mg Tablet, 10 MG PO 1800, (Reported) Aspirin 81 Mg Tablet.dr, 81 MG PO 1800, (Reported) Atorvastatin Calcium 80 Mg Tablet, 80 MG PO HS, (Reported) Cranberry Fruit Concentrate 450 Mg Capsule, 450 MG PO 1800, (Reported) Diphenhydramine HCl 25 Mg Tablet, 25 MG PO HS, (Reported) Duloxetine HCl 60 Mg Capsule.dr, 60 MG PO 1800, (Reported) Finasteride 5 Mg Tablet, 5 MG PO 1800, (Reported) Gabapentin 100 Mg Capsule, 100 MG PO DAILY PRN PRN for PAIN-MILD, (Reported) Insulin Aspart 300 Units/3 Ml Solution, 8 UNITS SQ QID PRN for BS >150, (Reported) Insulin Glargine,Hum.rec.anlog 100 Unit/1 Ml Insuln.pen, 25 UNIT SQ HS, (Reported) Metoprolol Succinate 100 Mg Tab.er.24h, 100 MG PO 1800, (Reported) Oxybutynin Chloride 5 Mg Tablet, 5 MG PO BID, (Reported) Tamsulosin HCl 0.4 Mg Cap, 0.4 MG PO 1800, (Reported) Ticagrelor 90 Mg Tablet, 90 MG PO BID, (Reported) Patient Home Medication List Home Medication List Reviewed: Yes Review of Systems Constitutional: No chills, No diaphoresis EENTM: No ear discharge, No ear pain Respiratory: No cough, No dyspnea on exertion Cardiovascular: No chest pain, No palpitations Gastrointestinal: No abdominal pain, No constipation, No diarrhea Genitourinary: No discharge, No dysuria Skin: see HPI Past Pzmpnhm-Vlwfeh-Whfzep Hx Patient Social History Alcohol Use: Denies Use Recreational Drug Use: No Smoking Status: Never a Smoker 2nd Hand Smoke Exposure: No Recent Foreign Travel: No Contact w/Someone Who Travel: No Recent Infectious Disease Expo: No Recent Hopitalizations: No Physical Abuse: No Sexual Abuse: No Mistreated: No Fear: No Immunizations Up To Date Date of Pneumonia Vaccine: Apr 29, 2018 Date of Influenza Vaccine: Apr 29, 2018 Seasonal Allergies Seasonal Allergies: No Past Medical History Surgeries: Yes (FUSION OF L2-3-4-5; KIDNEY STONE SURGERY) Gallbladder, Orthopedic, Renal Respiratory: No Cardiac: Yes Coronary Artery Disease, Heart Attack, Heart Murmur, High Cholesterol, Hypertension, Valvular Heart Disease Neurological: No Genitourinary: Yes Benign Prostatic Hyperpl, Prostate Problems, Kidney Stones Gastrointestinal: No Musculoskeletal: Yes Degenerate Disk Disease, Arthritis, Chronic Back Pain Endocrine: Yes Diabetes, Insulin dep Are Your Blood Sugars Over 250: Yes HEENT: No Cancer: No Psychosocial: Yes Anxiety, Depression Integumentary: No Recent Skin Changes Blood Disorders: No Adverse Reaction/Blood Tranf: No Family Medical History Cardiovascular disease 19 MOTHER Colon cancer 19 MOTHER Dementia 19 FATHER Physical Exam Vital Signs Vital Signs - First Documented 05/06/19 17:49 Temp 36.3 Pulse 82 Resp 17 B/P (MAP) 125/66 (85) Pulse Ox 99 O2 Delivery Room Air Capillary Refill : Less Than 3 Seconds Height, Weight, BMI Height: 5'6.00" Weight: 193lbs. 0.0oz. 87.438240sc; 30.00 BMI Method:Stated General Appearance: WD/WN, no apparent distress HEENT: PERRL/EOMI, pharynx normal (oral mucosa is moist) Cardiovascular: normal peripheral pulses, regular rate, rhythm (60-70 bpm), no edema Respiratory: no respiratory distress, no accessory muscle use Ankles: bilateral ankle non-tender, bilateral ankle normal inspection, bilateral ankle normal range of motion, bilateral ankle no evidence of injury Feet: left foot non-tender, left foot normal inspection; bilateral foot normal range of motion; left foot no evidence of injury Neurologic/Tendon: normal sensation, normal motor functions, normal tendon functions, responds to pain Neurologic/Psychiatric: no motor/sensory deficits, alert, normal mood/affect Skin: other (4 x 5 cm open area of skin over the left heel with beefy-red dermis underneath that does not appear devitalized. There is minor undermining approximately 1 cm around the circumference. No exudate or purulence. Capillary refill is less than 2 seconds.) Progress/Results/Core Measures Results/Orders Vital Signs/I&O 05/06/19 17:49 Temp 36.3 Pulse 82 Resp 17 B/P (MAP) 125/66 (85) Pulse Ox 99 O2 Delivery Room Air Blood Pressure Mean: 85 POS FSBG Bedside Testing Finger Stick Blood Glucose: 179 Blood Glucose Action Taken: Notified provider. Progress Progress Note : Time: 19:07 Progress Note Aseptic vital signs, noninfected wound and blood sugar is 179. Plan to make referral to wound care for tomorrow and put him on oral antibiotics. We have given instructions to use Vaseline or Xeroform and a semi-bulky gauze dressing as well as we'll put him in a cota shoe to help offload some of the pressure from the wound. We have also instructed the patient to keep his foot elevated and given instruction on offloading pressure off the heel. Departure Impression Primary Impression: Pressure ulcer of right heel, unstageable Disposition: 01 HOME, SELF-CARE Condition: Stable Departure-Patient Inst. Decision time for Depature: 19:08 Referrals: NO,LOCAL PHYSICIAN (PCP/Family) Primary Care Physician Patient Instructions: Pressure Sores (DC) Add. Discharge Instructions: Wear the orthotic shoe when walking to help redistribute the weight. Change the dressing daily or as often as it becomes soiled. You can use either Xeroform or Vaseline and gauze applied directly over the wound after cleaning with regular soap and water. Wrap in Kerlix or loose gauze. Keep the foot elevated and offload all pressure off the heel at all times. Minim maryanne walking. Tomorrow morning call Dr. Weir, wound care and request follow-up as soon as possible for staging and management of your wound. Keflex one capsule 3 times a day with food for the next 7 days. Take probiotics one capsule twice a day while on antibiotics to reduce the incidence of antibacterial associated diarrhea. All discharge instructions reviewed with patient and/or family. Voiced understanding. Scripts Cephalexin (Keflex) 500 Mg Capsule 500 MG PO TID for 7 Days, #21 CAP 0 Refills Prov: MARKELL CELESTE 05/06/19 Copy Copies To 1: CHRISTOPHER MONGE MD, TITUS J May 06, 2019 19:10 POS
[2019-05-06] MEDS ORDERED: CEPH-507 PO (19:12)
--- NOTE | 2019-05-06 19:20 | NUR ---
Right foot wound cleaned with sterile saline and surgical scrub. Xeroform guaze placed over wound with telfa covering the xeroform. Site wrapped with kerlix. Post op shoe placed on right foot.
[2019-05-06 19:37] VITALS: BP 137/76
== END 2019-05-06 19:40 | disposition home or self-care (01) ==
LOC: EDUNIT# 17:28 → ER 17:30
DX: L89.610 Pressure ulcer of right heel, unstageable (principal); E11.9 Type 2 diabetes mellitus without complications; I10 Essential (primary) hypertension; F41.9 Anxiety disorder, unspecified; F32.9 Major depressive disorder, single episode, unspecified; I25.10 Atherosclerotic heart disease of native coronary artery without angina pectoris; I25.2 Old myocardial infarction; E78.00 Pure hypercholesterolemia, unspecified; Z87.442 Personal history of urinary calculi; Z79.82 Long term (current) use of aspirin; Z79.4 Long term (current) use of insulin; Z82.49 Family history of ischemic heart disease and other diseases of the circulatory system; Z80.0 Family history of malignant neoplasm of digestive organs
CPT/HCPCS: 82962